=== PATIENT | male | born 1960 | race Caucasian/White ===

== ENCOUNTER 2016-09-14 06:53 | Day surgery (SDC) | payer OTHER ==
[~2016-09-14 06:53] MED LIST: DEXAMETHASONE INJECTION 10 MG in SODIUM CHLORIDE 50 ML IVPB ONE; FLUOROURACIL 4,100 MG in SODIUM CHLORIDE 10 ML CP ONE; PALONOSETRON HCL 0.25 MG in SODIUM CHLORIDE 50 ML IVPB ONE
[2016-09-14] MEDS ORDERED: DEXAMETHASONE INJECTION 10 MG in SODIUM CHLORIDE 50 ML IVPB ONE (08:00)
[2016-09-14] MEDS ORDERED: PALONOSETRON HCL 0.25 MG in SODIUM CHLORIDE 50 ML IVPB ONE (08:00)
[2016-09-14] MEDS ORDERED: DEXTROSE 5%-WATER - 250 ML IVPB ONE (08:00)
[2016-09-14] MEDS ORDERED: LEUCOVORIN INJECTION - 684 MG in DEXTROSE 5%-WATER - 250 ML IVPB ONE (08:30)
[2016-09-14] MEDS ORDERED: OXALIPLATIN 145 MG in DEXTROSE 5%-WATER - 500 ML IV ONE (08:30)
[2016-09-14 09:23] LABS: BASOPHIL 1.8 % (0-2.0); EOSINOPHIL 2.7 % (0-4.5); MCHC 34.9 g/dl (32.0-35.9); MEAN CELL VOLUME 94.7 fl (80-96); MEAN PLT VOLUME 6.9 fl (7.5-11.1); NEUTROPHILS 62.2 % (42.8-82.8); PLATELET COUNT 351 K/MM3 (134-434); RDW 20.3 % (11.9-15.9); WHITE BLOOD COUNT 7.3 K/mm3 (4.0-10.0)
[2016-09-14 09:40] LABS: ALBUMIN 3.4 g/dl (3.4-5.0); ANION GAP 9 (8-16); BILIRUBIN,TOTAL 0.5 mg/dL (0.2-1.0); CALCIUM 9.1 mg/dL (8.5-10.1); CO2 28 mmol/L (21-32); CREATININE 1.3 mg/dL (0.7-1.3); GLUCOSE,RANDOM 104 mg/dL (74-106); SGPT/ALT 20 U/L (12-78); TOT PROT 7.3 g/dl (6.4-8.2)
[2016-09-14 09:43] LABS: BILIRUBIN,DIRECT < 0.1 mg/dL (0.0-0.2); MAGNESIUM 1.8 mg/dL (1.8-2.4); SGOT/AST 24 U/L (15-37)
[2016-09-14 09:44] LABS: ALK PHOS 239 U/L (45-117)
[2016-09-14] MEDS ORDERED: FLUOROURACIL 4,100 MG in SODIUM CHLORIDE 10 ML CP ONE (10:30)
[2016-09-14] MEDS ORDERED: FLUOROURACIL 500 MG/10 ML VIAL IVPUSH ONE (10:30)
[2016-09-14 17:33] VITALS: BP 102/65; PULSE 80; TEMP 97.7; BMI 20.9
== END 2016-09-14 15:00 | disposition home or self-care (01) ==
LOC: JCHEMO 06:53 → JONCCHEMO 06:53 → J7W 06:54 → JCHEMO 15:00
PROVIDERS: ATTEND Internal Medicine Hematology & Oncology
DX: Z51.11 Encounter for antineoplastic chemotherapy (principal); C20 Malignant neoplasm of rectum; I10 Essential (primary) hypertension
CPT/HCPCS: 36415; 80053; 80076; 83735; 85025; 96361; 96366; 96368; 96411; 96413; 96415; 96417; G0498; J2469; J9190; J9263

== ENCOUNTER 2016-09-28 06:21 | Day surgery (SDC) | payer OTHER ==
[2016-09-28] MEDS ORDERED: DEXTROSE 5%-WATER - 250 ML IVPB ONE (08:00)
[2016-09-28] MEDS ORDERED: PALONOSETRON HCL 0.25 MG in SODIUM CHLORIDE 50 ML IVPB ONE (08:00)
[2016-09-28] MEDS ORDERED: DEXAMETHASONE INJECTION 10 MG in SODIUM CHLORIDE 50 ML IVPB ONE (08:00)
[2016-09-28] MEDS ORDERED: LEUCOVORIN INJECTION - 684 MG in DEXTROSE 5%-WATER - 250 ML IVPB ONE (08:30)
[2016-09-28] MEDS ORDERED: OXALIPLATIN 145 MG in DEXTROSE 5%-WATER - 500 ML IV ONE (08:30)
[2016-09-28 09:15] LABS: BASOPHIL 0.6 % (0-2.0); EOSINOPHIL 3.4 % (0-4.5); MCH 33.4 pg (25.7-33.7); MCHC 34.7 g/dl (32.0-35.9); MEAN PLT VOLUME 7.4 fl (7.5-11.1); NEUTROPHILS 59.7 % (42.8-82.8); PLATELET COUNT 302 K/MM3 (134-434); RDW 20.5 % (11.9-15.9); WHITE BLOOD COUNT 6.3 K/mm3 (4.0-10.0)
[2016-09-28 09:37] LABS: ALBUMIN 3.1 g/dl (3.4-5.0); ANION GAP 10 (8-16); BILIRUBIN,TOTAL 0.5 mg/dL (0.2-1.0); CALCIUM 8.8 mg/dL (8.5-10.1); CO2 24 mmol/L (21-32); CREATININE 1.2 mg/dL (0.7-1.3); GLUCOSE,RANDOM 112 mg/dL (74-106); SGOT/AST 29 U/L (15-37); SGPT/ALT 23 U/L (12-78)
[2016-09-28 09:40] LABS: ALK PHOS 217 U/L (45-117); TOT PROT 6.7 g/dl (6.4-8.2)
[2016-09-28] MEDS ORDERED: FLUOROURACIL 500 MG/10 ML VIAL IVPUSH ONE (10:30)
[2016-09-28] MEDS ORDERED: FLUOROURACIL 4,100 MG in SODIUM CHLORIDE 10 ML CP ONE (10:45)
[2016-09-28 16:20] VITALS: TEMP 98.1; BMI 21.7
[2016-09-28 16:39] VITALS: BP 134/81; PULSE 78
== END 2016-09-28 15:17 | disposition home or self-care (01) ==
LOC: JONCCHEMO 06:21 → J7W 09:47 → JONCCHEMO 15:17
PROVIDERS: ATTEND Internal Medicine Hematology & Oncology
DX: Z51.11 Encounter for antineoplastic chemotherapy (principal); C20 Malignant neoplasm of rectum
CPT/HCPCS: 36415; 80053; 85025; 96413; 96415; G0498; J2469; J9190; J9263

== ENCOUNTER 2017-03-02 08:00 | Day surgery (SDC) | payer OTHER ==
[2017-03-02 08:15] VITALS: BMI 23.4
[2017-03-02] MEDS ORDERED: PROPOFOL 20 ML ONE (08:36)
[2017-03-02] MEDS ORDERED: LIDOCAINE HCL/PF 2% SDV 5ML VIAL ONE (08:36)
[2017-03-02 09:27] VITALS: TEMP 97.7
[2017-03-02 11:19] VITALS: BP 132/88; PULSE 73
--- NOTE | 2017-03-03 16:26 | PATH ---
Surgical Pathology Report Patient Name: RAMONE MÉNDEZ [facility]. Rec. #: [id number] /Age/Gender: 1960 (Age: 56) / M Account: [id number] Location: U-ENDOSCOPY Taken: 03/02/2017 Received: 03/02/2017 Reported: 03/03/2017 Physicians: Justin Littlejohn M.D. Specimen(s) Received BX RECTUM STRICTURE Clinical History History of rectal adenocarcinoma Rectal stricture at carcinoma site, r/o radiation versus malignant stricture Final Diagnosis RECTAL STRICTURE, BIOPSY: ULCERATED RECTAL MUCOSA WITH ASSOCIATED MARKED ACTIVE AND CHRONIC INFLAMMATION, INFLAMED GRANULATION TISSUE, NECROINFLAMMATORY DEBRIS, MILD LAMINA PROPRIA FIBROSIS AND HYPERPLASTIC CHANGE (SEE COMMENT). NO DYSPLASIA OR CARCINOMA/MALIGNANCY IDENTIFIED. NO HISTOLOGIC EVIDENCE OF VIRAL CYTOPATHIC EFFECT. Comment: The findings, while not specific, may represent a radiation related injury. Electronically Signed Vincent Rodriguez M.D. Gross Description Received in formalin, labeled "biopsy rectal stricture" are 5 serna, irregular portions of soft tissue ranging from 0.2-0.4 cm in greatest dimension. The specimens are submitted in toto in one cassette. 03/02/201703/02/2017
== END 2017-03-02 10:22 | disposition home or self-care (01) ==
LOC: JASU-ENDO 08:00
PROVIDERS: ATTEND Internal Medicine Gastroenterology
PROC: 0DBP8ZX Excision of Rectum, Via Natural or Artificial Opening Endoscopic, Diagnostic (ICD-10-PCS; principal; 2017-03-02 09:00)
DX: Z12.11 Encounter for screening for malignant neoplasm of colon (principal); K62.4 Stenosis of anus and rectum; K64.8 Other hemorrhoids; Z85.048 Personal history of other malignant neoplasm of rectum, rectosigmoid junction, and anus
CPT/HCPCS: 88305-TC

== ENCOUNTER 2017-03-06 04:45 | Inpatient (IN) | payer OTHER ==
[2017-03-06] MEDS ORDERED: ONDANSETRON 4 MG/2 ML VIAL IVPB ONE (05:24)
[2017-03-06] MEDS ORDERED: ONDANSETRON 4 MG/2 ML VIAL ONE ×2 (05:24)
[2017-03-06 05:37] VITALS: BMI 24.3
[2017-03-06] MEDS ORDERED: SODIUM CHLORIDE 0.9% 1000 ML INFUS.BAG IV ONE (05:43)
[2017-03-06 06:00] LABS: BASOPHIL 0.1 % (0-2.0); MCH 30.9 pg (25.7-33.7); MCHC 33.5 g/dl (32.0-35.9); MEAN CELL VOLUME 92.2 fl (80-96); MEAN PLT VOLUME 8.5 fl (7.5-11.1); NEUTROPHILS 85.6 % (42.8-82.8); PLATELET COUNT 568 K/MM3 (134-434); RDW 14.2 % (11.9-15.9)
[2017-03-06 06:31] LABS: ALBUMIN 3.3 g/dl (3.4-5.0); ALK PHOS 161 U/L (45-117); ANION GAP 17 (8-16); CALCIUM 8.4 mg/dL (8.5-10.1); CO2 17 mmol/L (21-32); CREATININE 2.1 mg/dL (0.7-1.3); GLUCOSE,RANDOM 185 mg/dL (74-106); SGOT/AST 21 U/L (15-37); SGPT/ALT 23 U/L (12-78); TOT PROT 7.3 g/dl (6.4-8.2)
--- NOTE | 2017-03-06 06:37 | PDOC ---
History of Present Illness - General Chief Complaint: Pain, Acute Stated Complaint: ABD PAIN, VOMITING, FEVER Time Seen by Provider: 03/06/17 05:23 - History of Present Illness Initial Comments: 03/06/17 06:37 CHIEF COMPLAINT: vomiting HISTORY OF PRESENT ILLNESS: 56 yo M with hx HTN, kidney stones, of colon cancer (s/p radiation & chemotherapy, awaiting surgery) presents to ED with vomiting since 1 pm yesterday. Patient states that he recently went for endoscopy which was unsuccessful "because they couldn't pass it all the way through. He is waiting for surgery on Tuesday with Dr. Miller to remove the tumor." Patient states he "has a little" lower abdominal pain. Patient's last BM was yesterday afternoon around 1 pm. Patient's mother reports that he "was supposed to get ready for his colonoscopy on Tuesday, but he didn't read the instructions of the stuff he was supposed to drink and he ate prior to drinking it. He started vomiting at that time, but then he went for the colonoscopy on Tuesday and it stopped." PCP: Rod Oncology: Ines GI: Eron Urology: Kyra Surgeon: PAST MEDICAL HISTORY: as per HPI FAMILY HISTORY: Denies SOCIAL HISTORY: Denies tobacco, alcohol, illicit drug use. SURGICAL HISTORY: Denies ALLERGIES: No known drug allergies REVIEW OF SYSTEMS General/Constitutional: Denies fever or chills. Denies weakness, weight change. HEENT: Denies change in vision. Denies ear pain or discharge. Denies sore throat. Cardiovascular: Denies chest pain or shortness of breath. Respiratory: Denies cough, wheezing, or hemoptysis. Gastrointestinal: Vomiting since yesterday afternoon. Denies diarrhea or constipation. Denies rectal bleeding. Genitourinary: Denies dysuria, frequency, or change in urination. Musculoskeletal: Denies joint or muscle swelling or pain. Denies neck or back pain. Skin and breasts: Denies rash or easy bruising. Neurologic: Denies headache, vertigo, loss of consciousness, or loss of sensation. PHYSICAL EXAM General Appearance: Ill-appearing, vomiting. HEENT: EOMI, PERRLA, normal ENT inspection, normal voice, TMs normal, pharynx normal. No conjunctival pallor. No photophobia, scleral icterus. Respiratory/Chest: Lungs CTAB. Cardiovascular: RRR. S1, S2. No JVD, murmur, bradycardia, tachycardia. Vascular Pulses: Dorsalis-Pedis (R): 2+, Dorsalis-Pedis (L): 2+ Gastrointestinal/Abdominal: Distended, rigid abdomen. Actively vomiting dark brown emesis. No organomegaly, hernia, hepatomegaly, splenomegaly. Musculoskeletal/Extremities: Normal inspection. FROM of all extremities, normal capillary refill. Pelvis Stable. No CVA tenderness. No tenderness to extremities, pedal edema, swelling, erythema or deformity. Integumentary: Pale, diaphoretic. No cyanosis, erythema, or rash Neurologic: er manager II-XII intact. Fully oriented, alert. Appropriate mood/affect. Motor strength 5/5. No appreciable EOM palsy, facial droop or sensory deficit. Past History - Past Medical History Allergies/Adverse Reactions: Allergies Allergy/AdvReac Type Severity Reaction Status Date / Time No Known Allergies Allergy Verified 03/06/17 05:09 Home Medications: Ambulatory Orders Amlodipine Besylate/Benazepril [Lotrel 5-10 mg Capsule] 1 cap PO HS 03/06/17 Anemia: Yes Asthma: No Cancer: Yes (COLON CANCER 05/15-S/P RT AND CHEMO) Cardiac Disorders: No CVA: No COPD: No CHF: No Dementia: No Diabetes: No GI Disorders: No Disorders: No HTN: Yes Hypercholesterolemia: No Liver Disease: No Seizures: No Thyroid Disease: No - Surgical History Orthopedic Surgery: Yes (RIGHT KNEE SX MENISCUS) - Family Disease History Family Disease History: Heart Disease: Father - Psycho/Social/Smoking Cessation Hx Suicidal Ideation: No Smoking History: Never smoked Have you smoked in the past 12 months: No Information on smoking cessation initiated: No Hx Alcohol Use: No Drug/Substance Use Hx: No Substance Use Type: None *Physical Exam - Vital Signs Last Vital Signs Temp Pulse Resp BP Pulse Ox 99.1 F 99 H 22 113/80 99 03/06/17 05:09 03/06/17 05:09 03/06/17 05:09 03/06/17 05:09 03/06/17 05:09 ED Treatment Course - LABORATORY CBC & Chemistry Diagram: 03/12/17 06:00 03/13/17 06:30 - ADDITIONAL ORDERS Additional order review: Laboratory Results 03/06/17 05:30 WBC 12.0 H D RBC 4.93 D Hgb 15.2 D Hct 45.5 D MCV 92.2 MCH 30.9 MCHC 33.5 RDW 14.2 D Plt Count 568 H D MPV 8.5 D Neutrophils % 85.6 H D Lymphocytes % 4.7 L D Monocytes % 9.6 Eosinophils % 0.0 D Basophils % 0.1 03/06/17 05:30 RBC 4.93 D MCV 92.2 MCHC 33.5 RDW 14.2 D MPV 8.5 D Neutrophils % 85.6 H D Lymphocytes % 4.7 L D Monocytes % 9.6 Eosinophils % 0.0 D Basophils % 0.1 - RADIOLOGY Radiology Studies Ordered: Category Date Time Status ABDOMEN FLAT & UPRIGHT [RAD] Stat Radiology 03/06/17 06:29 Ordered - Medications Given in the ED: ED Medications Discontinued Medications Generic Name Dose Route Start Last Admin Trade Name Freq PRN Reason Stop Dose Admin Ondansetron HCl 8 mg 03/06/17 05:24 03/06/17 05:35 Zofran Injection IVPB 03/06/17 05:25 8 mg ONCE ONE Administration Sodium Chloride 1,000 ml 03/06/17 05:43 03/06/17 05:49 Normal Saline - IV 03/06/17 05:44 1,000 ml ONCE ONE Administration Medical Decision Making - Medical Decision Making 03/06/17 06:48 56 yo M with hx of colon cancer presents to ED with vomiting. -CBC, CMP, PT/INR, lactic acid, blood culture -UA, Ucx NGT placed, 600cc dark brown gastric content removed. Laboratory Tests 03/06/17 03/06/17 05:30 05:33 WBC 12.0 H D Plt Count 568 H D Neutrophils % 85.6 H D Sodium 133 L Carbon Dioxide 17 L D Anion Gap 17 H BUN 52 H D Creatinine 2.1 H D 03/06/17 06:42 Patient likely obstructed, abdominal x-ray ordered and Dr. Eron nava. Awaiting callback. Case discussed in detail with oncoming emergency provider including history, physical exam and ancillary studies. In brief, this patient is being seen in the ED for a chief complaint of: vomiting and abd pain in setting of colon cancer I have completed the initial assessment interview note and have ordered the following labs: CBC, CMP, PT/INR, lactic acid, blood culture Pending results: x-rays Please call the PCP: Rod Plan for disposition as follows: admit Oncoming NPA Anni has assumed care for the patient and will complete the evaluation and treatment. *DC/Admit/Observation/Transfer Diagnosis at time of Disposition: Small bowel obstruction, Lactic acid acidosis - Referrals
[2017-03-06 07:01] LABS: INR 1.43 (0.82-1.09); PROTHROMBIN TIME (PATIENT) 15.8 SEC (9.98-11.88)
[2017-03-06] MEDS ORDERED: PANTOPRAZOLE SODIUM 40 MG in SODIUM CHLORIDE 100 ML IVPB ONE (07:15)
--- NOTE | 2017-03-06 07:16 | PDOC ---
*Physical Exam - Vital Signs Last Vital Signs Temp Pulse Resp BP Pulse Ox 99.1 F 99 H 22 113/80 99 03/06/17 05:09 03/06/17 05:09 03/06/17 05:09 03/06/17 05:09 03/06/17 05:09 03/06/17 12:29 Heart Score/ECG Review - ECG Intrepretation Comment:: 03/06/17 10:25 NSR at 98bpm ED Treatment Course - LABORATORY CBC & Chemistry Diagram: 03/06/17 08:59 03/06/17 08:59 - ADDITIONAL ORDERS Additional order review: Laboratory Results 03/06/17 03/06/17 05:33 05:30 Sodium 133 L Potassium 4.1 Chloride 99 Carbon Dioxide 17 L D Anion Gap 17 H BUN 52 H D Creatinine 2.1 H D Creat Clearance w eGFR 32.83 Random Glucose 185 H D Calcium 8.4 L Total Bilirubin 1.0 D AST 21 D ALT 23 Alkaline Phosphatase 161 H D Total Protein 7.3 Albumin 3.3 L Lipase 74 03/06/17 05:30 RBC 4.93 D MCV 92.2 MCHC 33.5 RDW 14.2 D MPV 8.5 D Neutrophils % 85.6 H D Lymphocytes % 4.7 L D Monocytes % 9.6 Eosinophils % 0.0 D Basophils % 0.1 - Medications Given in the ED: ED Medications Discontinued Medications Generic Name Dose Route Start Last Admin Trade Name Freq PRN Reason Stop Dose Admin Ondansetron HCl 8 mg 03/06/17 05:24 03/06/17 05:35 Zofran Injection IVPB 03/06/17 05:25 8 mg ONCE ONE Administration Sodium Chloride 1,000 ml 03/06/17 05:43 03/06/17 05:49 Normal Saline - IV 03/06/17 05:44 1,000 ml ONCE ONE Administration Medical Decision Making - Medical Decision Making 03/06/17 07:16 Signout received from SHIRA Gudino. Briefly, this is a 56 year old male with a history of HTN, nephrolithiasis, and colon cancer (s/p RTX & chemotherapy, awaiting surgery, states he is stage IV but is unable to state where mets are) who presented to the ED with abdominal distention and coffee ground emesis since 1 pm yesterday. Workup so far is notable for: -H/H within normal limits at -BUN/Cr 52/2.1 suggestive of UGIB vs. vomiting/dehydration -HCO3- 17 with AG 17 -INR 4.3 -Ngt placed with 700 mL dark brown output GI has been paged and consultation is pending. Plan: -Protonix 40mg IVP now -Protonix gtt -AXR -CTAP (no IV contrast, renal insufficiency) to r/o obstruction; recent colonoscopy 03/02/17 revealed stricture in rectum; patient does report bowel movement yesterday -Repeat CBC 03/06/17 07:36 Lactic acid 6.2. 03/06/17 09:10 AXR consistent with SBO. Will follow up CTAP. 03/06/17 09:54 Repeat chemistry: HCO3- 13, AG 19. Will start D5W + sodium bicarb x 3 amps. Repeat H/H remains within normal limits at 14.4/42.[address] Velasco (primary), Dr. Cisneros (surgery), Dr. Avila (GI), and covering oncologist. Requested ICU admission and discussed case with covering lead nuclear medicine technologist; recommends floor admission at this time. 03/06/17 10:36 Repeat BP 83/40. Fluids infusing. ICU admission accepted. *DC/Admit/Observation/Transfer Diagnosis at time of Disposition: Small bowel obstruction, Lactic acid acidosis - Discharge Dispostion Admit: Yes - Referrals - Patient Instructions - Post Discharge Activity
[2017-03-06] MEDS ORDERED: PANTOPRAZOLE SODIUM 80 MG in SODIUM CHLORIDE 100 ML IVPB SCH (07:30)
[2017-03-06] MEDS ORDERED: SODIUM CHLORIDE 1,000 ML IV SCH (07:45)
[2017-03-06] MEDS ORDERED: PANTOPRAZOLE SODIUM 40 MG VIAL ONE (08:46)
[2017-03-06] MEDS ORDERED: PANTOPRAZOLE SODIUM 100 ML IVPB ONE (08:46)
[2017-03-06 09:18] LABS: BASOPHIL 0.1 % (0-2.0); MCH 31.5 pg (25.7-33.7); MCHC 33.9 g/dl (32.0-35.9); MEAN CELL VOLUME 92.9 fl (80-96); NEUTROPHILS 82.7 % (42.8-82.8); PLATELET COUNT 500 K/MM3 (134-434); RDW 13.8 % (11.9-15.9); WHITE BLOOD COUNT 12.7 K/mm3 (4.0-10.0)
[2017-03-06 09:20] LABS: URINE APPEARANCE SLCLOUDY; URINE BLOOD NEGATIVE (NEGATIVE); URINE COLOR AMBER; URINE GLUCOSE (UA) NEGATIVE (NEGATIVE); URINE KETONE NEGATIVE (NEGATIVE); URINE NITRITE NEGATIVE (NEGATIVE); URINE UROBILINOGEN 4.0 E.U/dl mg/dL (0.2-1.0)
[2017-03-06 09:22] LABS: URINE LEUK ESTERASE 1+ (NEGATIVE); URINE PROTEIN 1+ (NEGATIVE)
[2017-03-06 09:27] LABS: URINE HYALINE CAST 32 /lpf; URINE MUCUS RARE; URINE RBC 4 /hpf (0-3); URINE WBC 4 /hpf (3-5)
[2017-03-06 09:53] LABS: ANION GAP 19 (8-16); CALCIUM 7.7 mg/dL (8.5-10.1); CO2 13 mmol/L (21-32); GLUCOSE,RANDOM 150 mg/dL (74-106)
[2017-03-06] MEDS ORDERED: morphine CARPU-JECT 4 MG/1 ML DISP.SYRIN IVPUSH ONE (09:57)
[2017-03-06] MEDS ORDERED: DEXTROSE 5%-WATER - 1,000 ML with SODIUM BICARBONATE 8.4% - 150 MEQ IV SCH ×3 (10:00→22:00)
[2017-03-06] MEDS ORDERED: morphine CARPU-JECT 4 MG/1 ML DISP.SYRIN ONE (10:22)
[2017-03-06] MEDS ORDERED: LACTATED RINGERS SOLUTION 1,000 ML IV SCH (10:45)
[2017-03-06] MEDS ORDERED: SODIUM BICARBONATE 8.4% - 150 MEQ in DEXTROSE 5%-WATER - 1,000 ML IV SCH ×2 (11:23→22:00)
[2017-03-06] MEDS ORDERED: SODIUM BICARBONATE 8.4% - 150 MEQ in DEXTROSE 5%-WATER - 1,000 ML IV ONE (11:29)
--- NOTE | 2017-03-06 11:29 | CONSULT ---
Consult Consult Specialty:: General Surgery Referred by:: Fatimah Hutton Reason for Consultation:: bowel obstruction in context of rectal CA s/p neoadjuvant chemoRT - History of Present Illness Chief Complaint: abdominal distention, pain, vomiting History of Present Illness: 56yo M with HTN and locally advanced T3a/T3b (stage 4 per patient, but records are unclear if metastasis present) rectal CA, s/p neoadjuvant chemo and radiation therapy with good response, completed in October and possibly November, who was scheduled to see Dr. Angelo Tuesday to discuss resection, had colonoscopy 03/02 by GI showing rectal stricture which could not be passed at 6-7cm from anus, biopsies done, and then yesterday began having abdominal pain and distention associated with N/V multiple episodes. He had a temp of 100.2 at home yesterday, but no f/c since. Last BM (not diarrhea or hard/constipation) was yesterday ~1pm before the vomiting started. He denies history of constipation or diarrhea in recent weeks or months. Denies urinary complaints. Has left ureteral stent since July for staghorn calculus with hydro s/p ESWL. He had been eating normally until he started having abdominal discomfort. Per pt, he had a PET scan in October at outpatient radiology center, which lit up only in rectal area. 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 In the ER, wbc was 12, lactate was 6 now down to 5.3, BUN/Cr elevated with creatinine of 2 over baseline of 1. INR 1.4, hemoconcentrated with improvement on repeat. UA ok given stent. AXR shows large distended loop of bowel suggestive of obstruction, no free air. CT without contrast is pending. - History Source History Provided By: Patient, Medical Record Limitations to Obtaining History: No Limitations - Past Medical History Cardio/Vascular: Yes: HTN Gastrointestinal: Yes: Cancer (rectal s/p neoadjuvant chemoRT), GI Bleed (h/o last year when CA diagnosed) Renal/: Yes: Renal Calculi (s/p ESWL), Other (L ureteral stent 07/16 (in place )) Heme/Onc: Yes: Anemia, Cancer (desmoid tumor of abdominal wall) - Past Surgical History Past Surgical History: Yes: Colonoscopy, Upper Endoscopy Additional Surgical History: L ureteral stent 07/16 - Alcohol/Substance Use Hx Alcohol Use: No Number of Drinks Daily: 0 (quit drinking 04/16) History of Substance Use: reports: None - Smoking History Smoking history: Never smoked Have you smoked in the past 12 months: No - Social History Usual Living Arrangement: Alone ADL: Independent 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 denies: Chills Eyes: denies: Blurred Vision, Double Vision HENT: denies: Difficult Swallowing, Throat Pain Neck: denies: Swollen Glands, Tenderness Cardiovascular: denies: Chest Pain, Palpitations Respiratory: denies: Cough, SOB Gastrointestinal: reports: Abdominal Pain (with hpi), Bloating (with hpi), Nausea (with hpi), Vomiting (with hpi). denies: Constipation, Diarrhea, Rectal Bleeding Genitourinary: denies: Burning, Dysuria Musculoskeletal: denies: Back Pain, Joint Pain, Muscle Pain Integumentary: denies: Change in Color, Rash Neurological: denies: Dizziness, Headache Hematology/Lymphatic: denies: Excessive Bleeding, Swollen Glands Physical Exam Vital Signs: Vital Signs Temperature 97.8 F 03/06/17 08:34 Pulse Rate 98 H 03/06/17 08:34 Respiratory Rate 18 03/06/17 08:34 Blood Pressure 105/71 03/06/17 11:03 O2 Sat by Pulse Oximetry (%) 98 03/06/17 08:34 Constitutional: Yes: Well Nourished, Calm, Mild Distress (NGT/distention) Eyes: Yes: Conjunctiva Clear, EOM Intact. No: Sclera Icterus HENT: Yes: Atraumatic, Normocephalic Cardiovascular: Yes: Regular Rate and Rhythm. No: Murmur Respiratory: Yes: CTA Bilaterally, Tachypnea Gastrointestinal: Yes: Soft (at upper edges, firmer with distention but not rigid), Distention (with tympany), Hyperactive Bowel Sounds (with tinkling), Tenderness (mainly in lower aspects, no R/G) ...Rectal Exam: Yes: Deferred Renal/: No: CVA Tenderness - Left, CVA Tenderness - Right Musculoskeletal: No: Back Pain, Joint Swelling Extremities: No: Cool, Cyanosis Edema: No Peripheral Pulses WNL: Yes Integumentary: No: Jaundice, Rash Neurological: Yes: Alert, Oriented Labs: CBCD WBC 12.7 K/mm3 (4.0-10.0) H 03/06/17 08:59 RBC 4.59 M/mm3 (4.00-5.60) 03/06/17 08:59 Hgb 14.4 GM/dL (11.7-16.9) 03/06/17 08:59 Hct 42.6 % (35.4-49) 03/06/17 08:59 MCV 92.9 fl (80-96) 03/06/17 08:59 MCHC 33.9 g/dl (32.0-35.9) 03/06/17 08:59 RDW 13.8 % (11.9-15.9) 03/06/17 08:59 Plt Count 500 K/MM3 (134-434) H 03/06/17 08:59 MPV 8.0 fl (7.5-11.1) 03/06/17 08:59 CMP Sodium 135 mmol/L (136-145) L 03/06/17 08:59 Potassium 4.5 mmol/L (3.5-5.1) 03/06/17 08:59 Chloride 103 mmol/L (98-107) 03/06/17 08:59 Carbon Dioxide 13 mmol/L (21-32) L D 03/06/17 08:59 Anion Gap 19 (8-16) H 03/06/17 08:59 BUN 60 mg/dL (7-18) H 03/06/17 08:59 Creatinine 2.0 mg/dL (0.7-1.3) H 03/06/17 08:59 Creat Clearance w eGFR 32.83 (>60) 03/06/17 05:33 Calcium 7.7 mg/dL (8.5-10.1) L 03/06/17 08:59 Total Bilirubin 1.0 mg/dL (0.2-1.0) D 03/06/17 05:33 AST 21 U/L (15-37) D 03/06/17 05:33 ALT 23 U/L (12-78) 03/06/17 05:33 Alkaline Phosphatase 161 U/L (45-117) H D 03/06/17 05:33 Total Protein 7.3 g/dl (6.4-8.2) 03/06/17 05:33 Albumin 3.3 g/dl (3.4-5.0) L 03/06/17 05:33 Abnormal Lab Results 03/06/17 03/06/17 03/06/17 05:30 05:33 05:33 WBC 12.0 H D Plt Count 568 H D Neutrophils % 85.6 H D Lymphocytes % 4.7 L D Monocytes % INR Sodium 133 L Carbon Dioxide 17 L D Anion Gap 17 H BUN 52 H D Creatinine 2.1 H D Random Glucose 185 H D Lactic Acid Calcium 8.4 L Alkaline Phosphatase 161 H D Albumin 3.3 L Urine Protein 1+ H Ur Leukocyte Esterase 1+ H 03/06/17 03/06/17 03/06/17 06:30 06:30 08:59 WBC 12.7 H Plt Count 500 H Neutrophils % Lymphocytes % 4.5 L Monocytes % 12.7 H INR 1.43 H Sodium Carbon Dioxide Anion Gap BUN Creatinine Random Glucose Lactic Acid 6.2 H* Calcium Alkaline Phosphatase Albumin Urine Protein Ur Leukocyte Esterase 03/06/17 03/06/17 08:59 08:59 WBC Plt Count Neutrophils % Lymphocytes % Monocytes % INR Sodium 135 L Carbon Dioxide 13 L D Anion Gap 19 H BUN 60 H Creatinine 2.0 H Random Glucose 150 H Lactic Acid 5.3 H* Calcium 7.7 L Alkaline Phosphatase Albumin Urine Protein Ur Leukocyte Esterase Imaging - Results Chest X-ray: Report Reviewed X-ray: Report Reviewed (large distended loop of bowel suggestive of obstruction , no free air), Image Reviewed Cat Scan: Pending Problem List - Problems (1) Rectal malignant neoplasm Assessment/Plan: s/p neoadjuvant chemoRT, done in October or November Code(s): C20 - MALIGNANT NEOPLASM OF RECTUM (2) Bowel obstruction Assessment/Plan: admitted to medicine/ICU NPO/IVF/NGT to low continuous suction may be secondary to rectal stricture seen on scope Tuesday, s/p chemoRT for low rectal CA surgery was planned for rectal tumor after chemoRT; if obstruction not resolving , may require operative intervention with diversion sooner stage of cancer may affect surgical options - need to clarify with oncology agree with aggressive fluid resuscitation, NG suction, trend labs will follow up CT results when available serial AXR also discussed with Dr. Angelo, who is familiar with patient Code(s): K56.60 - UNSPECIFIED INTESTINAL OBSTRUCTION Qualifiers: Intestinal obstruction type: other intestinal obstruction Qualified Code(s): K56.69 - Other intestinal obstruction (3) Rectal stricture Assessment/Plan: present on scope 03/02, but GI could not pass through biopsy results show no malignancy s/p therapy Code(s): K62.4 - STENOSIS OF ANUS AND RECTUM (4) Dehydration Assessment/Plan: BUN/Cr elevated, acidosis present, hemoconcentrated IV fluid resuscitation Alvarez catheter replete lytes prn Code(s): E86.0 - DEHYDRATION (5) Lactic acid acidosis Assessment/Plan: see above Code(s): E87.2 - ACIDOSIS (6) Status post chemotherapy Assessment/Plan: for locally advanced rectal cancer Code(s): Z92.21 - PERSONAL HISTORY OF ANTINEOPLASTIC CHEMOTHERAPY (7) S/P radiation therapy > 12 wks ago Assessment/Plan: for locally advanced rectal cancer Code(s): Z92.3 - PERSONAL HISTORY OF IRRADIATION Assessment/Plan Thank you for the opportunity to participate in the care of this patient.
--- NOTE | 2017-03-06 11:58 | CONSULT ---
Consult Consult Specialty:: PULMONARY / CRITICAL CARE Referred by:: Dr Velasco Reason for Consultation:: bowel obstruction, hypotension - History of Present Illness Chief Complaint: abdominal pain, vomiting History of Present Illness: Briefly, 56 y/o M with HTN, kidney stones with obstructive uropathy s/p stent placement 07/2016, has colon cancer that, by his report, is stage 4 although there is no mention of this in onc, surgery or GI notes. He underwent chemo and XRT that was tolerated well, he last received therapy in October of this year. He states he had a PET scan as an outpatient in October that was negative for metastatic spread. He was in his USOH, underwent a bowel prep for colonoscopy earlier this week, he was having normal bowel movements. He underwent colonoscopy but the scope was unable to pass a stricture in the rectum and the procedure was aborted. Yesterday morning (03/05) around 5am he began having abdominal pain, then vomiting of feculent emesis that began yesterday afternoon. Of note, he did have a bowel movement yesterday and was having regular, daily bowel movements this entire week despite having a rectal stricture. He presented to the ED early this morning where he continued to vomit. A NGT was placed with 700mL of feculent emesis. A PPI drip was started prophylacticly. He had ADRIANA with a SCr of 2.1 (baseline is 1.0-1.2) and a lactate of 6. He was given 3L of fluid, Lactate and Cr are downtrending. Surgery evaluated and CT is pending. He is being admitted to the ICU. - History Source History Provided By: Patient, Medical Record Limitations to Obtaining History: No Limitations - Past Medical History Cardio/Vascular: Yes: HTN Gastrointestinal: Yes: Cancer (rectal s/p neoadjuvant chemoRT), GI Bleed (h/o last year when CA diagnosed) Renal/: Yes: Renal Calculi (s/p ESWL), Other (L ureteral stent 07/16 (in place )) - Past Surgical History Past Surgical History: Yes: Colonoscopy, Upper Endoscopy Additional Surgical History: L ureteral stent 07/16 - Alcohol/Substance Use Hx Alcohol Use: No Number of Drinks Daily: 0 (quit drinking 04/16) History of Substance Use: reports: None - Smoking History Smoking history: Never smoked Have you smoked in the past 12 months: No - Social History Usual Living Arrangement: Alone ADL: Independent 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 History of Recent Travel: No Home Medications - Allergies Allergies/Adverse Reactions: Allergies Allergy/AdvReac Type Severity Reaction Status Date / Time No Known Allergies Allergy Verified 03/06/17 05:09 - Home Medications Home Medications: Ambulatory Orders Amlodipine Besylate/Benazepril [Lotrel 5-10 mg Capsule] 1 cap PO HS 03/06/17 Family Disease History - Family Disease History Family Disease History: CA: Grandparent (maternal gf, colon), Other: Brother (2 brothers, healthy) Review of Systems - Review of Systems Constitutional: reports: No Symptoms Eyes: reports: No Symptoms Cardiovascular: reports: No Symptoms Respiratory: reports: No Symptoms Gastrointestinal: reports: Abdominal Pain, Bloating, Constipation, Vomiting Genitourinary: reports: No Symptoms Musculoskeletal: reports: No Symptoms Integumentary: reports: No Symptoms Neurological: reports: No Symptoms Endocrine: reports: No Symptoms Hematology/Lymphatic: reports: No Symptoms Physical Exam Vital Signs: Vital Signs Temperature 97.8 F 03/06/17 08:34 Pulse Rate 98 H 03/06/17 08:34 Respiratory Rate 18 03/06/17 08:34 Blood Pressure 105/71 03/06/17 11:03 O2 Sat by Pulse Oximetry (%) 98 03/06/17 08:34 Constitutional: Yes: No Distress, Calm Eyes: Yes: WNL HENT: Yes: WNL Neck: Yes: WNL Cardiovascular: Yes: Regular Rate and Rhythm, S1, S2. No: JVD Respiratory: Yes: CTA Bilaterally Gastrointestinal: Yes: Distention, Hypoactive Bowel Sounds, Tenderness Musculoskeletal: Yes: WNL Extremities: Yes: WNL Edema: No Peripheral Pulses WNL: Yes Integumentary: Yes: WNL Neurological: Yes: WNL ...Motor Strength: WNL Labs: CBC, BMP 03/06/17 08:59 03/06/17 08:59 Lactate 6.2 --> 5.3 Imaging - Results Chest X-ray: Report Reviewed, Image Reviewed X-ray: Report Reviewed, Image Reviewed Cat Scan: Pending Assessment/Plan Colon cancer s/p chemo and XRT, unclear staging Known rectal stricture Partial large bowel vs SBO ADRIANA Lactic acidosis HTN -Admit to ICU -Surgery following -NPO -NGT to LWS -PPI -Follow up CTAP -Fluid resuscitation - has gotten 3L of NS, would give 1L of D5W with 150mEq of NaHCO3 next then switch to LR -Place haley -Repeat Lacate -Hold anti-HTN medications -Follow up with Oncology -Follow up cultures - would hold off on empiric abx unless evidence of perforation Pt is critically ill - CCT 45min Thank you for this interesting consult [facility] Mon[facility] Pulm/Critical Care [employer]
--- NOTE | 2017-03-06 12:21 | CONSULT ---
Consult - text type - Consultation Consultation Note: Consult Specialty:: Oncology Referred by:: Fatimah Hutton Reason for Consultation:: rectal CA s/p neoadjuvant chemoRT and chemo RT - History of Present Illness Chief Complaint: abdominal distention, pain, vomiting History of Present Illness: This h/o is from previous notes as I am covering for who is the primary medical Oncologist. This is a 56 yr old male with locally advanced T3a/ T3b (stage 4 per patient, but records are unclear if metastasis present) rectal CA, s/p neoadjuvant chemo and radiation therapy with good response, completed in November, who was scheduled to see Dr. Angelo Tuesday to discuss resection. He had colonoscopy on 03/02 by GI showing rectal stricture which could not be passed at 6-7cm from anus and biopsies are pending. He started having abdominal pain yesterday along with nausea and vomitting with obstipation. - History Source History Provided By: Patient, Medical Record Limitations to Obtaining History: No Limitations - Past Medical History Cardio/Vascular: Yes: HTN Gastrointestinal: Yes: Cancer (rectal s/p neoadjuvant chemoRT), GI Bleed (h/o last year when CA diagnosed) Renal/: Yes: Renal Calculi (s/p ESWL), Other (L ureteral stent 07/16 (in place )) Heme/Onc: Yes: Anemia, Cancer (desmoid tumor of abdominal wall) - Past Surgical History Past Surgical History: Yes: Colonoscopy, Upper Endoscopy Additional Surgical History: L ureteral stent 07/16 - Alcohol/Substance Use Hx Alcohol Use: No Number of Drinks Daily: 0 (quit drinking 04/16) History of Substance Use: reports: None - Smoking History Smoking history: Never smoked Have you smoked in the past 12 months: No - Social History Usual Living Arrangement: Alone ADL: Independent 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 History of Recent Travel: No Home Medications - Allergies Allergies/Adverse Reactions: Allergies Allergy/AdvReac Type Severity Reaction Status Date / Time No Known Allergies Allergy Verified 03/06/17 05:09 - Home Medications Home Medications: Ambulatory Orders Amlodipine Besylate/Benazepril [Lotrel 5-10 mg Capsule] 1 cap PO HS 03/06/17 Family Disease History - Family Disease History Family Disease History: CA: Grandparent (maternal gf, colon), Other: Brother (2 brothers, healthy) Review of Systems - Review of Systems Constitutional: reports: Fever denies: Chills Eyes: denies: Blurred Vision, Double Vision HENT: denies: Difficult Swallowing, Throat Pain Neck: denies: Swollen Glands, Tenderness Cardiovascular: denies: Chest Pain, Palpitations Respiratory: denies: Cough, SOB Gastrointestinal: reports: Abdominal Pain and distension Genitourinary: denies: Burning, Dysuria Musculoskeletal: denies: Back Pain, Joint Pain, Muscle Pain Integumentary: denies: Change in Color, Rash Neurological: denies: Dizziness, Headache Hematology/Lymphatic: denies: Excessive Bleeding, Swollen Glands Physical Exam Vital Signs: Vital Signs Period Temp Pulse Resp BP Sys/Maldonado Pulse Ox Last 24 Hr 97.8 F-99.1 F 98-99 18-22 80-113/40-80 98-99 Constitutional: Yes: Well Nourished, Calm, has a NG tube in place Eyes: Yes: Conjunctiva Clear, EOM Intact. No: Sclera Icterus HENT: Yes: Atraumatic, Normocephalic Cardiovascular: Yes: Regular Rate and Rhythm. No: Murmur Respiratory: Yes: CTA Bilaterally, Tachypnea Gastrointestinal: Yes: Soft, distended, tympanitic BS, Renal/: No: CVA Tenderness - Left, CVA Tenderness - Right Musculoskeletal: No: Back Pain, Joint Swelling Extremities: No: Cool, Cyanosis Edema: No Peripheral Pulses WNL: Yes Integumentary: No: Jaundice, Rash Neurological: Yes: Alert, Oriented Labs: CBC, BMP 03/06/17 08:59 03/06/17 08:59 Imaging - Results Chest X-ray: Report Reviewed X-ray: Report Reviewed -consistent with SBO, Image Reviewed CT Pending Problem List - Problems (1) Rectal malignant neoplasm Assessment/Plan: s/p neoadjuvant chemoRT, finished in November Code(s): C20 - MALIGNANT NEOPLASM OF RECTUM (2) Bowel obstruction Assessment/Plan: likely due to rectal stricture- is it a post RT stricture vs residual malignancy [I dont have access to biopsy results but form a previous note it seems to be negative for malignancy] I am unsure whether this will change the type of surgery CT A/P can elucidate to a limited extent the presence of other metastasis even though this is unlikely as he has been well till 2 days ago Would continue with surgical management as per Dr. Miller we will review CT A/P when available Code(s): K56.60 - UNSPECIFIED INTESTINAL OBSTRUCTION Qualifiers: Intestinal obstruction type: other intestinal obstruction Qualified Code(s): K56.69 - Other intestinal obstruction (3) Rectal stricture Assessment/Plan: Code(s): K62.4 - STENOSIS OF ANUS AND RECTUM (4) Dehydration Assessment/Plan: Code(s): E86.0 - DEHYDRATION (5) Lactic acid acidosis Assessment/Plan: Code(s): E87.2 - ACIDOSIS (6) Status post chemotherapy Assessment/Plan: Code(s): Z92.21 - PERSONAL HISTORY OF ANTINEOPLASTIC CHEMOTHERAPY (7) S/P radiation therapy Assessment/Plan: Code(s): Z92.3 - PERSONAL HISTORY OF IRRADIATION
--- NOTE | 2017-03-06 12:40 | CON.GI ---
Consult Consult Specialty:: GI Referred by:: Dr. Velasco Reason for Consultation:: Vomiting - History of Present Illness Chief Complaint: I was vomiting History of Present Illness: 56M admitted through [facility] this morning for evaluation of persistent dark vomiting. Mr. Robles tells me that It began 1pm yesterday along with progressive abdominal distention and pain. In ER triage vitals revealed temp 99 and P: 99. NGT placed with 700cc dark drainage reported and 960cc of dark drainage noted in canister noted at my current exam. He was noted to have WBC 12 and AXR revealed suspected SBO. He has a history of rectal Ca for which he has been undergoing neoadjuvant chemo / radiation therapy and underwent colonoscopy last week 03/02/[address] Littlejohn. he was able to complete the 1st 1/2 of the bowel prep however vomited up the 2nd portion. It was incomplete as there was a significant rectal stricture encountered that could not be traveresed with the colonoscope. He does describe having a small BM yesterday. Mr. Robles was scheduled to see Dr. Mello Angelo this coming Tuesday to discuss surgery. - History Source History Provided By: Patient, Medical Record - Past Medical History Cardio/Vascular: Yes: HTN Gastrointestinal: Yes: Cancer (rectal s/p neoadjuvant chemoRT), GI Bleed (h/o last year when CA diagnosed) Renal/: Yes: Renal Calculi (s/p ESWL), Other (L ureteral stent 07/16 (in place )) - Past Surgical History Past Surgical History: Yes: Colonoscopy, Upper Endoscopy Additional Surgical History: L ureteral stent 07/16 - Alcohol/Substance Use Hx Alcohol Use: No Number of Drinks Daily: 0 (quit drinking 04/16) History of Substance Use: reports: None - Smoking History Smoking history: Never smoked Have you smoked in the past 12 months: No - Social History Usual Living Arrangement: Alone ADL: Independent 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 Place of : [facility] History of Recent Travel: No Home Medications - Allergies Allergies/Adverse Reactions: Allergies Allergy/AdvReac Type Severity Reaction Status Date / Time No Known Allergies Allergy Verified 03/06/17 05:09 - Home Medications Home Medications: Ambulatory Orders Amlodipine Besylate/Benazepril [Lotrel 5-10 mg Capsule] 1 cap PO HS 03/06/17 Family Disease History - Family Disease History Family Disease History: CA: Grandparent (maternal gf, colon), Other: Brother (2 brothers, healthy) Review of Systems - Review of Systems Constitutional: denies: Chills Respiratory: denies: SOB Gastrointestinal: reports: Abdominal Pain, Bloating. denies: Melena, Rectal Bleeding Physical Exam-GI Vital Signs: Vital Signs Temperature 97.8 F 03/06/17 08:34 Pulse Rate 108 H 03/06/17 12:00 Respiratory Rate 20 03/06/17 12:00 Blood Pressure 128/82 03/06/17 12:00 O2 Sat by Pulse Oximetry (%) 99 03/06/17 12:00 Constitutional: Yes: No Distress Eyes: No: Sclera Icterus Cardiovascular: Yes: Tachycardia Respiratory: Yes: CTA Bilaterally Gastrointestinal Inspection: Yes: Distention ...Auscultate: Yes: Hypoactive Bowel Sounds ...Palpate: Yes: Tenderness (Diffusely) Edema: No Neurological: Yes: Alert, Oriented Labs: INR, PTT INR 1.43 (0.82-1.09) H 03/06/17 06:30 Imaging - Results X-ray: Report Reviewed Cat Scan: Report Reviewed, Image Reviewed Problem List - Problems (1) Bowel obstruction Assessment/Plan: Suspect secondary to significant rectal stricture noted on recent colonoscopy. Colon appears distended with air fluid levels on CT scan. NG Tube in place and undergoing evaluation by surgery Continue IV Hydration, fluid resuscitation and NG tube decompression Stool for C. Diff Admitted to ICU Code(s): K56.60 - UNSPECIFIED INTESTINAL OBSTRUCTION Qualifiers: Intestinal obstruction type: other intestinal obstruction Qualified Code(s): K56.69 - Other intestinal obstruction
[2017-03-06] MEDS ORDERED: HYDROmorphone HCL CARPU-JECT 1 MG/1 ML DISP.SYRIN IVPUSH PRN (13:42)
[2017-03-06] MEDS: HYDROmorphone HCL CARPU-JECT 1 MG/1 ML DISP.SYRIN IVPUSH PRN ×3 (13:45→22:00)
[2017-03-06 21:09] LABS: ALLENS TEST POSITIVE; ART PUNCT SITE RIGHT BRACHIAL; ARTERIAL BLOOD GAS BASE EXCESS -13.6 meq/l (-2-2); ARTERIAL BLOOD GAS HCO3 9.3 meq/L (22-26); ARTERIAL BLOOD GAS PO2 95.1 mmHg (80-100); ARTERIAL BLOOD GAS pH 7.38 (7.35-7.45); LPM/O2% 21%; PT. ON O2? NO; TYPE OF O2 ROOM AIR
[2017-03-06] MEDS ORDERED: MEROPENEM 1,000 MG in DEXTROSE 5%-WATER - 100 ML IVPB ONE (21:47)
[2017-03-06] MEDS ORDERED: ROCURONIUM BROMIDE 50 MG/5 ML VIAL IVPUSH ONE (22:34)
[2017-03-06] MEDS ORDERED: MIDAZOLAM HCL 5 MG/1 ML Single Dose Vial IVPUSH ONE (22:35)
[2017-03-06] MEDS ORDERED: PROPOFOL 100 ML ONE (22:36)
[2017-03-06] MEDS ORDERED: MIDAZOLAM HCL 2 MG/2 ML SINGLE DOSE VIAL ONE (22:36)
[2017-03-06] MEDS ORDERED: SUCCINYLCHOLINE CHLORIDE 200 MG/10 ML VIAL ONE (22:46)
[2017-03-06] MEDS ORDERED: SUCCINYLCHOLINE CHLORIDE 200 MG/10 ML VIAL IVPUSH ONE (23:19)
[2017-03-06 23:21] LABS: ALLENS TEST POSITIVE; ART PUNCT SITE RIGHT BRACHIAL; ARTERIAL BLD GAS O2 SATURATION 98.3 % (90-98.9); ARTERIAL BLOOD GAS HCO3 14.9 meq/L (22-26); ARTERIAL BLOOD GAS pH 7.35 (7.35-7.45)
[2017-03-06 23:22] LABS: LPM/O2% 50%; MECH. VENT. Y; PT. ON O2? YES; TYPE OF O2 VENT; VENT RATE 26; VT/PRESS 500
--- NOTE | 2017-03-06 23:24 | PROC ---
Intubation - Intubation Reason for Intubation: Respiratory Failure, Airway Protection Time of Intubation: 23:15 Intubation Method: orotracheal Blade used: Mac Tube Size (cm): 8.0 Tube position @ lip (cm): 24 Tube position confirmed by: CO2 detector, Chest x-ray (ordered), Breath sounds Breath Sounds after Intubation: equal Post Intubation Xray: Yes (ordered)
[2017-03-06] MEDS: PROPOFOL 100 ML IVPB SCH (23:30)
[2017-03-06 23:31] LABS: MCH 31.2 pg (25.7-33.7); MCHC 33.8 g/dl (32.0-35.9); MEAN CELL VOLUME 92.3 fl (80-96); MEAN PLT VOLUME 8.5 fl (7.5-11.1); PLATELET COUNT 410 K/MM3 (134-434); RDW 14.4 % (11.9-15.9); WHITE BLOOD COUNT 7.1 K/mm3 (4.0-10.0)
--- NOTE | 2017-03-06 23:33 | PN ---
Progress Note (short form) - Note Progress Note: EVENT NOTE: pulm/ccm follow up. Pt with worsening mental status, increased abd pain, rising lactate, and increased work of breathing throughout evening. Lactate 11, Hco3 8, gasping respirations. Decision made to intubate. Sedated with Fent 100, Versed 4. Paralysis achieved with 100mg Succ. Grade I View Mac IV blade, atraumatic, secured 24cm at teeth. Vent set 26/450/50/8 repeat abg pending Surgery and primary team made aware of deteriorating status. IV fluids ---> D5 with 150meq of Hco3 running. Meropenem added for broad intra-abd coverage Upright and flat plate ordered port accessed for vasopressor support--> Levo on exam toxic appearing pt obtunded, non-focal, LEMUS PERRL at 3mm, NG to suction with feculent material scattered rhonchi, no wheezes distended, typanic, absent BS cool ext, weak peripheral pulse Current Medications Hydromorphone HCl (Dilaudid Injection -) 1 mg IVPUSH Q4H PRN PRN Reason: PAIN LEVEL 6-10 Last Admin: 03/06/17 22:00 Dose: 1 mg Hydromorphone HCl (Dilaudid Injection -) 0.5 mg IVPUSH Q4H PRN PRN Reason: PAIN LEVEL 1-5 Lactated Ringer's (Lactated Ringers Solution) 1,000 mls @ 1,000 mls/hr IV ASDIR DANIELA Last Admin: 03/06/17 11:00 Dose: 1,000 mls/hr Sodium Bicarbonate 150 meq/ (Dextrose) 1,150 mls @ 250 mls/hr IV ASDIR DANIELA Sodium Bicarbonate 150 meq/ (Dextrose) 1,150 mls @ 250 mls/hr IV ASDIR DANIELA Last Admin: 03/06/17 22:44 Dose: 250 mls/hr Rocuronium Crawford (Zemuron -) 50 mg IVPUSH ONCE ONE Stop: 03/06/17 22:35 CXR-pending ABD upright-pending A/ 56 Y/O man with large bowel obstruction, feculent emesis and copious loose watery stool now with severe acidosis from Hco3 loss, possible perforated bowel , or septic shock P/ -intubate for airway protection and work of breathing -added jorge a for broad coverage, low threshold for fungal -levo and volume resuscitation for worsening shock -surgery updated, will take to OR if free air -sedate for vent sychrony -ppi, SQH Family to be updated on condition. Abdias Rios 35min CCT not including procedures
[2017-03-06 23:43] LABS: INR 1.74 (0.82-1.09); PROTHROMBIN TIME (PATIENT) 19.4 SEC (9.98-11.88)
[2017-03-06] MEDS ORDERED: NOREPINEPHRINE BITARTRATE 4 MG/4 ML ML IV ONE (23:45)
[2017-03-06] MEDS ORDERED: NOREPINEPHRINE BITARTRATE 8,000 MCG in DEXTROSE 5%-WATER - 492 ML IV SCH (23:45)
[2017-03-06 23:46] LABS: ACTIVATED PTT 28.8 SECONDS (26.9-34.4)
[2017-03-06 23:54] LABS: ALBUMIN 1.8 g/dl (3.4-5.0); ALK PHOS 99 U/L (45-117); AMYLASE 20 U/L (25-115); ANION GAP 24 (8-16); BILIRUBIN,DIRECT 0.4 mg/dL (0.0-0.2); BILIRUBIN,TOTAL 0.7 mg/dL (0.2-1.0); CO2 16 mmol/L (21-32); CREATININE 2.1 mg/dL (0.7-1.3); GLUCOSE,RANDOM 286 mg/dL (74-106); MAGNESIUM 1.8 mg/dL (1.8-2.4); PHOSPHOROUS 6.1 mg/dL (2.5-4.9); SGOT/AST 49 U/L (15-37); SGPT/ALT 23 U/L (12-78); TOT PROT 4.1 g/dl (6.4-8.2)
[2017-03-06 23:56] LABS: CALCIUM 6.1 mg/dL (8.5-10.1)
[2017-03-06] MEDS ORDERED: CALCIUM GLUCONATE 10% - 1,000 MG/10 ML VIAL IVPB ONE (23:57)
[2017-03-07] MEDS ORDERED: INSULIN REGULAR 100 UNITS in SODIUM CHLORIDE 99 ML IVPB SCH ×2 (00:15→17:03)
[2017-03-07] MEDS ORDERED: INSULIN REGULAR HUMAN 100 UNITS/ML *VIAL ONE (01:12)
[2017-03-07] MEDS ORDERED: LACTATED RINGERS SOLUTION 1,000 ML IV ONE (02:00)
[2017-03-07] MEDS ORDERED: NOREPINEPHRINE BITARTRATE 4 MG/4 ML ML IV ONE (03:34)
[2017-03-07] MEDS ORDERED: BENZOIN/ALOE VERA/STORAX/TOLU 58 ML BOTTLE ONE (04:04)
[2017-03-07] MEDS ORDERED: SODIUM BICARBONATE 8.4% - 150 MEQ in DEXTROSE 5%-WATER - 1,000 ML IV SCH (06:10)
[2017-03-07] MEDS ORDERED: DEXTROSE 5%-WATER - 1,000 ML with SODIUM BICARBONATE 8.4% - 150 MEQ IV SCH ×3 (06:15→19:15)
[2017-03-07 06:42] LABS: MCH 31.5 pg (25.7-33.7); MCHC 34.8 g/dl (32.0-35.9); MEAN CELL VOLUME 90.3 fl (80-96); MEAN PLT VOLUME 8.6 fl (7.5-11.1); PLATELET COUNT 444 K/MM3 (134-434); RDW 14.5 % (11.9-15.9); WHITE BLOOD COUNT 10.2 K/mm3 (4.0-10.0)
[2017-03-07] MEDS ORDERED: VASOPRESSIN 20 UNITS/ML VIAL IV ONE ×2 (06:49→21:27)
[2017-03-07 06:51] LABS: ALLENS TEST POSITIVE; ART PUNCT SITE LEFT RADIAL; ARTERIAL BLD GAS O2 SATURATION 98.6 % (90-98.9); ARTERIAL BLOOD GAS BASE EXCESS 4.1 meq/l (-2-2); ARTERIAL BLOOD GAS HCO3 24.7 meq/L (22-26); ARTERIAL BLOOD GAS pH 7.59 (7.35-7.45); LPM/O2% 50%; MECH. VENT. Y; PT. ON O2? YES; TYPE OF O2 VENT; VT/PRESS 450
[2017-03-07 06:52] LABS: VENT RATE 26
[2017-03-07] MEDS: VASOPRESSIN 50 UNITS in SODIUM CHLORIDE 97.5 ML IVPB SCH ×2 (06:52→16:00)
[2017-03-07 06:58] LABS: ANION GAP 18 (8-16); CO2 25 mmol/L (21-32); CREATININE 1.9 mg/dL (0.7-1.3); GLUCOSE,RANDOM 94 mg/dL (74-106); PHOSPHOROUS 4.2 mg/dL (2.5-4.9)
[2017-03-07 07:16] LABS: MAGNESIUM 1.8 mg/dL (1.8-2.4)
[2017-03-07] MEDS: PROPOFOL 100 ML IVPB SCH ×4 (08:10→17:25)
[2017-03-07 08:43] LABS: CALCIUM 6.4 mg/dL (8.5-10.1)
--- NOTE | 2017-03-07 09:45 | PN ---
Progress Note, Physician Chief Complaint: intubated/sedated History of Present Illness: Pt with worsening clinical status last nite requiring intubation. He presented to hospital yesterday with emesis and some lower abd pain. Workup includes CT showing obstruction at "distal sigmoid." The CT report reads air in the stool vs possible pneumatosis with some stranding near R colon. There is also hydronephrosis of L kidney with stent. I had previously reviewed his colonoscopy (done last week) which was partially obstructing rectal stricture at 6cm from anal verge. He is known to me for having t3 rectal cancer and got neoadjuvant chemo/rt thus leaving him with his lesion in mid to low rectum. Patient has been having BM's during the course of his hospital stay. Currently he is on two pressors and still with persistent elevated lactate. His BUN/Cr is markedly elevated. - Current Medication List Current Medications: Active Medications Hydromorphone HCl (Dilaudid Injection -) 1 mg IVPUSH Q4H PRN PRN Reason: PAIN LEVEL 6-10 Last Admin: 03/06/17 22:00 Dose: 1 mg Hydromorphone HCl (Dilaudid Injection -) 0.5 mg IVPUSH Q4H PRN PRN Reason: PAIN LEVEL 1-5 Norepinephrine Bitartrate 8, (000 mcg/ Dextrose) 500 mls @ 18.75 mls/hr IV TITR DANIELA; 5 MCG/MIN PRN Reason: Protocol Last Titration: 03/07/17 09:07 Dose: 11 mcg/min Insulin Human Regular 100 (units/ Sodium Chloride) 100 mls @ 7.03 mls/hr IVPB TITR DANIELA; 0.1 UNITS/KG/HR PRN Reason: Protocol Last Titration: 03/07/17 07:04 Dose: 0.01 units/kg/hr Propofol (Diprivan -) 100 mls @ 2.109 mls/hr IVPB TITR DANIELA; 5 MCG/KG/MIN PRN Reason: Protocol Last Titration: 03/07/17 08:17 Dose: 50 mcg/kg/min Vasopressin 50 units/ Sodium (Chloride) 100 mls @ 24 mls/hr IVPB TITR DANIELA; 0.2 UNITS/MIN PRN Reason: Protocol Last Titration: 03/07/17 08:04 Dose: 0.1 units/min Sodium Bicarbonate 150 meq/ (Dextrose) 1,150 mls @ 100 mls/hr IV Q11H [facility] Last Admin: 03/07/17 08:11 Dose: Not Given - Objective Vital Signs: Vital Signs Temperature 98.2 F 03/07/17 03:21 Pulse Rate 97 H 03/07/17 09:07 Respiratory Rate 33 H 03/07/17 09:00 Blood Pressure 150/97 03/07/17 09:07 O2 Sat by Pulse Oximetry (%) 98 03/07/17 08:56 Constitutional: Yes: Severe Distress Eyes: Yes: Other (eyes closed) HENT: Yes: Atraumatic, Normocephalic Neck: Yes: Supple Cardiovascular: Yes: Regular Rate and Rhythm Respiratory: Yes: Mechanically Ventilated Gastrointestinal: Yes: Soft, Distention. No: Tenderness ...Rectal Exam: Yes: Deferred Genitourinary: No: CVA Tenderness - Left, CVA Tenderness - Right Breast(s): No: Nipple Inversion, Skin Changes Musculoskeletal: No: Joint Swelling Extremities: No: Calf Tenderness, Erythema Integumentary: No: Erythema, Rash Neurological: Yes: Other (intubated/sedated) Psychiatric: Yes: Other (intubated/sedated) Labs: CBC, BMP 03/07/17 05:15 03/07/17 05:15 INR, PTT INR 1.74 (0.82-1.09) H 03/06/17 23:00 Fibrinogen 676.0 mg/dL (238-498) H 03/06/17 23:00 Problem List - Problems (1) Bowel obstruction Code(s): K56.60 - UNSPECIFIED INTESTINAL OBSTRUCTION Qualifiers: Intestinal obstruction type: other intestinal obstruction Qualified Code(s): K56.69 - Other intestinal obstruction (2) Lactic acid acidosis Code(s): E87.2 - ACIDOSIS (3) Rectal stricture Code(s): K62.4 - STENOSIS OF ANUS AND RECTUM (4) Rectal malignant neoplasm Code(s): C20 - MALIGNANT NEOPLASM OF RECTUM (5) Sepsis Assessment/Plan: case d/w ICU and GI docs. will exlap and r/o necrotic R colon. no overt evidence of free perforation but possible necrosis given possible pneumatosis and acidosis. likely will require diverting ostomy explained to family will not be able to address mid to low rectal cancer at this time. they understand and wish to proceed. Code(s): A41.9 - SEPSIS, UNSPECIFIED ORGANISM
--- NOTE | 2017-03-07 09:58 | PN ---
GI Progress Note Subjective: Decompensated, Intubated overnight and placed on pressors Liquid bowel movements reported - Objective Vital Signs: Vital Signs Temperature 98.2 F 03/07/17 03:21 Pulse Rate 97 H 03/07/17 09:07 Respiratory Rate 33 H 03/07/17 09:00 Blood Pressure 150/97 03/07/17 09:07 O2 Sat by Pulse Oximetry (%) 98 03/07/17 08:56 Constitutional: Calm (Intubated on sedation) Eyes: No: Sclera Icterus Cardiovascular: Yes: Regular Rate and Rhythm Respiratory: Yes: Diminished (at bases b/l) Gastrointestinal Inspection: Yes: Distention ...Auscultate: Yes: No Bowel Sounds ...Palpate: Yes: Soft (No grimacing upon palpation) ...Percussion: Yes: Tympanitic (less from previous exam) Edema: No (No LE edema) Labs: CBC, BMP 03/07/17 05:15 03/07/17 05:15 INR, PTT INR 1.74 (0.82-1.09) H 03/06/17 23:00 Fibrinogen 676.0 mg/dL (238-498) H 03/06/17 23:00 Hepatic Panel Total Bilirubin 0.7 mg/dL (0.2-1.0) D 03/06/17 23:00 Direct Bilirubin 0.4 mg/dL (0.0-0.2) H D 03/06/17 23:00 AST 49 U/L (15-37) H D 03/06/17 23:00 ALT 23 U/L (12-78) 03/06/17 23:00 Alkaline Phosphatase 99 U/L (45-117) D 03/06/17 23:00 Albumin 1.8 g/dl (3.4-5.0) L D 03/06/17 23:00 Problem List - Problems (1) Bowel obstruction Assessment/Plan: Colonic obstruction Now decompensated overnight. Surgery evaluating this morning to determine if surgical intervention viable at some point IV abx ID consult Code(s): K56.60 - UNSPECIFIED INTESTINAL OBSTRUCTION Qualifiers: Qualified Code(s): K56.69 - Other intestinal obstruction
[2017-03-07] MEDS ORDERED: PIPERACILLIN/TAZOB 3.375 GM/50 ML PRE-DOCKED IVPB ONE (10:20)
--- NOTE | 2017-03-07 10:22 | CONSULT ---
Consult Consult Specialty:: infectious diseases Referred by:: Reason for Consultation:: septic shock - History of Present Illness History of Present Illness: patient is intubated sedated and on pressors history taken from the charts 56yo M with HTN and locally advanced T3a/T3b (stage 4 per patient, but records are unclear if metastasis present) rectal CA, s/p neoadjuvant chemo and radiation therapy with good response, completed in October and possibly November, who was scheduled to see Dr. Angelo Tuesday to discuss resection, had colonoscopy 03/02 by GI showing rectal stricture which could not be passed at 6-7cm from anus, biopsies done, and then yesterday began having abdominal pain and distention associated with N/V multiple episodes. He had a temp of 100.2 at home yesterday, but no f/c since. Last BM (not diarrhea or hard/constipation) was yesterday ~1pm before the vomiting started. He denies history of constipation or diarrhea in recent weeks or months. Denies urinary complaints. Has left ureteral stent since July for staghorn calculus with hydro s/p ESWL. He had been eating normally until he started having abdominal discomfort. Per pt, he had a PET scan in October at outpatient radiology center, which lit up only in rectal area. 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 according to the events,yesterday patient became septic and became hypotensive and patient ended up getting intubated and on pressors patients blood pressure is very labile has been evaluated by surgery - History Source History Provided By: Medical Record Limitations to Obtaining History: Other (intubated) - Past Medical History Cardio/Vascular: Yes: HTN Gastrointestinal: Yes: Cancer (rectal s/p neoadjuvant chemoRT), GI Bleed (h/o last year when CA diagnosed) Renal/: Yes: Renal Calculi (s/p ESWL), Other (L ureteral stent 07/16 (in place )) - Past Surgical History Past Surgical History: Yes: Colonoscopy, Upper Endoscopy Additional Surgical History: L ureteral stent 07/16 - Alcohol/Substance Use Hx Alcohol Use: No Number of Drinks Daily: 0 (quit drinking 04/16) History of Substance Use: reports: None - Smoking History Smoking history: Never smoked Have you smoked in the past 12 months: No - Social History Usual Living Arrangement: Alone ADL: Independent 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 History of Recent Travel: No Home Medications - Allergies Allergies/Adverse Reactions: Allergies Allergy/AdvReac Type Severity Reaction Status Date / Time No Known Allergies Allergy Verified 03/06/17 05:09 - Home Medications Home Medications: Ambulatory Orders Amlodipine Besylate/Benazepril [Lotrel 5-10 mg Capsule] 1 cap PO HS 03/06/17 Family Disease History - Family Disease History Family Disease History: CA: Grandparent (maternal gf, colon), Other: Brother (2 brothers, healthy) Review of Systems Unable to obtain ROS, reason: unable to obtain Physical Exam Vital Signs: Vital Signs Temperature 97.8 F 03/07/17 10:00 Pulse Rate 90 03/07/17 10:00 Respiratory Rate 30 H 03/07/17 10:00 Blood Pressure 134/106 03/07/17 10:00 O2 Sat by Pulse Oximetry (%) 98 03/07/17 08:56 Constitutional: Yes: Calm, Other Neck: Yes: Supple Respiratory: Yes: Intubated, Mechanically Ventilated Gastrointestinal: Yes: Normal Bowel Sounds, Soft Neurological: Yes: Other Psychiatric: Yes: Other Labs: CBC, BMP 03/07/17 05:15 03/07/17 05:15 Imaging - Results Chest X-ray: Report Reviewed, Image Reviewed Cat Scan: Report Reviewed, Image Reviewed Assessment/Plan Problem List - Problems (1) Rectal malignant neoplasm Code(s): C20 - MALIGNANT NEOPLASM OF RECTUM (2) Bowel obstruction Code(s): K56.60 - UNSPECIFIED INTESTINAL OBSTRUCTION Qualifiers: Intestinal obstruction type: other intestinal obstruction Qualified Code(s): K56.69 - Other intestinal obstruction (3) Rectal stricture Assessment/Plan: Code(s): K62.4 - STENOSIS OF ANUS AND RECTUM (4) Dehydration Assessment/Plan: Code(s): E86.0 - DEHYDRATION (5) Lactic acid acidosis Assessment/Plan: Code(s): E87.2 - ACIDOSIS (6) Status post chemotherapy Assessment/Plan: Code(s): Z92.21 - PERSONAL HISTORY OF ANTINEOPLASTIC CHEMOTHERAPY (7) S/P radiation therapy Assessment/Plan: Code(s): Z92.3 - PERSONAL HISTORY OF IRRADIATION plan will start patient on abx continue resp support patient for or rest ct as per icu mgmt cc time 45 min
[2017-03-07 10:28] LABS: ALBUMIN 1.8 g/dl (3.4-5.0)
--- NOTE | 2017-03-07 10:40 | HP ---
DATE OF ADMISSION: HISTORY: This is a 56-year-old male who came yesterday morning to the ER with complaints of vomiting coffee ground material. This started a few hours before he came to the emergency room. He was also known to have cancer of the rectum, growths to the anal area. Undergoing chemotherapy and radiation. Had a colonoscopy done by Dr. Littlejohn last week, which showed stricture at the distal colon. SOCIAL HISTORY: He lives with his mother. He is not . No family. Used to smoke cigarettes. PHYSICAL EXAMINATION: General: Today he is on a respirator, sedated. Vital Signs: BP 140/80, pulse 100, respirations 20, temperature 98. HEENT: Unremarkable. Has an NG tube. Neck: Supple. No JVD. Lungs: Clear. Heart: S1, S2 normal. No S3, S4. Abdomen: Distended. Extremities: Minimal edema present. Neurologic: Heavily sedated. LABORATORY DATA: WBC 10, hemoglobin 13.3, platelets 144. Chemistry: Sodium 135, potassium 3.3, creatinine 1.9. Blood sugar 94, lactic acid 5.5. LFTs, AST elevated borderline. IMPRESSION: 1. Gastrointestinal bleeding. 2. Respiratory failure. PLAN: Continue ICU care. We will discuss with the ICU attending. Wiley [id number]
[2017-03-07] MEDS ORDERED: FLUCONAZOLE 200 MG/NS 100 ML IVPB SCH (11:00)
[2017-03-07] MEDS ORDERED: SODIUM CHLORIDE 1,000 ML IV ONE (11:00)
[2017-03-07] MEDS ORDERED: MEROPENEM 1 GM in DEXTROSE 5%-WATER - 100 ML IVPB SCH (11:00)
[2017-03-07] MEDS ORDERED: ROCURONIUM BROMIDE 50 MG/5 ML VIAL ONE (11:43)
[2017-03-07] MEDS ORDERED: PROPOFOL 20 ML ONE (11:43)
[2017-03-07] MEDS ORDERED: SUCCINYLCHOLINE CHLORIDE 200 MG/10 ML VIAL ONE (11:43)
[2017-03-07] MEDS ORDERED: SODIUM CHLORIDE 1,000 ML IV STA ×3 (11:56→17:04)
[2017-03-07] MEDS ORDERED: CHLORHEXIDINE GLUCONATE 0.12% 15ML CUP MM SCH (12:00)
[2017-03-07] MEDS ORDERED: POTASSIUM CHLORIDE 20 MEQ PREMIX IVPB 100 ML IVPB ONE (12:00)
[2017-03-07] MEDS ORDERED: KCL 20 MEQ PREMIX BAG 100 ML IVPB ONE (12:15)
--- NOTE | 2017-03-07 13:39 | EKG ---
Test Reason : Blood Pressure : / mmHG Vent. Rate : 098 BPM Atrial Rate : 098 BPM P-R Int : 128 ms QRS Dur : 084 ms QT Int : 348 ms P-R-T Axes : 058 -16 067 degrees QTc Int : 444 ms NORMAL SINUS RHYTHM NORMAL ECG WHEN COMPARED WITH ECG OF 29-APR-2016 14:45, T WAVE VARIATION Confirmed by CLAUDINE LOPEZ MD ([id number]) on 03/07/2017 1:39:39 PM Referred By: Confirmed By:CLAUDINE LOPEZ MD
[2017-03-07] MEDS ORDERED: MIDAZOLAM HCL 2 MG/2 ML SINGLE DOSE VIAL ONE ×2 (15:04)
[2017-03-07] MEDS ORDERED: PROPOFOL 100 ML ONE (15:51)
--- NOTE | 2017-03-07 16:05 | OP ---
Operative Note - Note: Operative Date: 03/07/17 Pre-Operative Diagnosis: sepsis, large bowel obstruction, rectal cancer s/p chemoRT Operation: exploratory laparotomy, sigmoid colostomy Findings: yellow peritoneal fluid, colon distended but viable, no evidence of bowel ischemia or perforation, normal appendix, distended gallbladder Post-Operative Diagnosis: Same as Pre-op Surgeon: Mello Angelo Distillery Miller: Nathen Cisneros Anesthesiologist/CAMPAIGN ASSISTANT: Wil Holland Anesthesia: General (via existing ETT; returned intubated to ICU) Specimens Removed: none Estimated Blood Loss (mls): 50 Drains & Tubes with Location: NGT and Alvarez from preop left in place; sigmoid colostomy to bag Drains, Volume Out (mls): 200 (UOP) Fluid Volume Replaced (mls): 1,500 (crystalloid) Operative Report Dictated: Yes
--- NOTE | 2017-03-07 16:52 | PN ---
Progress Note, Physician History of Present Illness: patient seen and examined at bedside in the ICU post op sp ex-lap sigmoid colostomy for rectal stricture patient weaned off levophed in OR. continues to be on vasopressin. intubated and sedated blood loss was minimal received 1500ml of fluids intraoperatively - Current Medication List Current Medications: Active Medications Chlorhexidine Gluconate (Peridex -) 15 ml MM BID DANIELA Last Admin: 03/07/17 12:13 Dose: 15 ml Hydromorphone HCl (Dilaudid Injection -) 1 mg IVPUSH Q4H PRN PRN Reason: PAIN LEVEL 6-10 Last Admin: 03/06/17 22:00 Dose: 1 mg Hydromorphone HCl (Dilaudid Injection -) 0.5 mg IVPUSH Q4H PRN PRN Reason: PAIN LEVEL 1-5 Norepinephrine Bitartrate 8, (000 mcg/ Dextrose) 500 mls @ 18.75 mls/hr IV TITR DANIELA; 5 MCG/MIN PRN Reason: Protocol Last Titration: 03/07/17 11:32 Dose: 8 mcg/min Insulin Human Regular 100 (units/ Sodium Chloride) 100 mls @ 7.03 mls/hr IVPB TITR DANIELA; 0.1 UNITS/KG/HR PRN Reason: Protocol Last Titration: 03/07/17 07:04 Dose: 0.01 units/kg/hr Propofol (Diprivan -) 100 mls @ 2.109 mls/hr IVPB TITR DANIELA; 5 MCG/KG/MIN PRN Reason: Protocol Last Admin: 03/07/17 11:11 Dose: 21.092 mls/hr Vasopressin 50 units/ Sodium (Chloride) 100 mls @ 24 mls/hr IVPB TITR DANIELA; 0.2 UNITS/MIN PRN Reason: Protocol Last Titration: 03/07/17 08:04 Dose: 0.1 units/min Sodium Bicarbonate 150 meq/ (Dextrose) 1,150 mls @ 100 mls/hr IV Q11H DANIELA Last Admin: 03/07/17 08:11 Dose: Not Given Fluconazole (Diflucan 200 Mg/Ns Premixed Ivpb -) 100 mls @ 100 mls/hr IVPB DAILY DANIELA Last Admin: 03/07/17 11:12 Dose: 100 mls/hr Meropenem 1 gm/ Dextrose 100 mls @ 100 mls/hr IVPB BID DANIELA PRN Reason: Protocol Last Admin: 03/07/17 12:25 Dose: 100 mls/hr - Objective Vital Signs: Vital Signs Temperature 97.0 F L 03/07/17 15:52 Pulse Rate 89 03/07/17 16:15 Respiratory Rate 19 03/07/17 16:34 Blood Pressure 117/89 03/07/17 16:15 O2 Sat by Pulse Oximetry (%) 100 03/07/17 16:34 Constitutional: Yes: Well Nourished, No Distress, Other (intubated and saedated on propofol) HENT: Yes: Atraumatic, Normocephalic Neck: Yes: Supple, Trachea Midline Cardiovascular: Yes: Regular Rate and Rhythm, S1, S2. No: Murmur Respiratory: Yes: Intubated, Mechanically Ventilated (bronchial breath sounds heard. other widse clear) Gastrointestinal: Yes: Soft, Other (hypoactive bowel sounds. ostomy pink with minimal brown feculent drainage) Genitourinary: Yes: Haley Present, Scrotal Edema Edema: No Wound/Incision: Yes: Clean/Dry, Well Approximated, Dressing Dry and Intact Neurological: Yes: Other (intubated and sedated cranial nerve exam not performed ) Labs: CBC, BMP 03/07/17 05:15 03/07/17 05:15 INR, PTT INR 1.74 (0.82-1.09) H 03/06/17 23:00 Fibrinogen 676.0 mg/dL (238-498) H 03/06/17 23:00 - ....Imaging Chest X-ray: Image Reviewed Assessment/Plan 56M with history of HTN and rectal cancer presented to the ED with vomiting now POD #0 s/p ex-lap sigmoid colostomy for rectal stricture secondary to rectal cancer. Problem list: HTN Lactic acidosis rectal stricture rectal Cancer s/p chemo and radiation hyperglycemia elevated anion gap metabolic acidosis septic shock hypokalemia Plan: IC monitoring post op keep patient sedated for vent synchrony-currently on propofol start fentanyl drip for pain control on vasopressin will bolus with fluids and attempt to wean off vasopressin stop bicarb gtt as low bicarb resolved IVF NS with 20meq potassium @ 125ml/hr trend electrolytes replete electrolytes PRN trend cbc ID consult appreciated haley for urine output monitoring strict I/O's CXR in AM continue antibiotics per ID Source could be from stent patient has in left ureter urology consult pending DVT PPx SCDs and HSQ GI PPx with protonix STAT labs now-cbc cmp mag phos replete electrolytes stat CXR for ET tube placement after OR and transport trend lactic acid stop insulin gtt if anion gap closed-likely opened form lactic acidosis follow up cultures
--- NOTE | 2017-03-07 16:54 | PN ---
Progress Note (short form) - Note Progress Note: Oncology note full encounter not done today Pt in OR. Chart reviewed in detail.
[2017-03-07] MEDS ORDERED: SODIUM BICARBONATE 8.4% 50 MEQ/50 ML VIAL ONE (16:55)
[2017-03-07] MEDS ORDERED: HYDROmorphone HCL CARPU-JECT 1 MG/1 ML DISP.SYRIN IVPUSH PRN ×2 (17:03)
[2017-03-07] MEDS ORDERED: VASOPRESSIN 50 UNITS in SODIUM CHLORIDE 97.5 ML IVPB SCH ×2 (17:03→17:26)
[2017-03-07] MEDS: FENTANYL INJECTION 500 MCG in DEXTROSE 5%-WATER - 90 ML IJ SCH (17:13)
[2017-03-07] MEDS: NOREPINEPHRINE BITARTRATE 8,000 MCG in DEXTROSE 5%-WATER - 492 ML IV SCH (17:25)
--- NOTE | 2017-03-07 17:50 | PN ---
Teaching Attending Note Name of Resident: Devon Lawson ATTENDING PHYSICIAN STATEMENT I saw and evaluated the patient. I reviewed the resident's note and discussed the case with the resident. I agree with the resident's findings and plan as documented. SUBJECTIVE: Patient seen and examined in the ICU. Intubated and sedated. NE and Vasopressin for hemiodynamic support. Will be taken to the OR for exploration as the overall suspicion for his decompensation is related to his GI tract. Intake & Output 03/04/17 03/05/17 03/06/17 03/07/17 23:59 23:59 23:59 23:59 Intake Total 1931 9312 Output Total 1400 Balance 1931 7912 Weight 155 lb Last Vital Signs Temp Pulse Resp BP Pulse Ox 97.0 F L 91 H 26 H 128/88 100 03/07/17 17:18 03/07/17 17:40 03/07/17 17:40 03/07/17 17:40 03/07/17 16:42 Active Medications Chlorhexidine Gluconate (Peridex -) 15 ml MM BID DANIELA Heparin Sodium (Porcine) (Heparin -) 5,000 unit SQ TID DANIELA Fluconazole (Diflucan 200 Mg/Ns Premixed Ivpb -) 100 mls @ 100 mls/hr IVPB DAILY DANIELA Norepinephrine Bitartrate 8, (000 mcg/ Dextrose) 500 mls @ 18.75 mls/hr IV TITR DANIELA; 5 MCG/MIN PRN Reason: Protocol Last Admin: 03/07/17 17:25 Dose: Not Given Meropenem 1 gm/ Dextrose 100 mls @ 200 mls/hr IVPB BID DANIELA PRN Reason: Protocol Propofol (Diprivan -) 100 mls @ 2.109 mls/hr IVPB TITR DANIELA; 5 MCG/KG/MIN PRN Reason: Protocol Last Admin: 03/07/17 17:25 Dose: Not Given Potassium Chloride/Sodium Chloride (Ns+20 Meq Kcl -) 1,000 mls @ 125 mls/hr IV ASDIR DANIELA Sodium Chloride (Normal Saline -) 1,000 mls @ 1,000 mls/hr IV ASDIR STA Stop: 03/07/17 18:03 Fentanyl 500 mcg/ Dextrose 100 mls @ 20 mls/hr IJ TITR DANIELA PRN Reason: 100 MCG/HR Last Admin: 03/07/17 17:13 Dose: 20 mls/hr Pantoprazole Sodium (Protonix 40mg Ivpb (Pre-Docked)) 100 mls @ 200 mls/hr IVPB DAILY DANIELA Vasopressin 50 units/ Sodium (Chloride) 100 mls @ 12 mls/hr IVPB TITR DANIELA; 6 UNITS/HR PRN Reason: Protocol Last Admin: 03/07/17 16:00 Dose: 12 mls/hr Constitutional: Yes: Intubated and sedated HENT: Yes: Atraumatic, Normocephalic Neck: Yes: Supple, Trachea Midline Cardiovascular: Yes: Regular Rate and Rhythm, S1, S2. No: Murmur Respiratory: Yes: Intubated, Mechanically Ventilated, few scattered rhonchi Gastrointestinal: Yes: Softly distended, hypoactive bowel sounds Genitourinary: Yes: Alvarez Present, Scrotal Edema Edema: No Neurological: Yes: Intubated and sedated Labs: Laboratory Results - last 24 hr 03/06/17 03/06/17 03/06/17 21:00 21:07 23:00 WBC 7.1 D RBC 4.16 Hgb 13.0 Hct 38.4 MCV 92.3 MCH 31.2 MCHC 33.8 RDW 14.4 Plt Count 410 MPV 8.5 Neutrophils % Lymphocytes % Monocytes % Band Neutrophils INR PTT (Actin FS) Fibrinogen Puncture Site Right brachial ABG pH 7.38 ABG pCO2 at Pt Temp 16.0 L* ABG pO2 at Pt Temp 95.1 ABG HCO3 9.3 L* ABG O2 Sat (Measured) 94.0 ABG O2 Content 19.9 ABG Base Excess -13.6 L* Sven Test Positive O2 Delivery Device Room air Oxygen Flow Rate 21% Vent Mode Vent Rate Mechanical Rate PEEP Pressure Support Vent Sodium Potassium Chloride Carbon Dioxide Anion Gap BUN Creatinine Creat Clearance w eGFR POC Glucometer Random Glucose Lactic Acid 10.9 H* Calcium Phosphorus Magnesium Total Bilirubin Direct Bilirubin AST ALT Alkaline Phosphatase Total Protein Albumin Total Amylase Blood Type Antibody Screen Crossmatch IS Only 03/06/17 03/06/17 03/06/17 23:00 23:00 23:00 WBC RBC Hgb Hct MCV MCH MCHC RDW Plt Count MPV Neutrophils % Lymphocytes % Monocytes % Band Neutrophils INR 1.74 H PTT (Actin FS) 28.8 Fibrinogen 676.0 H Puncture Site ABG pH ABG pCO2 at Pt Temp ABG pO2 at Pt Temp ABG HCO3 ABG O2 Sat (Measured) ABG O2 Content ABG Base Excess Sven Test O2 Delivery Device Oxygen Flow Rate Vent Mode Vent Rate Mechanical Rate PEEP Pressure Support Vent Sodium 137 Potassium 4.0 Chloride 97 L Carbon Dioxide 16 L D Anion Gap 24 H BUN 73 H D Creatinine 2.1 H Creat Clearance w eGFR 32.83 POC Glucometer Random Glucose 286 H D Lactic Acid Calcium 6.1 L* D Phosphorus 6.1 H Magnesium 1.8 Total Bilirubin 0.7 D Direct Bilirubin 0.4 H D AST 49 H D ALT 23 Alkaline Phosphatase 99 D Total Protein 4.1 L D Albumin 1.8 L D Total Amylase 20 L Blood Type A POSITIVE Antibody Screen Negative Crossmatch IS Only 03/06/17 03/06/17 03/07/17 23:00 23:15 02:59 WBC RBC Hgb Hct MCV MCH MCHC RDW Plt Count MPV Neutrophils % Lymphocytes % Monocytes % Band Neutrophils INR PTT (Actin FS) Fibrinogen Puncture Site Right brachial ABG pH 7.35 ABG pCO2 at Pt Temp 27.6 L D ABG pO2 at Pt Temp 171.0 H* ABG HCO3 14.9 L* ABG O2 Sat (Measured) 98.3 ABG O2 Content 17.8 ABG Base Excess -9.0 L Sven Test Positive O2 Delivery Device Vent Oxygen Flow Rate 50% Vent Mode Ac Vent Rate 26 Mechanical Rate Y PEEP 8.0 Pressure Support Vent 500 Sodium Potassium Chloride Carbon Dioxide Anion Gap BUN Creatinine Creat Clearance w eGFR POC Glucometer 201.68620 Random Glucose Lactic Acid 9.4 H* Calcium Phosphorus Magnesium Total Bilirubin Direct Bilirubin AST ALT Alkaline Phosphatase Total Protein Albumin Total Amylase Blood Type Antibody Screen Crossmatch IS Only 03/07/17 03/07/17 03/07/17 04:16 05:15 05:15 WBC 10.2 H D RBC 4.22 Hgb 13.3 Hct 38.2 MCV 90.3 MCH 31.5 MCHC 34.8 RDW 14.5 Plt Count 444 H MPV 8.6 Neutrophils % 41.0 L D Lymphocytes % 23.0 D Monocytes % 17.0 H Band Neutrophils 19.0 H INR PTT (Actin FS) Fibrinogen Puncture Site ABG pH ABG pCO2 at Pt Temp ABG pO2 at Pt Temp ABG HCO3 ABG O2 Sat (Measured) ABG O2 Content ABG Base Excess Sven Test O2 Delivery Device Oxygen Flow Rate Vent Mode Vent Rate Mechanical Rate PEEP Pressure Support Vent Sodium 135 L Potassium 3.3 L Chloride 92 L Carbon Dioxide 25 D Anion Gap 18 H BUN 81 H Creatinine 1.9 H Creat Clearance w eGFR POC Glucometer 140.66681 Random Glucose 94 D Lactic Acid Calcium 6.4 L* Phosphorus 4.2 D Magnesium 1.8 Total Bilirubin Direct Bilirubin AST ALT Alkaline Phosphatase Total Protein Albumin 1.8 L Total Amylase Blood Type Antibody Screen Crossmatch IS Only 03/07/17 03/07/17 03/07/17 05:15 05:15 06:47 WBC RBC Hgb Hct MCV MCH MCHC RDW Plt Count MPV Neutrophils % Lymphocytes % Monocytes % Band Neutrophils INR PTT (Actin FS) Fibrinogen Puncture Site ABG pH ABG pCO2 at Pt Temp ABG pO2 at Pt Temp ABG HCO3 ABG O2 Sat (Measured) ABG O2 Content ABG Base Excess Sven Test O2 Delivery Device Oxygen Flow Rate Vent Mode Vent Rate Mechanical Rate PEEP Pressure Support Vent Sodium Potassium Chloride Carbon Dioxide Anion Gap BUN Creatinine Creat Clearance w eGFR POC Glucometer 122.58048 Random Glucose Lactic Acid 5.5 H* Calcium Phosphorus Magnesium Total Bilirubin Direct Bilirubin AST ALT Alkaline Phosphatase Total Protein Albumin Cancelled Total Amylase Blood Type Antibody Screen Crossmatch IS Only 03/07/17 03/07/17 03/07/17 06:50 09:00 09:18 WBC RBC Hgb Hct MCV MCH MCHC RDW Plt Count MPV Neutrophils % Lymphocytes % Monocytes % Band Neutrophils INR PTT (Actin FS) Fibrinogen Puncture Site Left radial ABG pH 7.59 H D ABG pCO2 at Pt Temp 25.4 L ABG pO2 at Pt Temp 151.0 H* ABG HCO3 24.7 ABG O2 Sat (Measured) 98.6 ABG O2 Content 17.9 ABG Base Excess 4.1 H Sven Test Positive O2 Delivery Device Vent Oxygen Flow Rate 50% Vent Mode Ac Vent Rate 26 Mechanical Rate Y PEEP 8.0 Pressure Support Vent 450 Sodium Potassium Chloride Carbon Dioxide Anion Gap BUN Creatinine Creat Clearance w eGFR POC Glucometer 172.46527 Random Glucose Lactic Acid 4.4 H* Calcium Phosphorus Magnesium Total Bilirubin Direct Bilirubin AST ALT Alkaline Phosphatase Total Protein Albumin Total Amylase Blood Type Antibody Screen Crossmatch IS Only 03/07/17 03/07/17 03/07/17 11:00 11:17 15:57 WBC RBC Hgb Hct MCV MCH MCHC RDW Plt Count MPV Neutrophils % Lymphocytes % Monocytes % Band Neutrophils INR PTT (Actin FS) Fibrinogen Puncture Site ABG pH ABG pCO2 at Pt Temp ABG pO2 at Pt Temp ABG HCO3 ABG O2 Sat (Measured) ABG O2 Content ABG Base Excess Sven Test O2 Delivery Device Oxygen Flow Rate Vent Mode Vent Rate Mechanical Rate PEEP Pressure Support Vent Sodium Potassium Chloride Carbon Dioxide Anion Gap BUN Creatinine Creat Clearance w eGFR POC Glucometer 161.77546 110.22828 Random Glucose Lactic Acid Calcium Phosphorus Magnesium Total Bilirubin Direct Bilirubin AST ALT Alkaline Phosphatase Total Protein Albumin Total Amylase Blood Type A POSITIVE Antibody Screen Negative Crossmatch IS Only See Detail Assessment/Plan Suspected Acute Abdomen HTN Lactic acidosis Rectal stricture Rectal Cancer s/p chemo and radiation Hyperglycemia Elevated anion gap / Metabolic acidosis Septic shock Plan: OR Aggressive IVF resuscitation Pressor support Sedate Fentanyl drip for pain control ABX per ID Strict I&O Will need to further input from Urology VTE prophylaxis PPI Glycemic control IV Insulin for now Dr Salamanca Critical Care Time/MDM Note Total Critical Care Time: 35 Critical Care Statement: The care of this patient involved high complexity decision making to prevent further life threatening deterioration of the patient 's condition and/or to evalute & treat vital organ system(s) failure or risk of failure.
[2017-03-07] MEDS ORDERED: PIPERACILLIN/TAZOB 3.375 GM/50 ML PRE-DOCKED IVPB SCH (18:00)
[2017-03-07] MEDS: SODIUM CHLORIDE 0.9%/KCL 1,000 ML IV SCH (18:19)
[2017-03-07] MEDS: INSULIN SLIDING SCALE (NOVOLOG) 1 VIAL SQ SCH ×2 (19:18→23:08)
[2017-03-07 20:42] LABS: MCHC 35.2 g/dl (32.0-35.9); MEAN PLT VOLUME 8.1 fl (7.5-11.1); PLATELET COUNT 215 K/MM3 (134-434); RDW 14.4 % (11.9-15.9); WHITE BLOOD COUNT 5.8 K/mm3 (4.0-10.0)
[2017-03-07 21:11] LABS: ALBUMIN 1.4 g/dl (3.4-5.0); ANION GAP 11 (8-16); BILIRUBIN,TOTAL 0.6 mg/dL (0.2-1.0); CO2 26 mmol/L (21-32); CREATININE 1.1 mg/dL (0.7-1.3); GLUCOSE,RANDOM 135 mg/dL (74-106); PHOSPHOROUS 3.7 mg/dL (2.5-4.9); SGPT/ALT 31 U/L (12-78); TOT PROT 3.7 g/dl (6.4-8.2)
[2017-03-07 21:12] LABS: ALK PHOS 99 U/L (45-117)
[2017-03-07 21:16] LABS: SGOT/AST 63 U/L (15-37)
[2017-03-07 21:18] LABS: CALCIUM 5.4 mg/dL (8.5-10.1)
[2017-03-07] MEDS ORDERED: MAGNESIUM SULF 50% (8.12 MEQ/2 ML-1 GM VIAL) IVPB ONE (21:20)
[2017-03-07] MEDS ORDERED: MAGNESIUM SULF 50% (8.12 MEQ/2 ML-1 GM VIAL) ONE (21:27)
[2017-03-07] MEDS: CHLORHEXIDINE GLUCONATE 0.12% 15ML CUP MM SCH (21:46)
[2017-03-07] MEDS: HEPARIN NA (PORCINE) 5,000 UNITS/ML 1ML VIAL SQ SCH (21:49)
[2017-03-07] MEDS: KCL 10 MEQ IVPB 100 ML IVPB SCH ×2 (21:52→23:08)
[2017-03-07] MEDS: CALCIUM GLUCONATE 10% - 1,000 MG/10 ML VIAL IVPB SCH ×2 (21:52→23:08)
[2017-03-07] MEDS: MEROPENEM 1 GM in DEXTROSE 5%-WATER - 100 ML IVPB SCH (22:02)
[2017-03-08] MEDS: KCL 10 MEQ IVPB 100 ML IVPB SCH (00:09)
[2017-03-08] MEDS: PROPOFOL 100 ML IVPB SCH ×4 (00:44→16:07)
[2017-03-08] MEDS: FENTANYL INJECTION 500 MCG in DEXTROSE 5%-WATER - 90 ML IJ SCH ×4 (03:22→16:23)
[2017-03-08] MEDS: INSULIN SLIDING SCALE (NOVOLOG) 1 VIAL SQ SCH ×5 (03:30→16:52)
[2017-03-08] MEDS: HEPARIN NA (PORCINE) 5,000 UNITS/ML 1ML VIAL SQ SCH ×3 (05:43→21:34)
[2017-03-08 06:36] LABS: MCH 33.4 pg (25.7-33.7); MCHC 36.2 g/dl (32.0-35.9); MEAN CELL VOLUME 92.2 fl (80-96); MEAN PLT VOLUME 8.8 fl (7.5-11.1); PLATELET COUNT 204 K/MM3 (134-434); RDW 14.5 % (11.9-15.9); WHITE BLOOD COUNT 7.3 K/mm3 (4.0-10.0)
[2017-03-08 06:47] LABS: INR 1.26 (0.82-1.09); PROTHROMBIN TIME (PATIENT) 13.9 SEC (9.98-11.88)
[2017-03-08 06:50] LABS: ACTIVATED PTT 33.5 SECONDS (26.9-34.4)
[2017-03-08 06:59] LABS: ALBUMIN 1.3 g/dl (3.4-5.0); ANION GAP 10 (8-16); CO2 26 mmol/L (21-32); CREATININE 0.9 mg/dL (0.7-1.3); PHOSPHOROUS 3.2 mg/dL (2.5-4.9)
[2017-03-08 07:01] LABS: ALK PHOS 103 U/L (45-117); BILIRUBIN,TOTAL 0.7 mg/dL (0.2-1.0); TOT PROT 3.8 g/dl (6.4-8.2)
[2017-03-08 07:06] LABS: GLUCOSE,RANDOM 138 mg/dL (74-106)
[2017-03-08 07:10] LABS: CALCIUM 5.8 mg/dL (8.5-10.1)
[2017-03-08 07:16] LABS: ARTERIAL BLD GAS O2 SATURATION 98.8 % (90-98.9); ARTERIAL BLOOD GAS BASE EXCESS 3.1 meq/l (-2-2); ARTERIAL BLOOD GAS HCO3 25.1 meq/L (22-26)
[2017-03-08 07:17] LABS: ALLENS TEST POSITIVE; ART PUNCT SITE RIGHT RADIAL; LPM/O2% 50; PT. ON O2? YES; TYPE OF O2 VENT
[2017-03-08 07:18] LABS: ARTERIAL BLOOD GAS pH 7.53 (7.35-7.45); MECH. VENT. YES; VENT RATE 16; VT/PRESS 450
[2017-03-08] MEDS ORDERED: PT OWN MED DRAWER 7, Y5N ONE (09:06)
[2017-03-08] MEDS: MEROPENEM 1 GM in DEXTROSE 5%-WATER - 100 ML IVPB SCH ×2 (09:12→21:34)
[2017-03-08] MEDS: FLUCONAZOLE 200 MG/NS 100 ML IVPB SCH (09:13)
[2017-03-08] MEDS: CHLORHEXIDINE GLUCONATE 0.12% 15ML CUP MM SCH ×2 (09:14→21:34)
[2017-03-08] MEDS: SODIUM CHLORIDE 0.9%/KCL 1,000 ML IV SCH ×2 (09:14→16:23)
--- NOTE | 2017-03-08 09:25 | OP ---
DATE OF OPERATION: 03/07/2017 SURGEON: Glenn Angelo MD POWDER WORKER TNT: Nathen Cisneros MD ANESTHESIA: General endotracheal anesthesia. ESTIMATED BLOOD LOSS: 50 mL. PREOPERATIVE DIAGNOSIS: POSTOPERATIVE DIAGNOSIS: Sepsis with large bowel obstruction. OPERATION PERFORMED: Sepsis with large bowel obstruction. PROCEDURE: Exploratory laparotomy with creation of end-colostomy. FINDINGS: Patient had what appeared to be a distended but viable right colon, cecum, transverse colon, as well as he had a loop of small bowel densely adhered to his pelvis. There was no evidence of succus. OPERATIVE NOTE IN DETAIL: Patient was on two pressors for hemodynamic instability as well as intubation with profound acidosis. Reviewing the CT scan, there was concern for possibly right colon ischemia from obstruction because of what was thought to be possible pneumatosis as well as some stranding found on CT. Therefore, because of the patients clinical deterioration, the decision was made to take the patient for a laparotomy to rule out any kind of transmural ischemia. Patient was brought to the operating room from the intensive care unit in critical condition, already intubated, placed in supine position, and SCDs for DVT prophylaxis. He received appropriate perioperative antibiotics. He was then prepped and draped in the usual sterile fashion. A time-out was then performed. A generous midline incision was made, and then, we bluntly dissected down to the fascia. We went through the fascia with electrocautery and then went through the peritoneum with our finger and then placed two fingers underneath the abdominal wall and completed the laparotomy. There was some ascites noted, and this was aspirated out. The omentum was then taken out of the abdomen, and then, we could see a distended transverse colon. Then, we examined the cecum, which was noted to be completely viable, and there was no evidence of patchy necrosis or compromise. At this point, we then examined the small bowel and the rest of the colon and did not find any evidence of a septic focus. Deep in the pelvis, we could feel induration which was consistent with rectal stricture and mass, and therefore, the decision was made to just perform a diverting colostomy. It was noted that he had somewhat foreshortened mesentery, and we also noted that there was some small bowel stuck in his pelvis anterior to the rectum likely from radiation. The decision was made not to try to dissect out this bowel as there was the concern that I would possibly create a hole in his rectum that would not heal because of the prior radiation or a hole in the small intestine that would increase the morbidity of this operation. There was no evidence of obstruction on CT or clinically at this time to warrant freeing up that small bowel out of the pelvis anyway. With this, we then medialized the sigmoid colon and the left colon off the retroperitoneum taking great care to not get into the retroperitoneum or injure the ureter or the iliac vessels. Once the colon was medialized, we discussed whether or not to do a loop ostomy. However, given his foreshortened mesentery and the fact that this would possibly be a permanent colostomy, the decision was made to just create an end-colostomy. This was done by dividing the sigmoid colon with a KADEN blue-load stapler and using LigaSure to take some of the mesentery to provide some length. The colon was noted to be viable, and we created an aperture in the left lower quadrant through the rectus muscle, and then, we brought out the colon. This aperture was actually made slightly bigger, and then, we were able to bring out a small antimesenteric corner of the distal staple line that in case of a rectal stump blow-out, it could blow out through the ostomy aperture. Once the proximal colon was brought through the aperture, we then draped the omentum over the incision, confirmed the nasogastric tube was in correct place, and then placed a piece of Interceed on top of the omentum underneath the incision. We then closed the fascia with No. 1 looped PDS from above and below and tied to itself in the middle. The skin was then reapproximated with skin aletha. We then cut off the staple line to the proximal colon and then matured the colostomy in a Ann fashion. It was noted to be somewhat michael. However, we then felt it was very swollen, and then we placed a pull sucker through it and then sucked out approximately 200 mL of liquid stool. The patient was still thought to be dry, and the patient was given additional fluid as a result. An ostomy appliance was then applied, and the patient will be going back to the intensive care unit still on vasopressin. GLENN ANGELO M.D. [id number]/[id number]
--- NOTE | 2017-03-08 09:30 | PN ---
GI Progress Note Subjective: POD 1 s/p sigmoid colostomy Off pressors Decreased NGT output - Objective Vital Signs: Vital Signs Temperature 98.5 F 03/08/17 06:00 Pulse Rate 88 03/08/17 08:00 Respiratory Rate 19 03/08/17 08:11 Blood Pressure 107/63 03/08/17 08:00 O2 Sat by Pulse Oximetry (%) 100 03/08/17 08:11 Constitutional: Calm Eyes: No: Sclera Icterus Cardiovascular: Yes: Regular Rate and Rhythm Respiratory: Yes: Diminished (at bases, poor inspiratory effort) Gastrointestinal Inspection: Yes: Distention (Protuberant, soft), Scars ( sirgical dressing mid abdomen) ...Auscultate: Yes: No Bowel Sounds Edema: No (No LE edema) Neurological: Yes: Other (Sedated on vent) Labs: CBC, BMP 03/08/17 05:15 03/08/17 05:15 INR, PTT INR 1.26 (0.82-1.09) H 03/08/17 05:15 Fibrinogen 676.0 mg/dL (238-498) H 03/06/17 23:00 C. Diff toxin / ag negative Problem List - Problems (1) Bowel obstruction Assessment/Plan: S/P Laparotomy with sigmoid colostomy Off pressors Post Op care per surgery Abx per ID Code(s): K56.60 - UNSPECIFIED INTESTINAL OBSTRUCTION Qualifiers: Intestinal obstruction type: other intestinal obstruction Qualified Code(s): K56.69 - Other intestinal obstruction
[2017-03-08] MEDS: PANTOPRAZOLE SODIUM 100 ML IVPB SCH (10:29)
--- NOTE | 2017-03-08 10:51 | PN ---
Progress Note, Physician Chief Complaint: abdominal distention and pain History of Present Illness: POD1 s/p laparotomy with sigmoid colostomy Patient is off pressors, intubated and sedated, has been hemodynamically stable and making urine. Alvarez output 1000ml last 12 hrs. NG output minimal. Stoma has produced 400ml brown liquid stool. Per nursing, he opened his eyes with suctioning. No major events overnight. - Current Medication List Current Medications: Active Medications Chlorhexidine Gluconate (Peridex -) 15 ml MM BID [facility] Last Admin: 03/08/17 09:14 Dose: 15 ml Heparin Sodium (Porcine) (Heparin -) 5,000 unit SQ TID [facility] Last Admin: 03/08/17 05:43 Dose: 5,000 unit Fluconazole (Diflucan 200 Mg/Ns Premixed Ivpb -) 100 mls @ 100 mls/hr IVPB DAILY [facility] Last Admin: 03/08/17 09:13 Dose: 100 mls/hr Norepinephrine Bitartrate 8, (000 mcg/ Dextrose) 500 mls @ 18.75 mls/hr IV TITR DANIELA; 5 MCG/MIN PRN Reason: Protocol Last Admin: 03/07/17 17:25 Dose: Not Given Meropenem 1 gm/ Dextrose 100 mls @ 200 mls/hr IVPB BID [facility] PRN Reason: Protocol Last Admin: 03/08/17 09:12 Dose: 200 mls/hr Propofol (Diprivan -) 100 mls @ 2.109 mls/hr IVPB TITR DANIELA; 5 MCG/KG/MIN PRN Reason: Protocol Last Admin: 03/08/17 07:30 Dose: 21.092 mls/hr Potassium Chloride/Sodium Chloride (Ns+20 Meq Kcl -) 1,000 mls @ 125 mls/hr IV ASDIR [facility] Last Admin: 03/08/17 09:14 Dose: 125 mls/hr Fentanyl 500 mcg/ Dextrose 100 mls @ 20 mls/hr IJ TITR DANIELA PRN Reason: 100 MCG/HR Last Admin: 03/08/17 09:13 Dose: 20 mls/hr Pantoprazole Sodium (Protonix 40mg Ivpb (Pre-Docked)) 100 mls @ 200 mls/hr IVPB DAILY [facility] Last Admin: 03/08/17 10:29 Dose: 200 mls/hr Vasopressin 50 units/ Sodium (Chloride) 100 mls @ 12 mls/hr IVPB TITR DANIELA; 6 UNITS/HR PRN Reason: Protocol Last Titration: 03/08/17 06:00 Dose: 0 units/hr Insulin Aspart (Novolog Vial Sliding Scale -) 1 vial SQ Q4H DANIELA PRN Reason: Protocol Last Admin: 03/08/17 06:44 Dose: Not Given - Objective Vital Signs: Vital Signs Temperature 98.5 F 03/08/17 06:00 Pulse Rate 88 03/08/17 08:00 Respiratory Rate 19 03/08/17 09:00 Blood Pressure 107/63 03/08/17 08:00 O2 Sat by Pulse Oximetry (%) 100 03/08/17 09:00 Vital Signs Period Temp Pulse Resp BP Sys/[place] Pulse Ox Last 24 Hr 97.0 F-98.9 F 79-91 14-36 99-141/63-99 98-100 Intake & Output 03/07/17 03/08/17 03/08/17 23:59 07:59 15:59 Intake Total 2137 3092 Output Total 800 1300 100 Balance 1337 1792 -100 Weight 179 lb 7 oz Intake: IV 2137 2292 Diprivan - 100 ml @ 5 MCG 67 480 /KG/MIN 2.109 mls/hr IVPB TITR DANIELA Rx#:[id number] Ns+20 Meq KCl - 1,000 ml 1500 @ 125 mls/hr IV ASDIR DANIELA Rx#:[id number] Normal Saline - 1,000 ml 1000 @ 1000 mls/hr IV ASDIR STA Rx#:[id number] Normal Saline - 1,000 ml 1000 @ 1000 mls/hr IV ASDIR STA Rx#:[id number] Pitressin - 50 Units In 31 72 VASOPRESSIN Normal Saline - 97.5 ml @ 6 UNITS/HR 12 mls/hr IVPB TITR DANIELA Rx#: [id number] fentanyl 39 240 IVPB 800 Output: Drainage 400 Left Lower Abdomen 400 Urine 800 900 100 Alvarez 800 900 100 Other: Voiding Method Indwelling Catheter Indwelling Catheter Bowel Movement Yes: 1 loose bm # Bowel Movements 1 Weight Measurement Method [facility] Constitutional: Yes: Well Nourished, No Distress Cardiovascular: Yes: Regular Rate and Rhythm. No: Murmur Respiratory: Yes: Regular, CTA Bilaterally, Intubated, Mechanically Ventilated Gastrointestinal: Yes: Soft, Distention, Other (colostomy with appliance). No: Tenderness (no reaction to palpation/exam) Genitourinary: Yes: Alvarez Present. No: Hematuria Extremities: No: Cool, Cyanosis Integumentary: Yes: Incision (midline - dressed). No: Rash Wound/Incision: Yes: Dressing Dry and Intact (midline), Other (LLQ colostomy - dusky pink, edematous, patent, productive of liquid brown stool in bag) Neurological: Yes: Unresponsive (to voice, does move a little to pain). No: Alert Labs: CBC, BMP 03/08/17 05:15 03/08/17 05:15 INR, PTT INR 1.26 (0.82-1.09) H 03/08/17 05:15 CBCD WBC 7.3 K/mm3 (4.0-10.0) 03/08/17 05:15 RBC 3.24 M/mm3 (4.00-5.60) L 03/08/17 05:15 Hgb 10.8 GM/dL (11.7-16.9) L 03/08/17 05:15 Hct 29.9 % (35.4-49) L 03/08/17 05:15 MCV 92.2 fl (80-96) 03/08/17 05:15 MCHC 36.2 g/dl (32.0-35.9) H 03/08/17 05:15 RDW 14.5 % (11.9-15.9) 03/08/17 05:15 Plt Count 204 K/MM3 (134-434) 03/08/17 05:15 MPV 8.8 fl (7.5-11.1) 03/08/17 05:15 CMP Sodium 136 mmol/L (136-145) 03/08/17 05:15 Potassium 3.8 mmol/L (3.5-5.1) 03/08/17 05:15 Chloride 100 mmol/L (98-107) 03/08/17 05:15 Carbon Dioxide 26 mmol/L (21-32) 03/08/17 05:15 Anion Gap 10 (8-16) 03/08/17 05:15 BUN 48 mg/dL (7-18) H 03/08/17 05:15 Creatinine 0.9 mg/dL (0.7-1.3) 03/08/17 05:15 Creat Clearance w eGFR > 60 (>60) 03/08/17 05:15 Calcium 5.8 mg/dL (8.5-10.1) L* 03/08/17 05:15 Total Bilirubin 0.7 mg/dL (0.2-1.0) 03/08/17 05:15 AST U/L (15-37) 03/08/17 05:15 ALT U/L (12-78) 03/08/17 05:15 Alkaline Phosphatase 103 U/L (45-117) 03/08/17 05:15 Total Protein 3.8 g/dl (6.4-8.2) L 03/08/17 05:15 Albumin 1.3 g/dl (3.4-5.0) L 03/08/17 05:15 - ....Imaging Chest X-ray: Report Reviewed, Image Reviewed Problem List - Problems (1) Rectal malignant neoplasm Assessment/Plan: s/p neoadjuvant chemoRT, done in October or November definitive operation deferred Code(s): C20 - MALIGNANT NEOPLASM OF RECTUM (2) Bowel obstruction Assessment/Plan: LBO with sepsis POD1 s/p ex lap with sigmoid colostomy no bowel compromise, no septic focus identified at surgery has done well postop so far - off pressors, labs improved, making urine remains intubated and sedated ostomy with a little liquid output, stoma edematous continue care per primary/ICU team will follow Code(s): K56.60 - UNSPECIFIED INTESTINAL OBSTRUCTION Qualifiers: Intestinal obstruction type: other intestinal obstruction Qualified Code(s): K56.69 - Other intestinal obstruction (3) Rectal stricture Assessment/Plan: present on scope 03/02, but GI could not pass through biopsy results show no malignancy s/p therapy Code(s): K62.4 - STENOSIS OF ANUS AND RECTUM (4) Dehydration Assessment/Plan: resolving Code(s): E86.0 - DEHYDRATION (5) Lactic acid acidosis Assessment/Plan: resolved Code(s): E87.2 - ACIDOSIS (6) Status post chemotherapy Assessment/Plan: for locally advanced rectal cancer Code(s): Z92.21 - PERSONAL HISTORY OF ANTINEOPLASTIC CHEMOTHERAPY (7) S/P radiation therapy > 12 wks ago Assessment/Plan: for locally advanced rectal cancer Code(s): Z92.3 - PERSONAL HISTORY OF IRRADIATION
--- NOTE | 2017-03-08 12:20 | PN ---
Progress Note, Physician Chief Complaint: Itubated on Vent Hemodybnamically stable History of Present Illness: 56 yrs old man H/O HTN, CA Colon s/p RT and Apolinar admitted with nausea vomiting due to colonic obstruction associated with sepsis and Metabolic acidosis underwent Exploratory Laprotomy and colostomy - Current Medication List Current Medications: Active Medications Chlorhexidine Gluconate (Peridex -) 15 ml MM BID [facility] Last Admin: 03/08/17 09:14 Dose: 15 ml Heparin Sodium (Porcine) (Heparin -) 5,000 unit SQ TID [facility] Last Admin: 03/08/17 05:43 Dose: 5,000 unit Fluconazole (Diflucan 200 Mg/Ns Premixed Ivpb -) 100 mls @ 100 mls/hr IVPB DAILY [facility] Last Admin: 03/08/17 09:13 Dose: 100 mls/hr Norepinephrine Bitartrate 8, (000 mcg/ Dextrose) 500 mls @ 18.75 mls/hr IV TITR DANIELA; 5 MCG/MIN PRN Reason: Protocol Last Admin: 03/07/17 17:25 Dose: Not Given Meropenem 1 gm/ Dextrose 100 mls @ 200 mls/hr IVPB BID [facility] PRN Reason: Protocol Last Admin: 03/08/17 09:12 Dose: 200 mls/hr Propofol (Diprivan -) 100 mls @ 2.109 mls/hr IVPB TITR DANIELA; 5 MCG/KG/MIN PRN Reason: Protocol Last Admin: 03/08/17 07:30 Dose: 21.092 mls/hr Potassium Chloride/Sodium Chloride (Ns+20 Meq Kcl -) 1,000 mls @ 125 mls/hr IV ASDIR [facility] Last Admin: 03/08/17 09:14 Dose: 125 mls/hr Fentanyl 500 mcg/ Dextrose 100 mls @ 20 mls/hr IJ TITR DANIELA PRN Reason: 100 MCG/HR Last Admin: 03/08/17 09:13 Dose: 20 mls/hr Pantoprazole Sodium (Protonix 40mg Ivpb (Pre-Docked)) 100 mls @ 200 mls/hr IVPB DAILY [facility] Last Admin: 03/08/17 10:29 Dose: 200 mls/hr Vasopressin 50 units/ Sodium (Chloride) 100 mls @ 12 mls/hr IVPB TITR DANIELA; 6 UNITS/HR PRN Reason: Protocol Last Titration: 03/08/17 06:00 Dose: 0 units/hr Insulin Aspart (Novolog Vial Sliding Scale -) 1 vial SQ Q4H [facility] PRN Reason: Protocol Last Admin: 03/08/17 11:36 Dose: Not Given - Objective Vital Signs: Vital Signs Temperature 98.9 F 03/08/17 10:00 Pulse Rate 86 03/08/17 12:00 Respiratory Rate 18 03/08/17 12:12 Blood Pressure 110/70 03/08/17 12:00 O2 Sat by Pulse Oximetry (%) 100 03/08/17 12:12 Middle aged man sedated intubated off pressers HEENT: Et kathe+be at place , Mm dry anemia NECK: Rt IJ no JVD CHEST: B/L equal AE CVS: S1S2 R no m/g/r ABD: S/p Exploratory Laprotomy and Colostomy 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 EXT: trace edema , Pulses + Labs: CBC, BMP CBC,CMP WBC 7.3 K/mm3 (4.0-10.0) 03/08/17 05:15 RBC 3.24 M/mm3 (4.00-5.60) L 03/08/17 05:15 Hgb 10.8 GM/dL (11.7-16.9) L 03/08/17 05:15 Hct 29.9 % (35.4-49) L 03/08/17 05:15 MCV 92.2 fl (80-96) 03/08/17 05:15 MCH 33.4 pg (25.7-33.7) 03/08/17 05:15 MCHC 36.2 g/dl (32.0-35.9) H 03/08/17 05:15 RDW 14.5 % (11.9-15.9) 03/08/17 05:15 Plt Count 204 K/MM3 (134-434) 03/08/17 05:15 MPV 8.8 fl (7.5-11.1) 03/08/17 05:15 Neutrophils % 41.0 % (42.8-82.8) L D 03/07/17 05:15 Lymphocytes % 23.0 % (8-40) D 03/07/17 05:15 Monocytes % 17.0 % (3.8-10.2) H 03/07/17 05:15 Eosinophils % 0.0 % (0-4.5) 03/06/17 08:59 Basophils % 0.1 % (0-2.0) 03/06/17 08:59 Band Neutrophils 19.0 % (0-10) H 03/07/17 05:15 Sodium 136 mmol/L (136-145) 03/08/17 05:15 Potassium 3.8 mmol/L (3.5-5.1) 03/08/17 05:15 Chloride 100 mmol/L (98-107) 03/08/17 05:15 Carbon Dioxide 26 mmol/L (21-32) 03/08/17 05:15 Anion Gap 10 (8-16) 03/08/17 05:15 BUN 48 mg/dL (7-18) H 03/08/17 05:15 Creatinine 0.9 mg/dL (0.7-1.3) 03/08/17 05:15 Creat Clearance w eGFR > 60 (>60) 03/08/17 05:15 POC Glucometer 147.71193 UNITS (()) 03/08/17 05:47 Random Glucose 138 mg/dL (74-106) H 03/08/17 05:15 Hemoglobin A1c % 5.4 % (4.8-6.0) 03/08/17 05:15 Lactic Acid 2.2 mmol/L (0.4-2.0) H* 03/07/17 20:30 Calcium 5.8 mg/dL (8.5-10.1) L* 03/08/17 05:15 Phosphorus 3.2 mg/dL (2.5-4.9) 03/08/17 05:15 Magnesium 1.7 mg/dL (1.8-2.4) L 03/07/17 20:30 Total Bilirubin 0.7 mg/dL (0.2-1.0) 03/08/17 05:15 Direct Bilirubin 0.4 mg/dL (0.0-0.2) H D 03/06/17 23:00 AST U/L (15-37) 03/08/17 05:15 ALT U/L (12-78) 03/08/17 05:15 Alkaline Phosphatase 103 U/L (45-117) 03/08/17 05:15 Total Protein 3.8 g/dl (6.4-8.2) L 03/08/17 05:15 Albumin 1.3 g/dl (3.4-5.0) L 03/08/17 05:15 Total Amylase 20 U/L (25-115) L 03/06/17 23:00 Lipase 74 U/L (73-393) 03/06/17 05:30 Problem List - Problems (1) Small bowel obstruction Assessment/Plan: Due to malignant strictures s/p Explarotary laprotomy and colostomy management as per surgical team. Code(s): K56.69 - OTHER INTESTINAL OBSTRUCTION (2) Sepsis Assessment/Plan: Due to perfortaed intestine now off pressors still intubated Cont current abx. F /U cultures. Code(s): A41.9 - SEPSIS, UNSPECIFIED ORGANISM (3) Lactic acid acidosis Assessment/Plan: Due to sepsis resolved cont IV Hydration. and BMP Code(s): E87.2 - ACIDOSIS (4) Rectal malignant neoplasm Assessment/Plan: S/P RT and Chemo F/O Oncology and Surgery recommendations. Code(s): C20 - MALIGNANT NEOPLASM OF RECTUM (5) Anemia Assessment/Plan: Chronic H/h stable. Code(s): D64.9 - ANEMIA, UNSPECIFIED Qualifiers: Anemia type: unspecified type Qualified Code(s): D64.9 - Anemia, unspecified
--- NOTE | 2017-03-08 12:56 | PN ---
Progress Note (short form) - Note Progress Note: Patient seen and examined in the ICU. Intubated and sedated. Currently off pressors. AC mode of vent. Intake & Output 03/05/17 03/06/17 03/07/17 03/08/17 23:59 23:59 23:59 23:59 Intake Total 1 07600 3092 Output Total 2200 1400 Balance 1 8249 1692 Weight 155 lb 179 lb 7 oz Last Vital Signs Temp Pulse Resp BP Pulse Ox 98.9 F 86 14 110/70 100 03/08/17 10:00 03/08/17 12:00 03/08/17 12:12 03/08/17 12:00 03/08/17 12:12 Active Medications Chlorhexidine Gluconate (Peridex -) 15 ml MM BID [facility] Last Admin: 03/08/17 09:14 Dose: 15 ml Heparin Sodium (Porcine) (Heparin -) 5,000 unit SQ TID [facility] Last Admin: 03/08/17 05:43 Dose: 5,000 unit Fluconazole (Diflucan 200 Mg/Ns Premixed Ivpb -) 100 mls @ 100 mls/hr IVPB DAILY [facility] Last Admin: 03/08/17 09:13 Dose: 100 mls/hr Norepinephrine Bitartrate 8, (000 mcg/ Dextrose) 500 mls @ 18.75 mls/hr IV TITR DANIELA; 5 MCG/MIN PRN Reason: Protocol Last Admin: 03/07/17 17:25 Dose: Not Given Meropenem 1 gm/ Dextrose 100 mls @ 200 mls/hr IVPB BID DANIELA PRN Reason: Protocol Last Admin: 03/08/17 09:12 Dose: 200 mls/hr Propofol (Diprivan -) 100 mls @ 2.109 mls/hr IVPB TITR DANIELA; 5 MCG/KG/MIN PRN Reason: Protocol Last Admin: 03/08/17 12:42 Dose: 21.092 mls/hr Potassium Chloride/Sodium Chloride (Ns+20 Meq Kcl -) 1,000 mls @ 125 mls/hr IV ASDIR [facility] Last Admin: 03/08/17 09:14 Dose: 125 mls/hr Fentanyl 500 mcg/ Dextrose 100 mls @ 20 mls/hr IJ TITR DANIELA PRN Reason: 100 MCG/HR Last Admin: 03/08/17 09:13 Dose: 20 mls/hr Pantoprazole Sodium (Protonix 40mg Ivpb (Pre-Docked)) 100 mls @ 200 mls/hr IVPB DAILY DANIELA Last Admin: 03/08/17 10:29 Dose: 200 mls/hr Vasopressin 50 units/ Sodium (Chloride) 100 mls @ 12 mls/hr IVPB TITR DANIELA; 6 UNITS/HR PRN Reason: Protocol Last Titration: 03/08/17 06:00 Dose: 0 units/hr Insulin Aspart (Novolog Vial Sliding Scale -) 1 vial SQ Q4H DANIELA PRN Reason: Protocol Last Admin: 03/08/17 11:36 Dose: Not Given Constitutional: Yes: Intubated and sedated HENT: Yes: Atraumatic, Normocephalic Neck: Yes: Supple, Trachea Midline Cardiovascular: Yes: Regular Rate and Rhythm, S1, S2. No: Murmur Respiratory: Yes: Intubated, Mechanically Ventilated, few scattered rhonchi Gastrointestinal: Yes: Softly distended, hypoactive bowel sounds Genitourinary: Yes: Alvarez Present, less scrotal Edema Edema: No Neurological: Yes: Intubated and sedated Labs: Laboratory Results - last 24 hr 03/07/17 03/07/17 03/07/17 11:00 15:57 18:04 WBC RBC Hgb Hct MCV MCH MCHC RDW Plt Count MPV INR PTT (Actin FS) Puncture Site ABG pH ABG pCO2 at Pt Temp ABG pO2 at Pt Temp ABG HCO3 ABG O2 Sat (Measured) ABG O2 Content ABG Base Excess Sven Test O2 Delivery Device Oxygen Flow Rate Vent Mode Vent Rate Mechanical Rate PEEP Pressure Support Vent Sodium Potassium Chloride Carbon Dioxide Anion Gap BUN Creatinine Creat Clearance w eGFR POC Glucometer 110.20708 163.49101 Random Glucose Hemoglobin A1c % Lactic Acid Calcium Phosphorus Magnesium Total Bilirubin AST ALT Alkaline Phosphatase Total Protein Albumin Blood Type A POSITIVE Antibody Screen Negative Crossmatch IS Only See Detail 03/07/17 03/07/17 03/07/17 20:30 20:30 20:30 WBC 5.8 D RBC 3.56 L Hgb 11.4 L D Hct 32.4 L D MCV 91.0 MCH 32.0 MCHC 35.2 RDW 14.4 Plt Count 215 D MPV 8.1 INR PTT (Actin FS) Puncture Site ABG pH ABG pCO2 at Pt Temp ABG pO2 at Pt Temp ABG HCO3 ABG O2 Sat (Measured) ABG O2 Content ABG Base Excess Sven Test O2 Delivery Device Oxygen Flow Rate Vent Mode Vent Rate Mechanical Rate PEEP Pressure Support Vent Sodium 137 Potassium 3.5 Chloride 100 Carbon Dioxide 26 Anion Gap 11 BUN 57 H D Creatinine 1.1 D Creat Clearance w eGFR > 60 POC Glucometer Random Glucose 135 H D Hemoglobin A1c % Lactic Acid Calcium 5.4 L* Phosphorus 3.7 Magnesium 1.7 L Total Bilirubin 0.6 AST 63 H D ALT 31 D Alkaline Phosphatase 99 Total Protein 3.7 L Albumin 1.4 L D Blood Type Antibody Screen Crossmatch IS Only 03/07/17 03/08/17 03/08/17 20:30 05:15 05:15 WBC 7.3 RBC 3.24 L Hgb 10.8 L Hct 29.9 L MCV 92.2 MCH 33.4 MCHC 36.2 H RDW 14.5 Plt Count 204 MPV 8.8 INR PTT (Actin FS) Puncture Site ABG pH ABG pCO2 at Pt Temp ABG pO2 at Pt Temp ABG HCO3 ABG O2 Sat (Measured) ABG O2 Content ABG Base Excess Sven Test O2 Delivery Device Oxygen Flow Rate Vent Mode Vent Rate Mechanical Rate PEEP Pressure Support Vent Sodium 136 Potassium 3.8 Chloride 100 Carbon Dioxide 26 Anion Gap 10 BUN 48 H Creatinine 0.9 Creat Clearance w eGFR > 60 POC Glucometer Random Glucose 138 H Hemoglobin A1c % Lactic Acid 2.2 H* Calcium 5.8 L* Phosphorus 3.2 Magnesium Total Bilirubin 0.7 AST ALT Alkaline Phosphatase 103 Total Protein 3.8 L Albumin 1.3 L Blood Type Antibody Screen Crossmatch IS Only 03/08/17 03/08/17 03/08/17 05:15 05:15 05:47 WBC RBC Hgb Hct MCV MCH MCHC RDW Plt Count MPV INR 1.26 H PTT (Actin FS) 33.5 Puncture Site ABG pH ABG pCO2 at Pt Temp ABG pO2 at Pt Temp ABG HCO3 ABG O2 Sat (Measured) ABG O2 Content ABG Base Excess Sven Test O2 Delivery Device Oxygen Flow Rate Vent Mode Vent Rate Mechanical Rate PEEP Pressure Support Vent Sodium Potassium Chloride Carbon Dioxide Anion Gap BUN Creatinine Creat Clearance w eGFR POC Glucometer 147.92402 Random Glucose Hemoglobin A1c % 5.4 Lactic Acid Calcium Phosphorus Magnesium Total Bilirubin AST ALT Alkaline Phosphatase Total Protein Albumin Blood Type Antibody Screen Crossmatch IS Only 03/08/17 07:10 WBC RBC Hgb Hct MCV MCH MCHC RDW Plt Count MPV INR PTT (Actin FS) Puncture Site Right radial ABG pH 7.53 H ABG pCO2 at Pt Temp 30.2 L ABG pO2 at Pt Temp 158.0 H* ABG HCO3 25.1 ABG O2 Sat (Measured) 98.8 ABG O2 Content 14.1 L ABG Base Excess 3.1 H Sven Test Positive O2 Delivery Device Vent Oxygen Flow Rate 50 Vent Mode A/c Vent Rate 16 Mechanical Rate Yes PEEP 8.0 Pressure Support Vent 450 Sodium Potassium Chloride Carbon Dioxide Anion Gap BUN Creatinine Creat Clearance w eGFR POC Glucometer Random Glucose Hemoglobin A1c % Lactic Acid Calcium Phosphorus Magnesium Total Bilirubin AST ALT Alkaline Phosphatase Total Protein Albumin Blood Type Antibody Screen Crossmatch IS Only Assessment/Plan S/P Ex-Lap HTN Lactic acidosis Rectal stricture Rectal Cancer s/p chemo and radiation Hyperglycemia Elevated anion gap / Metabolic acidosis Septic shock Plan: IVF resuscitation Wean sedation Fentanyl drip for pain control ABX per ID Strict I&O Will need to further input from Urology (called) VTE prophylaxis PPI Glycemic control Dr Salamanca Critical Care Time Total Critical Care Time: 35 Critical Care Statement: The care of this patient involved high complexity decision making to prevent further life threatening deterioration of the patient 's condition and/or to evalute & treat vital organ system(s) failure or risk of failure.
[2017-03-08] MEDS ORDERED: CALCIUM CHLORIDE 10% 1 GM/10 ML *VIAL IVPB ONE (13:08)
[2017-03-08] MEDS ORDERED: CALCIUM CHLORIDE 1 GM/10 ML *DISP.SYRIN ONE ×2 (13:53→16:02)
--- NOTE | 2017-03-08 15:24 | PN ---
Progress Note (short form) - Note Progress Note: Patient seen and examined. Events noted Remains intubated, off pressors , on sedatives. O/E Intubated sedated Colostomy + Abnormal Lab Results 03/07/17 03/07/17 03/07/17 20:30 20:30 20:30 RBC 3.56 L Hgb 11.4 L D Hct 32.4 L D MCHC INR ABG pH ABG pCO2 at Pt Temp ABG pO2 at Pt Temp ABG O2 Content ABG Base Excess BUN 57 H D Random Glucose 135 H D Lactic Acid Calcium 5.4 L* Magnesium 1.7 L AST 63 H D Total Protein 3.7 L Albumin 1.4 L D 03/07/17 03/08/17 03/08/17 20:30 05:15 05:15 RBC 3.24 L Hgb 10.8 L Hct 29.9 L MCHC 36.2 H INR ABG pH ABG pCO2 at Pt Temp ABG pO2 at Pt Temp ABG O2 Content ABG Base Excess BUN 48 H Random Glucose 138 H Lactic Acid 2.2 H* Calcium 5.8 L* Magnesium AST Total Protein 3.8 L Albumin 1.3 L 03/08/17 03/08/17 05:15 07:10 RBC Hgb Hct MCHC INR 1.26 H ABG pH 7.53 H ABG pCO2 at Pt Temp 30.2 L ABG pO2 at Pt Temp 158.0 H* ABG O2 Content 14.1 L ABG Base Excess 3.1 H BUN Random Glucose Lactic Acid Calcium Magnesium AST Total Protein Albumin Last Vital Signs Temp Pulse Resp BP Pulse Ox 98.9 F 87 13 109/67 100 03/08/17 13:32 03/08/17 13:32 03/08/17 15:02 03/08/17 13:32 03/08/17 12:12 Current Medications Generic Name Dose Route Start Last Admin Trade Name Freq PRN Reason Stop Dose Admin Chlorhexidine Gluconate 15 ml 03/07/17 22:00 03/08/17 09:14 Peridex - MM 15 ml BID DANIELA Administration Heparin Sodium (Porcine) 5,000 unit 03/07/17 22:00 03/08/17 13:02 Heparin - SQ 5,000 unit TID DANIELA Administration Fluconazole 100 mls @ 100 mls/hr 03/08/17 10:00 03/08/17 09:13 Diflucan 200 Mg/Ns Premixed Ivpb - IVPB 100 mls/hr DAILY DANIELA Administration Norepinephrine Bitartrate 8, 500 mls @ 18.75 mls/hr 03/07/17 17:03 03/07/17 17: 25 000 mcg/ Dextrose IV Not Given TITR DANIELA Protocol 5 MCG/MIN Meropenem 1 gm/ Dextrose 100 mls @ 200 mls/hr 03/07/17 22:00 03/08/17 09:12 IVPB 200 mls/hr BID DANIELA Administration Protocol Propofol 100 mls @ 2.109 mls/hr 03/07/17 17:03 03/08/17 12:42 Diprivan - IVPB 21.092 mls/hr TITR DANIELA Administration Protocol 5 MCG/KG/MIN Potassium Chloride/Sodium Chloride 1,000 mls @ 125 mls/hr 03/07/17 17:15 09:14 Ns+20 Meq Kcl - IV 125 mls/hr ASDIR DANIELA Administration Fentanyl 500 mcg/ Dextrose 100 mls @ 20 mls/hr 03/07/17 17:15 03/08/17 14:11 IJ 15 mls/hr TITR DANIELA Administration 100 MCG/HR Pantoprazole Sodium 100 mls @ 200 mls/hr 03/08/17 10:00 03/08/17 10:29 Protonix 40mg Ivpb (Pre-Docked) IVPB 200 mls/hr DAILY DANILEA Administration Vasopressin 50 units/ Sodium 100 mls @ 12 mls/hr 03/07/17 17:26 03/08/17 06:00 Chloride IVPB 0 units/hr TITR DANIELA Titration Protocol 6 UNITS/HR Insulin Aspart 1 vial 03/07/17 19:15 03/08/17 11:36 Novolog Vial Sliding Scale - SQ Not Given Q4H DANIELA Protocol CBC, BMP 03/08/17 05:15 03/08/17 05:15 INR, PTT INR 1.26 (0.82-1.09) H 03/08/17 05:15 Fibrinogen 676.0 mg/dL (238-498) H 03/06/17 23:00 Assessment/Plan: Rectal adenoca , stage WILMA . s/p chemo , chemo+RT , most recently with colonoscopy +for rectal stricture and was negative for malignancy. SBO s/p Ex-lap, Colostomy this admission Intubated/sedated-septic shock -appreciate ICU/Surgical team care -on abx -will follow.
[2017-03-08] MEDS ORDERED: CALCIUM GLUCONATE 10% - 1,000 MG/10 ML VIAL IVPUSH ONE (15:59)
[2017-03-08] MEDS: NOREPINEPHRINE BITARTRATE 8,000 MCG in DEXTROSE 5%-WATER - 492 ML IV SCH (16:08)
[2017-03-08] MEDS ORDERED: INSULIN SLIDING SCALE (NOVOLOG) 1 VIAL SQ SCH (16:30)
--- NOTE | 2017-03-08 16:53 | PN ---
Progress Note, Physician History of Present Illness: patient continues to be sedated and intubated pod 1 with colostomy stable wbc has trended normal - Current Medication List Current Medications: Active Medications Chlorhexidine Gluconate (Peridex -) 15 ml MM BID [facility] Last Admin: 03/08/17 09:14 Dose: 15 ml Heparin Sodium (Porcine) (Heparin -) 5,000 unit SQ TID [facility] Last Admin: 03/08/17 13:02 Dose: 5,000 unit Fluconazole (Diflucan 200 Mg/Ns Premixed Ivpb -) 100 mls @ 100 mls/hr IVPB DAILY [facility] Last Admin: 03/08/17 09:13 Dose: 100 mls/hr Meropenem 1 gm/ Dextrose 100 mls @ 200 mls/hr IVPB BID DANIELA PRN Reason: Protocol Last Admin: 03/08/17 09:12 Dose: 200 mls/hr Propofol (Diprivan -) 100 mls @ 2.109 mls/hr IVPB TITR DANIELA; 5 MCG/KG/MIN PRN Reason: Protocol Last Admin: 03/08/17 16:07 Dose: 21.092 mls/hr Potassium Chloride/Sodium Chloride (Ns+20 Meq Kcl -) 1,000 mls @ 125 mls/hr IV ASDIR [facility] Last Admin: 03/08/17 16:23 Dose: Not Given Fentanyl 500 mcg/ Dextrose 100 mls @ 20 mls/hr IJ TITR [facility] PRN Reason: 100 MCG/HR Last Admin: 03/08/17 16:23 Dose: Not Given Pantoprazole Sodium (Protonix 40mg Ivpb (Pre-Docked)) 100 mls @ 200 mls/hr IVPB DAILY [facility] Last Admin: 03/08/17 10:29 Dose: 200 mls/hr Insulin Aspart (Novolog Vial Sliding Scale -) 1 vial SQ BIDAC DANIELA PRN Reason: Protocol - Objective Vital Signs: Vital Signs Temperature 98.9 F 03/08/17 13:32 Pulse Rate 86 03/08/17 16:00 Respiratory Rate 16 03/08/17 16:00 Blood Pressure 108/68 03/08/17 16:00 O2 Sat by Pulse Oximetry (%) 100 03/08/17 16:00 Constitutional: Yes: No Distress, Calm Cardiovascular: Yes: Regular Rate and Rhythm Respiratory: Yes: Intubated, Mechanically Ventilated Gastrointestinal: Yes: Soft, Other (absent bowel sounds) Musculoskeletal: Yes: WNL Extremities: Yes: WNL Neurological: Yes: Other Psychiatric: Yes: Other Labs: CBC, BMP 03/08/17 05:15 03/08/17 05:15 INR, PTT INR 1.26 (0.82-1.09) H 03/08/17 05:15 Fibrinogen 676.0 mg/dL (238-498) H 03/06/17 23:00 Assessment/Plan Problem List - Problems (1) Rectal malignant neoplasm Code(s): C20 - MALIGNANT NEOPLASM OF RECTUM (2) Bowel obstruction Code(s): K56.60 - UNSPECIFIED INTESTINAL OBSTRUCTION Qualifiers: Intestinal obstruction type: other intestinal obstruction Qualified Code(s): K56.69 - Other intestinal obstruction (3) Rectal stricture Assessment/Plan: Code(s): K62.4 - STENOSIS OF ANUS AND RECTUM (4) Dehydration Assessment/Plan: Code(s): E86.0 - DEHYDRATION (5) Lactic acid acidosis Assessment/Plan: Code(s): E87.2 - ACIDOSIS (6) Status post chemotherapy Assessment/Plan: Code(s): Z92.21 - PERSONAL HISTORY OF ANTINEOPLASTIC CHEMOTHERAPY (7) S/P radiation therapy Assessment/Plan: Code(s): Z92.3 - PERSONAL HISTORY OF IRRADIATION Lactic acidosis Rectal Cancer s/p chemo and radiation Hyperglycemia / Metabolic acidosis Septic shock plan continue abx continue resp support close monitoring wbc normal rest as per icu cc 40 min
[2017-03-08] MEDS ORDERED: BENZOIN/ALOE VERA/STORAX/TOLU 58 ML BOTTLE ONE (17:19)
[2017-03-09] MEDS: HEPARIN NA (PORCINE) 5,000 UNITS/ML 1ML VIAL SQ SCH ×3 (06:22→22:09)
[2017-03-09] MEDS: INSULIN SLIDING SCALE (NOVOLOG) 1 VIAL SQ SCH (06:30)
[2017-03-09 06:56] LABS: MCH 31.9 pg (25.7-33.7); MCHC 34.6 g/dl (32.0-35.9); MEAN CELL VOLUME 92.3 fl (80-96); PLATELET COUNT 168 K/MM3 (134-434); RDW 14.5 % (11.9-15.9)
[2017-03-09 07:20] LABS: ALLENS TEST POSITIVE; ART PUNCT SITE RIGHT RADIAL; ARTERIAL BLD GAS O2 SATURATION 97.5 % (90-98.9); ARTERIAL BLOOD GAS BASE EXCESS 1.3 meq/l (-2-2); ARTERIAL BLOOD GAS HCO3 24.7 meq/L (22-26); ARTERIAL BLOOD GAS pH 7.45 (7.35-7.45); LPM/O2% 35%; MECH. VENT. YES; PT. ON O2? YES; TYPE OF O2 VENT; VENT RATE 12; VT/PRESS 450
[2017-03-09 07:24] LABS: ALBUMIN 1.3 g/dl (3.4-5.0); ALK PHOS 108 U/L (45-117); ANION GAP 7 (8-16); BILIRUBIN,TOTAL 0.6 mg/dL (0.2-1.0); CO2 26 mmol/L (21-32); CREATININE 0.6 mg/dL (0.7-1.3); GLUCOSE,RANDOM 111 mg/dL (74-106); PHOSPHOROUS 1.6 mg/dL (2.5-4.9)
[2017-03-09 07:37] LABS: MAGNESIUM 2.1 mg/dL (1.8-2.4); SGOT/AST 51 U/L (15-37)
[2017-03-09 07:38] LABS: SGPT/ALT 27 U/L (12-78)
[2017-03-09 07:39] LABS: CALCIUM 6.7 mg/dL (8.5-10.1)
[2017-03-09] MEDS: PROPOFOL 100 ML IVPB SCH (08:22)
--- NOTE | 2017-03-09 08:52 | PN ---
Progress Note, Physician Chief Complaint: On respirator History of Present Illness: Sedated on respirator - Current Medication List Current Medications: Active Medications Chlorhexidine Gluconate (Peridex -) 15 ml MM BID [facility] Last Admin: 03/08/17 21:34 Dose: 15 ml Heparin Sodium (Porcine) (Heparin -) 5,000 unit SQ TID [facility] Last Admin: 03/09/17 06:22 Dose: 5,000 unit Fluconazole (Diflucan 200 Mg/Ns Premixed Ivpb -) 100 mls @ 100 mls/hr IVPB DAILY [facility] Last Admin: 03/08/17 09:13 Dose: 100 mls/hr Meropenem 1 gm/ Dextrose 100 mls @ 200 mls/hr IVPB BID DANIELA PRN Reason: Protocol Last Admin: 03/08/17 21:34 Dose: 200 mls/hr Propofol (Diprivan -) 100 mls @ 2.109 mls/hr IVPB TITR DANIELA; 5 MCG/KG/MIN PRN Reason: Protocol Last Admin: 03/09/17 08:22 Dose: 25.311 mls/hr Potassium Chloride/Sodium Chloride (Ns+20 Meq Kcl -) 1,000 mls @ 125 mls/hr IV ASDIR [facility] Last Admin: 03/08/17 16:23 Dose: Not Given Fentanyl 500 mcg/ Dextrose 100 mls @ 20 mls/hr IJ TITR DANIELA PRN Reason: 100 MCG/HR Last Titration: 03/09/17 08:23 Dose: 100 mcg/hr Pantoprazole Sodium (Protonix 40mg Ivpb (Pre-Docked)) 100 mls @ 200 mls/hr IVPB DAILY [facility] Last Admin: 03/08/17 10:29 Dose: 200 mls/hr - Objective Vital Signs: Vital Signs Temperature 99.5 F 03/09/17 06:00 Pulse Rate 83 03/09/17 06:00 Respiratory Rate 12 03/09/17 07:28 Blood Pressure 153/85 03/09/17 06:00 O2 Sat by Pulse Oximetry (%) 99 03/08/17 19:24 Constitutional: Yes: Severe Distress Eyes: Yes: WNL HENT: Yes: WNL Neck: Yes: Supple Cardiovascular: Yes: Regular Rate and Rhythm Respiratory: Yes: Mechanically Ventilated Gastrointestinal: Yes: Soft ...Rectal Exam: Yes: Deferred Genitourinary: Yes: Alvarez Present Musculoskeletal: Yes: WNL Edema: No Neurological: Yes: Lethargy Labs: CBC, BMP 03/09/17 05:20 03/09/17 05:20 INR, PTT INR 1.26 (0.82-1.09) H 03/08/17 05:15 Fibrinogen 676.0 mg/dL (238-498) H 03/06/17 23:00 Assessment/Plan Case discussed with resident ,advised to wean from respirator
--- NOTE | 2017-03-09 10:10 | PN ---
Progress Note, Physician Chief Complaint: abdominal distention and pain History of Present Illness: POD2 s/p laparotomy with sigmoid colostomy Patient remains off pressors, intubated and sedated but awake, on Fentanyl drip. Alvarez output 2000ml yesterday, 800ml last shift. NG with 450ml in canister now. Stoma produced 500ml brown liquid stool yesterday, 200ml last shift. No major events overnight. Pt's eyes are open, he responds to some questions with nodding/shaking. At first nods to pain, then shakes head to question of pain without or with palpation of abdomen. - Current Medication List Current Medications: Active Medications Chlorhexidine Gluconate (Peridex -) 15 ml MM BID [facility] Last Admin: 03/08/17 21:34 Dose: 15 ml Heparin Sodium (Porcine) (Heparin -) 5,000 unit SQ TID [facility] Last Admin: 03/09/17 06:22 Dose: 5,000 unit Fluconazole (Diflucan 200 Mg/Ns Premixed Ivpb -) 100 mls @ 100 mls/hr IVPB DAILY [facility] Last Admin: 03/08/17 09:13 Dose: 100 mls/hr Meropenem 1 gm/ Dextrose 100 mls @ 200 mls/hr IVPB BID DANIELA PRN Reason: Protocol Last Admin: 03/08/17 21:34 Dose: 200 mls/hr Propofol (Diprivan -) 100 mls @ 2.109 mls/hr IVPB TITR DANIELA; 5 MCG/KG/MIN PRN Reason: Protocol Last Titration: 03/09/17 09:06 Dose: 50 mcg/kg/min Potassium Chloride/Sodium Chloride (Ns+20 Meq Kcl -) 1,000 mls @ 125 mls/hr IV ASDIR [facility] Last Admin: 03/08/17 16:23 Dose: Not Given Fentanyl 500 mcg/ Dextrose 100 mls @ 20 mls/hr IJ TITR DANIELA PRN Reason: 100 MCG/HR Last Titration: 03/09/17 08:23 Dose: 100 mcg/hr Pantoprazole Sodium (Protonix 40mg Ivpb (Pre-Docked)) 100 mls @ 200 mls/hr IVPB DAILY [facility] Last Admin: 03/08/17 10:29 Dose: 200 mls/hr - Objective Vital Signs: Vital Signs Temperature 99.5 F 03/09/17 06:00 Pulse Rate 83 03/09/17 06:00 Respiratory Rate 12 03/09/17 07:28 Blood Pressure 153/85 03/09/17 06:00 O2 Sat by Pulse Oximetry (%) 99 03/08/17 19:24 Vital Signs Period Temp Pulse Resp BP Sys/[place] Pulse Ox Last 24 Hr 98.9 F-99.5 F 79-98 12-19 99-153/63-99 98-100 last few BPs 160s/100s Intake & Output 03/08/17 03/09/17 03/09/17 23:59 07:59 15:59 Intake Total 1958 1979 Output Total 700 1000 Balance 1259 980 Weight 179 lb 4.8 oz Intake: IV 1570 1680 Diprivan - 100 ml @ 5 MCG 261 /KG/MIN 2.109 mls/hr IVPB TITR DANIELA Rx#:[id number] Ns+20 Meq KCl - 1,000 ml 1100 1500 @ 125 mls/hr IV ASDIR DANIELA Rx#:[id number] fentanyl 209 180 IVPB 389 300 Output: Gastric Drainage 0 Drainage 100 200 Left Lower Abdomen 100 200 Urine 600 800 Alvarez 600 800 Other: Voiding Method Indwelling Catheter Weight Measurement Method Built in [facility] Constitutional: Yes: Well Nourished, Calm Eyes: Yes: Conjunctiva Clear, EOM Intact HENT: Yes: Atraumatic, Other (NGT to suction with yellow-brown output) Cardiovascular: Yes: Tachycardia. No: Pulse Irregular Respiratory: Yes: Regular, CTA Bilaterally, Intubated, Mechanically Ventilated, Wheezes (?faint end-expiratory on right) Gastrointestinal: Yes: Soft, Distention, Hypoactive Bowel Sounds, Other (LLQ colostomy deep/dark pink, edematous, patent, productive of some liquid dark brown output). No: Tenderness (does not seem to be tender except possibly some incisional tend at midline) Genitourinary: Yes: Alvarez Present. No: Hematuria Extremities: No: Cool, Cyanosis Integumentary: Yes: Incision. No: Jaundice Wound/Incision: Yes: Well Approximated, Luis Intact (midline - clean and dry) , Dressing Dry and Intact, Dressing Removed (midline - left open to air), Other (LLQ colostomy - see above) Neurological: Yes: Alert (somewhat), Other (responds to some questions with nodding, but does not answer all) Labs: CBC, BMP 03/09/17 05:20 03/09/17 05:20 CMP Sodium 142 mmol/L (136-145) 03/09/17 05:20 Potassium 3.6 mmol/L (3.5-5.1) 03/09/17 05:20 Chloride 109 mmol/L (98-107) H 03/09/17 05:20 Carbon Dioxide 26 mmol/L (21-32) 03/09/17 05:20 Anion Gap 7 (8-16) L 03/09/17 05:20 BUN 25 mg/dL (7-18) H D 03/09/17 05:20 Creatinine 0.6 mg/dL (0.7-1.3) L D 03/09/17 05:20 Creat Clearance w eGFR > 60 (>60) 03/09/17 05:20 POC Glucometer 117.65132 UNITS (()) 03/09/17 06:29 Random Glucose 111 mg/dL (74-106) H 03/09/17 05:20 Hemoglobin A1c % 5.4 % (4.8-6.0) 03/08/17 05:15 Calcium 6.7 mg/dL (8.5-10.1) L* 03/09/17 05:20 Phosphorus 1.6 mg/dL (2.5-4.9) L D 03/09/17 05:20 Magnesium 2.1 mg/dL (1.8-2.4) 03/09/17 05:20 Total Bilirubin 0.6 mg/dL (0.2-1.0) 03/09/17 05:20 AST 51 U/L (15-37) H 03/09/17 05:20 ALT 27 U/L (12-78) 03/09/17 05:20 Alkaline Phosphatase 108 U/L (45-117) 03/09/17 05:20 Total Protein 4.0 g/dl (6.4-8.2) L 03/09/17 05:20 Albumin 1.3 g/dl (3.4-5.0) L 03/09/17 05:20 renal function improved Phos low sugars good - ....Imaging Chest X-ray: Report Reviewed Problem List - Problems (1) Rectal malignant neoplasm Assessment/Plan: s/p neoadjuvant chemoRT, done in October or November definitive operation deferred Code(s): C20 - MALIGNANT NEOPLASM OF RECTUM (2) Bowel obstruction Assessment/Plan: POD2 s/p ex lap with sigmoid colostomy no bowel compromise, no septic focus identified at surgery no resection done - definitive cancer operation deferred this admission doing well postop renal function improved on Meropenem, Diflucan urology consulted re: L stent remains intubated with some sedation and fentanyl drip anticipate vent weaning as able midline wound clean, ok to leave open ostomy with some liquid output, no stool yet, stoma edematous continue care per primary/ICU team will follow Code(s): K56.60 - UNSPECIFIED INTESTINAL OBSTRUCTION Qualifiers: Intestinal obstruction type: other intestinal obstruction Qualified Code(s): K56.69 - Other intestinal obstruction (3) Rectal stricture Assessment/Plan: present on scope 8/2, but GI could not pass through biopsy results show no malignancy s/p therapy Code(s): K62.4 - STENOSIS OF ANUS AND RECTUM (4) Dehydration Assessment/Plan: resolved Code(s): E86.0 - DEHYDRATION (5) Status post chemotherapy Assessment/Plan: for locally advanced rectal cancer Code(s): Z92.21 - PERSONAL HISTORY OF ANTINEOPLASTIC CHEMOTHERAPY (6) S/P radiation therapy > 12 wks ago Assessment/Plan: for locally advanced rectal cancer Code(s): Z92.3 - PERSONAL HISTORY OF IRRADIATION
--- NOTE | 2017-03-09 10:33 | PN ---
Progress Note (short form) - Note Progress Note: chart reviwed events noted pt with stent lost to f/u will need cysto removal of stent when med stable
--- NOTE | 2017-03-09 10:59 | PN ---
Progress Note, Physician Chief Complaint: intubated and partially sedated History of Present Illness: off pressors. BUN/Cr normal now. ostomy with some function. - Current Medication List Current Medications: Active Medications Chlorhexidine Gluconate (Peridex -) 15 ml MM BID [facility] Last Admin: 03/08/17 21:34 Dose: 15 ml Heparin Sodium (Porcine) (Heparin -) 5,000 unit SQ TID [facility] Last Admin: 03/09/17 06:22 Dose: 5,000 unit Fluconazole (Diflucan 200 Mg/Ns Premixed Ivpb -) 100 mls @ 100 mls/hr IVPB DAILY [facility] Last Admin: 03/08/17 09:13 Dose: 100 mls/hr Meropenem 1 gm/ Dextrose 100 mls @ 200 mls/hr IVPB BID [facility] PRN Reason: Protocol Last Admin: 03/08/17 21:34 Dose: 200 mls/hr Propofol (Diprivan -) 100 mls @ 2.109 mls/hr IVPB TITR DANIELA; 5 MCG/KG/MIN PRN Reason: Protocol Last Titration: 03/09/17 09:06 Dose: 50 mcg/kg/min Potassium Chloride/Sodium Chloride (Ns+20 Meq Kcl -) 1,000 mls @ 125 mls/hr IV ASDIR DANIEL[facility] Last Admin: 03/08/17 16:23 Dose: Not Given Fentanyl 500 mcg/ Dextrose 100 mls @ 20 mls/hr IJ TITR DANIELA PRN Reason: 100 MCG/HR Last Titration: 03/09/17 08:23 Dose: 100 mcg/hr Pantoprazole Sodium (Protonix 40mg Ivpb (Pre-Docked)) 100 mls @ 200 mls/hr IVPB DAILY [facility] Last Admin: 03/08/17 10:29 Dose: 200 mls/hr - Objective Vital Signs: Vital Signs Temperature 98.5 F 03/09/17 10:00 Pulse Rate 99 H 03/09/17 10:00 Respiratory Rate 11 L 03/09/17 10:00 Blood Pressure 177/99 03/09/17 10:00 O2 Sat by Pulse Oximetry (%) 99 03/08/17 19:24 Respiratory: Yes: Mechanically Ventilated Gastrointestinal: Yes: Soft, Distention, Other (incision c/d/i. ostomy dusky, unchanged.). No: Tenderness Labs: CBC, BMP 03/09/17 05:20 03/09/17 05:20 INR, PTT INR 1.26 (0.82-1.09) H 03/08/17 05:15 Fibrinogen 676.0 mg/dL (238-498) H 03/06/17 23:00 Problem List - Problems (1) Bowel obstruction Assessment/Plan: s/p colostomy creation for obstructing rectal stricture from radiation/rectal cancer recovering from shock extubation as per ICU can have clears to regular diet once extubated stent as per Code(s): K56.60 - UNSPECIFIED INTESTINAL OBSTRUCTION Qualifiers: Intestinal obstruction type: other intestinal obstruction Qualified Code(s): K56.69 - Other intestinal obstruction (2) Lactic acid acidosis Code(s): E87.2 - ACIDOSIS (3) Rectal stricture Code(s): K62.4 - STENOSIS OF ANUS AND RECTUM (4) Rectal malignant neoplasm Code(s): C20 - MALIGNANT NEOPLASM OF RECTUM (5) Sepsis Code(s): A41.9 - SEPSIS, UNSPECIFIED ORGANISM
[2017-03-09] MEDS ORDERED: PT OWN MED DRAWER 7, Y5N ONE ×2 (11:16→22:09)
[2017-03-09] MEDS: MEROPENEM 1 GM in DEXTROSE 5%-WATER - 100 ML IVPB SCH ×2 (11:21→22:10)
[2017-03-09] MEDS: CHLORHEXIDINE GLUCONATE 0.12% 15ML CUP MM SCH ×2 (11:23→22:08)
[2017-03-09] MEDS: FLUCONAZOLE 200 MG/NS 100 ML IVPB SCH (12:04)
--- NOTE | 2017-03-09 12:43 | PN ---
Teaching Attending Note Name of Resident: July Sigala ATTENDING PHYSICIAN STATEMENT I saw and evaluated the patient. I reviewed the resident's note and discussed the case with the resident. I agree with the resident's findings and plan as documented. SUBJECTIVE: Patient seen and examined in the ICU. Intubated and lightly sedated. AC Mode of vent. He is able to follow commands. Remains off pressors. Intake & Output 03/06/17 03/07/17 03/08/17 03/09/17 23:59 23:59 23:59 23:59 Intake Total 1931 79640 5051 1980 Output Total 2210 2500 1000 Balance 1931 8239 2551 980 Weight 155 lb 179 lb 7 oz 179 lb 4.8 oz Last Vital Signs Temp Pulse Resp BP Pulse Ox 98.5 F 98 H 24 152/99 98 03/09/17 10:00 03/09/17 12:00 03/09/17 12:00 03/09/17 12:00 03/09/17 10:25 Active Medications Chlorhexidine Gluconate (Peridex -) 15 ml MM BID [facility] Last Admin: 03/09/17 11:23 Dose: 15 ml Heparin Sodium (Porcine) (Heparin -) 5,000 unit SQ TID [facility] Last Admin: 03/09/17 06:22 Dose: 5,000 unit Fluconazole (Diflucan 200 Mg/Ns Premixed Ivpb -) 100 mls @ 100 mls/hr IVPB DAILY [facility] Last Admin: 03/09/17 12:04 Dose: 100 mls/hr Meropenem 1 gm/ Dextrose 100 mls @ 200 mls/hr IVPB BID [facility] PRN Reason: Protocol Last Admin: 03/09/17 11:21 Dose: 200 mls/hr Propofol (Diprivan -) 100 mls @ 2.109 mls/hr IVPB TITR DANIELA; 5 MCG/KG/MIN PRN Reason: Protocol Last Titration: 03/09/17 10:55 Dose: 0 mcg/kg/min Potassium Chloride/Sodium Chloride (Ns+20 Meq Kcl -) 1,000 mls @ 125 mls/hr IV ASDIR [facility] Last Admin: 03/08/17 16:23 Dose: Not Given Fentanyl 500 mcg/ Dextrose 100 mls @ 20 mls/hr IJ TITR DANIELA PRN Reason: 100 MCG/HR Last Titration: 03/09/17 10:55 Dose: 0 mcg/hr Pantoprazole Sodium (Protonix 40mg Ivpb (Pre-Docked)) 100 mls @ 200 mls/hr IVPB DAILY [facility] Last Admin: 03/08/17 10:29 Dose: 200 mls/hr Constitutional: Yes: Intubated and lightly sedated HENT: Yes: Atraumatic, Normocephalic Neck: Yes: Supple, Trachea Midline Cardiovascular: Yes: Regular Rate and Rhythm, S1, S2. No: Murmur Respiratory: Yes: Intubated, Mechanically Ventilated, few scattered rhonchi Gastrointestinal: Yes: Softly distended, hypoactive bowel sounds Genitourinary: Yes: Alvarez Present, less scrotal Edema Edema: No Neurological: Yes: Intubated and lightly sedated Labs: Laboratory Results - last 24 hr 03/08/17 03/08/17 03/08/17 11:34 15:34 18:27 WBC RBC Hgb Hct MCV MCH MCHC RDW Plt Count MPV Puncture Site ABG pH ABG pCO2 at Pt Temp ABG pO2 at Pt Temp ABG HCO3 ABG O2 Sat (Measured) ABG O2 Content ABG Base Excess Sven Test O2 Delivery Device Oxygen Flow Rate Vent Mode Vent Rate Mechanical Rate PEEP Pressure Support Vent Sodium Potassium Chloride Carbon Dioxide Anion Gap BUN Creatinine Creat Clearance w eGFR POC Glucometer 150.29091 127.39552 Random Glucose Calcium Phosphorus Magnesium 2.4 D Total Bilirubin AST ALT Alkaline Phosphatase Total Protein Albumin 03/09/17 03/09/17 03/09/17 05:20 05:20 06:29 WBC 9.0 RBC 3.11 L Hgb 9.9 L Hct 28.7 L MCV 92.3 MCH 31.9 MCHC 34.6 RDW 14.5 Plt Count 168 MPV 8.0 Puncture Site ABG pH ABG pCO2 at Pt Temp ABG pO2 at Pt Temp ABG HCO3 ABG O2 Sat (Measured) ABG O2 Content ABG Base Excess Sven Test O2 Delivery Device Oxygen Flow Rate Vent Mode Vent Rate Mechanical Rate PEEP Pressure Support Vent Sodium 142 Potassium 3.6 Chloride 109 H Carbon Dioxide 26 Anion Gap 7 L BUN 25 H D Creatinine 0.6 L D Creat Clearance w eGFR > 60 POC Glucometer 117.59960 Random Glucose 111 H Calcium 6.7 L* Phosphorus 1.6 L D Magnesium 2.1 Total Bilirubin 0.6 AST 51 H ALT 27 Alkaline Phosphatase 108 Total Protein 4.0 L Albumin 1.3 L 03/09/17 07:15 WBC RBC Hgb Hct MCV MCH MCHC RDW Plt Count MPV Puncture Site Right radial ABG pH 7.45 ABG pCO2 at Pt Temp 36.0 ABG pO2 at Pt Temp 109.0 H D ABG HCO3 24.7 ABG O2 Sat (Measured) 97.5 ABG O2 Content 13.0 L ABG Base Excess 1.3 Sven Test Positive O2 Delivery Device Vent Oxygen Flow Rate 35% Vent Mode A/c Vent Rate 12 Mechanical Rate Yes PEEP 8.0 Pressure Support Vent 450 Sodium Potassium Chloride Carbon Dioxide Anion Gap BUN Creatinine Creat Clearance w eGFR POC Glucometer Random Glucose Calcium Phosphorus Magnesium Total Bilirubin AST ALT Alkaline Phosphatase Total Protein Albumin Assessment/Plan S/P Ex-Lap HTN Lactic acidosis Rectal stricture Rectal Cancer s/p chemo and radiation Hyperglycemia Elevated anion gap / Metabolic acidosis Septic shock PLAN: IVF Wean trials Pain control ABX per ID Strict I&O Urology follow up noted VTE prophylaxis PPI Glycemic control Dr Salamanca Critical Care Time Total Critical Care Time: 35 Critical Care Statement: The care of this patient involved high complexity decision making to prevent further life threatening deterioration of the patient 's condition and/or to evalute & treat vital organ system(s) failure or risk of failure.
[2017-03-09] MEDS ORDERED: BENZOIN/ALOE VERA/STORAX/TOLU 58 ML BOTTLE ONE (12:51)
[2017-03-09] MEDS: SODIUM CHLORIDE 0.9%/KCL 1,000 ML IV SCH ×2 (13:28→19:31)
[2017-03-09] MEDS: PANTOPRAZOLE SODIUM 100 ML IVPB SCH (13:41)
--- NOTE | 2017-03-09 16:19 | PN ---
Physical Exam: SUBJECTIVE: Patient seen and examined at bed side this morning. Intubated and sedated. Weaned and extubated now, doing well. OBJECTIVE: Vital Signs Period Temp Pulse Resp BP Sys/[place] Pulse Ox Last 24 Hr 98.5 F-99.5 F 79-103 11- 99-177/63-99 95-100 GENERAL: The patient is awake, alert, in no acute distress, venti mask. HEAD: Normal with no signs of trauma. EYES: EOM Intact, mild pallor no icterus. ENT: Ears normal, moist mucous membranes. NECK: Supple. LUNGS: B/L Breath sounds decreased, clear to auscultation bilaterally, no wheezes, no crackles, no accessory muscle use. HEART: Regular rate and rhythm, S1, S2 without murmur, rub or gallop. ABDOMEN: Surgical scar siegel-dry, aletha in place, Soft, mildly tender, non distended, decreased bowel sounds, hepatosplenomegaly or masses couldn't be appreciated. EXTREMITIES: 2+ pulses, warm, well-perfused, no edema. NEUROLOGICAL: No facial droop, EOM intact, gait not observed, reflexes intact, rest of the neuro difficult to assess. PSYCH: Normal mood, normal affect. SKIN: Warm, dry, normal turgor, no rashes or lesions noted Laboratory Results - last 24 hr 03/08/17 03/09/17 03/09/17 18:27 05:20 05:20 WBC 9.0 RBC 3.11 L Hgb 9.9 L Hct 28.7 L MCV 92.3 MCH 31.9 MCHC 34.6 RDW 14.5 Plt Count 168 MPV 8.0 Puncture Site ABG pH ABG pCO2 at Pt Temp ABG pO2 at Pt Temp ABG HCO3 ABG O2 Sat (Measured) ABG O2 Content ABG Base Excess Sven Test O2 Delivery Device Oxygen Flow Rate Vent Mode Vent Rate Mechanical Rate PEEP Pressure Support Vent Sodium 142 Potassium 3.6 Chloride 109 H Carbon Dioxide 26 Anion Gap 7 L BUN 25 H D Creatinine 0.6 L D Creat Clearance w eGFR > 60 POC Glucometer Random Glucose 111 H Calcium 6.7 L* Phosphorus 1.6 L D Magnesium 2.4 D 2.1 Total Bilirubin 0.6 AST 51 H ALT 27 Alkaline Phosphatase 108 Total Protein 4.0 L Albumin 1.3 L 03/09/17 03/09/17 06:29 07:15 WBC RBC Hgb Hct MCV MCH MCHC RDW Plt Count MPV Puncture Site Right radial ABG pH 7.45 ABG pCO2 at Pt Temp 36.0 ABG pO2 at Pt Temp 109.0 H D ABG HCO3 24.7 ABG O2 Sat (Measured) 97.5 ABG O2 Content 13.0 L ABG Base Excess 1.3 Sven Test Positive O2 Delivery Device Vent Oxygen Flow Rate 35% Vent Mode A/c Vent Rate 12 Mechanical Rate Yes PEEP 8.0 Pressure Support Vent 450 Sodium Potassium Chloride Carbon Dioxide Anion Gap BUN Creatinine Creat Clearance w eGFR POC Glucometer 117.01355 Random Glucose Calcium Phosphorus Magnesium Total Bilirubin AST ALT Alkaline Phosphatase Total Protein Albumin Active Medications Generic Name Dose Route Start Last Admin Trade Name Freq PRN Reason Stop Dose Admin Chlorhexidine Gluconate 15 ml 03/07/17 22:00 03/09/17 11:23 Peridex - MM 15 ml BID DANIELA Administration Heparin Sodium (Porcine) 5,000 unit 03/07/17 22:00 03/09/17 13:58 Heparin - SQ 5,000 unit TID DANIELA Administration Fluconazole 100 mls @ 100 mls/hr 03/08/17 10:00 03/09/17 12:04 Diflucan 200 Mg/Ns Premixed Ivpb - IVPB 100 mls/hr DAILY [facility] Administration Meropenem 1 gm/ Dextrose 100 mls @ 200 mls/hr 03/07/17 22:00 03/09/17 11:21 IVPB 200 mls/hr BID DANIELA Administration Protocol Propofol 100 mls @ 2.109 mls/hr 03/07/17 17:03 03/09/17 10:55 Diprivan - IVPB 0 mcg/kg/min TITR DANIELA Titration Protocol 5 MCG/KG/MIN Potassium Chloride/Sodium Chloride 1,000 mls @ 125 mls/hr 03/07/17 17:15 13:28 Ns+20 Meq Kcl - IV 125 mls/hr ASDIR DANIELA Administration Fentanyl 500 mcg/ Dextrose 100 mls @ 20 mls/hr 03/07/17 17:15 03/09/17 10:55 IJ 0 mcg/hr TITR DANIELA Titration 100 MCG/HR Pantoprazole Sodium 100 mls @ 200 mls/hr 03/08/17 10:00 03/09/17 13:41 Protonix 40mg Ivpb (Pre-Docked) IVPB 200 mls/hr DAILY [facility] Administration ASSESSMENT/PLAN: Patient is a 56 year old Male with HTN, kidney stones with obstructive uropathy s/p stent placement 07/2016, has colon cancer that, by his report, is stage 4 admitted for evaluation of Severe sepsis. Septic shock-resolving Off pressors, extubated today, doing well Afebrile, no leukocytosis, urine and blood cultures are negative so far IV Fluconazole Day 2 and IV Meropenam Day 3 Large bowel obstruction-s/p Exploratory lapratomy with creation of end- colostomy POD 3 Surgical site looks clean, aletha intact Continue IV hydration and Abx as mentioned above NG tube in place and in wall suction Rectal adenocarcinoma-Stage IV A, s/p chemo+RT Last week, colonoscopy was done but was incomplete as there was + for rectal stricture Hemonc consult appreciated Electrolyte imbalance Hypocalcemia: received several amps of calcium this admission. Today corrected calcium is 9.4 Will monitor electrolytes FEN IV NS @ 125mls/hr Electrolytes to be repeated in am NPO Prophylaxis For DVT: ON Heparin Sq For GI: Pantoprazole IV Code Status: Full Code Dispo: Admitted in ICU and continue ICU care Illness, Investigation and Plan of care explained to the patient after extubation and family member. They verbalized understanding. Case seen and discussed with Dr. Salamanca. Visit type - Emergency Visit Emergency Visit: Yes ED Registration Date: 03/06/17 Care time: The patient presented to the Emergency Department on the above date and was hospitalized for further evaluation of their emergent condition. - New Patient This patient is new to me today: No - Critical Care Critical Care patient: Yes Total Critical Care Time (in minutes): 35 Critical Care Statement: The care of this patient involved high complexity decision making to prevent further life threatening deterioration of the patient 's condition and/or to evalute & treat vital organ system(s) failure or risk of failure.
--- NOTE | 2017-03-09 16:28 | PN ---
Progress Note (short form) - Note Progress Note: Patient seen and examined. Events noted off pressors, sedation off and was extubated this am, O/E alert and awake , on 40% venti mask hoarse voice Colostomy + Last Vital Signs Temp Pulse Resp BP Pulse Ox 98.6 F 94 H 18 155/99 96 03/09/17 14:00 03/09/17 14:00 03/09/17 14:00 03/09/17 14:00 03/09/17 13:51 CBC, BMP 03/09/17 05:20 03/09/17 05:20 Current Medications Generic Name Dose Route Start Last Admin Trade Name Freq PRN Reason Stop Dose Admin Chlorhexidine Gluconate 15 ml 03/07/17 22:00 03/09/17 11:23 Peridex - MM 15 ml BID D[facility]ELA Administration Heparin Sodium (Porcine) 5,000 unit 03/07/17 22:00 03/09/17 13:58 Heparin - SQ 5,000 unit TID DANIELA Administration Fluconazole 100 mls @ 100 mls/hr 03/08/17 10:00 03/09/17 12:04 Diflucan 200 Mg/Ns Premixed Ivpb - IVPB 100 mls/hr DAILY [facility] Administration Meropenem 1 gm/ Dextrose 100 mls @ 200 mls/hr 03/07/17 22:00 03/09/17 11:21 IVPB 200 mls/hr BID DANIELA Administration Protocol Propofol 100 mls @ 2.109 mls/hr 03/07/17 17:03 03/09/17 10:55 Diprivan - IVPB 0 mcg/kg/min TITR DANIELA Titration Protocol 5 MCG/KG/MIN Potassium Chloride/Sodium Chloride 1,000 mls @ 125 mls/hr 03/07/17 17:15 13:28 Ns+20 Meq Kcl - IV 125 mls/hr ASDIR DANIELA Administration Fentanyl 500 mcg/ Dextrose 100 mls @ 20 mls/hr 03/07/17 17:15 03/09/17 10:55 IJ 0 mcg/hr TITR DANIELA Titration 100 MCG/HR Pantoprazole Sodium 100 mls @ 200 mls/hr 03/08/17 10:00 03/09/17 13:41 Protonix 40mg Ivpb (Pre-Docked) IVPB 200 mls/hr DAILY [facility] Administration Assessment/Plan: Rectal adenoca , stage WILMA . s/p chemo , chemo+RT , most recently with colonoscopy +for rectal stricture and was negative for malignancy. SBO s/p Ex-lap, Colostomy this admission extubated -appreciate ICU/Surgical team care -on abx/antifungals -to start clears -will follow.
--- NOTE | 2017-03-09 17:31 | PN ---
Progress Note, Physician History of Present Illness: patient extubated stable abd distension present colostomy good color - Current Medication List Current Medications: Active Medications Chlorhexidine Gluconate (Peridex -) 15 ml MM BID [facility] Last Admin: 03/09/17 11:23 Dose: 15 ml Heparin Sodium (Porcine) (Heparin -) 5,000 unit SQ TID [facility] Last Admin: 03/09/17 13:58 Dose: 5,000 unit Fluconazole (Diflucan 200 Mg/Ns Premixed Ivpb -) 100 mls @ 100 mls/hr IVPB DAILY [facility] Last Admin: 03/09/17 12:04 Dose: 100 mls/hr Meropenem 1 gm/ Dextrose 100 mls @ 200 mls/hr IVPB BID [facility] PRN Reason: Protocol Last Admin: 03/09/17 11:21 Dose: 200 mls/hr Propofol (Diprivan -) 100 mls @ 2.109 mls/hr IVPB TITR DANIELA; 5 MCG/KG/MIN PRN Reason: Protocol Last Titration: 03/09/17 10:55 Dose: 0 mcg/kg/min Potassium Chloride/Sodium Chloride (Ns+20 Meq Kcl -) 1,000 mls @ 125 mls/hr IV ASDIR [facility] Last Admin: 03/09/17 13:28 Dose: 125 mls/hr Fentanyl 500 mcg/ Dextrose 100 mls @ 20 mls/hr IJ TITR [facility] PRN Reason: 100 MCG/HR Last Titration: 03/09/17 10:55 Dose: 0 mcg/hr Pantoprazole Sodium (Protonix 40mg Ivpb (Pre-Docked)) 100 mls @ 200 mls/hr IVPB DAILY [facility] Last Admin: 03/09/17 13:41 Dose: 200 mls/hr - Objective Vital Signs: Vital Signs Temperature 98.6 F 03/09/17 14:00 Pulse Rate 94 H 03/09/17 14:00 Respiratory Rate 18 03/09/17 14:00 Blood Pressure 155/99 03/09/17 14:00 O2 Sat by Pulse Oximetry (%) 96 03/09/17 13:51 Constitutional: Yes: Calm, Mild Distress Cardiovascular: Yes: Regular Rate and Rhythm Respiratory: Yes: On Nasal O2, Poor Air Entry, Rhonchi Gastrointestinal: Yes: Distention, Other (absent bowel sounds ng tube in place draianing stomy loks good) Genitourinary: Yes: Alvarez Present Musculoskeletal: Yes: WNL Extremities: Yes: WNL Integumentary: Yes: WNL Wound/Incision: Yes: Clean/Dry Neurological: Yes: Alert, Oriented Psychiatric: Yes: Alert Labs: CBC, BMP 03/09/17 05:20 03/09/17 05:20 INR, PTT INR 1.26 (0.82-1.09) H 03/08/17 05:15 Fibrinogen 676.0 mg/dL (238-498) H 03/06/17 23:00 Assessment/Plan Problem List - Problems (1) Rectal malignant neoplasm Code(s): C20 - MALIGNANT NEOPLASM OF RECTUM (2) Bowel obstruction Code(s): K56.60 - UNSPECIFIED INTESTINAL OBSTRUCTION Qualifiers: Intestinal obstruction type: other intestinal obstruction Qualified Code(s): K56.69 - Other intestinal obstruction (3) Rectal stricture Assessment/Plan: Code(s): K62.4 - STENOSIS OF ANUS AND RECTUM (4) Dehydration Assessment/Plan: Code(s): E86.0 - DEHYDRATION (5) Lactic acid acidosis Assessment/Plan: Code(s): E87.2 - ACIDOSIS (6) Status post chemotherapy Assessment/Plan: Code(s): Z92.21 - PERSONAL HISTORY OF ANTINEOPLASTIC CHEMOTHERAPY (7) S/P radiation therapy Assessment/Plan: Code(s): Z92.3 - PERSONAL HISTORY OF IRRADIATION Lactic acidosis Rectal Cancer s/p chemo and radiation Hyperglycemia / Metabolic acidosis Septic shock plan continue abx continue resp support close monitoring wbc normal rest as per icu monitor output for ostomy tube monitor distension cc 40 min
--- NOTE | 2017-03-09 17:39 | CONS ---
DATE OF CONSULTATION: 03/06/2017 Patient was examined in the p.m. He is a 56-year-old male well known to us with history of nephrolithiasis and prior prostatism. He was admitted with acute onset of abdominal pain, fever, and vomiting. He does have history of high blood pressure, kidney stones. He has been recently diagnosed with colon cancer. He is undergoing radiation and chemotherapy in preparation for a hemicolectomy. He states that he recently underwent an attempted colonoscopy which was unsuccessful because the scope was unable to pass the tumor. Patient does have history of kidney stones. He did undergo a lithotripsy in July with placement of a left Double J stent. He denies any allergies, tobacco, or drug use. Presently his abdomen is tender. There is some distention. He has been vomiting a dark brown fluid. There is no specific CVA tenderness. Extremities reveal full range of motion. There was no pedal edema. In the emergency room, he was found to have a temperature of 99.1, blood pressure 113/80, respirations 22, pulse oximetry 99. His white count is 12,000. Hemoglobin and hematocrit were 15.2 over 45.5. His platelets were 568. Electrolytes revealed a BUN and creatinine of 57/1.1 with a random glucose of 135. The patient underwent placement of an NG tube in the emergency room approximately 600 mL of brownish fluid was suctioned out. A CAT scan of his abdomen revealed a left hydronephrosis with multiple stones in the left kidney and Double J stent, it is proximal under the renal pelvis at its distal end in the bladder. There was some thickening of the proximal left ureter with stranding of the surrounding fat. There was no evidence of bowel obstruction. The colon was dilated. IMPRESSION: At present, the patient presents with complications of radiation and chemotherapy for his colon cancer. He does have a Double J stent which was placed in July of 2016. Patient was lost to followup. When he is stable, he will need a diuretic nuclear renal scan to rule out any significant obstruction of the left kidney, when he is medically stable will recommend a cystourethroscopy, removal of stent, left retrograde pyelogram, and left laser lithotripsy. Will follow with you. Wiley [id number]
[2017-03-10] MEDS: HEPARIN NA (PORCINE) 5,000 UNITS/ML 1ML VIAL SQ SCH ×3 (06:17→22:27)
[2017-03-10 06:29] LABS: MCH 31.6 pg (25.7-33.7); MCHC 33.9 g/dl (32.0-35.9); MEAN CELL VOLUME 93.2 fl (80-96); MEAN PLT VOLUME 8.2 fl (7.5-11.1); PLATELET COUNT 191 K/MM3 (134-434); RDW 14.6 % (11.9-15.9); WHITE BLOOD COUNT 9.3 K/mm3 (4.0-10.0)
[2017-03-10 06:56] LABS: ALBUMIN 1.4 g/dl (3.4-5.0); ANION GAP 13 (8-16); CALCIUM 7.1 mg/dL (8.5-10.1); CO2 21 mmol/L (21-32); CREATININE 0.5 mg/dL (0.7-1.3); GLUCOSE,RANDOM 85 mg/dL (74-106); MAGNESIUM 1.8 mg/dL (1.8-2.4); PHOSPHOROUS 2.3 mg/dL (2.5-4.9); SGOT/AST 41 U/L (15-37); SGPT/ALT 20 U/L (12-78)
[2017-03-10 06:58] LABS: ALK PHOS 102 U/L (45-117); BILIRUBIN,TOTAL 0.6 mg/dL (0.2-1.0); TOT PROT 4.1 g/dl (6.4-8.2)
--- NOTE | 2017-03-10 09:03 | PN ---
Progress Note, Physician Chief Complaint: Extubated History of Present Illness: Agitated - Current Medication List Current Medications: Active Medications Chlorhexidine Gluconate (Peridex -) 15 ml MM BID [facility] Last Admin: 03/09/17 22:08 Dose: Not Given Heparin Sodium (Porcine) (Heparin -) 5,000 unit SQ TID [facility] Last Admin: 03/10/17 06:17 Dose: 5,000 unit Fluconazole (Diflucan 200 Mg/Ns Premixed Ivpb -) 100 mls @ 100 mls/hr IVPB DAILY [facility] Last Admin: 03/09/17 12:04 Dose: 100 mls/hr Meropenem 1 gm/ Dextrose 100 mls @ 200 mls/hr IVPB BID [facility] PRN Reason: Protocol Last Admin: 03/09/17 22:10 Dose: 200 mls/hr Potassium Chloride/Sodium Chloride (Ns+20 Meq Kcl -) 1,000 mls @ 125 mls/hr IV ASDIR [facility] Last Admin: 03/09/17 19:31 Dose: Not Given Pantoprazole Sodium (Protonix 40mg Ivpb (Pre-Docked)) 100 mls @ 200 mls/hr IVPB DAILY [facility] Last Admin: 03/09/17 13:41 Dose: 200 mls/hr Potassium Phosphate 15 mm/ (Sodium Chloride) 255 mls @ 63.75 mls/hr IVPB ONCE ONE PRN Reason: 15 MM/4 HR Stop: 03/10/17 13:29 - Objective Vital Signs: Vital Signs Temperature 98.3 F 03/10/17 06:00 Pulse Rate 91 H 03/10/17 06:00 Respiratory Rate 18 03/10/17 06:00 Blood Pressure 130/90 03/10/17 06:00 O2 Sat by Pulse Oximetry (%) 96 03/09/17 20:31 Constitutional: Yes: Moderate Distress Eyes: Yes: WNL HENT: Yes: WNL Neck: Yes: WNL Cardiovascular: Yes: Regular Rate and Rhythm Respiratory: Yes: Regular, On Nasal O2 Gastrointestinal: Yes: Hypoactive Bowel Sounds ...Rectal Exam: Yes: Deferred Genitourinary: Yes: Alvarez Present Neurological: Yes: Alert Labs: CBC, BMP 03/10/17 05:15 03/10/17 05:15 INR, PTT INR 1.26 (0.82-1.09) H 03/08/17 05:15 Fibrinogen 676.0 mg/dL (238-498) H 03/06/17 23:00 Assessment/Plan Case discussed with Dr Torres
[2017-03-10] MEDS ORDERED: POTASSIUM PHOSPHATE 15 MM in SODIUM CHLORIDE 250 ML IVPB ONE (09:30)
--- NOTE | 2017-03-10 09:30 | PN ---
Progress Note, Physician Chief Complaint: abdominal distention and pain History of Present Illness: POD3 s/p laparotomy with sigmoid colostomy Patient extubated yesterday, now on NC O2. Alvarez output 3700ml yesterday, 800ml last shift. NG was dislodged and replaced yesterday with just over 2L output, 600ml more as of this am. Stoma produced 200ml brown liquid stool yesterday, 200ml emptied just now. No major events overnight. Pt states he feels ok, no complaints of abdominal pain. Explained events surrounding OR to him, and he expresses understanding. - Current Medication List Current Medications: Active Medications Chlorhexidine Gluconate (Peridex -) 15 ml MM BID [facility] Last Admin: 03/09/17 22:08 Dose: Not Given Heparin Sodium (Porcine) (Heparin -) 5,000 unit SQ TID [facility] Last Admin: 03/10/17 06:17 Dose: 5,000 unit Fluconazole (Diflucan 200 Mg/Ns Premixed Ivpb -) 100 mls @ 100 mls/hr IVPB DAILY [facility] Last Admin: 03/09/17 12:04 Dose: 100 mls/hr Meropenem 1 gm/ Dextrose 100 mls @ 200 mls/hr IVPB BID [facility] PRN Reason: Protocol Last Admin: 03/09/17 22:10 Dose: 200 mls/hr Potassium Chloride/Sodium Chloride (Ns+20 Meq Kcl -) 1,000 mls @ 125 mls/hr IV ASDIR [facility] Last Admin: 03/09/17 19:31 Dose: Not Given Pantoprazole Sodium (Protonix 40mg Ivpb (Pre-Docked)) 100 mls @ 200 mls/hr IVPB DAILY [facility] Last Admin: 03/09/17 13:41 Dose: 200 mls/hr Potassium Phosphate 15 mm/ (Sodium Chloride) 255 mls @ 63.75 mls/hr IVPB ONCE ONE PRN Reason: 15 MM/4 HR Stop: 03/10/17 13:29 - Objective Vital Signs: Vital Signs Temperature 98.3 F 03/10/17 06:00 Pulse Rate 91 H 03/10/17 06:00 Respiratory Rate 18 03/10/17 06:00 Blood Pressure 130/90 03/10/17 06:00 O2 Sat by Pulse Oximetry (%) 96 03/09/17 20:31 Vital Signs Period Temp Pulse Resp BP Sys/Maldonado Pulse Ox Last 24 Hr 98.3 F-98.9 F 86-103 11-28 127-177/68-99 95-98 Intake & Output 03/09/17 03/10/17 03/10/17 23:59 07:59 15:59 Intake Total 1550 1600 Output Total 2450 1400 Balance -900 200 Weight 171 lb 1.259 oz Intake: IV 1250 1500 Ns+20 Meq KCl - 1,000 ml 1250 1500 @ 125 mls/hr IV ASDIR DANIELA Rx#:[id number] IVPB 300 100 Output: Gastric Drainage 1150 600 Urine 1300 800 Alvarez 1300 800 Other: Voiding Method Incontinent Weight Measurement Method Built in [facility] Constitutional: Yes: Well Nourished, No Distress, Calm Eyes: Yes: Conjunctiva Clear, EOM Intact Cardiovascular: Yes: Regular Rate and Rhythm, Tachycardia (mild) Respiratory: Yes: Regular, CTA Bilaterally, On Nasal O2 Gastrointestinal: Yes: Soft, Distention (with tympany in upper abdomen), Hypoactive Bowel Sounds, Tenderness (mild midline incisional only), Other (LLQ colostomy - mucosa sloughing, centrally dark pink, patent, productive of liquid brown stool) Genitourinary: Yes: Alvarez Present. No: Hematuria Edema: No Wound/Incision: Yes: Clean/Dry, Well Approximated, Luis Intact, Open to air. No: Reddened Neurological: Yes: Alert, Oriented Labs: CBC, BMP 03/10/17 05:15 03/10/17 05:15 CMP Sodium 143 mmol/L (136-145) 03/10/17 05:15 Potassium 3.5 mmol/L (3.5-5.1) 03/10/17 05:15 Chloride 109 mmol/L (98-107) H 03/10/17 05:15 Carbon Dioxide 21 mmol/L (21-32) 03/10/17 05:15 Anion Gap 13 (8-16) 03/10/17 05:15 BUN 13 mg/dL (7-18) D 03/10/17 05:15 Creatinine 0.5 mg/dL (0.7-1.3) L 03/10/17 05:15 Creat Clearance w eGFR > 60 (>60) 03/10/17 05:15 POC Glucometer 98.31130 UNITS (()) 03/09/17 17:20 Random Glucose 85 mg/dL (74-106) D 03/10/17 05:15 Hemoglobin A1c % 5.4 % (4.8-6.0) 03/08/17 05:15 Lactic Acid 2.2 mmol/L (0.4-2.0) H* 03/07/17 20:30 Calcium 7.1 mg/dL (8.5-10.1) L 03/10/17 05:15 Phosphorus 2.3 mg/dL (2.5-4.9) L D 03/10/17 05:15 Magnesium 1.8 mg/dL (1.8-2.4) 03/10/17 05:15 Total Bilirubin 0.6 mg/dL (0.2-1.0) 03/10/17 05:15 Direct Bilirubin 0.4 mg/dL (0.0-0.2) H D 03/06/17 23:00 AST 41 U/L (15-37) H 03/10/17 05:15 ALT 20 U/L (12-78) D 03/10/17 05:15 Alkaline Phosphatase 102 U/L (45-117) 03/10/17 05:15 Total Protein 4.1 g/dl (6.4-8.2) L 03/10/17 05:15 Albumin 1.4 g/dl (3.4-5.0) L 03/10/17 05:15 Problem List - Problems (1) Rectal malignant neoplasm Assessment/Plan: s/p neoadjuvant chemoRT, done in October or November definitive operation deferred Code(s): C20 - MALIGNANT NEOPLASM OF RECTUM (2) Bowel obstruction Assessment/Plan: POD3 s/p ex lap with sigmoid colostomy doing well postop renal function normalized on Meropenem, Diflucan urology notes appreciated extubated yesterday, O2 prn midline wound clean, ok to leave open ostomy with liquid output, no stool yet, stoma edematous, abdomen distended NG output high - will reassess later for d/c tube and when to start clears replete K Phos OOB to chair as able continue care per primary/ICU team will follow Code(s): K56.60 - UNSPECIFIED INTESTINAL OBSTRUCTION Qualifiers: Intestinal obstruction type: other intestinal obstruction Qualified Code(s): K56.69 - Other intestinal obstruction (3) Rectal stricture Assessment/Plan: present on scope 03/02, but GI could not pass through biopsy results show no malignancy s/p therapy Code(s): K62.4 - STENOSIS OF ANUS AND RECTUM (4) Status post chemotherapy Assessment/Plan: for locally advanced rectal cancer Code(s): Z92.21 - PERSONAL HISTORY OF ANTINEOPLASTIC CHEMOTHERAPY (5) S/P radiation therapy > 12 wks ago Assessment/Plan: for locally advanced rectal cancer Code(s): Z92.3 - PERSONAL HISTORY OF IRRADIATION Assessment/Plan Critical care time 35 minutes.
[2017-03-10] MEDS ORDERED: PT OWN MED DRAWER 7, Y5N ONE ×3 (09:45→22:11)
[2017-03-10] MEDS: PANTOPRAZOLE SODIUM 100 ML IVPB SCH (10:16)
[2017-03-10] MEDS: FLUCONAZOLE 200 MG/NS 100 ML IVPB SCH (10:41)
[2017-03-10] MEDS: MEROPENEM 1 GM in DEXTROSE 5%-WATER - 100 ML IVPB SCH ×2 (10:41→22:27)
--- NOTE | 2017-03-10 14:51 | PN ---
Teaching Attending Note Name of Resident: July Sigala ATTENDING PHYSICIAN STATEMENT I saw and evaluated the patient. I reviewed the resident's note and discussed the case with the resident. I agree with the resident's findings and plan as documented. SUBJECTIVE: Patient seen and examined in the ICU. Remains extubated. Pulled NGT. Remains off pressors. Intake & Output 03/07/17 03/08/17 03/09/17 03/10/17 23:59 23:59 23:59 23:59 Intake Total 88538 5051 3530 1600 Output Total 2210 2500 5950 1400 Balance 8239 2551 -2420 200 Weight 179 lb 7 oz 179 lb 4.8 oz 171 lb 1.259 oz Last Vital Signs Temp Pulse Resp BP Pulse Ox 98.2 F 92 H 13 138/94 100 03/10/17 08:00 03/10/17 12:00 03/10/17 12:00 03/10/17 12:00 03/10/17 09:00 Active Medications Chlorhexidine Gluconate (Peridex -) 15 ml MM BID [facility] Last Admin: 03/09/17 22:08 Dose: Not Given Heparin Sodium (Porcine) (Heparin -) 5,000 unit SQ TID [facility] Last Admin: 03/10/17 06:17 Dose: 5,000 unit Fluconazole (Diflucan 200 Mg/Ns Premixed Ivpb -) 100 mls @ 100 mls/hr IVPB DAILY [facility] Last Admin: 03/10/17 10:41 Dose: 100 mls/hr Meropenem 1 gm/ Dextrose 100 mls @ 200 mls/hr IVPB BID [facility] PRN Reason: Protocol Last Admin: 03/10/17 10:41 Dose: 200 mls/hr Potassium Chloride/Sodium Chloride (Ns+20 Meq Kcl -) 1,000 mls @ 125 mls/hr IV ASDIR [facility] Last Admin: 03/09/17 19:31 Dose: Not Given Pantoprazole Sodium (Protonix 40mg Ivpb (Pre-Docked)) 100 mls @ 200 mls/hr IVPB DAILY [facility] Last Admin: 03/10/17 10:16 Dose: 200 mls/hr Constitutional: Yes: Extubated, awake and alert, mildly agitated HENT: Yes: Atraumatic, Normocephalic Neck: Yes: Supple, Trachea Midline Cardiovascular: Yes: Regular Rate and Rhythm, S1, S2. No: Murmur Respiratory: Yes: Scattered rhonchi Gastrointestinal: Yes: Softly distended, hypoactive bowel sounds Genitourinary: Yes: Alvarez Present, less scrotal Edema Edema: No Neurological: Yes: Nonfocal Labs: Laboratory Results - last 24 hr 03/09/17 03/10/17 03/10/17 17:20 05:15 05:15 WBC 9.3 RBC 3.13 L Hgb 9.9 L Hct 29.2 L MCV 93.2 MCH 31.6 MCHC 33.9 RDW 14.6 Plt Count 191 MPV 8.2 Sodium 143 Potassium 3.5 Chloride 109 H Carbon Dioxide 21 Anion Gap 13 BUN 13 D Creatinine 0.5 L Creat Clearance w eGFR > 60 POC Glucometer 98.13907 Random Glucose 85 D Calcium 7.1 L Phosphorus 2.3 L D Magnesium 1.8 Total Bilirubin 0.6 AST 41 H ALT 20 D Alkaline Phosphatase 102 Total Protein 4.1 L Albumin 1.4 L Assessment/Plan S/P Ex-Lap HTN Lactic acidosis Rectal stricture Rectal Cancer s/p chemo and radiation Hyperglycemia Elevated anion gap / Metabolic acidosis Septic shock PLAN: IVF Pain control ABX per ID Strict I&O Urology follow up noted VTE prophylaxis PPI Glycemic control Incentive Spirometry PO when OK with surgery Dr Salamanca Critical Care Time Total Critical Care Time: 35 Critical Care Statement: The care of this patient involved high complexity decision making to prevent further life threatening deterioration of the patient 's condition and/or to evalute & treat vital organ system(s) failure or risk of failure.
--- NOTE | 2017-03-10 15:04 | PN ---
Progress Note, Physician History of Present Illness: patient extubated stable abd distension present colostomy good color patient without any new issue - Current Medication List Current Medications: Active Medications Chlorhexidine Gluconate (Peridex -) 15 ml MM BID [facility] Last Admin: 03/09/17 22:08 Dose: Not Given Heparin Sodium (Porcine) (Heparin -) 5,000 unit SQ TID [facility] Last Admin: 03/10/17 06:17 Dose: 5,000 unit Fluconazole (Diflucan 200 Mg/Ns Premixed Ivpb -) 100 mls @ 100 mls/hr IVPB DAILY [facility] Last Admin: 03/10/17 10:41 Dose: 100 mls/hr Meropenem 1 gm/ Dextrose 100 mls @ 200 mls/hr IVPB BID [facility] PRN Reason: Protocol Last Admin: 03/10/17 10:41 Dose: 200 mls/hr Potassium Chloride/Sodium Chloride (Ns+20 Meq Kcl -) 1,000 mls @ 125 mls/hr IV ASDIR [facility] Last Admin: 03/09/17 19:31 Dose: Not Given Pantoprazole Sodium (Protonix 40mg Ivpb (Pre-Docked)) 100 mls @ 200 mls/hr IVPB DAILY [facility] Last Admin: 03/10/17 10:16 Dose: 200 mls/hr - Objective Vital Signs: Vital Signs Temperature 98.2 F 03/10/17 08:00 Pulse Rate 92 H 03/10/17 12:00 Respiratory Rate 13 03/10/17 12:00 Blood Pressure 138/94 03/10/17 12:00 O2 Sat by Pulse Oximetry (%) 100 03/10/17 09:00 Constitutional: Yes: Calm, Mild Distress Cardiovascular: Yes: Regular Rate and Rhythm Respiratory: Yes: Regular, CTA Bilaterally Gastrointestinal: Yes: Soft, Other (colostomy starting to function) Musculoskeletal: Yes: WNL Extremities: Yes: WNL Wound/Incision: Yes: Dressing Dry and Intact Neurological: Yes: Alert, Oriented Psychiatric: Yes: Alert, Oriented Labs: CBC, BMP 03/10/17 05:15 03/10/17 05:15 INR, PTT INR 1.26 (0.82-1.09) H 03/08/17 05:15 Fibrinogen 676.0 mg/dL (238-498) H 03/06/17 23:00 Assessment/Plan Problem List - Problems (1) Rectal malignant neoplasm Code(s): C20 - MALIGNANT NEOPLASM OF RECTUM (2) Bowel obstruction Code(s): K56.60 - UNSPECIFIED INTESTINAL OBSTRUCTION Qualifiers: Intestinal obstruction type: other intestinal obstruction Qualified Code(s): K56.69 - Other intestinal obstruction (3) Rectal stricture Assessment/Plan: Code(s): K62.4 - STENOSIS OF ANUS AND RECTUM (4) Dehydration Assessment/Plan: Code(s): E86.0 - DEHYDRATION (5) Lactic acid acidosis Assessment/Plan: Code(s): E87.2 - ACIDOSIS (6) Status post chemotherapy Assessment/Plan: Code(s): Z92.21 - PERSONAL HISTORY OF ANTINEOPLASTIC CHEMOTHERAPY (7) S/P radiation therapy Assessment/Plan: Code(s): Z92.3 - PERSONAL HISTORY OF IRRADIATION Lactic acidosis Rectal Cancer s/p chemo and radiation Hyperglycemia / Metabolic acidosis Septic shock plan continue abx continue resp support close monitoring wbc normal rest as per icu monitor output for ostomy tube monitor distension once patient starts tolerating diet will deescalate abx cc 40 min
--- NOTE | 2017-03-10 15:05 | PN ---
Progress Note (short form) - Note Progress Note: Patient seen and examined Denies any complaints Last Vital Signs Temp Pulse Resp BP Pulse Ox 98.2 F 92 H 13 138/94 100 03/10/17 08:00 03/10/17 12:00 03/10/17 12:00 03/10/17 12:00 03/10/17 09:00 Cor: RSR, No murmurs, No gallops Lungs: Clear to P&A Abd: Soft, Normal bowel sounds, No organomegaly Ext:No significant edema Skin: No rashes, Integument intact Abnormal Lab Results 03/10/17 03/10/17 05:15 05:15 RBC 3.13 L Hgb 9.9 L Hct 29.2 L Chloride 109 H Creatinine 0.5 L Calcium 7.1 L Phosphorus 2.3 L D AST 41 H Total Protein 4.1 L Albumin 1.4 L Microbiology 03/08/17 09:00 Urine - Urine Alvarez Urine Culture - Final NO GROWTH OBTAINED 03/06/17 06:30 Blood - Peripheral Venous Blood Culture - Preliminary NO GROWTH OBTAINED AFTER 96 HOURS, INCUBATION TO CONTINUE FOR 1 DAYS. 03/06/17 06:30 Blood - Peripheral Venous Blood Culture - Preliminary NO GROWTH OBTAINED AFTER 96 HOURS, INCUBATION TO CONTINUE FOR 1 DAYS. A/P 56 y/o patient with rectal cancer, s/p chemotherapy/RT comes in with septic shock. Noted to have rectal stricture/bowel obstruction s/p diverting colostomy On meropenem extubated discussed with icu team will discuss with surgical team
--- NOTE | 2017-03-10 15:48 | PN ---
Physical Exam: SUBJECTIVE: Patient seen and examined at bed side this morning. Extubated and doing well. OBJECTIVE: Vital Signs Period Temp Pulse Resp BP Sys/Maldonado Pulse Ox Last 24 Hr 98.2 F-98.9 F 86-102 13-22 127-162/68-94 96-100 GENERAL: The patient is awake, alert, in no acute distress, NG tube in place. HEAD: Normal with no signs of trauma. EYES: EOM Intact, mild pallor no icterus. ENT: Ears normal, moist mucous membranes. NECK: Supple. LUNGS: B/L Breath sounds decreased, clear to auscultation bilaterally, no wheezes, no crackles, no accessory muscle use. HEART: Regular rate and rhythm, S1, S2 without murmur, rub or gallop. ABDOMEN: Surgical scar siegel-dry, aletha in place, Soft, mildly tender, non distended, decreased bowel sounds, hepatosplenomegaly or masses couldn't be appreciated. EXTREMITIES: 2+ pulses, warm, well-perfused, no edema. NEUROLOGICAL: No facial droop, EOM intact, gait not observed, reflexes intact, rest of the neuro difficult to assess. PSYCH: Normal mood, normal affect. SKIN: Warm, dry, normal turgor, no rashes or lesions noted Laboratory Results - last 24 hr 03/09/17 03/10/17 03/10/17 17:20 05:15 05:15 WBC 9.3 RBC 3.13 L Hgb 9.9 L Hct 29.2 L MCV 93.2 MCH 31.6 MCHC 33.9 RDW 14.6 Plt Count 191 MPV 8.2 Sodium 143 Potassium 3.5 Chloride 109 H Carbon Dioxide 21 Anion Gap 13 BUN 13 D Creatinine 0.5 L Creat Clearance w eGFR > 60 POC Glucometer 98.01779 Random Glucose 85 D Calcium 7.1 L Phosphorus 2.3 L D Magnesium 1.8 Total Bilirubin 0.6 AST 41 H ALT 20 D Alkaline Phosphatase 102 Total Protein 4.1 L Albumin 1.4 L Active Medications Generic Name Dose Route Start Last Admin Trade Name Freq PRN Reason Stop Dose Admin Heparin Sodium (Porcine) 5,000 unit 03/07/17 22:00 03/10/17 14:55 Heparin - SQ 5,000 unit TID DANIELA Administration Fluconazole 100 mls @ 100 mls/hr 03/08/17 10:00 03/10/17 10:41 Diflucan 200 Mg/Ns Premixed Ivpb - IVPB 100 mls/hr DAILY DANIELA Administration Meropenem 1 gm/ Dextrose 100 mls @ 200 mls/hr 03/07/17 22:00 03/10/17 10:41 IVPB 200 mls/hr BID DANIELA Administration Protocol Potassium Chloride/Sodium Chloride 1,000 mls @ 125 mls/hr 03/07/17 17:15 19:31 Ns+20 Meq Kcl - IV Not Given ASDIR DANIELA Pantoprazole Sodium 100 mls @ 200 mls/hr 03/08/17 10:00 03/10/17 10:16 Protonix 40mg Ivpb (Pre-Docked) IVPB 200 mls/hr DAILY DANIELA Administration ASSESSMENT/PLAN: Patient is a 56 year old Male with HTN, kidney stones with obstructive uropathy s/p stent placement 07/2016, has colon cancer that, by his report, is stage 4 admitted for evaluation of Severe sepsis. Septic shock-resolving Off pressors, extubated yesterday, doing well Afebrile, no leukocytosis, urine and blood cultures are negative so far IV Fluconazole Day 2 and IV Meropenam Day 4 Large bowel obstruction-s/p Exploratory lapratomy with creation of end- colostomy POD 3 Surgical site looks clean, aletha intact Continue IV hydration and Abx as mentioned above NG tube in place and in wall suction Rectal adenocarcinoma-Stage IV A, s/p chemo+RT Last week, colonoscopy was done but was incomplete as there was + for rectal stricture Hemonc consult appreciated Electrolyte imbalance Hypocalcemia: received several amps of calcium this admission. Will monitor electrolytes FEN IV NS @ 125mls/hr Electrolytes to be repeated in am NPO Prophylaxis For DVT: ON Heparin Sq For GI: Pantoprazole IV Code Status: Full Code Dispo: Admitted in ICU and continue ICU care Illness, Investigation and Plan of care explained to the patient after extubation and family member. They verbalized understanding. Case seen and discussed with Dr. Salamanca. Visit type - Emergency Visit Emergency Visit: Yes ED Registration Date: 03/06/17 Care time: The patient presented to the Emergency Department on the above date and was hospitalized for further evaluation of their emergent condition. - New Patient This patient is new to me today: No - Critical Care Critical Care patient: Yes Total Critical Care Time (in minutes): 35 Critical Care Statement: The care of this patient involved high complexity decision making to prevent further life threatening deterioration of the patient 's condition and/or to evalute & treat vital organ system(s) failure or risk of failure.
[2017-03-10] MEDS: SODIUM CHLORIDE 0.9%/KCL 1,000 ML IV SCH (17:58)
[2017-03-10] MEDS ORDERED: amLODIPine BESYLATE 2.5 MG TABLET (FP) PO ONE (18:12)
[2017-03-10] MEDS ORDERED: LISINOPRIL 10 MG TABLET (FP) PO ONE (18:16)
[2017-03-11] MEDS ORDERED: PT OWN MED DRAWER 7, Y5N ONE ×2 (00:56→09:40)
[2017-03-11] MEDS: HEPARIN NA (PORCINE) 5,000 UNITS/ML 1ML VIAL SQ SCH ×3 (06:18→21:51)
[2017-03-11 08:34] LABS: MCH 30.1 pg (25.7-33.7); MCHC 32.4 g/dl (32.0-35.9); MEAN PLT VOLUME 7.9 fl (7.5-11.1); PLATELET COUNT 225 K/MM3 (134-434); WHITE BLOOD COUNT 12.9 K/mm3 (4.0-10.0)
[2017-03-11] MEDS ORDERED: MAGNESIUM SULF 50% (8.12 MEQ/2 ML-1 GM VIAL) IVPB ONE (09:34)
[2017-03-11 09:39] LABS: ANION GAP 14 (8-16); CALCIUM 7.7 mg/dL (8.5-10.1); CO2 19 mmol/L (21-32); CREATININE 0.5 mg/dL (0.7-1.3); GLUCOSE,RANDOM 109 mg/dL (74-106); MAGNESIUM 1.9 mg/dL (1.8-2.4); PHOSPHOROUS 2.7 mg/dL (2.5-4.9)
--- NOTE | 2017-03-11 09:39 | PN ---
Progress Note (short form) - Note Progress Note: Patient seen and examined Denies any complaints Last Vital Signs Temp Pulse Resp BP Pulse Ox 100.4 F H 109 H 27 H 171/101 100 03/11/17 06:00 03/11/17 06:00 03/11/17 06:00 03/11/17 06:00 03/10/17 20:33 Cor: RSR, No murmurs, No gallops Lungs: decreased breath sounds rt. base Abd: Soft, distended, mid line incision, sluggish bowel sounds Ext:No significant edema Abnormal Lab Results 03/07/17 11:00 Crossmatch IS Only See Detail Home Medication List Medication Instructions Recorded Confirmed Type Amlodipine Besylate/Benazepril 1 cap PO HS 03/06/17 03/06/17 History [Lotrel 5-10 mg Capsule] Active Medications Generic Name Dose Route Start Last Admin Trade Name Freq PRN Reason Stop Dose Admin Amlodipine Besylate 5 mg 03/11/17 10:00 Norvasc - PO DAILY DANIELA Heparin Sodium (Porcine) 5,000 unit 03/07/17 22:00 03/11/17 06:18 Heparin - SQ 5,000 unit TID DANIELA Administration Fluconazole 100 mls @ 100 mls/hr 03/08/17 10:00 03/10/17 10:41 Diflucan 200 Mg/Ns Premixed Ivpb - IVPB 100 mls/hr DAILY DANIELA Administration Meropenem 1 gm/ Dextrose 100 mls @ 200 mls/hr 03/07/17 22:00 03/10/17 22:27 IVPB 200 mls/hr BID DANIELA Administration Protocol Potassium Chloride/Sodium Chloride 1,000 mls @ 125 mls/hr 03/07/17 17:15 17:58 Ns+20 Meq Kcl - IV 125 mls/hr ASDIR DANIELA Administration Pantoprazole Sodium 100 mls @ 200 mls/hr 03/08/17 10:00 03/10/17 10:16 Protonix 40mg Ivpb (Pre-Docked) IVPB 200 mls/hr DAILY DANIELA Administration Lisinopril 10 mg 03/11/17 10:00 Prinivil PO DAILY DANIELA Magnesium Sulfate 1 gm 03/11/17 09:34 Magnesium Sulfate IVPB 03/11/17 09:35 ONCE ONE A/P 56 y/o patient with rectal cancer, s/p chemotherapy/RT comes in with septic shock. rectal stricture/bowel obstruction s/p diverting colostomy On meropenem extubated Low grade fever --check CXR discussed with surgical team --- NG tube was discontinued. Alvarez d/cd starting clears
--- NOTE | 2017-03-11 09:40 | PN ---
Physical Exam: SUBJECTIVE: Patient seen and examined this AM. Pt sitting comfortably in a chair. Pt denies any acute discomfort including abdominal pain or distention. Pt denies overnight events including fever, chills, nausea, or vomiting. Pt expresses desire to be discharged. Pt has no other acute issues at this time. OBJECTIVE: Vital Signs Period Temp Pulse Resp BP Sys/Maldonado Pulse Ox Last 24 Hr 97.5 F-100.4 F 92-109 12-28 132-172/91-109 100 GENERAL: The patient is awake, alert, and fully oriented, in no acute distress. HEAD: Normal with no signs of trauma. EYES: sclera anicteric, conjunctiva clear. No ptosis. ENT: NG tube in place NECK: Trachea midline LUNGS: Breath sounds equal, clear to auscultation bilaterally, no wheezes, no crackles, no accessory muscle use. HEART: Regular rate and rhythm, S1, S2 without murmur, rub or gallop. ABDOMEN: Soft, nontender, slightly distended, hypoactive bowel sounds, no guarding, no rebound, no masses; colostomy in place in RLQ draining brown liquid, no surrounding erythema or drainage EXTREMITIES: 2+ radial pulses b/l, warm, well-perfused, no edema, SCDs in place NEUROLOGICAL: Cranial nerves II through XII grossly intact. Normal speech, gait not observed. PSYCH: Normal mood, normal affect. SKIN: Warm, dry, normal turgor, no rashes or lesions noted Laboratory Results - last 24 hr 03/07/17 11:00 Blood Type A POSITIVE Antibody Screen Negative Crossmatch IS Only See Detail Active Medications Generic Name Dose Route Start Last Admin Trade Name Bryant PRN Reason Stop Dose Admin Amlodipine Besylate 5 mg 03/11/17 10:00 Norvasc - PO DAILY DANIELA Heparin Sodium (Porcine) 5,000 unit 03/07/17 22:00 03/11/17 06:18 Heparin - SQ 5,000 unit TID DANIELA Administration Fluconazole 100 mls @ 100 mls/hr 03/08/17 10:00 03/10/17 10:41 Diflucan 200 Mg/Ns Premixed Ivpb - IVPB 100 mls/hr DAILY DANIELA Administration Meropenem 1 gm/ Dextrose 100 mls @ 200 mls/hr 03/07/17 22:00 03/10/17 22:27 IVPB 200 mls/hr BID DANIELA Administration Protocol Potassium Chloride/Sodium Chloride 1,000 mls @ 125 mls/hr 03/07/17 17:15 17:58 Ns+20 Meq Kcl - IV 125 mls/hr ASDIR DANIELA Administration Pantoprazole Sodium 100 mls @ 200 mls/hr 03/08/17 10:00 03/10/17 10:16 Protonix 40mg Ivpb (Pre-Docked) IVPB 200 mls/hr DAILY DANIELA Administration Lisinopril 10 mg 03/11/17 10:00 Prinivil PO DAILY DANIELA Magnesium Sulfate 1 gm 03/11/17 09:34 Magnesium Sulfate IVPB 03/11/17 09:35 ONCE ONE ASSESSMENT/PLAN: 56 y/o pmhx HTN, nephrolithiasis s/p L ureteral stent in Jul 2016, rectal CA with rectal stricture s/p chemo and radiation admitted for bowel obstruction and septic shock. POD #4 s/p laparotomy and sigmoid colostomy. GI: Hx rectal CA admitted for nausea and vomiting 2/2 bowel obstruction -POD #4 s/p laparotomy and sigmoid colostomy -NG tube drained 200ml overnight; removed today by surgery team -Will start clear liquid diet -Pt denies abdominal complaints ID: Blood cxs reveal no growth to date; urine culture negative. C. diff negative. -Septic shock resolved; off pressors -WBC previously stable at 9.4; increased to 12.9 today -Slightly elevated temp this morning at 110.4 axillary -Continue Fluconazole (day 4) and Meropenem (day 5) -Continue to monitor for increased temps -Trend WBC Cardiovascular: Hx HTN; previously holding home meds 2/2 sepsis and hypotension -Elevated BP with max 172/108 overnight -Given Norvasc 5mg and Lisinopril 10mg today in AM -Consider restarting home meds -Pt denies ROMEO, pain or discomfort Resp: Stable s/p extubation -Denies respiratory complaints -On 2L NC -Continue to monitor O2 sat - F/U BP closely Renal: Hx nephrolithiasis s/p L ureteral stent in Jul 2016 -Appreciate urology recs -Plan for stent removal/replacement when pt is stable -Pt denies urinary complaints; urine culture neg Neuro: -Pt alert, not altered; expresses desire to be discharged FEN: -NS @ 60 mls/hr -Monitor electrolytes -Clear liquid diet Prophylaxis: -Heparin 5000 SQ TID -SCDs -Protonix Dispo: Stable for transfer to [facility] pending tolerance of liquid diet
--- NOTE | 2017-03-11 09:42 | PN ---
Progress Note, Physician Chief Complaint: Feels better History of Present Illness: Ca rectum with partial intestinal obstruction - Current Medication List Current Medications: Active Medications Amlodipine Besylate (Norvasc -) 5 mg PO DAILY [facility] Heparin Sodium (Porcine) (Heparin -) 5,000 unit SQ TID [facility] Last Admin: 03/11/17 06:18 Dose: 5,000 unit Fluconazole (Diflucan 200 Mg/Ns Premixed Ivpb -) 100 mls @ 100 mls/hr IVPB DAILY [facility] Last Admin: 03/10/17 10:41 Dose: 100 mls/hr Meropenem 1 gm/ Dextrose 100 mls @ 200 mls/hr IVPB BID [facility] PRN Reason: Protocol Last Admin: 03/10/17 22:27 Dose: 200 mls/hr Potassium Chloride/Sodium Chloride (Ns+20 Meq Kcl -) 1,000 mls @ 125 mls/hr IV ASDIR [facility] Last Admin: 03/10/17 17:58 Dose: 125 mls/hr Pantoprazole Sodium (Protonix 40mg Ivpb (Pre-Docked)) 100 mls @ 200 mls/hr IVPB DAILY [facility] Last Admin: 03/10/17 10:16 Dose: 200 mls/hr Lisinopril (Prinivil) 10 mg PO DAILY [facility] Magnesium Sulfate (Magnesium Sulfate) 1 gm IVPB ONCE ONE Stop: 03/11/17 09:35 - Objective Vital Signs: Vital Signs Temperature 100.4 F H 03/11/17 06:00 Pulse Rate 109 H 03/11/17 06:00 Respiratory Rate 27 H 03/11/17 06:00 Blood Pressure 171/101 03/11/17 06:00 O2 Sat by Pulse Oximetry (%) 100 03/10/17 20:33 Constitutional: Yes: Mild Distress Eyes: No: WNL, Conjunctiva Clear, EOM Intact, Cataracts, Diplopia, Occular Prosthesis, PERRL, Ptosis, Sclera Icterus, Tearing, Other Neck: Yes: WNL Gastrointestinal: Yes: Hypoactive Bowel Sounds ...Rectal Exam: Yes: Deferred Genitourinary: Yes: WNL Breast(s): Yes: WNL Extremities: Yes: WNL Edema: No Integumentary: Yes: WNL Neurological: Yes: Alert Labs: INR, PTT INR 1.26 (0.82-1.09) H 03/08/17 05:15 Fibrinogen 676.0 mg/dL (238-498) H 03/06/17 23:00 Assessment/Plan Start clear liquids
[2017-03-11] MEDS: PANTOPRAZOLE SODIUM 100 ML IVPB SCH (09:52)
[2017-03-11] MEDS: MEROPENEM 1 GM in DEXTROSE 5%-WATER - 100 ML IVPB SCH ×2 (09:52→21:50)
[2017-03-11] MEDS: FLUCONAZOLE 200 MG/NS 100 ML IVPB SCH (09:52)
--- NOTE | 2017-03-11 09:56 | PN ---
Progress Note, Physician Chief Complaint: abdominal distention and pain History of Present Illness: POD4 s/p laparotomy with sigmoid colostomy Patient awake, states feeling good. Alvarez removed yesterday, voiding well. NG with 200ml out last shift, greenish. Stoma produced 500ml brown liquid stool yesterday, 150ml this am. No major events overnight. No nausea. NG removed at bedside. Pt had low-grade temp this am. Has not yet been OOB, not yet using IS. - Current Medication List Current Medications: Active Medications Amlodipine Besylate (Norvasc -) 5 mg PO DAILY [facility] Heparin Sodium (Porcine) (Heparin -) 5,000 unit SQ TID [facility] Last Admin: 03/11/17 06:18 Dose: 5,000 unit Fluconazole (Diflucan 200 Mg/Ns Premixed Ivpb -) 100 mls @ 100 mls/hr IVPB DAILY [facility] Last Admin: 03/10/17 10:41 Dose: 100 mls/hr Meropenem 1 gm/ Dextrose 100 mls @ 200 mls/hr IVPB BID [facility] PRN Reason: Protocol Last Admin: 03/10/17 22:27 Dose: 200 mls/hr Potassium Chloride/Sodium Chloride (Ns+20 Meq Kcl -) 1,000 mls @ 125 mls/hr IV ASDIR [facility] Last Admin: 03/10/17 17:58 Dose: 125 mls/hr Pantoprazole Sodium (Protonix 40mg Ivpb (Pre-Docked)) 100 mls @ 200 mls/hr IVPB DAILY [facility] Last Admin: 03/10/17 10:16 Dose: 200 mls/hr Lisinopril (Prinivil) 10 mg PO DAILY [facility] Magnesium Sulfate (Magnesium Sulfate) 1 gm IVPB ONCE ONE Stop: 03/11/17 09:35 - Objective Vital Signs: Vital Signs Temperature 100.4 F H 03/11/17 06:00 Pulse Rate 109 H 03/11/17 06:00 Respiratory Rate 27 H 03/11/17 06:00 Blood Pressure 171/101 03/11/17 06:00 O2 Sat by Pulse Oximetry (%) 100 03/10/17 20:33 Vital Signs Period Temp Pulse Resp BP Sys/Maldonado Pulse Ox Last 24 Hr 97.5 F-100.4 F 92-109 12-28 132-172/91-109 100 Intake & Output 03/10/17 03/11/17 03/11/17 23:59 07:59 15:59 Intake Total 1800 1550 Output Total 1300 1200 Balance 500 350 Weight 165 lb 9.074 oz Intake: IV 1250 1500 Ns+20 Meq KCl - 1,000 ml 1250 1500 @ 125 mls/hr IV ASDIR DANIELA Rx#:[id number] IVPB 550 50 Output: Drainage 500 200 Left Lower Abdomen 500 200 Urine 800 1000 Alvarez 250 Void 550 1000 Other: Voiding Method Incontinent # Unmeasured Voids Void 3 Bowel Movement Yes: 500 150 Weight Measurement Method [facility] Constitutional: Yes: Well Nourished, No Distress, Calm HENT: Yes: Other (NGT with green output, minimal) Cardiovascular: Yes: Regular Rate and Rhythm. No: Murmur Respiratory: Yes: Regular, CTA Bilaterally, Diminished (at right base) Gastrointestinal: Yes: Soft, Distention, Hypoactive Bowel Sounds, Other (LLQ colostomy - some mucosal slough peeled off, pink underneath, patent, productive of little liquid brown output). No: Tenderness Genitourinary: No: Alvarez Present, Scrotal Edema Extremities: No: Cool, Cyanosis Integumentary: Yes: Incision. No: Rash Wound/Incision: Yes: Clean/Dry, Well Approximated, [place] Intact, Open to air, Other (colostomy - see above) Neurological: Yes: Alert, Oriented Labs: INR, PTT INR 1.26 (0.82-1.09) H 03/08/17 05:15 Fibrinogen 676.0 mg/dL (238-498) H 03/06/17 23:00 CMP Sodium 145 mmol/L (136-145) 03/11/17 08:15 Potassium 4.1 mmol/L (3.5-5.1) 03/11/17 08:15 Chloride 112 mmol/L (98-107) H 03/11/17 08:15 Carbon Dioxide 19 mmol/L (21-32) L 03/11/17 08:15 Anion Gap 14 (8-16) 03/11/17 08:15 BUN 14 mg/dL (7-18) 03/11/17 08:15 Creatinine 0.5 mg/dL (0.7-1.3) L 03/11/17 08:15 Creat Clearance w eGFR > 60 (>60) 03/10/17 05:15 POC Glucometer 98.14909 UNITS (()) 03/09/17 17:20 Random Glucose 109 mg/dL (74-106) H D 03/11/17 08:15 Hemoglobin A1c % 5.4 % (4.8-6.0) 03/08/17 05:15 Lactic Acid 2.2 mmol/L (0.4-2.0) H* 03/07/17 20:30 Calcium 7.7 mg/dL (8.5-10.1) L 03/11/17 08:15 Phosphorus 2.7 mg/dL (2.5-4.9) 03/11/17 08:15 Magnesium 1.9 mg/dL (1.8-2.4) 03/11/17 08:15 Total Bilirubin 0.6 mg/dL (0.2-1.0) 03/10/17 05:15 Direct Bilirubin 0.4 mg/dL (0.0-0.2) H D 03/06/17 23:00 AST 41 U/L (15-37) H 03/10/17 05:15 ALT 20 U/L (12-78) D 03/10/17 05:15 Alkaline Phosphatase 102 U/L (45-117) 03/10/17 05:15 Total Protein 4.1 g/dl (6.4-8.2) L 03/10/17 05:15 Albumin 1.4 g/dl (3.4-5.0) L 03/10/17 05:15 Total Amylase 20 U/L (25-115) L 03/06/17 23:00 Lipase 74 U/L (73-393) 03/06/17 05:30 Problem List - Problems (1) Rectal malignant neoplasm Assessment/Plan: s/p neoadjuvant chemoRT, done in October or November definitive operation deferred Code(s): C20 - MALIGNANT NEOPLASM OF RECTUM (2) Bowel obstruction Assessment/Plan: POD4 s/p ex lap with sigmoid colostomy stage 4a rectal CA s/p chemoRT with excellent response doing well postop on Meropenem, Diflucan urology notes appreciated Alvarez out - voiding NC O2 prn midline wound clean, ok to leave open ostomy with liquid output, no stool yet, stoma edematous, mucosal slough removed with pink underneath NG with little output, removed will start clears for lunch and dinner, possibly advance in am OOB to chair and ambulate as able IS and pulmonary toilet, wean O2 as able continue care per primary/ICU team - ok for transfer to floor will follow Code(s): K56.60 - UNSPECIFIED INTESTINAL OBSTRUCTION Qualifiers: Intestinal obstruction type: other intestinal obstruction Qualified Code(s): K56.69 - Other intestinal obstruction (3) Rectal stricture Assessment/Plan: present on scope 03/02, but GI could not pass through biopsy results show no malignancy s/p therapy Code(s): K62.4 - STENOSIS OF ANUS AND RECTUM (4) Status post chemotherapy Assessment/Plan: for locally advanced rectal cancer with distant felicity mets on PET per oncology Code(s): Z92.21 - PERSONAL HISTORY OF ANTINEOPLASTIC CHEMOTHERAPY (5) S/P radiation therapy > 12 wks ago Assessment/Plan: for locally advanced rectal cancer with distant felicity mets on PET per oncology Code(s): Z92.3 - PERSONAL HISTORY OF IRRADIATION Assessment/Plan Critical care time 35 minutes.
[2017-03-11] MEDS ORDERED: LISINOPRIL 10 MG TABLET (FP) PO SCH (10:00)
[2017-03-11] MEDS ORDERED: amLODIPine BESYLATE 5 MG TABLET (FP) PO SCH (10:00)
[2017-03-11] MEDS ORDERED: SODIUM CHLORIDE 1,000 ML IV SCH ×2 (12:00→17:37)
--- NOTE | 2017-03-11 12:27 | PN ---
Teaching Attending Note Name of Resident: Ramiro Soto ATTENDING PHYSICIAN STATEMENT I saw and evaluated the patient. I reviewed the resident's note and discussed the case with the resident. I agree with the resident's findings and plan as documented. SUBJECTIVE: Patient seen and examined in the ICU. Remains extubated. More awake and alert. Mildly tachypneic at rest. Denies CP or SOB. Some mild abdominal discomfort. Intake & Output 03/08/17 03/09/17 03/10/17 03/11/17 23:59 23:59 23:59 23:59 Intake Total 5051 3530 3400 1550 Output Total 2500 5950 3700 1200 Balance 2551 -2420 -300 350 Weight 179 lb 7 oz 179 lb 4.8 oz 171 lb 1.259 oz 165 lb 9.074 oz Last Vital Signs Temp Pulse Resp BP Pulse Ox 100.4 F H 109 H 27 H 171/101 100 03/11/17 06:00 03/11/17 06:00 03/11/17 09:00 03/11/17 06:00 03/10/17 20:33 Active Medications Amlodipine Besylate (Norvasc -) 5 mg PO DAILY [facility] Last Admin: 03/11/17 09:52 Dose: 5 mg Heparin Sodium (Porcine) (Heparin -) 5,000 unit SQ TID [facility] Last Admin: 03/11/17 06:18 Dose: 5,000 unit Fluconazole (Diflucan 200 Mg/Ns Premixed Ivpb -) 100 mls @ 100 mls/hr IVPB DAILY [facility] Last Admin: 03/11/17 09:52 Dose: 100 mls/hr Meropenem 1 gm/ Dextrose 100 mls @ 200 mls/hr IVPB BID [facility] PRN Reason: Protocol Last Admin: 03/11/17 09:52 Dose: 200 mls/hr Pantoprazole Sodium (Protonix 40mg Ivpb (Pre-Docked)) 100 mls @ 200 mls/hr IVPB DAILY [facility] Last Admin: 03/11/17 09:52 Dose: 200 mls/hr Sodium Chloride (Normal Saline -) 1,000 mls @ 60 mls/hr IV ASDIR [facility] Stop: 03/12/17 11:59 Lisinopril (Prinivil) 10 mg PO DAILY [facility] Last Admin: 03/11/17 09:52 Dose: 10 mg Constitutional: Yes: Extubated, awake and alert, mildly tacyhpneic at rest HENT: Yes: Atraumatic, Normocephalic Neck: Yes: Supple, Trachea Midline Cardiovascular: Yes: Regular Rate and Rhythm, S1, S2. No: Murmur Respiratory: Yes: Scattered rhonchi Gastrointestinal: Yes: Softly distended, hypoactive bowel sounds, (+) Mild tenderness Genitourinary: Yes: Alvarez Present, less scrotal Edema Edema: No Neurological: Yes: Nonfocal Labs: Laboratory Results - last 24 hr 03/07/17 03/11/17 03/11/17 11:00 08:15 08:15 WBC 12.9 H D RBC 3.97 L D Hgb 11.9 D Hct 36.9 D MCV 93.0 MCH 30.1 MCHC 32.4 RDW 15.0 Plt Count 225 MPV 7.9 Sodium 145 Potassium 4.1 Chloride 112 H Carbon Dioxide 19 L Anion Gap 14 BUN 14 Creatinine 0.5 L Random Glucose 109 H D Calcium 7.7 L Phosphorus 2.7 Magnesium 1.9 Blood Type A POSITIVE Antibody Screen Negative Crossmatch IS Only See Detail Assessment/Plan S/P Ex-Lap HTN Lactic acidosis Rectal stricture Rectal Cancer s/p chemo and radiation Hyperglycemia Elevated anion gap / Metabolic acidosis Septic shock PLAN: PO per surgery IVF Pain control ABX per ID Strict I&O Urology follow up noted VTE prophylaxis PPI Glycemic control Incentive Spirometry Dr Salamanca Critical Care Time Total Critical Care Time: 35 Critical Care Statement: The care of this patient involved high complexity decision making to prevent further life threatening deterioration of the patient 's condition and/or to evalute & treat vital organ system(s) failure or risk of failure.
--- NOTE | 2017-03-11 17:07 | PN ---
Progress Note, Physician History of Present Illness: doing much better abd soft patient feels very good - Current Medication List Current Medications: Active Medications Amlodipine Besylate (Norvasc -) 5 mg PO DAILY [facility] Last Admin: 03/11/17 09:52 Dose: 5 mg Heparin Sodium (Porcine) (Heparin -) 5,000 unit SQ TID [facility] Last Admin: 03/11/17 13:22 Dose: 5,000 unit Fluconazole (Diflucan 200 Mg/Ns Premixed Ivpb -) 100 mls @ 100 mls/hr IVPB DAILY [facility] Last Admin: 03/11/17 09:52 Dose: 100 mls/hr Meropenem 1 gm/ Dextrose 100 mls @ 200 mls/hr IVPB BID [facility] PRN Reason: Protocol Last Admin: 03/11/17 09:52 Dose: 200 mls/hr Pantoprazole Sodium (Protonix 40mg Ivpb (Pre-Docked)) 100 mls @ 200 mls/hr IVPB DAILY [facility] Last Admin: 03/11/17 09:52 Dose: 200 mls/hr Sodium Chloride (Normal Saline -) 1,000 mls @ 60 mls/hr IV ASDIR [facility] Stop: 03/12/17 11:59 Last Admin: 03/11/17 12:00 Dose: 60 mls/hr Lisinopril (Prinivil) 10 mg PO DAILY [facility] Last Admin: 03/11/17 09:52 Dose: 10 mg - Objective Vital Signs: Vital Signs Temperature 98.2 F 03/11/17 16:00 Pulse Rate 89 03/11/17 16:00 Respiratory Rate 18 03/11/17 16:00 Blood Pressure 120/89 03/11/17 16:00 O2 Sat by Pulse Oximetry (%) 100 03/10/17 20:33 Constitutional: Yes: No Distress, Calm Cardiovascular: Yes: Regular Rate and Rhythm Respiratory: Yes: Regular, CTA Bilaterally Gastrointestinal: Yes: Normal Bowel Sounds, Soft, Other (fning colostomy) Musculoskeletal: Yes: WNL Extremities: Yes: WNL Wound/Incision: Yes: Clean/Dry Neurological: Yes: Alert, Oriented Psychiatric: Yes: Alert, Oriented Labs: CBC, BMP 03/11/17 08:15 03/11/17 08:15 INR, PTT INR 1.26 (0.82-1.09) H 08/08/17 05:15 Fibrinogen 676.0 mg/dL (238-498) H 03/06/17 23:00 Assessment/Plan Problem List - Problems (1) Rectal malignant neoplasm Code(s): C20 - MALIGNANT NEOPLASM OF RECTUM (2) Bowel obstruction Code(s): K56.60 - UNSPECIFIED INTESTINAL OBSTRUCTION Qualifiers: Intestinal obstruction type: other intestinal obstruction Qualified Code(s): K56.69 - Other intestinal obstruction (3) Rectal stricture Assessment/Plan: Code(s): K62.4 - STENOSIS OF ANUS AND RECTUM (4) Dehydration Assessment/Plan: Code(s): E86.0 - DEHYDRATION (5) Lactic acid acidosis Assessment/Plan: Code(s): E87.2 - ACIDOSIS (6) Status post chemotherapy Assessment/Plan: Code(s): Z92.21 - PERSONAL HISTORY OF ANTINEOPLASTIC CHEMOTHERAPY (7) S/P radiation therapy Assessment/Plan: Code(s): Z92.3 - PERSONAL HISTORY OF IRRADIATION Lactic acidosis Rectal Cancer s/p chemo and radiation Hyperglycemia / Metabolic acidosis Septic shock plan continue abx continue resp support close monitoring continue as per icu if patient doing well will deescalate abx tomorrow cc 40 min
[2017-03-11] MEDS: CHLORHEXIDINE GLUCONATE 0.12% 15ML CUP MM SCH (17:39)
[2017-03-11] MEDS: PROPOFOL 100 ML IVPB SCH (17:39)
[2017-03-11] MEDS: FENTANYL INJECTION 500 MCG in DEXTROSE 5%-WATER - 90 ML IJ SCH (17:39)
[2017-03-12] MEDS: HEPARIN NA (PORCINE) 5,000 UNITS/ML 1ML VIAL SQ SCH ×3 (05:33→22:32)
[2017-03-12 08:03] LABS: ALBUMIN 1.5 g/dl (3.4-5.0); ANION GAP 11 (8-16); CALCIUM 7.3 mg/dL (8.5-10.1); CO2 25 mmol/L (21-32); CREATININE 0.6 mg/dL (0.7-1.3); GLUCOSE,RANDOM 113 mg/dL (74-106); MAGNESIUM 1.9 mg/dL (1.8-2.4); PHOSPHOROUS 1.6 mg/dL (2.5-4.9); SGOT/AST 38 U/L (15-37); SGPT/ALT 22 U/L (12-78); TOT PROT 4.5 g/dl (6.4-8.2)
[2017-03-12 08:04] LABS: ALK PHOS 114 U/L (45-117)
[2017-03-12 08:10] LABS: MCH 29.9 pg (25.7-33.7); MCHC 32.5 g/dl (32.0-35.9); MEAN PLT VOLUME 8.5 fl (7.5-11.1); PLATELET COUNT 231 K/MM3 (134-434); RDW 14.7 % (11.9-15.9); WHITE BLOOD COUNT 11.4 K/mm3 (4.0-10.0)
[2017-03-12] MEDS ORDERED: PT OWN MED DRAWER 7, Y5N ONE (09:02)
[2017-03-12] MEDS ORDERED: PANTOPRAZOLE SODIUM 40 MG VIAL ONE (09:02)
[2017-03-12] MEDS ORDERED: SODIUM CHLORIDE 100 ML IVPB ONE (09:03)
[2017-03-12] MEDS: amLODIPine BESYLATE 5 MG TABLET (FP) PO SCH (09:07)
[2017-03-12] MEDS: LISINOPRIL 10 MG TABLET (FP) PO SCH (09:07)
[2017-03-12] MEDS: PANTOPRAZOLE SODIUM 40 MG in SODIUM CHLORIDE 100 ML IVPB SCH (09:07)
[2017-03-12] MEDS: FLUCONAZOLE 200 MG/NS 100 ML IVPB SCH (10:17)
--- NOTE | 2017-03-12 11:25 | PN ---
Progress Note (short form) - Note Progress Note: Resting in NAD. Some leakage around ostomy. No CP or SOB. Intake & Output 03/09/17 03/10/17 03/11/17 03/12/17 23:59 23:59 23:59 23:59 Intake Total 3530 3400 3700 Output Total 5950 3700 2400 200 Balance -2420 -300 1300 -200 Weight 179 lb 4.8 oz 171 lb 1.259 oz 165 lb 9.074 oz Last Vital Signs Temp Pulse Resp BP Pulse Ox 100.1 F H 104 H 18 142/93 100 03/12/17 08:50 03/12/17 08:50 03/12/17 08:50 03/12/17 08:50 03/10/17 20:33 Active Medications Amlodipine Besylate (Norvasc -) 5 mg PO DAILY [facility] Last Admin: 03/12/17 09:07 Dose: 5 mg Heparin Sodium (Porcine) (Heparin -) 5,000 unit SQ TID [facility] Last Admin: 03/12/17 05:33 Dose: 5,000 unit Fluconazole (Diflucan 200 Mg/Ns Premixed Ivpb -) 100 mls @ 100 mls/hr IVPB DAILY [facility] Last Admin: 03/12/17 10:17 Dose: 100 mls/hr Meropenem 1 gm/ Dextrose 100 mls @ 200 mls/hr IVPB BID [facility] PRN Reason: Protocol Last Admin: 03/11/17 21:50 Dose: 200 mls/hr Pantoprazole Sodium 40 mg/ (Sodium Chloride) 100 mls @ 200 mls/hr IVPB DAILY [facility] Last Admin: 03/12/17 09:07 Dose: 200 mls/hr Sodium Chloride (Normal Saline -) 1,000 mls @ 60 mls/hr IV ASDIR [facility] Stop: 03/12/17 11:59 Last Admin: 03/11/17 18:41 Dose: Not Given Lisinopril (Prinivil) 10 mg PO DAILY [facility] Last Admin: 03/12/17 09:07 Dose: 10 mg Constitutional: Yes: awake and alert, NAD HENT: Yes: Atraumatic, Normocephalic Neck: Yes: Supple, Trachea Midline Cardiovascular: Yes: Regular Rate and Rhythm, S1, S2. No: Murmur Respiratory: Yes: Scattered rhonchi Gastrointestinal: Yes: Softly distended, hypoactive bowel sounds, (+) Mild tenderness Genitourinary: Yes: less scrotal Edema Edema: No Neurological: Yes: Nonfocal Labs: Laboratory Results - last 24 hr 03/11/17 03/12/17 03/12/17 17:51 05:31 06:00 WBC 11.4 H RBC 3.90 L Hgb 11.7 Hct 35.9 MCV 92.0 MCH 29.9 MCHC 32.5 RDW 14.7 Plt Count 231 MPV 8.5 Sodium Potassium Chloride Carbon Dioxide Anion Gap BUN Creatinine Creat Clearance w eGFR POC Glucometer 133 109 Random Glucose Calcium Phosphorus Magnesium Total Bilirubin AST ALT Alkaline Phosphatase Total Protein Albumin 03/12/17 06:00 WBC RBC Hgb Hct MCV MCH MCHC RDW Plt Count MPV Sodium 139 Potassium 3.2 L D Chloride 103 Carbon Dioxide 25 D Anion Gap 11 BUN 16 Creatinine 0.6 L Creat Clearance w eGFR > 60 POC Glucometer Random Glucose 113 H Calcium 7.3 L Phosphorus 1.6 L D Magnesium 1.9 Total Bilirubin 1.0 D AST 38 H ALT 22 Alkaline Phosphatase 114 Total Protein 4.5 L Albumin 1.5 L Assessment/Plan S/P Ex-Lap HTN Lactic acidosis Rectal stricture Rectal Cancer s/p chemo and radiation Hyperglycemia Elevated anion gap / Metabolic acidosis Septic shock PLAN: Replete lytes PO as tolerated Local wound care Pain control ABX per ID Strict I&O VTE prophylaxis PPI Glycemic control Incentive Spirometry Dr Salamanca
[2017-03-12] MEDS ORDERED: MAGNESIUM SULF 50% (8.12 MEQ/2 ML-1 GM VIAL) IVPB ONE (11:45)
--- NOTE | 2017-03-12 11:59 | PN ---
Progress Note, Physician Chief Complaint: abdominal distention and pain History of Present Illness: POD5 s/p laparotomy with sigmoid colostomy Patient awake, no specific complaints except ostomy bag has small medial leak and waiting for appliance change. Transferred to floor yesterday. Voiding in urinal. Stoma produced 650ml liquid stool yesterday, 1000ml until this am. No nausea. Using IS. Tolerating clears, not very hungry. - Current Medication List Current Medications: Active Medications Amlodipine Besylate (Norvasc -) 5 mg PO DAILY [facility] Last Admin: 03/12/17 09:07 Dose: 5 mg Heparin Sodium (Porcine) (Heparin -) 5,000 unit SQ TID [facility] Last Admin: 03/12/17 05:33 Dose: 5,000 unit Fluconazole (Diflucan 200 Mg/Ns Premixed Ivpb -) 100 mls @ 100 mls/hr IVPB DAILY [facility] Last Admin: 03/12/17 10:17 Dose: 100 mls/hr Meropenem 1 gm/ Dextrose 100 mls @ 200 mls/hr IVPB BID [facility] PRN Reason: Protocol Last Admin: 03/11/17 21:50 Dose: 200 mls/hr Pantoprazole Sodium 40 mg/ (Sodium Chloride) 100 mls @ 200 mls/hr IVPB DAILY [facility] Last Admin: 03/12/17 09:07 Dose: 200 mls/hr Sodium Chloride (Normal Saline -) 1,000 mls @ 60 mls/hr IV ASDIR [facility] Stop: 03/12/17 11:59 Last Admin: 03/11/17 18:41 Dose: Not Given Potassium Phosphate 30 mm/ (Sodium Chloride) 510 mls @ 63.75 mls/hr IVPB ONCE ONE Stop: 03/12/17 19:59 Lisinopril (Prinivil) 10 mg PO DAILY [facility] Last Admin: 03/12/17 09:07 Dose: 10 mg - Objective Vital Signs: Vital Signs Temperature 100.1 F H 03/12/17 08:50 Pulse Rate 104 H 03/12/17 08:50 Respiratory Rate 18 03/12/17 08:50 Blood Pressure 142/93 03/12/17 08:50 O2 Sat by Pulse Oximetry (%) 100 03/10/17 20:33 Vital Signs Period Temp Pulse Resp BP Sys/Maldonado Pulse Ox Last 24 Hr 98.2 F-100.1 F 89-112 14-20 119-156/80-109 Intake & Output 03/11/17 03/12/17 03/12/17 23:59 07:59 15:59 Intake Total 700 Output Total 600 200 200 Balance 100 -200 -200 Intake: IV 600 Normal Saline - 1,000 ml 600 @ 60 mls/hr IV ASDIR DANIELA Rx#:[id number] IVPB 100 Output: Urine 600 200 200 Void 600 200 200 Other: Voiding Method Urinal Urinal Bowel Movement Yes: liquids dark green. Yes: 300 Yes: colostomy # Bowel Movements 700 Constitutional: Yes: Well Nourished, No Distress, Calm Cardiovascular: Yes: Tachycardia (mild). No: Pulse Irregular Respiratory: Yes: Regular, CTA Bilaterally Gastrointestinal: Yes: Soft, Distention (some), Hypoactive Bowel Sounds, Other ( LLQ colostomy - appliance changed - mucosa with some slough but deep pink underneath, patent through fascia to digital exam, productive of liquid stool). No: Tenderness Extremities: No: Cool, Cyanosis Edema: No Integumentary: Yes: Incision, Other (small spot of superficially denuded skin at medial aspect under stoma appliance) Wound/Incision: Yes: Well Approximated, Aletha Intact, Open to air, Draining ( some serosang, oily fluid from between two aletha near inferior end of midline incision - one staple removed with expression of similar fluid, corner of 2x2 gauze tucked into space and covered with gauze and tape), Other (LLQ colostomy - see above) Neurological: Yes: Alert, Oriented Labs: CBC, BMP 03/12/17 06:00 03/12/17 06:00 CMP Sodium 139 mmol/L (136-145) 03/12/17 06:00 Potassium 3.2 mmol/L (3.5-5.1) L D 03/12/17 06:00 Chloride 103 mmol/L (98-107) 03/12/17 06:00 Carbon Dioxide 25 mmol/L (21-32) D 03/12/17 06:00 Anion Gap 11 (8-16) 03/12/17 06:00 BUN 16 mg/dL (7-18) 03/12/17 06:00 Creatinine 0.6 mg/dL (0.7-1.3) L 03/12/17 06:00 Creat Clearance w eGFR > 60 (>60) 03/12/17 06:00 POC Glucometer 109 UNITS (()) 03/12/17 05:31 Random Glucose 113 mg/dL (74-106) H 03/12/17 06:00 Hemoglobin A1c % 5.4 % (4.8-6.0) 03/08/17 05:15 Lactic Acid 2.2 mmol/L (0.4-2.0) H* 03/07/17 20:30 Calcium 7.3 mg/dL (8.5-10.1) L 03/12/17 06:00 Phosphorus 1.6 mg/dL (2.5-4.9) L D 03/12/17 06:00 Magnesium 1.9 mg/dL (1.8-2.4) 03/12/17 06:00 Total Bilirubin 1.0 mg/dL (0.2-1.0) D 03/12/17 06:00 Direct Bilirubin 0.4 mg/dL (0.0-0.2) H D 03/06/17 23:00 AST 38 U/L (15-37) H 03/12/17 06:00 ALT 22 U/L (12-78) 03/12/17 06:00 Alkaline Phosphatase 114 U/L (45-117) 03/12/17 06:00 Total Protein 4.5 g/dl (6.4-8.2) L 03/12/17 06:00 Albumin 1.5 g/dl (3.4-5.0) L 03/12/17 06:00 Problem List - Problems (1) Rectal malignant neoplasm Assessment/Plan: stage 4a prior to neoadjuvant chemoRT, which was done in October or November with good response definitive operation deferred Code(s): C20 - MALIGNANT NEOPLASM OF RECTUM (2) Bowel obstruction Assessment/Plan: POD5 s/p ex lap with sigmoid colostomy doing well postop on Meropenem, Diflucan urology notes appreciated midline wound with likely some seroma drainage from inferior aspect - 1 staple out, will keep covered and monitor today ostomy with liquid output, no stool yet, stoma edematous, mucosal slough with pink underneath will advance to full liquids today OOB to chair and ambulate as able IS and pulmonary toilet encouraged continue care per primary team will follow Code(s): K56.60 - UNSPECIFIED INTESTINAL OBSTRUCTION Qualifiers: Intestinal obstruction type: other intestinal obstruction Qualified Code(s): K56.69 - Other intestinal obstruction (3) Rectal stricture Assessment/Plan: present on scope 03/02, but GI could not pass through biopsy results show no malignancy s/p therapy Code(s): K62.4 - STENOSIS OF ANUS AND RECTUM (4) Status post chemotherapy Assessment/Plan: for locally advanced rectal cancer with distant felicity mets on PET per oncology Code(s): Z92.21 - PERSONAL HISTORY OF ANTINEOPLASTIC CHEMOTHERAPY (5) S/P radiation therapy > 12 wks ago Assessment/Plan: for locally advanced rectal cancer with distant felicity mets on PET per oncology Code(s): Z92.3 - PERSONAL HISTORY OF IRRADIATION
[2017-03-12] MEDS ORDERED: POTASSIUM PHOSPHATE 30 MM in SODIUM CHLORIDE 500 ML IVPB ONE (12:00)
--- NOTE | 2017-03-12 12:12 | PN ---
Progress Note, Physician History of Present Illness: stable wound evaluated by surgery some drainage noted no other issues - Current Medication List Current Medications: Active Medications Amlodipine Besylate (Norvasc -) 5 mg PO DAILY [facility] Last Admin: 03/12/17 09:07 Dose: 5 mg Heparin Sodium (Porcine) (Heparin -) 5,000 unit SQ TID [facility] Last Admin: 03/12/17 05:33 Dose: 5,000 unit Fluconazole (Diflucan 200 Mg/Ns Premixed Ivpb -) 100 mls @ 100 mls/hr IVPB DAILY [facility] Last Admin: 03/12/17 10:17 Dose: 100 mls/hr Meropenem 1 gm/ Dextrose 100 mls @ 200 mls/hr IVPB BID [facility] PRN Reason: Protocol Last Admin: 03/11/17 21:50 Dose: 200 mls/hr Pantoprazole Sodium 40 mg/ (Sodium Chloride) 100 mls @ 200 mls/hr IVPB DAILY [facility] Last Admin: 03/12/17 09:07 Dose: 200 mls/hr Potassium Phosphate 30 mm/ (Sodium Chloride) 510 mls @ 63.75 mls/hr IVPB ONCE ONE Stop: 03/12/17 19:59 Lisinopril (Prinivil) 10 mg PO DAILY [facility] Last Admin: 03/12/17 09:07 Dose: 10 mg - Objective Vital Signs: Vital Signs Temperature 100.1 F H 03/12/17 08:50 Pulse Rate 104 H 03/12/17 08:50 Respiratory Rate 18 03/12/17 08:50 Blood Pressure 142/93 03/12/17 08:50 O2 Sat by Pulse Oximetry (%) 100 03/10/17 20:33 Constitutional: Yes: No Distress, Calm Cardiovascular: Yes: Regular Rate and Rhythm Respiratory: Yes: Regular, CTA Bilaterally Gastrointestinal: Yes: Normal Bowel Sounds, Soft, Other (stoma looks good) Musculoskeletal: Yes: WNL Extremities: Yes: WNL Wound/Incision: Yes: Clean/Dry, Dressing Dry and Intact Neurological: Yes: Alert, Oriented Psychiatric: Yes: Alert, Oriented Labs: CBC, BMP 03/12/17 06:00 03/12/17 06:00 INR, PTT INR 1.26 (0.82-1.09) H 03/08/17 05:15 Fibrinogen 676.0 mg/dL (238-498) H 03/06/17 23:00 Assessment/Plan Problem List - Problems (1) Rectal malignant neoplasm Code(s): C20 - MALIGNANT NEOPLASM OF RECTUM (2) Bowel obstruction Code(s): K56.60 - UNSPECIFIED INTESTINAL OBSTRUCTION Qualifiers: Intestinal obstruction type: other intestinal obstruction Qualified Code(s): K56.69 - Other intestinal obstruction (3) Rectal stricture Assessment/Plan: Code(s): K62.4 - STENOSIS OF ANUS AND RECTUM (4) Dehydration Assessment/Plan: Code(s): E86.0 - DEHYDRATION (5) Lactic acid acidosis Assessment/Plan: Code(s): E87.2 - ACIDOSIS (6) Status post chemotherapy Assessment/Plan: Code(s): Z92.21 - PERSONAL HISTORY OF ANTINEOPLASTIC CHEMOTHERAPY (7) S/P radiation therapy Assessment/Plan: Code(s): Z92.3 - PERSONAL HISTORY OF IRRADIATION Lactic acidosis Rectal Cancer s/p chemo and radiation Hyperglycemia / Metabolic acidosis Septic shock plan in view of drainage will continue abx for the time being surgery watching the site coninue to monitor rest as per primary team
--- NOTE | 2017-03-12 12:15 | PN ---
Progress Note, Physician Chief Complaint: Feels better History of Present Illness: Colostomy working Clear liquids well tolerated - Current Medication List Current Medications: Active Medications Amlodipine Besylate (Norvasc -) 5 mg PO DAILY [facility] Last Admin: 03/12/17 09:07 Dose: 5 mg Heparin Sodium (Porcine) (Heparin -) 5,000 unit SQ TID [facility] Last Admin: 03/12/17 05:33 Dose: 5,000 unit Fluconazole (Diflucan 200 Mg/Ns Premixed Ivpb -) 100 mls @ 100 mls/hr IVPB DAILY [facility] Last Admin: 03/12/17 10:17 Dose: 100 mls/hr Meropenem 1 gm/ Dextrose 100 mls @ 200 mls/hr IVPB BID [facility] PRN Reason: Protocol Last Admin: 03/11/17 21:50 Dose: 200 mls/hr Pantoprazole Sodium 40 mg/ (Sodium Chloride) 100 mls @ 200 mls/hr IVPB DAILY [facility] Last Admin: 03/12/17 09:07 Dose: 200 mls/hr Potassium Phosphate 30 mm/ (Sodium Chloride) 510 mls @ 63.75 mls/hr IVPB ONCE ONE Stop: 03/12/17 19:59 Lisinopril (Prinivil) 10 mg PO DAILY [facility] Last Admin: 03/12/17 09:07 Dose: 10 mg - Objective Vital Signs: Vital Signs Temperature 100.1 F H 03/12/17 08:50 Pulse Rate 104 H 03/12/17 08:50 Respiratory Rate 18 03/12/17 08:50 Blood Pressure 142/93 03/12/17 08:50 O2 Sat by Pulse Oximetry (%) 100 03/10/17 20:33 Constitutional: Yes: No Distress Eyes: Yes: WNL HENT: Yes: WNL Neck: Yes: WNL Cardiovascular: Yes: Regular Rate and Rhythm Respiratory: Yes: WNL Gastrointestinal: Yes: Normal Bowel Sounds, Other (colostomy working Wound has some erethema) ...Rectal Exam: Yes: Deferred Neurological: Yes: Alert Labs: CBC, BMP 03/12/17 06:00 03/12/17 06:00 INR, PTT INR 1.26 (0.82-1.09) H 03/08/17 05:15 Fibrinogen 676.0 mg/dL (238-498) H 03/06/17 23:00 Assessment/Plan Kcl supplements ordered
[2017-03-12] MEDS: MEROPENEM 1 GM in DEXTROSE 5%-WATER - 100 ML IVPB SCH ×2 (12:18→22:32)
[2017-03-12] MEDS: POTASSIUM CHLORIDE TABS 20 MEQ TABLET.ER (FP) PO SCH ×2 (13:27→22:33)
--- NOTE | 2017-03-12 15:04 | PN ---
Progress Note (short form) - Note Progress Note: Patient seen and examined Denies any complaints Last Vital Signs Temp Pulse Resp BP Pulse Ox 100.1 F H 104 H 18 142/93 93 L 03/12/17 11:00 03/12/17 11:00 03/12/17 11:00 03/12/17 11:00 03/12/17 09:00 Cor: RSR, No murmurs, No gallops Lungs: decreased breath sounds rt. base Abd: Soft, distended, mid line incision, colostomy Loose stool Ext:No significant edema Current Medications Generic Name Dose Route Start Last Admin Trade Name Freq PRN Reason Stop Dose Admin Amlodipine Besylate 5 mg 03/12/17 10:00 03/12/17 09:07 Norvasc - PO 5 mg DAILY DANIELA Administration Heparin Sodium (Porcine) 5,000 unit 03/11/17 22:00 03/12/17 13:27 Heparin - SQ 5,000 unit TID DANIELA Administration Fluconazole 100 mls @ 100 mls/hr 03/12/17 10:00 03/12/17 10:17 Diflucan 200 Mg/Ns Premixed Ivpb - IVPB 100 mls/hr DAILY DANIELA Administration Meropenem 1 gm/ Dextrose 100 mls @ 200 mls/hr 03/11/17 22:00 03/12/17 12:18 IVPB 200 mls/hr BID DANIELA Administration Protocol Pantoprazole Sodium 40 mg/ 100 mls @ 200 mls/hr 03/12/17 10:00 03/12/17 09:07 Sodium Chloride IVPB 200 mls/hr DAILY DANIELA Administration Potassium Phosphate 30 mm/ 510 mls @ 63.75 mls/hr 03/12/17 12:00 03/12/17 14:53 Sodium Chloride IVPB 03/12/17 19:59 63.75 mls/hr ONCE ONE Administration Lisinopril 10 mg 03/12/17 10:00 03/12/17 09:07 Prinivil PO 10 mg DAILY DANIELA Administration Potassium Chloride 20 meq 03/12/17 13:00 03/12/17 13:27 K-Dur - PO 20 meq BID DANIELA Administration CBC, BMP 03/12/17 06:00 03/12/17 06:00 A/P 56 y/o patient with rectal cancer, s/p chemotherapy/RT comes in with septic shock. rectal stricture/bowel obstruction. s/p diverting colostomy On meropenem/fluc, with low grade fevers, ID following Tolerating clears. will follow
[2017-03-13] MEDS: HEPARIN NA (PORCINE) 5,000 UNITS/ML 1ML VIAL SQ SCH ×3 (06:04→21:06)
[2017-03-13 08:32] LABS: ALBUMIN 1.4 g/dl (3.4-5.0); ANION GAP 10 (8-16); CO2 25 mmol/L (21-32); GLUCOSE,RANDOM 110 mg/dL (74-106); MAGNESIUM 1.8 mg/dL (1.8-2.4)
[2017-03-13 08:36] LABS: ALK PHOS 121 U/L (45-117); BILIRUBIN,TOTAL 0.8 mg/dL (0.2-1.0); CREATININE 0.5 mg/dL (0.7-1.3); PHOSPHOROUS 2.3 mg/dL (2.5-4.9); SGOT/AST 95 U/L (15-37); SGPT/ALT 57 U/L (12-78); TOT PROT 4.2 g/dl (6.4-8.2)
[2017-03-13 08:48] LABS: CALCIUM 6.8 mg/dL (8.5-10.1)
[2017-03-13] MEDS ORDERED: PT OWN MED DRAWER 7, Y5N ONE ×2 (09:34→19:53)
[2017-03-13] MEDS ORDERED: SODIUM CHLORIDE 100 ML IVPB ONE (09:35)
[2017-03-13] MEDS ORDERED: PANTOPRAZOLE SODIUM 40 MG VIAL ONE (09:35)
[2017-03-13] MEDS: MEROPENEM 1 GM in DEXTROSE 5%-WATER - 100 ML IVPB SCH (09:37)
[2017-03-13] MEDS: FLUCONAZOLE 200 MG/NS 100 ML IVPB SCH (09:38)
[2017-03-13] MEDS: PANTOPRAZOLE SODIUM 40 MG in SODIUM CHLORIDE 100 ML IVPB SCH (09:38)
[2017-03-13] MEDS: POTASSIUM CHLORIDE TABS 20 MEQ TABLET.ER (FP) PO SCH ×2 (09:39→21:06)
[2017-03-13] MEDS: LISINOPRIL 10 MG TABLET (FP) PO SCH (09:39)
[2017-03-13] MEDS: amLODIPine BESYLATE 5 MG TABLET (FP) PO SCH (09:40)
--- NOTE | 2017-03-13 11:04 | PN ---
Progress Note, Physician Chief Complaint: abdominal distention and pain History of Present Illness: POD6 s/p laparotomy with sigmoid colostomy Patient awake, no specific complaints. Seen sitting up in chair, examined in bed for wound. Voiding in urinal. Stoma produced 2500ml liquid stool yesterday with occasional small loose pieces, 1200ml since yesterday so far. No nausea. Using IS. Tolerating full liquids. - Current Medication List Current Medications: Active Medications Amlodipine Besylate (Norvasc -) 5 mg PO DAILY [facility] Last Admin: 03/13/17 09:40 Dose: 5 mg Heparin Sodium (Porcine) (Heparin -) 5,000 unit SQ TID [facility] Last Admin: 03/13/17 06:04 Dose: 5,000 unit Fluconazole (Diflucan 200 Mg/Ns Premixed Ivpb -) 100 mls @ 100 mls/hr IVPB DAILY [facility] Last Admin: 03/13/17 09:38 Dose: 100 mls/hr Meropenem 1 gm/ Dextrose 100 mls @ 200 mls/hr IVPB BID [facility] PRN Reason: Protocol Last Admin: 03/13/17 09:37 Dose: 200 mls/hr Pantoprazole Sodium 40 mg/ (Sodium Chloride) 100 mls @ 200 mls/hr IVPB DAILY [facility] Last Admin: 03/13/17 09:38 Dose: 200 mls/hr Lisinopril (Prinivil) 10 mg PO DAILY [facility] Last Admin: 03/13/17 09:39 Dose: 10 mg Potassium Chloride (K-Dur -) 20 meq PO BID [facility] Last Admin: 03/13/17 09:39 Dose: 20 meq - Objective Vital Signs: Vital Signs Temperature 98.1 F 03/13/17 06:36 Pulse Rate 80 03/13/17 06:36 Respiratory Rate 20 03/13/17 06:36 Blood Pressure 140/80 03/13/17 06:36 O2 Sat by Pulse Oximetry (%) 93 L 03/12/17 21:00 Vital Signs Period Temp Pulse Resp BP Sys/[place] Pulse Ox Last 24 Hr -99.1 F-99.1 F 80-96 18-20 118-145/71-85 93 Intake & Output 03/12/17 03/13/17 03/13/17 23:59 07:59 15:59 Intake Total 1360 Output Total 600 800 150 Balance 760 -800 -150 Intake: IV 600 Normal Saline - 1,000 ml 600 @ 60 mls/hr IV ASDIR DANIELA Rx#:[id number] IVPB 100 Oral 660 Output: Urine 600 800 150 Void 600 800 150 Other: Voiding Method Urinal Urinal Bowel Movement Yes: 900 dark green Yes: 800cc dark brown liquid Yes: clostomy # Bowel Movements 100 300 Constitutional: Yes: Well Nourished, No Distress, Calm Cardiovascular: Yes: Regular Rate and Rhythm. No: Murmur Respiratory: Yes: Regular, CTA Bilaterally, On Nasal O2 (with good sats - will try with off) Gastrointestinal: Yes: Normal Bowel Sounds, Soft, Distention (with some tympany) , Other (LLQ colostomy, pink with some mucosal slough, patent and productive of liquid dark brown stool). No: Tenderness Edema: No Integumentary: Yes: Incision. No: Rash Wound/Incision: Yes: Clean/Dry, Well Approximated, Pooler Intact, Open to air, Dressing Removed (over lower aspect of incision), Aletha Removed (one more inferiorly), Draining (small amount of serosang/oily seroma fluid), Other ( wound clean inside, packed gently with 1/4" plain ribbon gauze, covered with gauze and tape) Neurological: Yes: Alert, Oriented Labs: CMP Sodium 136 mmol/L (136-145) 03/13/17 06:30 Potassium 3.1 mmol/L (3.5-5.1) L 03/13/17 06:30 Chloride 101 mmol/L (98-107) 03/13/17 06:30 Carbon Dioxide 25 mmol/L (21-32) 03/13/17 06:30 Anion Gap 10 (8-16) 03/13/17 06:30 BUN 12 mg/dL (7-18) D 03/13/17 06:30 Creatinine 0.5 mg/dL (0.7-1.3) L 03/13/17 06:30 Creat Clearance w eGFR > 60 (>60) 03/13/17 06:30 Calcium 6.8 mg/dL (8.5-10.1) L* 03/13/17 06:30 Total Bilirubin 0.8 mg/dL (0.2-1.0) 03/13/17 06:30 AST 95 U/L (15-37) H D 03/13/17 06:30 ALT 57 U/L (12-78) D 03/13/17 06:30 Alkaline Phosphatase 121 U/L (45-117) H 03/13/17 06:30 Total Protein 4.2 g/dl (6.4-8.2) L 03/13/17 06:30 Albumin 1.4 g/dl (3.4-5.0) L 03/13/17 06:30 Mg 1.8 Phos 2.3 (L) Alb 1.4 Ca 6.8 Problem List - Problems (1) Rectal malignant neoplasm Assessment/Plan: stage 4a prior to neoadjuvant chemoRT, which was done in October or November with good response definitive operation deferred Code(s): C20 - MALIGNANT NEOPLASM OF RECTUM (2) Bowel obstruction Assessment/Plan: POD6 s/p ex lap with sigmoid colostomy doing well postop on Meropenem, Diflucan urology notes appreciated midline wound with seroma drainage from inferior aspect - 2 aletha out, wound care with 1/4" plain packing daily, change outer dressing prn ostomy with liquid output, starting to have some pieces, stoma edematous, mucosal slough with pink underneath will advance to regular diet replete K, Phos prn OOB to chair and ambulate as able IS and pulmonary toilet encouraged - wean O2 to off continue care per primary team will follow Code(s): K56.60 - UNSPECIFIED INTESTINAL OBSTRUCTION Qualifiers: Intestinal obstruction type: other intestinal obstruction Qualified Code(s): K56.69 - Other intestinal obstruction (3) Rectal stricture Assessment/Plan: present on scope 03/02, but GI could not pass through biopsy results show no malignancy s/p therapy Code(s): K62.4 - STENOSIS OF ANUS AND RECTUM (4) Status post chemotherapy Assessment/Plan: for locally advanced rectal cancer with distant felicity mets on PET per oncology Code(s): Z92.21 - PERSONAL HISTORY OF ANTINEOPLASTIC CHEMOTHERAPY (5) S/P radiation therapy > 12 wks ago Assessment/Plan: for locally advanced rectal cancer with distant felicity mets on PET per oncology Code(s): Z92.3 - PERSONAL HISTORY OF IRRADIATION
--- NOTE | 2017-03-13 11:43 | PN ---
Progress Note, Physician History of Present Illness: says he is feeling much better no issues colostomy draining well - Current Medication List Current Medications: Active Medications Amlodipine Besylate (Norvasc -) 5 mg PO DAILY [facility] Last Admin: 03/13/17 09:40 Dose: 5 mg Heparin Sodium (Porcine) (Heparin -) 5,000 unit SQ TID [facility] Last Admin: 03/13/17 06:04 Dose: 5,000 unit Fluconazole (Diflucan 200 Mg/Ns Premixed Ivpb -) 100 mls @ 100 mls/hr IVPB DAILY [facility] Last Admin: 03/13/17 09:38 Dose: 100 mls/hr Meropenem 1 gm/ Dextrose 100 mls @ 200 mls/hr IVPB BID [facility] PRN Reason: Protocol Last Admin: 03/13/17 09:37 Dose: 200 mls/hr Pantoprazole Sodium 40 mg/ (Sodium Chloride) 100 mls @ 200 mls/hr IVPB DAILY [facility] Last Admin: 03/13/17 09:38 Dose: 200 mls/hr Lisinopril (Prinivil) 10 mg PO DAILY [facility] Last Admin: 03/13/17 09:39 Dose: 10 mg Potassium Chloride (K-Dur -) 20 meq PO BID [facility] Last Admin: 03/13/17 09:39 Dose: 20 meq - Objective Vital Signs: Vital Signs Temperature 98.1 F 03/13/17 06:36 Pulse Rate 80 03/13/17 06:36 Respiratory Rate 20 03/13/17 06:36 Blood Pressure 140/80 03/13/17 06:36 O2 Sat by Pulse Oximetry (%) 93 L 03/12/17 21:00 Constitutional: Yes: No Distress, Calm Cardiovascular: Yes: Regular Rate and Rhythm Respiratory: Yes: Regular, CTA Bilaterally Gastrointestinal: Yes: Normal Bowel Sounds, Soft, Other (colostomy in place) Musculoskeletal: Yes: WNL Extremities: Yes: WNL Neurological: Yes: Alert, Oriented Psychiatric: Yes: Alert, Oriented Labs: CBC, BMP 03/12/17 06:00 03/13/17 06:30 INR, PTT INR 1.26 (0.82-1.09) H 03/08/17 05:15 Fibrinogen 676.0 mg/dL (238-498) H 03/06/17 23:00 Assessment/Plan Problem List - Problems (1) Rectal malignant neoplasm Code(s): C20 - MALIGNANT NEOPLASM OF RECTUM (2) Bowel obstruction Code(s): K56.60 - UNSPECIFIED INTESTINAL OBSTRUCTION Qualifiers: Intestinal obstruction type: other intestinal obstruction Qualified Code(s): K56.69 - Other intestinal obstruction (3) Rectal stricture Assessment/Plan: Code(s): K62.4 - STENOSIS OF ANUS AND RECTUM (4) Dehydration Assessment/Plan: Code(s): E86.0 - DEHYDRATION (5) Lactic acid acidosis Assessment/Plan: Code(s): E87.2 - ACIDOSIS (6) Status post chemotherapy Assessment/Plan: Code(s): Z92.21 - PERSONAL HISTORY OF ANTINEOPLASTIC CHEMOTHERAPY (7) S/P radiation therapy Assessment/Plan: Code(s): Z92.3 - PERSONAL HISTORY OF IRRADIATION Lactic acidosis Rectal Cancer s/p chemo and radiation Hyperglycemia / Metabolic acidosis Septic shock plan conitnue abx for now will d/w surgery rest as per primary team
--- NOTE | 2017-03-13 11:55 | PN ---
Progress Note (short form) - Note Progress Note: Resting in NAD. Tolerating PO intake. No CP or SOB. Intake & Output 03/10/17 03/11/17 03/12/17 03/13/17 23:59 23:59 23:59 23:59 Intake Total 3400 3700 1360 Output Total 3700 2400 1200 950 Balance -300 1300 160 -950 Weight 171 lb 1.259 oz 165 lb 9.074 oz Last Vital Signs Temp Pulse Resp BP Pulse Ox 98.1 F 80 20 140/80 93 L 03/13/17 06:36 03/13/17 06:36 03/13/17 06:36 03/13/17 06:36 03/12/17 21:00 Active Medications Amlodipine Besylate (Norvasc -) 5 mg PO DAILY [facility] Last Admin: 03/13/17 09:40 Dose: 5 mg Heparin Sodium (Porcine) (Heparin -) 5,000 unit SQ TID [facility] Last Admin: 03/13/17 06:04 Dose: 5,000 unit Fluconazole (Diflucan 200 Mg/Ns Premixed Ivpb -) 100 mls @ 100 mls/hr IVPB DAILY [facility] Last Admin: 03/13/17 09:38 Dose: 100 mls/hr Meropenem 1 gm/ Dextrose 100 mls @ 200 mls/hr IVPB BID [facility] PRN Reason: Protocol Last Admin: 03/13/17 09:37 Dose: 200 mls/hr Pantoprazole Sodium 40 mg/ (Sodium Chloride) 100 mls @ 200 mls/hr IVPB DAILY [facility] Last Admin: 03/13/17 09:38 Dose: 200 mls/hr Lisinopril (Prinivil) 10 mg PO DAILY [facility] Last Admin: 03/13/17 09:39 Dose: 10 mg Potassium Chloride (K-Dur -) 20 meq PO BID [facility] Last Admin: 03/13/17 09:39 Dose: 20 meq Constitutional: Yes: awake and alert, NAD HENT: Yes: Atraumatic, Normocephalic Neck: Yes: Supple, Trachea Midline Cardiovascular: Yes: Regular Rate and Rhythm, S1, S2. No: Murmur Respiratory: Yes: Scattered rhonchi Gastrointestinal: Yes: Softly distended, hypoactive bowel sounds, (+) Minimal tenderness Genitourinary: Yes: less scrotal Edema Edema: No Neurological: Yes: Nonfocal Labs: Laboratory Results - last 24 hr 03/13/17 06:30 Sodium 136 Potassium 3.1 L Chloride 101 Carbon Dioxide 25 Anion Gap 10 BUN 12 D Creatinine 0.5 L Creat Clearance w eGFR > 60 Random Glucose 110 H Calcium 6.8 L* Phosphorus 2.3 L D Magnesium 1.8 Total Bilirubin 0.8 AST 95 H D ALT 57 D Alkaline Phosphatase 121 H Total Protein 4.2 L Albumin 1.4 L Assessment/Plan S/P Ex-Lap HTN Lactic acidosis Rectal stricture Rectal Cancer s/p chemo and radiation Hyperglycemia Elevated anion gap / Metabolic acidosis Septic shock PLAN: Replete lytes PO as tolerated Local wound care Pain control ABX per ID VTE prophylaxis PPI Glycemic control Incentive Spirometry Dr Salamanca
[2017-03-13] MEDS ORDERED: MAGNESIUM SULF 50% (8.12 MEQ/2 ML-1 GM VIAL) IVPB ONE ×2 (12:30→13:49)
[2017-03-13] MEDS ORDERED: POTASSIUM PHOSPHATE 30 MM in SODIUM CHLORIDE 500 ML IVPB ONE (12:35)
--- NOTE | 2017-03-13 13:43 | PN ---
Progress Note (short form) - Note Progress Note: Patient seen and examined Denies any complaints. Sitting comfortably in the chair. Last Vital Signs Temp Pulse Resp BP Pulse Ox 98.1 F 80 20 140/80 93 L 03/13/17 06:36 03/13/17 06:36 03/13/17 06:36 03/13/17 06:36 03/12/17 21:00 Cor: RSR, No murmurs, No gallops Lungs: decreased breath sounds rt. base Abd: Soft, distended, mid line incision, colostomy Loose stool Ext:No significant edema Current Medications Generic Name Dose Route Start Last Admin Trade Name Freq PRN Reason Stop Dose Admin Amlodipine Besylate 5 mg 03/12/17 10:00 03/13/17 09:40 Norvasc - PO 5 mg DAILY DANIELA Administration Heparin Sodium (Porcine) 5,000 unit 03/11/17 22:00 03/13/17 06:04 Heparin - SQ 5,000 unit TID DANIELA Administration Fluconazole 100 mls @ 100 mls/hr 03/12/17 10:00 03/13/17 09:38 Diflucan 200 Mg/Ns Premixed Ivpb - IVPB 100 mls/hr DAILY DANIELA Administration Meropenem 1 gm/ Dextrose 100 mls @ 200 mls/hr 03/11/17 22:00 03/13/17 09:37 IVPB 200 mls/hr BID DANIELA Administration Protocol Pantoprazole Sodium 40 mg/ 100 mls @ 200 mls/hr 03/12/17 10:00 03/13/17 09:38 Sodium Chloride IVPB 200 mls/hr DAILY DANIELA Administration Potassium Phosphate 30 mm/ 510 mls @ 63.75 mls/hr 03/13/17 12:35 03/13/17 13:03 Sodium Chloride IVPB 03/13/17 20:34 63.75 mls/hr ONCE ONE Administration Lisinopril 10 mg 03/12/17 10:00 03/13/17 09:39 Prinivil PO 10 mg DAILY DANIELA Administration Potassium Chloride 20 meq 03/12/17 13:00 03/13/17 09:39 K-Dur - PO 20 meq BID DANIELA Administration CBC, BMP 03/12/17 06:00 03/13/17 06:30 A/P 56 y/o patient with rectal cancer, s/p chemotherapy/RT comes in with septic shock. rectal stricture/bowel obstruction. s/p diverting colostomy On meropenem/fluc, ID following Tolerating diet well, small formed stool replete Lytes will follow
--- NOTE | 2017-03-13 15:06 | PN ---
Progress Note, Physician Chief Complaint: S/P colostomy for colonic obstruction - Current Medication List Current Medications: Active Medications Amlodipine Besylate (Norvasc -) 5 mg PO DAILY [facility] Last Admin: 03/13/17 09:40 Dose: 5 mg Heparin Sodium (Porcine) (Heparin -) 5,000 unit SQ TID [facility] Last Admin: 03/13/17 06:04 Dose: 5,000 unit Fluconazole (Diflucan 200 Mg/Ns Premixed Ivpb -) 100 mls @ 100 mls/hr IVPB DAILY [facility] Last Admin: 03/13/17 09:38 Dose: 100 mls/hr Meropenem 1 gm/ Dextrose 100 mls @ 200 mls/hr IVPB BID [facility] PRN Reason: Protocol Last Admin: 03/13/17 09:37 Dose: 200 mls/hr Pantoprazole Sodium 40 mg/ (Sodium Chloride) 100 mls @ 200 mls/hr IVPB DAILY [facility] Last Admin: 03/13/17 09:38 Dose: 200 mls/hr Potassium Phosphate 30 mm/ (Sodium Chloride) 510 mls @ 63.75 mls/hr IVPB ONCE ONE Stop: 03/13/17 20:34 Last Admin: 03/13/17 13:03 Dose: 63.75 mls/hr Lisinopril (Prinivil) 10 mg PO DAILY [facility] Last Admin: 03/13/17 09:39 Dose: 10 mg Potassium Chloride (K-Dur -) 20 meq PO BID [facility] Last Admin: 03/13/17 09:39 Dose: 20 meq - Objective Vital Signs: Vital Signs Temperature 98.9 F 03/13/17 13:48 Pulse Rate 106 H 03/13/17 13:48 Respiratory Rate 20 03/13/17 13:48 Blood Pressure 120/88 03/13/17 13:48 O2 Sat by Pulse Oximetry (%) 93 L 03/12/17 21:00 Labs: CBC, BMP 03/12/17 06:00 03/13/17 06:30 INR, PTT INR 1.26 (0.82-1.09) H 03/08/17 05:15 Fibrinogen 676.0 mg/dL (238-498) H 03/06/17 23:00
--- NOTE | 2017-03-13 15:09 | PN ---
Progress Note, Physician - Current Medication List Current Medications: Active Medications Amlodipine Besylate (Norvasc -) 5 mg PO DAILY [facility] Last Admin: 03/13/17 09:40 Dose: 5 mg Heparin Sodium (Porcine) (Heparin -) 5,000 unit SQ TID [facility] Last Admin: 03/13/17 06:04 Dose: 5,000 unit Fluconazole (Diflucan 200 Mg/Ns Premixed Ivpb -) 100 mls @ 100 mls/hr IVPB DAILY [facility] Last Admin: 03/13/17 09:38 Dose: 100 mls/hr Meropenem 1 gm/ Dextrose 100 mls @ 200 mls/hr IVPB BID [facility] PRN Reason: Protocol Last Admin: 03/13/17 09:37 Dose: 200 mls/hr Pantoprazole Sodium 40 mg/ (Sodium Chloride) 100 mls @ 200 mls/hr IVPB DAILY [facility] Last Admin: 03/13/17 09:38 Dose: 200 mls/hr Potassium Phosphate 30 mm/ (Sodium Chloride) 510 mls @ 63.75 mls/hr IVPB ONCE ONE Stop: 03/13/17 20:34 Last Admin: 03/13/17 13:03 Dose: 63.75 mls/hr Lisinopril (Prinivil) 10 mg PO DAILY [facility] Last Admin: 03/13/17 09:39 Dose: 10 mg Potassium Chloride (K-Dur -) 20 meq PO BID [facility] Last Admin: 03/13/17 09:39 Dose: 20 meq - Objective Vital Signs: Vital Signs Temperature 98.9 F 03/13/17 13:48 Pulse Rate 106 H 03/13/17 13:48 Respiratory Rate 20 03/13/17 13:48 Blood Pressure 120/88 03/13/17 13:48 O2 Sat by Pulse Oximetry (%) 93 L 03/12/17 21:00 Constitutional: Yes: Mild Distress Eyes: Yes: WNL HENT: Yes: WNL Neck: Yes: WNL Cardiovascular: Yes: Regular Rate and Rhythm Respiratory: Yes: WNL Gastrointestinal: Yes: Hypoactive Bowel Sounds, Other (Distented) Genitourinary: Yes: WNL Labs: CBC, BMP 03/12/17 06:00 03/13/17 06:30 INR, PTT INR 1.26 (0.82-1.09) H 03/08/17 05:15 Fibrinogen 676.0 mg/dL (238-498) H 03/06/17 23:00
[2017-03-13] MEDS ORDERED: POTASSIUM CHLORIDE TABS 20 MEQ TABLET.ER (FP) PO SCH (15:30)
[2017-03-13] MEDS ORDERED: MAGNESIUM SULF 50% (8.12 MEQ/2 ML-1 GM VIAL) ONE (16:22)
--- NOTE | 2017-03-13 20:25 | PN ---
Progress Note (short form) - Note Progress Note: Urology: 56 y/o M w/ complicated G.I hx including rectal ca and stricture and felicity mets as per PET. S/p diverting colostomy for relief of obstruction. Pt has hx of b/l nephrolithiasis. Pt s/p lt laser lithotripsy w/ lt jj stent in Aug of this year. Lost to f/u, stent never removed. Presently w/ mild lt hydronephrosis and lt jj stent. Will tx g.u condition as outpatient following discharge. No acute g.u intervention necessary at present time.
[2017-03-14] MEDS: MEROPENEM 1 GM in DEXTROSE 5%-WATER - 100 ML IVPB SCH ×2 (02:52→11:42)
[2017-03-14] MEDS: HEPARIN NA (PORCINE) 5,000 UNITS/ML 1ML VIAL SQ SCH ×3 (06:00→22:04)
[2017-03-14 08:03] LABS: MCH 30.3 pg (25.7-33.7); MCHC 33.4 g/dl (32.0-35.9); MEAN CELL VOLUME 90.8 fl (80-96); MEAN PLT VOLUME 8.4 fl (7.5-11.1); PLATELET COUNT 223 K/MM3 (134-434); RDW 14.5 % (11.9-15.9); WHITE BLOOD COUNT 8.6 K/mm3 (4.0-10.0)
[2017-03-14 08:13] LABS: ALBUMIN 1.3 g/dl (3.4-5.0); ANION GAP 9 (8-16); CO2 25 mmol/L (21-32); GLUCOSE,RANDOM 121 mg/dL (74-106)
[2017-03-14 08:17] LABS: ALK PHOS 126 U/L (45-117); BILIRUBIN,TOTAL 0.4 mg/dL (0.2-1.0); CREATININE 0.5 mg/dL (0.7-1.3); MAGNESIUM 2.1 mg/dL (1.8-2.4); PHOSPHOROUS 2.3 mg/dL (2.5-4.9); SGOT/AST 218 U/L (15-37); SGPT/ALT 165 U/L (12-78); TOT PROT 4.2 g/dl (6.4-8.2)
[2017-03-14 08:34] LABS: CALCIUM 6.9 mg/dL (8.5-10.1)
--- NOTE | 2017-03-14 08:38 | PN ---
Progress Note, Physician Chief Complaint: Feels better History of Present Illness: S/P colostomy for colonic obstruction - Current Medication List Current Medications: Active Medications Amlodipine Besylate (Norvasc -) 5 mg PO DAILY [facility] Last Admin: 03/13/17 09:40 Dose: 5 mg Heparin Sodium (Porcine) (Heparin -) 5,000 unit SQ TID [facility] Last Admin: 03/14/17 06:00 Dose: 5,000 unit Fluconazole (Diflucan 200 Mg/Ns Premixed Ivpb -) 100 mls @ 100 mls/hr IVPB DAILY [facility] Last Admin: 03/13/17 09:38 Dose: 100 mls/hr Meropenem 1 gm/ Dextrose 100 mls @ 200 mls/hr IVPB BID [facility] PRN Reason: Protocol Last Admin: 03/14/17 02:52 Dose: 200 mls/hr Pantoprazole Sodium 40 mg/ (Sodium Chloride) 100 mls @ 200 mls/hr IVPB DAILY [facility] Last Admin: 03/13/17 09:38 Dose: 200 mls/hr Lisinopril (Prinivil) 10 mg PO DAILY [facility] Last Admin: 03/13/17 09:39 Dose: 10 mg Potassium Chloride (K-Dur -) 20 meq PO BID [facility] Last Admin: 03/13/17 21:06 Dose: 20 meq Potassium Chloride (K-Dur -) 40 meq PO DAILY [facility] Last Admin: 03/13/17 15:39 Dose: 40 meq - Objective Vital Signs: Vital Signs Temperature 98.1 F 03/14/17 05:00 Pulse Rate 78 03/14/17 05:00 Respiratory Rate 20 03/14/17 05:00 Blood Pressure 141/74 03/14/17 05:00 O2 Sat by Pulse Oximetry (%) 93 L 03/13/17 21:00 Constitutional: Yes: No Distress Eyes: Yes: WNL HENT: Yes: WNL Neck: Yes: WNL Respiratory: Yes: WNL Gastrointestinal: Yes: Normal Bowel Sounds ...Rectal Exam: Yes: WNL, Deferred Genitourinary: Yes: WNL Breast(s): Yes: WNL Musculoskeletal: Yes: WNL Neurological: Yes: WNL Labs: CBC, BMP 03/14/17 06:30 INR, PTT INR 1.26 (0.82-1.09) H 03/08/17 05:15 Fibrinogen 676.0 mg/dL (238-498) H 03/06/17 23:00 Assessment/Plan OOB walking
[2017-03-14] MEDS ORDERED: PT OWN MED DRAWER 7, Y5N ONE (10:14)
[2017-03-14] MEDS ORDERED: PANTOPRAZOLE SODIUM 40 MG VIAL ONE (10:14)
[2017-03-14] MEDS ORDERED: SODIUM CHLORIDE 100 ML IVPB ONE (10:15)
[2017-03-14] MEDS: LISINOPRIL 10 MG TABLET (FP) PO SCH (10:31)
[2017-03-14] MEDS: POTASSIUM CHLORIDE TABS 20 MEQ TABLET.ER (FP) PO SCH ×2 (10:31→22:04)
--- NOTE | 2017-03-14 10:31 | PN ---
Progress Note, Physician Chief Complaint: abdominal distention and pain History of Present Illness: POD7 s/p laparotomy with sigmoid colostomy small seroma drained from inferior aspect of wound, packed with 1/4" plain ribbon Patient awake, no specific complaints. Seen ambulating in hallway, examined in bed for wound. Voiding in urinal. Stoma produced 2200ml yesterday, 500ml since yesterday so far, with loose stool. No nausea. Using IS. Tolerating regular diet. Lower abdominal midline incision wound dressing has been changed since yesterday. - Current Medication List Current Medications: Active Medications Amlodipine Besylate (Norvasc -) 5 mg PO DAILY [facility] Last Admin: 03/13/17 09:40 Dose: 5 mg Heparin Sodium (Porcine) (Heparin -) 5,000 unit SQ TID [facility] Last Admin: 03/14/17 06:00 Dose: 5,000 unit Fluconazole (Diflucan 200 Mg/Ns Premixed Ivpb -) 100 mls @ 100 mls/hr IVPB DAILY [facility] Last Admin: 03/13/17 09:38 Dose: 100 mls/hr Meropenem 1 gm/ Dextrose 100 mls @ 200 mls/hr IVPB BID [facility] PRN Reason: Protocol Last Admin: 03/14/17 02:52 Dose: 200 mls/hr Pantoprazole Sodium 40 mg/ (Sodium Chloride) 100 mls @ 200 mls/hr IVPB DAILY [facility] Last Admin: 03/13/17 09:38 Dose: 200 mls/hr Lisinopril (Prinivil) 10 mg PO DAILY [facility] Last Admin: 03/13/17 09:39 Dose: 10 mg Potassium Chloride (K-Dur -) 20 meq PO BID [facility] Last Admin: 03/13/17 21:06 Dose: 20 meq - Objective Vital Signs: Vital Signs Temperature 98.1 F 03/14/17 05:00 Pulse Rate 78 03/14/17 05:00 Respiratory Rate 20 03/14/17 05:00 Blood Pressure 141/74 03/14/17 05:00 O2 Sat by Pulse Oximetry (%) 93 L 03/13/17 21:00 Constitutional: Yes: Well Nourished, No Distress, Calm Gastrointestinal: Yes: Normal Bowel Sounds, Soft, Distention (minimal). No: Tenderness Integumentary: Yes: Incision. No: Erythema Wound/Incision: Yes: Well Approximated, [place] Intact, Open to air, Dressing Removed (inferior end of incision - packing removed, wound clean, no surrounding erythema or induration; repacked with 1/4" plain packing, covered with gauze and tape), Draining (small amount of yellowish/serosang on dressing) , Other (LLQ colostomy pink with small area of residual mucosal slough yet to fall off, patent, productive of loose brown stool and liquid and gas; appliance changed with nursing, who is doing patient teaching) Neurological: Yes: Alert, Oriented Labs: CBC, BMP 03/14/17 06:30 03/14/17 06:30 CMP Sodium 135 mmol/L (136-145) L 03/14/17 06:30 Potassium 3.6 mmol/L (3.5-5.1) 03/14/17 06:30 Chloride 101 mmol/L (98-107) 03/14/17 06:30 Carbon Dioxide 25 mmol/L (21-32) 03/14/17 06:30 Anion Gap 9 (8-16) 03/14/17 06:30 BUN 12 mg/dL (7-18) 03/14/17 06:30 Creatinine 0.5 mg/dL (0.7-1.3) L 03/14/17 06:30 Creat Clearance w eGFR > 60 (>60) 03/14/17 06:30 POC Glucometer 109 UNITS (()) 03/12/17 05:31 Random Glucose 121 mg/dL (74-106) H 03/14/17 06:30 Hemoglobin A1c % 5.4 % (4.8-6.0) 03/08/17 05:15 Lactic Acid 2.2 mmol/L (0.4-2.0) H* 03/07/17 20:30 Calcium 6.9 mg/dL (8.5-10.1) L* 03/14/17 06:30 Phosphorus 2.3 mg/dL (2.5-4.9) L 03/14/17 06:30 Magnesium 2.1 mg/dL (1.8-2.4) 03/14/17 06:30 Total Bilirubin 0.4 mg/dL (0.2-1.0) D 03/14/17 06:30 Direct Bilirubin 0.4 mg/dL (0.0-0.2) H D 03/06/17 23:00 AST 218 U/L (15-37) H D 03/14/17 06:30 ALT 165 U/L (12-78) H D 03/14/17 06:30 Alkaline Phosphatase 126 U/L (45-117) H 03/14/17 06:30 Total Protein 4.2 g/dl (6.4-8.2) L 03/14/17 06:30 Albumin 1.3 g/dl (3.4-5.0) L 03/14/17 06:30 Total Amylase 20 U/L (25-115) L 03/06/17 23:00 Lipase 74 U/L (73-393) 03/06/17 05:30 Problem List - Problems (1) Rectal malignant neoplasm Assessment/Plan: stage 4a prior to neoadjuvant chemoRT, which was done in October or November with good response definitive operation deferred Code(s): C20 - MALIGNANT NEOPLASM OF RECTUM (2) Bowel obstruction Assessment/Plan: POD7 s/p ex lap with sigmoid colostomy doing well postop on Meropenem, Diflucan urology notes appreciated midline wound with seroma drainage from inferior aspect - 2 aletha out, wound care with 1/4" plain packing daily, covered with small gauze and silk tape to hold (could do twice daily if patient has family to help) change outer dressing prn to keep dry - will need visiting nurse for wound care (daily and teaching) will be able to shower with packing out when dressing changes are established for afterward ostomy output turning particulate, stoma less edematous, small patch of mucosal slough with pink stoma otherwise tolerating regular diet OOB to chair and ambulate as able IS and pulmonary toilet encouraged ID to clarify duration of antibiotics +/- po for home ok for d/c home from surgical standpoint with ostomy teaching, VNS for new stoma care and daily wound care as noted above Pt to follow up with Dr. Mello Angelo next Tuesday - to call office for appointment at [phone]. He is aware. Code(s): K56.60 - UNSPECIFIED INTESTINAL OBSTRUCTION Qualifiers: Intestinal obstruction type: other intestinal obstruction Qualified Code(s): K56.69 - Other intestinal obstruction (3) Postprocedural seroma of skin and subcutaneous tissue following other procedure Assessment/Plan: Two aletha were removed after spontaneous drainage of fluid from inferior end of incision Wound care daily (or twice daily) with 1/4" plain packing, covered with gauze and tape at inferior aspect of midline incision Pt will need VNS to assist with care and teaching To f/u as noted above Code(s): L76.34 - POSTPROC SEROMA OF SKIN, SUBCU FOLLOWING OTHER PROCEDURE (4) Rectal stricture Assessment/Plan: present on scope 03/02, but GI could not pass through biopsy results show no malignancy s/p therapy Code(s): K62.4 - STENOSIS OF ANUS AND RECTUM (5) Status post chemotherapy Assessment/Plan: for locally advanced rectal cancer with distant felicity mets on PET per oncology Code(s): Z92.21 - PERSONAL HISTORY OF ANTINEOPLASTIC CHEMOTHERAPY (6) S/P radiation therapy > 12 wks ago Assessment/Plan: for locally advanced rectal cancer with distant felicity mets on PET per oncology Code(s): Z92.3 - PERSONAL HISTORY OF IRRADIATION
[2017-03-14] MEDS: amLODIPine BESYLATE 5 MG TABLET (FP) PO SCH (10:32)
[2017-03-14] MEDS: PANTOPRAZOLE SODIUM 40 MG in SODIUM CHLORIDE 100 ML IVPB SCH (10:32)
[2017-03-14] MEDS: FLUCONAZOLE 200 MG/NS 100 ML IVPB SCH (12:58)
--- NOTE | 2017-03-14 14:14 | PN ---
Progress Note, Physician History of Present Illness: patient stable doing well - Current Medication List Current Medications: Active Medications Amlodipine Besylate (Norvasc -) 5 mg PO DAILY [facility] Last Admin: 03/14/17 10:32 Dose: 5 mg Heparin Sodium (Porcine) (Heparin -) 5,000 unit SQ TID [facility] Last Admin: 03/14/17 06:00 Dose: 5,000 unit Pantoprazole Sodium 40 mg/ (Sodium Chloride) 100 mls @ 200 mls/hr IVPB DAILY [facility] Last Admin: 03/14/17 10:32 Dose: 200 mls/hr Lisinopril (Prinivil) 10 mg PO DAILY [facility] Last Admin: 03/14/17 10:31 Dose: 10 mg Potassium Chloride (K-Dur -) 20 meq PO BID [facility] Last Admin: 03/14/17 10:31 Dose: 20 meq - Objective Vital Signs: Vital Signs Temperature 98.1 F 03/14/17 05:00 Pulse Rate 78 03/14/17 05:00 Respiratory Rate 20 03/14/17 05:00 Blood Pressure 141/74 03/14/17 05:00 O2 Sat by Pulse Oximetry (%) 93 L 03/13/17 21:00 Constitutional: Yes: No Distress, Calm HENT: Yes: Atraumatic Cardiovascular: Yes: Regular Rate and Rhythm Respiratory: Yes: Regular, CTA Bilaterally Gastrointestinal: Yes: Normal Bowel Sounds, Soft, Other (ostomy working well) Musculoskeletal: Yes: WNL Extremities: Yes: WNL Wound/Incision: Yes: Other (note noted from surgery minimal draiange) Neurological: Yes: Alert, Oriented Psychiatric: Yes: Alert, Oriented Labs: CBC, BMP 03/14/17 06:30 03/14/17 06:30 INR, PTT INR 1.26 (0.82-1.09) H 03/08/17 05:15 Fibrinogen 676.0 mg/dL (238-498) H 03/06/17 23:00 Assessment/Plan Problem List - Problems (1) Rectal malignant neoplasm Code(s): C20 - MALIGNANT NEOPLASM OF RECTUM (2) Bowel obstruction Code(s): K56.60 - UNSPECIFIED INTESTINAL OBSTRUCTION Qualifiers: Intestinal obstruction type: other intestinal obstruction Qualified Code(s): K56.69 - Other intestinal obstruction (3) Rectal stricture Assessment/Plan: Code(s): K62.4 - STENOSIS OF ANUS AND RECTUM (4) Dehydration Assessment/Plan: Code(s): E86.0 - DEHYDRATION (5) Lactic acid acidosis Assessment/Plan: Code(s): E87.2 - ACIDOSIS (6) Status post chemotherapy Assessment/Plan: Code(s): Z92.21 - PERSONAL HISTORY OF ANTINEOPLASTIC CHEMOTHERAPY (7) S/P radiation therapy Assessment/Plan: Code(s): Z92.3 - PERSONAL HISTORY OF IRRADIATION Lactic acidosis Rectal Cancer s/p chemo and radiation Hyperglycemia / Metabolic acidosis Septic shock plan switched to oral abx continue current mgmt rest as per surgery ostomy working well
[2017-03-14] MEDS: AMOX TR/POT CLAV 500MG/125MG TABLETS (FP) PO SCH (18:08)
--- NOTE | 2017-03-14 22:16 | PN ---
Progress Note (short form) - Note Progress Note: Patient seen and examined Denies any complaints Last Vital Signs Temp Pulse Resp BP Pulse Ox 98 F 89 18 129/77 96 03/14/17 16:20 03/14/17 16:20 03/14/17 21:00 03/14/17 16:20 03/14/17 21:00 Cor: RSR, No murmurs, No gallops Lungs: decreased breath sounds rt. base Abd: Soft,mildly distended, mid line incision, sluggish bowel sounds Ext:No significant edema Abnormal Lab Results 03/14/17 03/14/17 06:30 06:30 RBC 3.16 L Hgb 9.6 L D Hct 28.7 L D Sodium 135 L Creatinine 0.5 L Random Glucose 121 H Calcium 6.9 L* Phosphorus 2.3 L AST 218 H D ALT 165 H D Alkaline Phosphatase 126 H Total Protein 4.2 L Albumin 1.3 L Home Medication List Medication Instructions Recorded Confirmed Type Amlodipine Besylate/Benazepril 1 cap PO HS 03/06/17 03/06/17 History [Lotrel 5-10 mg Capsule] Active Medications Generic Name Dose Route Start Last Admin Trade Name Freq PRN Reason Stop Dose Admin Amlodipine Besylate 5 mg 03/12/17 10:00 03/14/17 10:32 Norvasc - PO 5 mg DAILY DANIELA Administration Amoxicillin/Clavulanate Potassium 1 tab 03/14/17 17:30 03/14/17 18:08 Augmentin - 500mg Tablet PO 1 tab BID@0800,1730 DANIELA Administration Heparin Sodium (Porcine) 5,000 unit 03/11/17 22:00 03/14/17 22:04 Heparin - SQ 5,000 unit TID DANIELA Administration Pantoprazole Sodium 40 mg/ 100 mls @ 200 mls/hr 03/12/17 10:00 03/14/17 10:32 Sodium Chloride IVPB 200 mls/hr DAILY DANIELA Administration Lisinopril 10 mg 03/12/17 10:00 03/14/17 10:31 Prinivil PO 10 mg DAILY DANIELA Administration Potassium Chloride 20 meq 03/12/17 13:00 03/14/17 22:04 K-Dur - PO 20 meq BID DANIELA Administration A/P 56 y/o patient with rectal cancer, s/p chemotherapy/RT comes in with septic shock. rectal stricture/bowel obstruction s/p diverting colostomy tolerating diet switched to augmentin d/c planning ongoing
[2017-03-15] MEDS: HEPARIN NA (PORCINE) 5,000 UNITS/ML 1ML VIAL SQ SCH (06:20)
[2017-03-15 07:56] LABS: MCH 30.5 pg (25.7-33.7); MCHC 33.5 g/dl (32.0-35.9); MEAN PLT VOLUME 8.7 fl (7.5-11.1); PLATELET COUNT 271 K/MM3 (134-434); RDW 14.2 % (11.9-15.9); WHITE BLOOD COUNT 8.5 K/mm3 (4.0-10.0)
[2017-03-15 08:01] LABS: ALBUMIN 1.4 g/dl (3.4-5.0); ANION GAP 7 (8-16); CO2 26 mmol/L (21-32); CREATININE 0.6 mg/dL (0.7-1.3); GLUCOSE,RANDOM 107 mg/dL (74-106); SGOT/AST 116 U/L (15-37); SGPT/ALT 138 U/L (12-78)
[2017-03-15 08:03] LABS: ALK PHOS 133 U/L (45-117); BILIRUBIN,TOTAL 0.4 mg/dL (0.2-1.0); TOT PROT 4.6 g/dl (6.4-8.2)
--- NOTE | 2017-03-15 08:26 | DS ---
Physical Examination Vital Signs: Vital Signs Temperature 98.5 F 03/15/17 06:27 Pulse Rate 80 03/15/17 06:27 Respiratory Rate 20 03/15/17 06:27 Blood Pressure 124/86 03/15/17 06:27 O2 Sat by Pulse Oximetry (%) 96 03/14/17 21:00 Findings/Remarks: Admitted with intestinal obstruction due to Ca Colon S/P colostomy doing well Constitutional: Yes: No Distress Eyes: Yes: WNL HENT: Yes: WNL Neck: Yes: WNL Cardiovascular: Yes: WNL Respiratory: Yes: WNL Gastrointestinal: Yes: Normal Bowel Sounds, Other (colostomy working) Renal/: Yes: WNL Breast(s): Yes: WNL Musculoskeletal: Yes: WNL Edema: No Integumentary: Yes: WNL Wound/Incision: Yes: Clean/Dry Neurological: Yes: WNL ...Motor Strength: WNL Labs: CBC, BMP 03/15/17 06:30 Discharge Summary Reason For Visit: SMALL BOWEL OBSTRUCTION; LACTIC ACIDOSIS Current Active Problems Bowel obstruction (Acute) Dehydration (Acute) Lactic acid acidosis (Acute) Postprocedural seroma of skin and subcutaneous tissue following other procedure (Acute) Rectal stricture (Acute) S/P radiation therapy > 12 wks ago (Acute) Sepsis (Acute) Small bowel obstruction (Acute) Status post chemotherapy (Acute) - Instructions Diet, Activity, Other Instructions: Please call Dr. Mello Angelo's office at [phone] to make an appointment for followup in 1 week. Clinic is in the [facility] on the first floor of the hospital on Wednesdays. Your visiting nurse should help do and teach your wound care - your wound should be gently packed with 1/4" plain packing gauze daily to twice daily and covered with gauze and tape. Once there is someone at home who can replace the packing, you may shower daily with the dressing out - discuss timing with the nurse regarding redoing the dressing. The nurse will also help make sure you can take care of your colostomy and change the appliance as needed. Be sure to empty your bag regularly and as needed. Referrals: Marva Velasco MD [Primary Care Provider] - Mello Angelo MD [Staff Physician] - 1 Week Justin Littlejohn MD [Staff Physician] - 2 Weeks - Home Medications Comprehensive Discharge Medication List: Ambulatory Orders Amlodipine Besylate/Benazepril [Lotrel 5-10 mg Capsule] 1 cap PO HS 03/06/17
[2017-03-15 08:52] LABS: CALCIUM 6.9 mg/dL (8.5-10.1)
[2017-03-15] MEDS: LISINOPRIL 10 MG TABLET (FP) PO SCH (09:35)
[2017-03-15] MEDS: amLODIPine BESYLATE 5 MG TABLET (FP) PO SCH (09:35)
[2017-03-15] MEDS: AMOX TR/POT CLAV 500MG/125MG TABLETS (FP) PO SCH (09:35)
[2017-03-15] MEDS: POTASSIUM CHLORIDE TABS 20 MEQ TABLET.ER (FP) PO SCH (09:35)
[2017-03-15 09:55] LABS: METAMYELOCYTE 2 % (0-2); MYELOCYTE 1 % (0-2)
[2017-03-15] MEDS ORDERED: PANTOPRAZOLE 40 MG TABLET (FP) PO SCH (10:00)
[2017-03-15 10:04] VITALS: BP 143/93; PULSE 98; TEMP 97.8
== END 2017-03-15 11:37 | disposition home or self-care (01) | DRG 710 ==
LOC: JER 04:45 → JERBED 09:13 → JICU 12:40 → J8W 03-11 17:29
PROVIDERS: ADMIT Internal Medicine; ATTEND Internal Medicine
PROC: 0BH17EZ Insertion of Endotracheal Airway into Trachea, Via Natural or Artificial Opening (ICD-10-PCS; 2017-03-06)
PROC: 5A1955Z Respiratory Ventilation, Greater than 96 Consecutive Hours (ICD-10-PCS; 2017-03-06)
PROC: 0WJP0ZZ Inspection of Gastrointestinal Tract, Open Approach (ICD-10-PCS; 2017-03-07)
PROC: 0D1N0Z4 Bypass Sigmoid Colon to Cutaneous, Open Approach (ICD-10-PCS; principal; 2017-03-07 12:00)
PROC: 0J983ZZ Drainage of Abdomen Subcutaneous Tissue and Fascia, Percutaneous Approach (ICD-10-PCS; 2017-03-14)
DX: A41.9 Sepsis, unspecified organism (principal); K62.4 Stenosis of anus and rectum; J96.90 Respiratory failure, unspecified, unspecified whether with hypoxia or hypercapnia; R65.21 Severe sepsis with septic shock; C20 Malignant neoplasm of rectum; E87.2 Acidosis; N17.9 Acute kidney failure, unspecified; E83.51 Hypocalcemia; K94.09 Other complications of colostomy; L76.34 Postprocedural seroma of skin and subcutaneous tissue following other procedure; Y83.3 Surgical operation with formation of external stoma as the cause of abnormal reaction of the patient, or of later complication, without mention of misadventure at the time of the procedure; I10 Essential (primary) hypertension; E86.0 Dehydration; Z92.21 Personal history of antineoplastic chemotherapy; Z92.3 Personal history of irradiation; Z80.0 Family history of malignant neoplasm of digestive organs; R73.9 Hyperglycemia, unspecified; E87.6 Hypokalemia; D64.9 Anemia, unspecified; Y92.230 Patient room in hospital as the place of occurrence of the external cause
CPT/HCPCS: 31500; 36415; 36600; 71010-TC; 74020-TC; 74176-TC; 80048; 80053; 80076; 81003; 81015; 82040; 82150; 82803; 83036; 83605; 83690; 83735; 84100; 85025; 85027; 85384; 85610; 85730; 86682; 86850; 86900; 86901; 86922; 87040; 87086; 87324; 87449; 93005; 93010; 94002; 97116-GP; 97161-GP; 99283-25; J1644

== ENCOUNTER 2017-04-20 10:36 | Day surgery (SDC) | payer OTHER ==
[2017-04-18 14:43] VITALS: BMI 22.8
--- NOTE | 2017-04-20 12:14 | PN ---
Progress Note (short form) - Note Progress Note: 56 YO M H/O REZA STONE W STENT C/O OF COLIC AND FEVER AND HEMATURIA FOR THEO W JJ STENT X CHANGE H/O COLON CA WITH COLOSTOMY LLQ S/P CHEMO AND RT PT WILL BE D/C ON PERCOCET 5/325 PO Q 4H PRN KEFLEX 500 QID STRAIN URINE OOB TO CHAIR VITALS Q 4 [facility] SPIROMETRY F/U IN OFFICE TUESDAY AM 10 AM
--- NOTE | 2017-04-20 12:17 | OP ---
Operative Note - Note: Operative Date: 04/20/17 Pre-Operative Diagnosis: L KID STONE Operation: LULL W JJ AND STENT X CHANGE Post-Operative Diagnosis: Same as Pre-op Surgeon: Marilou Miller Anesthesia: General Drains & Tubes with Location: JJ STENT 18FR L KIDNEY Operative Report Dictated: Yes
[2017-04-20] MEDS ORDERED: oxyCODONE HCL 5 MG TABLET PO PRN ×2 (12:23→13:41)
[2017-04-20] MEDS ORDERED: ACETAMINOPHEN 325 MG TABLET (FP) PO PRN (12:23)
[2017-04-20] MEDS ORDERED: DESFLURANE GAS 240 ML BOTTLE IH ONE (12:25)
[2017-04-20] MEDS ORDERED: LIDOCAINE HCL/PF 2% SDV 5ML VIAL ONE (12:30)
[2017-04-20] MEDS ORDERED: PROPOFOL 20 ML ONE ×2 (12:31)
[2017-04-20] MEDS ORDERED: ceFAZolin SODIUM 1 GM VIAL IVPB ONE (12:34)
[2017-04-20] MEDS ORDERED: MIDAZOLAM HCL 2 MG/2 ML SINGLE DOSE VIAL ONE (12:56)
[2017-04-20] MEDS ORDERED: IOHEXOL 300 MG/ML INFUS..BTL IJ ONE (13:15)
[2017-04-20] MEDS ORDERED: PROMETHAZINE HCL 25 MG/1 ML VIAL IVPUSH PRN (13:41)
[2017-04-20] MEDS ORDERED: ONDANSETRON 4 MG/2 ML VIAL IVPUSH PRN (13:41)
[2017-04-20 14:37] VITALS: TEMP 98.2
[2017-04-20 16:05] VITALS: BP 152/98; PULSE 90
[2017-04-20] MEDS ORDERED: CEPHALEXIN MONOHYDRATE 500 MG CAPSULE (UD) PO SCH (18:00)
--- NOTE | 2017-04-21 11:13 | OP ---
DATE OF OPERATION: 04/20/2017 PREOPERATIVE DIAGNOSIS: Left hydronephrosis. Left ureteral stone. Lockage of left JJ stents status post diverting colostomy. POSTOPERATIVE DIAGNOSIS: Left hydronephrosis. Left ureteral stone. Lockage of left JJ stents status post diverting colostomy. OPERATIVE PROCEDURE: Cystourethroscopy, removal of left JJ stents, left retrograde pyelogram, left ureteroscopy with ureteral dilation, and left stone basketing including pyeloscopy and replacement of a new left JJ stent, 24 cm long, 6 Canadian diameter. ANESTHESIA: General. DESCRIPTION OF PROCEDURE: Under above stated anesthesia, patient is prepped and draped in the usual sterile manner. He is placed in the dorsal lithotomy position. Cystoscopy revealed trilobar hypertrophy of the prostate with a high median lobe. With difficulty the bladder was entered. Approximately 150 mL of urine was drained. This was sent for cytology as well as PECAN PICKER. Inspection of the bladder revealed a grade 3 trabeculation throughout the bladder. The bladder also appeared to be pale and has some radiation effects from the previous pelvic radiation. Ureteral orifices were within normal limits. There was efflux of clear urine from the right. A left JJ stent was seen. It appeared calcified and blocked. Using a biopsy forceps, the stent was removed atraumatically. A FlexTip catheter was then placed in the left ureteral orifice and 10 mL of contrast was injected. There was a ureteral stricture in the mid portion of the lower third of the left ureter. There was proximal hydroureteral nephrosis. The renal pelvis also revealed multiple large stones 2-3 in number measuring between 1-2 cm each. Again, the revealed the contrast to stop at the mid portion of the lower third ureter. Therefore a glidewire was passed up the left renal unit. The cystoscope was withdrawn and a semirigid ureteroscope was inserted. Ureteroscopy was performed to the level of the lower mid third of the ureter. At that point the strictured ureter was encountered, and the scope was unable to bypass. Therefore ureteral balloons were introduced over the glidewire and the ureter was dilated from 8 Canadian to 12 Canadian sequentially without difficulty or bleeding. The ureteroscope was then introduced and a full ureteroscopy was performed. There were multiple stones in the upper third ureter. They were retrieved with a stone basket. Introduction into the pelvis revealed multiple renal stones in the upper and middle systems. The infundibulum appeared to be narrow, therefore attempts at lithotripsy would not be advisable. The ureteroscope was removed. A JJ stent was placed and probably placed in the left renal pelvis, and in the bladder. X-rays confirmed good position of the stent. The bladder was emptied. The scope was removed. The patient will be scheduled for elective extracorporeal shock wave lithotripsy as outpatient procedure. Will follow with you. Wiley [id number]
--- NOTE | 2017-04-21 14:12 | PATH ---
Cytology Non-Gynecological Report Patient Name: RAMONE MÉNDEZ [facility]. Rec. #: [id number] /Age/Gender: 1960 (Age: 56) / M Account: [id number] Location: [facility] SUR[facility]ICAL Taken: 04/20/2017 Received: 04/20/2017 Reported: 04/21/2017 Physicians: Marilou Miller M.D. Specimen(s) Received URINE Clinical History Left renal stone Final Diagnosis URINE FOR CYTOLOGY: SATISFACTORY FOR EVALUATION. BENIGN (NO MALIGNANT CELLS IDENTIFIED). REACTIVE AND DEGENERATING UROTHELIAL CELLS, DEBRIS, RED BLOOD CELLS, AND WHITE BLOOD CELLS PRESENT. Comment: Also see [id number]. Electronically Signed Ranulfo Barnard M.D. Gross Description Approximately 50 cc of yellow fluid received fresh. Two cytofunnels prepared.
--- NOTE | 2017-04-21 14:15 | PATH ---
Surgical Pathology Report Patient Name: RAMONE MÉNDEZ [facility]. Rec. #: [id number] /Age/Gender: 1960 (Age: 56) / M Account: [id number] Location: [facility] SURGICAL Taken: 04/20/2017 Received: 04/21/2017 Reported: 04/21/2017 Physicians: Marilou Miller M.D. Specimen(s) Received A: OLD URETERAL STENT LEFT B: LEFT RENAL STONES Clinical History Left renal stone Final Diagnosis A. 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 B. CALCULI, LEFT KIDNEY, EXTRACTION: CALCULI SUBMITTED FOR CHEMICAL ANALYSIS (gross only). Electronically Signed Ranulfo Barnard M.D. Gross Description A. Received fresh labeled "old ureteral stent left," is a 34 cm in length blue, coiled portion of tubing, consistent with a ureteral stent. No soft tissue is present. No sections are submitted, gross only. B. Received fresh labeled "left renal stones," is a 1.5 x 0.5 x 0.2 cm aggregate of serna, fragmented calculi admixed with blood. The specimen is sent for chemical analysis. /04/21/2017 saudi04/21/2017
== END 2017-04-20 15:50 | disposition home or self-care (01) ==
LOC: JASU-SURG 10:36
PROVIDERS: ATTEND Urology
PROC: 0TC78ZZ Extirpation of Matter from Left Ureter, Via Natural or Artificial Opening Endoscopic (ICD-10-PCS; principal; 2017-04-20 12:00)
PROC: 0T788DZ Dilation of Bilateral Ureters with Intraluminal Device, Via Natural or Artificial Opening Endoscopic (ICD-10-PCS; 2017-04-20 12:00)
DX: N13.2 Hydronephrosis with renal and ureteral calculous obstruction (principal)
CPT/HCPCS: 36415; 76000-TC; 82360; 87086; 88108; 88300-TC; 94010; 94760

== ENCOUNTER 2017-08-08 03:23 | Emergency (ER) | payer OTHER ==
[2017-08-08 03:56] VITALS: BMI 25.7
[2017-08-08] MEDS ORDERED: ONDANSETRON 4 MG/2 ML VIAL IVPB ONE (04:06)
[2017-08-08] MEDS ORDERED: SODIUM CHLORIDE 0.9% 1000 ML INFUS.BAG IV ONE (04:06)
[2017-08-08] MEDS ORDERED: SODIUM CHLORIDE 1,000 ML IV SCH (04:15)
[2017-08-08 04:45] LABS: BASO % 0.5 % (0-2.0); EOS % 1.2 % (0-4.5); HEMATOCRIT 44.4 % (35.4-49); HEMOGLOBIN 14.9 GM/dL (11.7-16.9); LYMPH % 1.8 % (8-40); MCH 30.4 pg (25.7-33.7); MCHC 33.6 g/dl (32.0-35.9); MEAN CELL VOLUME 90.4 fl (80-96); NEUT % 94.5 % (42.8-82.8); PLATELET COUNT 390 K/MM3 (134-434); RBC 4.91 M/mm3 (4.00-5.60); RDW 14.9 % (11.9-15.9); WHITE BLOOD COUNT 13.1 K/mm3 (4.0-10.0)
[2017-08-08 05:22] LABS: ALK PHOS 153 U/L (45-117); ANION GAP 12 (8-16); BILIRUBIN,TOTAL 0.6 mg/dL (0.2-1.0); BLOOD UREA NITROGEN 23 mg/dL (7-18); CALCIUM 9.2 mg/dL (8.5-10.1); CHLORIDE 104 mmol/L (98-107); CO2 24 mmol/L (21-32); CREATININE 1.7 mg/dL (0.7-1.3); GLUCOSE,RANDOM 142 mg/dL (74-106); LIPASE 91 U/L (73-393); SGPT/ALT 31 U/L (12-78); SODIUM 140 mmol/L (136-145); TOT PROT 8.4 g/dl (6.4-8.2)
[2017-08-08 05:23] LABS: POTASSIUM 4.2 mmol/L (3.5-5.1); SGOT/AST 20 U/L (15-37)
--- NOTE | 2017-08-08 05:29 | PDOC ---
History of Present Illness - General History Source: Patient Exam Limitations: No Limitations - History of Present Illness Initial Comments: 08/08/17 05:19 Patient is a 57-year-old male with history of HTN, colon cancer resected with colostomy, SBO, complaining of nausea, vomiting and diarrhea. States the diarrhea started since last night and vomiting started 2-3 hours ago 4 episodes. Still currently complaining of nausea. Patient states he ate chicken McNuggets. From [employer] with barbecue sauce last night then developed symptoms. States that his abdomen is hard and there is a pink liquid in his colostomy bag. He denies any fever, chills, abdominal pain. PMD: Dr. Velasco GI: Dr. Ramachandran ONCO: Dr. Villasenor PMHX: as above PSCOHX: lives with mother, former smoker ALL: NKDA GENERAL/CONSTITUTIONAL: [No fever or chills. No weakness. No weight change.] HEAD, EYES, EARS, NOSE AND THROAT: [No change in vision. No ear pain or discharge. No sore throat.] CARDIOVASCULAR: [No chest pain or shortness of breath.] RESPIRATORY: [No cough, wheezing, or hemoptysis.] GASTROINTESTINAL: (+) nausea, vomiting, diarrhea (-) constipation. No rectal bleeding.] GENITOURINARY: [No dysuria, frequency, or change in urination.] MUSCULOSKELETAL: [No joint or muscle swelling or pain. No neck or back pain.] SKIN AND BREASTS: [No rash or easy bruising.] NEUROLOGIC: [No headache, vertigo, loss of consciousness, or loss of sensation.] PSYCHIATRIC: [No depression or anxiety.] ENDOCRINE: [No increased thirst. No abnormal weight change.] HEMATOLOGIC/LYMPHATIC: [No anemia, easy bleeding, or history of blood clots.] ALLERGIC/IMMUNOLOGIC: [No hives or skin allergy. No latex allergy.] GENERAL: [The patient is awake, alert, and fully oriented, in mild GI distress.] HEAD: [Normal with no signs of trauma.] EYES: [Pupils equal, round and reactive to light, extraocular movements intact, sclera anicteric, conjunctiva clear.] ENT: [Ears normal, nares patent, oropharynx clear without exudates. Moist mucous membranes.] NECK: [Normal range of motion, supple without lymphadenopathy, JVD, or masses.] LUNGS: [Breath sounds equal, clear to auscultation bilaterally. No wheezes, and no crackles.] HEART: [Regular rate and rhythm, normal S1 and S2 without murmur, rub.] ABDOMEN: [Soft, nontender, normoactive bowel sounds. No guarding, no rebound. No masses, Colostomy left lower abd with undigested food and pink liquid.] EXTREMITIES: [Normal range of motion, no edema. No clubbing or cyanosis. No cords, erythema, or tenderness.] NEUROLOGICAL: [Cranial nerves II through XII grossly intact. Normal speech, normal gait.] PSYCH: [Normal mood, normal affect.] SKIN: [Warm, Dry, normal turgor, no rashes or lesions noted.] <Cathy Lockett - Last Filed: 08/08/17 08:17> <Torri Hamilton - Last Filed: 08/08/17 08:39> - General Chief Complaint: Vomiting/Diarrhea Stated Complaint: VOMITING,DIAHREA Time Seen by Provider: 08/08/17 04:01 Past History - Past Medical History Anemia: Yes Asthma: No Cancer: Yes (Stage IV COLON CA 05/16-S/P RT AND CHEMO) Cardiac Disorders: No CVA: No COPD: No CHF: No Dementia: No Diabetes: No GI Disorders: No Disorders: No HTN: Yes Hypercholesterolemia: No Liver Disease: No Seizures: No Thyroid Disease: No - Surgical History Abdominal Surgery: Yes (colectomy/colostomy 03/07/17) Orthopedic Surgery: Yes (RIGHT KNEE SX MENISCUS) - Family Disease History Family Disease History: Heart Disease: Father - Suicide/Smoking/Psychosocial Hx Smoking History: Unknown if ever smoked Have you smoked in the past 12 months: No Information on smoking cessation initiated: No Hx Alcohol Use: No Drug/Substance Use Hx: No Substance Use Type: None Hx Substance Use Treatment: No <Cathy Lockett - Last Filed: 08/08/17 08:17> <Torri Hamilton - Last Filed: 08/08/17 08:39> - Past Medical History Allergies/Adverse Reactions: Allergies Allergy/AdvReac Type Severity Reaction Status Date / Time No Known Allergies Allergy Verified 08/08/17 03:55 Home Medications: Ambulatory Orders Amlodipine Besylate/Benazepril [Lotrel 5-10 mg Capsule] 1 cap PO HS 03/06/17 *Physical Exam - Vital Signs Last Vital Signs Temp Pulse Resp BP Pulse Ox 98.9 F 103 H 20 156/110 100 08/08/17 03:55 08/08/17 03:55 08/08/17 03:55 08/08/17 03:55 08/08/17 03:55 <Cathy Lockett - Last Filed: 08/08/17 08:17> - Vital Signs Last Vital Signs Temp Pulse Resp BP Pulse Ox 98.5 F 90 18 147/89 99 08/08/17 08:27 08/08/17 08:27 08/08/17 08:27 08/08/17 08:27 08/08/17 08:27 <Torri Hamilton - Last Filed: 08/08/17 08:39> ED Treatment Course - LABORATORY CBC & Chemistry Diagram: 08/08/17 04:31 08/08/17 04:31 - ADDITIONAL ORDERS Additional order review: 08/08/17 04:31 RBC 4.91 D MCV 90.4 MCHC 33.6 RDW 14.9 MPV 8.0 Neutrophils % 94.5 H D Lymphocytes % 1.8 L D Monocytes % 2.0 L D Eosinophils % 1.2 D Basophils % 0.5 D - RADIOLOGY Radiology Studies Ordered: Category Date Time Status ABDOMEN FLAT & UPRIGHT [RAD] Stat Radiology 08/08/17 04:06 Ordered CHEST - PA [RAD] Stat Radiology 08/08/17 04:06 Ordered - Medications Given in the ED: ED Medications Discontinued Medications Generic Name Dose Route Start Last Admin Trade Name Freq PRN Reason Stop Dose Admin Ondansetron HCl 4 mg 08/08/17 04:06 08/08/17 04:37 Zofran Injection IVPB 08/08/17 04:07 4 mg ONCE ONE Administration Sodium Chloride 1,000 ml 08/08/17 04:06 08/08/17 04:36 Normal Saline - IV 08/08/17 04:07 1,000 ml ONCE ONE Administration <Cathy Lockett - Last Filed: 08/08/17 08:17> - LABORATORY CBC & Chemistry Diagram: 08/08/17 04:31 08/08/17 04:31 - ADDITIONAL ORDERS Additional order review: Laboratory Results 08/08/17 04:31 Sodium 140 Potassium 4.2 Chloride 104 Carbon Dioxide 24 Anion Gap 12 BUN 23 H D Creatinine 1.7 H D Creat Clearance w eGFR 41.75 Random Glucose 142 H D Calcium 9.2 D Total Bilirubin 0.6 D AST 20 D ALT 31 D Alkaline Phosphatase 153 H Total Protein 8.4 H D Albumin 4.0 D Lipase 91 08/08/17 04:31 RBC 4.91 D MCV 90.4 MCHC 33.6 RDW 14.9 MPV 8.0 Neutrophils % 94.5 H D Lymphocytes % 1.8 L D Monocytes % 2.0 L D Eosinophils % 1.2 D Basophils % 0.5 D - Medications Given in the ED: ED Medications Discontinued Medications Generic Name Dose Route Start Last Admin Trade Name Freq PRN Reason Stop Dose Admin Ondansetron HCl 4 mg 08/08/17 04:06 08/08/17 04:37 Zofran Injection IVPB 08/08/17 04:07 4 mg ONCE ONE Administration Sodium Chloride 1,000 ml 08/08/17 04:06 08/08/17 04:36 Normal Saline - IV 08/08/17 04:07 1,000 ml ONCE ONE Administration <Torri Hamilton - Last Filed: 08/08/17 08:39> Medical Decision Making - Medical Decision Making 08/08/17 05:29 Patient is a 57-year-old male with history of HTN, colon cancer resected with colostomy, SBO, complaining of nausea, vomiting and diarrhea. States the diarrhea started since last night and vomiting started 2-3 hours ago 4 episodes consistent with gastroenteritis. Labs, IV fluids, obstructive series, and Zofran, reassess Patient has not vomited since medication await the obstructive series to po challenge xray reviewed no signs of obstruction, no free air under the diaphragm will po challenge. 08/08/17 08:15 endorsed to AM SPA MANAGER pending po challenge <Cathy Lockett - Last Filed: 08/08/17 08:17> - Medical Decision Making 08/08/17 08:38 pt states he feels better has had no vomiting since ER visit vitals are stable will dc home strict follow up inst have been given to the patient and he agrees with the plan of care. <Torri Hamilton - Last Filed: 08/08/17 08:39> *DC/Admit/Observation/Transfer <Cathy Lockett - Last Filed: 08/08/17 08:17> <Torri Hamilton - Last Filed: 08/08/17 08:39> Diagnosis at time of Disposition: Nausea vomiting and diarrhea - Discharge Dispostion Condition at time of disposition: Stable - Patient Instructions Printed Discharge Instructions: DI for Viral Gastroenteritis -- Adult Additional Instructions: clear liquids as tolerated the next 24 hrs then slowly advance to dry cereal dry toast dry crackers, plain white rice follow with your doctor today or tomorrow for follow up make sure you are drinking pleanty of clear fluids to stay well hydrated Return to ER for any worsening symptoms
[2017-08-08 08:28] VITALS: TEMP 98.5
[2017-08-08 09:01] VITALS: BP 144/80; PULSE 86
== END 2017-08-08 09:01 | disposition home or self-care (01) ==
LOC: JER 03:23
PROC: 3E0337Z Introduction of Electrolytic and Water Balance Substance into Peripheral Vein, Percutaneous Approach (ICD-10-PCS; principal; 2017-08-08)
PROC: 3E033GC Introduction of Other Therapeutic Substance into Peripheral Vein, Percutaneous Approach (ICD-10-PCS; 2017-08-08)
DX: A08.4 Viral intestinal infection, unspecified (principal); B97.89 Other viral agents as the cause of diseases classified elsewhere; I10 Essential (primary) hypertension; Z85.038 Personal history of other malignant neoplasm of large intestine; Z93.3 Colostomy status
CPT/HCPCS: 36415; 71045-TC; 74019-TC; 80053; 83690; 85025; 96361; 96374; 99283-25

== ENCOUNTER 2017-08-29 08:03 | Day surgery (SDC) | payer OTHER ==
[2017-08-26 14:50] VITALS: BMI 26.7
[2017-08-29 10:03] VITALS: TEMP 97.8
[2017-08-29 11:07] VITALS: BP 121/71; PULSE 68
--- NOTE | 2017-08-30 11:38 | PATH ---
Surgical Pathology Report Patient Name: RAMONE MÉNDEZ [place]. Rec. #: [id number] /Age/Gender: 1960 (Age: 57) / M Account: [id number] Location: [facility]SU-ENDOSCOPY Taken: 08/29/2017 Received: 08/29/2017 Reported: 08/30/2017 Physicians: Justin Littlejohn M.D. Specimen(s) Received A: SIGMOID POLYP B: DESCENDING COLON POLYP C: POLYP TRANSVERSE COLON D: RECTAL POLYP Clinical History Preoperative diagnosis: Colon cancer screening (completion) Postoperative diagnosis: Colon polyps, rectal stricture Final Diagnosis A. SIGMOID COLON, POLYP, POLYPECTOMY: TUBULAR ADENOMA(S). B. DESCENDING COLON, POLYP, POLYPECTOMY TUBULAR ADENOMA. C. TRANSVERSE COLON, POLYP, POLYPECTOMY TUBULOVILLOUS ADENOMA D. RECTAL STRICTURE, BIOPSY: HYPERPLASTIC POLYP. Electronically Signed Anyi Masterson M.D. Gross Description A. Received in formalin labeled "sigmoid polyps," are 2 serna, polypoid portions of soft tissue measuring 0.8 x 0.4 x 0.2 cm and 1.2 x 0.9 x 0.7 cm. The larger polyp is bisected and the specimen is entirely submitted in 2 cassettes as follows: 1-smaller polyp; 2-larger, bisected polyp. B. Received in formalin, labeled "descending colon polyp" is a serna, irregular portion of soft tissue measuring 0.3 cm. in greatest dimension. The specimen is submitted in toto in one cassette. C. Received in formalin labeled "polyp transverse colon," is a 1.7 x 0.9 x 0.9 cm serna, polypoid portion of soft tissue. The specimen is trisected and entirely submitted in one cassette. D. Received in formalin, labeled "biopsy rectal stricture" are 2 serna, irregular portions of soft tissue measuring 0.3 and 0.4 cm. in greatest dimension. The specimens are submitted in toto in one cassette. 08/29/201708/29/2017
== END 2017-08-29 11:07 | disposition home or self-care (01) ==
LOC: JASU-ENDO 08:03
PROVIDERS: ATTEND Internal Medicine Gastroenterology
PROC: 0DBL8ZX Excision of Transverse Colon, Via Natural or Artificial Opening Endoscopic, Diagnostic (ICD-10-PCS; 2017-08-29)
PROC: 0DBN8ZX Excision of Sigmoid Colon, Via Natural or Artificial Opening Endoscopic, Diagnostic (ICD-10-PCS; 2017-08-29)
PROC: 0DBP8ZX Excision of Rectum, Via Natural or Artificial Opening Endoscopic, Diagnostic (ICD-10-PCS; 2017-08-29)
PROC: 3E0H8GC Introduction of Other Therapeutic Substance into Lower GI, Via Natural or Artificial Opening Endoscopic (ICD-10-PCS; 2017-08-29)
PROC: 0DBM8ZX Excision of Descending Colon, Via Natural or Artificial Opening Endoscopic, Diagnostic (ICD-10-PCS; principal; 2017-08-29 08:45)
DX: Z12.11 Encounter for screening for malignant neoplasm of colon (principal); Z85.038 Personal history of other malignant neoplasm of large intestine; D12.4 Benign neoplasm of descending colon; D12.5 Benign neoplasm of sigmoid colon; D12.3 Benign neoplasm of transverse colon

== ENCOUNTER 2017-11-03 02:25 | Inpatient (IN) | payer OTHER ==
--- NOTE | 2017-11-03 02:48 | PDOC ---
History of Present Illness - General Chief Complaint: Pain, Acute Stated Complaint: SIDE PAIN Time Seen by Provider: 11/03/17 02:39 - History of Present Illness Initial Comments: 11/03/17 05:33 57 year old male with past medical history of HTN, colon cancer resected with colostomy, SBO c/o right sided abdominal pain. + output in colostomy. reports nausea no vomiting. + bowel sounds. denies urinary symptoms, chest pain, cough, fever/chills. Past History - Past Medical History Allergies/Adverse Reactions: Allergies Allergy/AdvReac Type Severity Reaction Status Date / Time No Known Allergies Allergy Verified 11/03/17 02:34 Anemia: Yes Asthma: No Cancer: Yes (Stage IV COLON CA 05/16-S/P RT AND CHEMO) Cardiac Disorders: No CVA: No COPD: No CHF: No Dementia: No Diabetes: No GI Disorders: No Disorders: No HTN: Yes Hypercholesterolemia: No Liver Disease: No Seizures: No Thyroid Disease: No - Surgical History Abdominal Surgery: Yes (colectomy/colostomy 03/07/17, revision 09/18) Orthopedic Surgery: Yes (RIGHT KNEE SX MENISCUS) - Family Disease History Family Disease History: Heart Disease: Father - Suicide/Smoking/Psychosocial Hx Smoking History: Never smoked Have you smoked in the past 12 months: No Hx Alcohol Use: No Drug/Substance Use Hx: No Substance Use Type: None Hx Substance Use Treatment: No Review of Systems - Review of Systems Able to Perform ROS?: Yes Is the patient limited Danish proficient: No Constitutional: No: Symptoms Reported, See HPI, Chills, Diaphoresis, Fever, Loss of Appetite, Malaise, Night Sweats, Weakness, Weight Stable, Unintentional Wgt. Loss, Unexplained wgt Loss, Other Respiratory: No: Symptoms reported, See HPI, Cough, Orthopnea, Shortness of Breath, SOB with Exertion, SOB at Rest, Stridor, Wheezing, Productive cough, Hemoptysis, Other ABD/GI: Yes: Nausea, Abdominal cramping : No: Symptoms Reported, See HPI, Burning, Dysuria, Discharge, Frequency, Flank Pain, Hematuria, Incontinence, Pain, Urgency, Testicular Mass, Testicular Swelling, Lesions, Testicular Pain, Other Musculoskeletal: No: Symptoms Reported, See HPI, Back Pain, Gout, Joint Pain, Joint Swelling, Muscle Pain, Muscle Weakness, Neck Pain, Joint Stiffness, Other *Physical Exam - Vital Signs Last Vital Signs Temp Pulse Resp BP Pulse Ox 98.2 F 87 22 161/113 100 11/03/17 02:34 11/03/17 02:34 11/03/17 02:34 11/03/17 02:34 11/03/17 02:34 - Physical Exam General Appearance: Yes: Appropriately Dressed Respiratory/Chest: positive: Lungs Clear, Normal Breath Sounds Gastrointestinal/Abdominal: positive: Normal Bowel Sounds, Tender (right lower quadrant ), Soft Musculoskeletal: negative: CVA Tenderness Extremity: positive: Normal Capillary Refill, Normal Inspection, Normal Range of Motion Heart Score/ECG Review - ECG Intrepretation Rhythm: Regular Rhythm Comment:: 11/03/17 05:45 NSR: 71 bpm ED Treatment Course - LABORATORY CBC & Chemistry Diagram: 11/03/17 03:24 11/03/17 03:24 - RADIOLOGY Radiograph Interpretation: 11/03/17 05:53 CTAP: "2.2 cm indeterminate hypodensity inferior portion of right lobe of liver , consider followup liver protocol MRI. Borderline hepatomegaly. 6.4 x 3.2 x 4.8 cm hazy focus of fat in left upper quadrant near diaphragm, question omental fat infarction versus lipomatous mass. Consider MRI correlation. 3 mm stone at right UVJ causing moderate hydronephrosis. 6 x 4 x 2 mm stone in mid left ureter. Moderate to marked left hydronephrosis. Left ureteral stent in satisfactory position. Bilateral nephrolithiasis. Subcentimeter cystic focus lower pole right kidney. Bladder wall thickening due to underdistention versus cystitis.Unremarkable pancreas and gallbladder. Right lower quadrant ileostomy. Surgical changes rectum. No bowel obstruction, colitis, free fluid or free air. 8 mm diameter appendix without periappendiceal inflammation. Incidental duodenal diverticulum. Nonspecific presacral edema. Small hiatal hernia." Medical Decision Making - Medical Decision Making 11/03/17 05:40 A: Abdominal pain P: cbc cmp UA CTAP *DC/Admit/Observation/Transfer Diagnosis at time of Disposition: Kidney stone on right side Abdominal pain Qualifiers: Abdominal location: right lower quadrant Qualified Code(s): R10.31 - Right lower quadrant pain Hydronephrosis Qualifiers: Hydronephrosis type: with ureteropelvic junction obstruction Qualified Code(s) : Q62.11 - Congenital occlusion of ureteropelvic junction - Discharge Dispostion Admit: Yes - Referrals Referrals: Marva Velasco MD [Primary Care Provider] - - Patient Instructions - Post Discharge Activity
--- NOTE | 2017-11-03 02:54 | PDOC ---
*Physical Exam - Vital Signs Last Vital Signs Temp Pulse Resp BP Pulse Ox 98.2 F 87 22 161/113 100 11/03/17 02:34 11/03/17 02:34 11/03/17 02:34 11/03/17 02:34 11/03/17 02:34 ED Treatment Course - LABORATORY CBC & Chemistry Diagram: 11/03/17 03:24 11/03/17 03:24 Medical Decision Making - Medical Decision Making 11/03/17 02:54 agree with care from SHIRA Brown *DC/Admit/Observation/Transfer Diagnosis at time of Disposition: Abdominal pain, Kidney stone on right side, Hydronephrosis - Referrals - Patient Instructions - Post Discharge Activity
[2017-11-03 03:42] LABS: BASO % 0.4 % (0-2.0); EOS % 0.3 % (0-4.5); HEMATOCRIT 33.3 % (35.4-49); HEMOGLOBIN 11.5 GM/dL (11.7-16.9); LYMPH % 5.1 % (8-40); MCH 32.4 pg (25.7-33.7); MCHC 34.4 g/dl (32.0-35.9); MEAN CELL VOLUME 94.2 fl (80-96); MEAN PLT VOLUME 7.8 fl (7.5-11.1); MONO % 2.8 % (3.8-10.2); NEUT % 91.4 % (42.8-82.8); PLATELET COUNT 347 K/MM3 (134-434); RBC 3.53 M/mm3 (4.00-5.60); RDW 17.5 % (11.9-15.9)
[2017-11-03 04:22] LABS: ALBUMIN 3.8 g/dl (3.4-5.0); ALK PHOS 193 U/L (45-117); ANION GAP 15 (8-16); BILIRUBIN,TOTAL 0.3 mg/dL (0.2-1.0); BLOOD UREA NITROGEN 25 mg/dL (7-18); CALCIUM 9.3 mg/dL (8.5-10.1); CHLORIDE 106 mmol/L (98-107); CO2 19 mmol/L (21-32); GLUCOSE,RANDOM 135 mg/dL (74-106); LIPASE 163 U/L (73-393); POTASSIUM 4.4 mmol/L (3.5-5.1); SGOT/AST 58 U/L (15-37); SGPT/ALT 110 U/L (12-78); SODIUM 140 mmol/L (136-145); TOT PROT 7.7 g/dl (6.4-8.2)
[2017-11-03] MEDS ORDERED: TAMSULOSIN HCL 0.4 MG CAP.ER.24H (FP) PO ONE (05:54)
[2017-11-03] MEDS ORDERED: SODIUM CHLORIDE 1,000 ML IV STA (05:55)
[2017-11-03] MEDS ORDERED: TAMSULOSIN HCL 0.4 MG CAP.ER.24H (FP) ONE (05:57)
[2017-11-03] MEDS ORDERED: morphine CARPU-JECT 4 MG/1 ML DISP.SYRIN IVPUSH ONE (06:14)
[2017-11-03] MEDS ORDERED: CEFTRIAXONE 1,000 MG in DEXTROSE 5%-WATER - 50 ML IVPB ONE (06:22)
[2017-11-03] MEDS ORDERED: morphine SULFATE 4 MG/ML VIAL ONE (06:24)
[2017-11-03] MEDS ORDERED: CEFTRIAXONE 1 GM/50 ML BAG ONE (06:26)
[2017-11-03 08:37] LABS: URINE APPEARANCE CLOUDY; URINE BILIRUBIN NEGATIVE (<2.0 mg/dL); URINE BLOOD 3+ (NEGATIVE); URINE COLOR YELLOW; URINE GLUCOSE (UA) 1+ (NEGATIVE); URINE KETONE NEGATIVE (NEGATIVE); URINE NITRITE NEGATIVE (NEGATIVE); URINE UROBILINOGEN NEGATIVE mg/dL (0.2-1.0)
[2017-11-03 08:38] LABS: URINE LEUK ESTERASE 1+ (NEGATIVE); URINE PROTEIN 2+ (NEGATIVE)
[2017-11-03 08:48] LABS: URINE MUCUS RARE
--- NOTE | 2017-11-03 09:44 | HP ---
DATE OF ADMISSION: DATE OF DICTATION: 11/03/2017 This is a 57-year-old male known to have hypertension, CA of the rectum, status post left colectomy with colostomy, also known to have kidney stones, being followed by Dr. Miller, came to the ER with right flank pain. A CAT scan done in the ER showed a stone in the ureter, possibly blocking the flow, so got admitted. This morning he is feeling better. PHYSICAL EXAMINATION: Vital Signs: Blood pressure is 196/83, pulse 86, regular, respirations 20, temperature 98. HEENT: Unremarkable. Neck: Supple. No JVD. Lungs: Clear. Heart: S1, S2 normal. No S3, S4. Abdomen: Colostomy working which is in the right lower quadrant. Extremities: Legs no edema. Neurologic: Grossly normal. LABORATORIES: WBC 11, hemoglobin 11, hematocrit 33, platelet 346. Chemistry: Sodium 140, potassium 4.4, CO2 19, BUN 25, creatinine 0.2. AST, ALT mildly elevated, alkaline phosphatase 193. Troponin is negative. Urinalysis: Urine blood 3+, WBC 23, RBC 422 and positive for leukocyte esterase. IMPRESSION: 1. Urinary tract infection. 2. Kidney stones. 3. Carcinoma of the colon. 4. Dehydration. PLAN: Consult Dr. Marilou Miller for his kidney stone evaluation. Follow up with for oncology evaluation. Continue IV antibiotics. Will follow. Wiley [id number]
[2017-11-03] MEDS ORDERED: ACETAMINOPHEN 325 MG TABLET (FP) PO ONE (09:45)
[2017-11-03] MEDS ORDERED: oxyCODONE HCL 5 MG TABLET PO ONE (09:45)
[2017-11-03] MEDS: amLODIPine BESYLATE 5 MG TABLET (FP) PO SCH (10:12)
[2017-11-03 10:23] VITALS: BMI 24.3
--- NOTE | 2017-11-03 11:04 | EKG ---
Test Reason : Blood Pressure : / mmHG Vent. Rate : 071 BPM Atrial Rate : 071 BPM P-R Int : 148 ms QRS Dur : 080 ms QT Int : 404 ms P-R-T Axes : 074 -33 083 degrees QTc Int : 439 ms NORMAL SINUS RHYTHM LEFT AXIS DEVIATION ABNORMAL ECG WHEN COMPARED WITH ECG OF 06-MAR-2017 08:46, T WAVE AMPLITUDE HAS INCREASED IN INFERIOR LEADS Confirmed by ALPESH MOLINA, DIONI ([id number]) on 11/03/2017 11:04:05 AM Referred By: Confirmed By:DIONI BETTS MD
--- NOTE | 2017-11-03 12:00 | CON.GU ---
Consult Consult Specialty:: Urology Referred by:: Dr. Velasco Reason for Consultation:: Right Renal Colic - History of Present Illness Chief Complaint: Pain right Flank of one day duration - History Source History Provided By: Patient Limitations to Obtaining History: No Limitations - Past Medical History Cardio/Vascular: Yes: HTN Gastrointestinal: Yes: Cancer (rectal s/p neoadjuvant chemoRT), GI Bleed (h/o last year when CA diagnosed) Renal/: Yes: Renal Calculi (s/p ESWL), Other (L ureteral stent 07/16 (in place )) - Past Surgical History Past Surgical History: Yes: Colonoscopy, Upper Endoscopy - Alcohol/Substance Use Hx Alcohol Use: No Number of Drinks Daily: 0 (quit drinking 04/16) History of Substance Use: reports: None - Smoking History Smoking history: Never smoked Have you smoked in the past 12 months: No - Social History Usual Living Arrangement: Alone ADL: Independent 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 History of Recent Travel: No Home Medications - Allergies Allergies/Adverse Reactions: Allergies Allergy/AdvReac Type Severity Reaction Status Date / Time No Known Allergies Allergy Verified 11/03/17 02:34 - Home Medications Home Medications: Ambulatory Orders Unobtainable [Unobtainable] 11/03/17 Family Disease History - Family Disease History Family Disease History: CA: Grandparent (maternal gf, colon), Other: Brother (2 brothers, healthy) Physical Exam- Vital Signs: Vital Signs Temperature 98 F 11/03/17 10:18 Pulse Rate 80 11/03/17 10:18 Respiratory Rate 20 11/03/17 10:27 Blood Pressure 200/124 11/03/17 10:18 O2 Sat by Pulse Oximetry (%) 99 11/03/17 10:27 Labs: CBC, BMP 11/03/17 03:24 11/03/17 03:24 Assessment/Plan 57 year old male well known to me with nephrolithiasis, bilateral. Pt had multiple procedures, including uerteroscopy and eswl. Since his admission, he had a ct scan which showed a 3mm calc in the rt. UPJ with hydro. Today pt. is completely asymptomatic and did not require any pain medication. Urilogically pt. can be discharged and he will be followed in the office. In case of another colicky attack, will stenting the right side. He already has a stent on the left side. Will follow with you as neessary. Thank you
[2017-11-03] MEDS: SODIUM CHLORIDE 1,000 ML IV SCH (14:07)
[2017-11-03] MEDS: HEPARIN NA (PORCINE) 5,000 UNITS/ML 1ML VIAL SQ SCH ×2 (14:22→21:31)
[2017-11-03 16:37] LABS: URINE APPEARANCE CLEAR; URINE BILIRUBIN NEGATIVE (<2.0 mg/dL); URINE BLOOD 3+ (NEGATIVE); URINE COLOR STRAW; URINE GLUCOSE (UA) NEGATIVE (NEGATIVE); URINE KETONE NEGATIVE (NEGATIVE); URINE LEUK ESTERASE TRACE (NEGATIVE); URINE NITRITE NEGATIVE (NEGATIVE); URINE UROBILINOGEN NEGATIVE mg/dL (0.2-1.0)
[2017-11-03 16:39] LABS: URINE PROTEIN 1+ (NEGATIVE)
[2017-11-03 16:47] LABS: URINE BACTERIA RARE /hpf (NONE SEEN); URINE MUCUS RARE
--- NOTE | 2017-11-03 22:29 | CONSULT ---
Consult - text type - Consultation Consultation Note: 57 year old male with past medical history of HTN, stage IV rectal cancer, s/p cemotherapy with FOLFOX --went into complete remission, s/p Xeloda/RT and more recently resection with colostomy, c/o right sidedflankpain. No fever/chills/ cough/shortness of breath/abdominal pain. Feels much improved today - Past Medical History Allergies/Adverse Reactions: Allergies Allergy/AdvReac Type Severity Reaction Status Date / Time No Known Allergies Allergy Verified 11/03/17 02:34 PMH Anemia: Yes Asthma: No Cancer: Yes (Stage IV rectal CA 05/16-S/P RT AND CHEMO) - Surgical History Abdominal Surgery: Yes (colectomy/colostomy 03/07/17, revision 09/18) Orthopedic Surgery: Yes (RIGHT KNEE SX MENISCUS) - Family Disease History Family Disease History: Heart Disease: Father - Suicide/Smoking/Psychosocial Hx Smoking History: Never smoked - Vital Signs AFVSS Cor: RSR, No murmurs, No gallops Lungs: Clear to P&A Abd: Soft, Normal bowel sounds, No organomegaly Ext:No significant edema Labs/Meds reviewed CTAP: "2.2 cm indeterminate hypodensity inferior portion of right lobe of liver , consider followup liver protocol MRI. Borderline hepatomegaly. 6.4 x 3.2 x 4.8 cm hazy focus of fat in left upper quadrant near diaphragm, question omental fat infarction versus lipomatous mass. Consider MRI correlation.3 mm stone at right UVJ causing moderate hydronephrosis. 6 x 4 x 2 mm stone in mid left ureter. Moderate to marked left hydronephrosis. Left ureteral stent in satisfactory position. Bilateral nephrolithiasis. Subcentimeter cystic focus lower pole right kidney. Bladder wall thickening due to underdistention versus cystitis.Unremarkable pancreas and gallbladder. Right lower quadrant ileostomy. Surgical changes rectum. No bowel obstruction, colitis, free fluid or free air. 8 mm diameter appendix without periappendiceal inflammation. Incidental duodenal diverticulum. Nonspecific presacral edema. Small hiatal hernia." A/P 57 y/o patient with h/o rectal cancer,stage IV A at diagnosis,s/p FOLFOX for 9 cysles , went into complete remission,received xeloda/RT and then more recently had resection with ileostomy in 09/18. Pathology showed pT2, N0 disease HE presents now with right renal colic and noted to have right UVJ stone with mod. hydroureteronephosis. Also with mod.to sever left hydronephrosis. Evaluated by urology. To consider ESWL as out patent and possible left ureteral stent change. will consult nephrology aswell check urine culture elevated - LFTs--monitor HTN--started norvasc will follow discussed with Dr. Velasco
[2017-11-04] MEDS: SODIUM CHLORIDE 1,000 ML IV SCH (02:58)
[2017-11-04] MEDS: HEPARIN NA (PORCINE) 5,000 UNITS/ML 1ML VIAL SQ SCH ×3 (06:00→21:10)
[2017-11-04 08:37] LABS: BASO % 0.7 % (0-2.0); HEMOGLOBIN 9.9 GM/dL (11.7-16.9); LYMPH % 15.9 % (8-40); MCH 32.3 pg (25.7-33.7); MEAN PLT VOLUME 7.6 fl (7.5-11.1); MONO % 6.3 % (3.8-10.2); NEUT % 74.1 % (42.8-82.8); PLATELET COUNT 296 K/MM3 (134-434); RBC 3.06 M/mm3 (4.00-5.60); RDW 18.1 % (11.9-15.9); WHITE BLOOD COUNT 5.7 K/mm3 (4.0-10.0)
[2017-11-04] MEDS: TAMSULOSIN HCL 0.4 MG CAP.ER.24H (FP) PO SCH (08:43)
--- NOTE | 2017-11-04 08:45 | PN ---
Progress Note, Physician Chief Complaint: No pain History of Present Illness: Admitted with Rt renal colic. Known to have Kidney stones fabrice Peraza renal consult and fabrice Hudson oncology consult appreciated - Current Medication List Current Medications: Active Medications Amlodipine Besylate (Norvasc -) 5 mg PO DAILY [facility] Last Admin: 11/03/17 10:12 Dose: 5 mg Heparin Sodium (Porcine) (Heparin -) 5,000 unit SQ TID [facility] Last Admin: 11/04/17 06:00 Dose: 5,000 unit Sodium Chloride (Normal Saline -) 1,000 mls @ 75 mls/hr IV ASDIR [facility] Last Admin: 11/04/17 02:58 Dose: 75 mls/hr Tamsulosin HCl (Flomax -) 0.8 mg PO DAILY@0830 [facility] - Objective Vital Signs: Vital Signs Temperature 97.4 F L 11/04/17 06:30 Pulse Rate 76 11/04/17 06:30 Respiratory Rate 18 11/04/17 06:30 Blood Pressure 150/86 11/04/17 06:30 O2 Sat by Pulse Oximetry (%) 98 11/03/17 21:00 Constitutional: Yes: No Distress Eyes: Yes: WNL HENT: Yes: WNL Neck: Yes: WNL Cardiovascular: Yes: WNL Respiratory: Yes: WNL
[2017-11-04 08:54] LABS: CHLORIDE 110 mmol/L (98-107); POTASSIUM 4.7 mmol/L (3.5-5.1); SODIUM 139 mmol/L (136-145)
[2017-11-04 09:02] LABS: ALK PHOS 151 U/L (45-117); ANION GAP 9 (8-16); BILIRUBIN,TOTAL 0.2 mg/dL (0.2-1.0); BLOOD UREA NITROGEN 32 mg/dL (7-18); CALCIUM 8.3 mg/dL (8.5-10.1); CO2 20 mmol/L (21-32); CREATININE 1.9 mg/dL (0.7-1.3); GLUCOSE,RANDOM 93 mg/dL (74-106); SGOT/AST 21 U/L (15-37); SGPT/ALT 64 U/L (12-78); TOT PROT 6.2 g/dl (6.4-8.2)
[2017-11-04] MEDS: amLODIPine BESYLATE 5 MG TABLET (FP) PO SCH (09:29)
--- NOTE | 2017-11-04 12:34 | CONSULT ---
Consult - text type - Consultation Consultation Note: Renal Consult for ADRIANA This is a 57 year old gentleman with PMhx of Colon Ca s/p chemo and resection with colostomy, Hx of nephrolithiasis s/p left sided stent who presented with acute onset right sided flank and abd pain and found to have right hydroneprhosis and ADRIANA. Pt reports that now his pain is gone. Making urine normally. No hematuria, dysuria, fever, chills. No N/V/D. No sob, chest pain. On IVF. PMhx: as above Allergies: NKDA Family hx: NC Social Hx: no T/A/D ROS: As per HPI, all other pertinent ros negative Home Medications Medication Instructions Recorded Unobtainable [Unobtainable] 11/03/17 Vital Signs Temperature 97.8 F 11/04/17 10:00 Pulse Rate 74 11/04/17 10:00 Respiratory Rate 18 11/04/17 10:00 Blood Pressure 160/74 11/04/17 10:00 O2 Sat by Pulse Oximetry (%) 98 11/04/17 09:00 Intake & Output 11/01/17 11/02/17 11/03/17 11/04/17 23:59 23:59 23:59 23:59 Intake Total 400 1250 Output Total 600 Balance -200 1250 Weight 72.575 kg NAD awake and alert RRR CTA soft NT./ND no cva tenderness right LLQ colostomy No Le edema, clubbing or cyanosis no focal neurologic defects CBC, BMP 11/04/17 07:00 11/04/17 07:00 Current Medications Amlodipine Besylate (Norvasc -) 5 mg PO DAILY [facility] Last Admin: 11/04/17 09:29 Dose: 5 mg Heparin Sodium (Porcine) (Heparin -) 5,000 unit SQ TID [facility] Last Admin: 11/04/17 06:00 Dose: 5,000 unit Sodium Chloride (Normal Saline -) 1,000 mls @ 75 mls/hr IV ASDIR [facility] Last Admin: 11/04/17 02:58 Dose: 75 mls/hr Tamsulosin HCl (Flomax -) 0.8 mg PO DAILY@0830 [facility] Last Admin: 11/04/17 08:43 Dose: 0.8 mg 57 year old gentleman with PMhx of Colon Ca s/p chemo and resection with colostomy, Hx of nephrolithiasis s/p left sided stent who presented with acute onset right sided flank and abd pain and found to have right hydroneprhosis and ADRIANA. #ADRIANA likely due to obstruction #Nephrolithiasis #Anemia #Metabolic acidosis #Colon Ca #Hypertension Pain is now resolved, likely indicating passing of the stone Renal function without overt improvement as of this mornings labs check US of the kidney and bladder to access for right hydronephrosis continue IVF for now Urine cultures collected, no reported growth to date continue flomax urology eval noted, will need outpatient follow up as well if renal function improved or US shows resolution of right hydronephrosis can plan for discharge No acute indication for transfusion continue amlodpine Thank you Will follow Leo Lew DO
--- NOTE | 2017-11-04 16:58 | PN ---
Progress Note (short form) - Note Progress Note: Patient seen and examined No pain Passing clear urine Last Vital Signs Temp Pulse Resp BP Pulse Ox 98.6 F 79 18 130/76 98 11/04/17 15:24 11/04/17 15:24 11/04/17 15:24 11/04/17 15:24 11/04/17 09:00 HEENT: ALEXANDER, EOM Intact Oropharynx: No thrush, No mucositis Cor: RSR, No murmurs, No gallops Lungs: Clear to P&A Abd: Soft, functioning colostomy Ext:No significant edema Skin: No rashes, Integument intact CBC, BMP 11/04/17 07:00 11/04/17 07:00 Current Medications Generic Name Dose Route Start Last Admin Trade Name Yeisonq PRN Reason Stop Dose Admin Amlodipine Besylate 5 mg 11/03/17 10:00 11/04/17 09:29 Norvasc - PO 5 mg DAILY DANIELA Administration Heparin Sodium (Porcine) 5,000 unit 11/03/17 14:00 11/04/17 14:56 Heparin - SQ 5,000 unit TID DANIELA Administration Sodium Chloride 1,000 mls @ 75 mls/hr 11/03/17 13:30 11/04/17 02:58 Normal Saline - IV 75 mls/hr ASDIR DANIELA Administration Tamsulosin HCl 0.8 mg 11/04/17 08:30 11/04/17 08:43 Flomax - PO 0.8 mg DAILY@0830 DANIELA Administration Impression: Stage IV colon ca - s/p chemotherapy Nephrolithiasis ADRIANA Continue hydration and renal management.
[2017-11-04 18:23] LABS: ANION GAP 13 (8-16); BLOOD UREA NITROGEN 32 mg/dL (7-18); CALCIUM 8.3 mg/dL (8.5-10.1); CHLORIDE 105 mmol/L (98-107); CO2 20 mmol/L (21-32); CREATININE 1.5 mg/dL (0.7-1.3); GLUCOSE,RANDOM 86 mg/dL (74-106); POTASSIUM 4.2 mmol/L (3.5-5.1); SODIUM 138 mmol/L (136-145)
[2017-11-05] MEDS: HEPARIN NA (PORCINE) 5,000 UNITS/ML 1ML VIAL SQ SCH (06:05)
[2017-11-05] MEDS: SODIUM CHLORIDE 1,000 ML IV SCH (06:23)
[2017-11-05] MEDS: amLODIPine BESYLATE 5 MG TABLET (FP) PO SCH (09:02)
[2017-11-05] MEDS: TAMSULOSIN HCL 0.4 MG CAP.ER.24H (FP) PO SCH (09:03)
[2017-11-05 09:05] LABS: CHLORIDE 110 mmol/L (98-107); POTASSIUM 4.2 mmol/L (3.5-5.1); SODIUM 138 mmol/L (136-145)
[2017-11-05 09:11] LABS: ANION GAP 9 (8-16); BLOOD UREA NITROGEN 26 mg/dL (7-18); CALCIUM 8.1 mg/dL (8.5-10.1); CO2 19 mmol/L (21-32); CREATININE 1.3 mg/dL (0.7-1.3); GLUCOSE,RANDOM 92 mg/dL (74-106)
--- NOTE | 2017-11-05 12:54 | DS ---
Physical Examination Vital Signs: Vital Signs Temperature 98 F 11/05/17 09:12 Pulse Rate 76 11/05/17 09:12 Respiratory Rate 18 11/05/17 09:12 Blood Pressure 137/79 11/05/17 09:12 O2 Sat by Pulse Oximetry (%) 98 11/04/17 21:00 Constitutional: Yes: No Distress Eyes: Yes: WNL HENT: Yes: WNL Neck: Yes: WNL Cardiovascular: Yes: WNL Respiratory: Yes: WNL Gastrointestinal: Yes: Other (Colostomy working well) Musculoskeletal: Yes: WNL Edema: No Neurological: Yes: Alert ...Motor Strength: WNL Psychiatric: Yes: Alert Labs: CBC, BMP 11/04/17 07:00 11/05/17 06:30 Discharge Summary Reason For Visit: ABDOMINAL PAIN HYDRONEPHROSIS Current Active Problems Abdominal pain (Acute) Hydronephrosis (Acute) Kidney stone on right side (Acute) - Instructions Referrals: Marva Velasco MD [Primary Care Provider] - - Home Medications Comprehensive Discharge Medication List: Ambulatory Orders Unobtainable [Unobtainable] 11/03/17
--- NOTE | 2017-11-05 13:16 | PN ---
Progress Note (short form) - Note Progress Note: Renal follow up for ADRIANA Pt seen and examined at the bedside no acute complaints no abd pain, sob, chest pain making urine Vital Signs Temperature 98 F 11/05/17 09:12 Pulse Rate 76 11/05/17 09:12 Respiratory Rate 18 11/05/17 09:12 Blood Pressure 137/79 11/05/17 09:12 O2 Sat by Pulse Oximetry (%) 98 11/04/17 21:00 Intake & Output 11/02/17 11/03/17 11/04/17 11/05/17 23:59 23:59 23:59 23:59 Intake Total 400 3140 1400 Output Total 600 700 600 Balance -200 2440 800 Weight 72.575 kg NAD No LE edema no abd tenderness CBC, BMP 11/04/17 07:00 11/05/17 06:30 Current Medications Amlodipine Besylate (Norvasc -) 5 mg PO DAILY [facility] Last Admin: 11/05/17 09:02 Dose: 5 mg Heparin Sodium (Porcine) (Heparin -) 5,000 unit SQ TID [facility] Last Admin: 11/05/17 06:05 Dose: 5,000 unit Sodium Chloride (Normal Saline -) 1,000 mls @ 75 mls/hr IV ASDIR [facility] Last Admin: 11/05/17 06:23 Dose: 75 mls/hr Tamsulosin HCl (Flomax -) 0.8 mg PO DAILY@0830 [facility] Last Admin: 11/05/17 09:03 Dose: 0.8 mg 57 year old gentleman with PMhx of Colon Ca s/p chemo and resection with colostomy, Hx of nephrolithiasis s/p left sided stent who presented with acute onset right sided flank and abd pain and found to have right hydroneprhosis and ADRIANA. #ADRIANA likely due to obstruction #Nephrolithiasis #Anemia #Metabolic acidosis #Colon Ca #Hypertension Renal function improved and US shows improving R kidney hydronephrosis stable for discharge with urology follow up advised to maintain good oral hydration and to avoid nsaids for the time being Thank you Will follow Leo Lew DO
[2017-11-05 13:22] VITALS: BP 135/76; PULSE 72; TEMP 98.2
== END 2017-11-05 13:27 | disposition home or self-care (01) | DRG 460 ==
LOC: JER 02:25 → JERBED 06:09 → UNDOADMIN 06:21 → JERBED 06:21 → J8W 08:33
PROVIDERS: ADMIT Internal Medicine; ATTEND Internal Medicine
DX: N17.9 Acute kidney failure, unspecified (principal); E86.0 Dehydration; Z85.038 Personal history of other malignant neoplasm of large intestine; N13.2 Hydronephrosis with renal and ureteral calculous obstruction; D64.9 Anemia, unspecified; E87.2 Acidosis; I10 Essential (primary) hypertension; Z93.3 Colostomy status; Z92.21 Personal history of antineoplastic chemotherapy
CPT/HCPCS: 36415; 74176-TC; 76775-TC; 76856-TC; 80048; 80053; 81003; 81015; 82550; 83690; 84484; 85025; 87086; 93005; 93010; 99285-25; J1644; J7030

== ENCOUNTER 2017-11-30 07:41 | Day surgery (SDC) | payer OTHER ==
[2017-11-29 14:15] VITALS: BMI 23.7
[2017-11-30] MEDS ORDERED: MIDAZOLAM HCL 2 MG/2 ML SINGLE DOSE VIAL ONE ×2 (09:39→09:49)
[2017-11-30] MEDS ORDERED: PROPOFOL 20 ML ONE ×4 (09:39→10:55)
[2017-11-30] MEDS ORDERED: ceFAZolin SODIUM 1 GM VIAL ONE (09:52)
[2017-11-30] MEDS ORDERED: ceFAZolin SODIUM 1 GM VIAL IVPB ONE (09:55)
--- NOTE | 2017-11-30 11:15 | OP ---
Operative Note - Note: Operative Date: 11/30/17 Pre-Operative Diagnosis: Left ureteral stent, indwelling Operation: Cysto Stent removal and bladder stone removal Findings: Large bladder calculus enccasing the left ureteral stent Post-Operative Diagnosis: Same as Pre-op Surgeon: Eduard Rae Specimens Removed: Stent with stone Drains & Tubes with Location: haley catheter Operative Report Dictated: Yes
[2017-11-30] MEDS ORDERED: ONDANSETRON 4 MG/2 ML VIAL IVPUSH PRN (11:46)
[2017-11-30] MEDS ORDERED: oxyCODONE HCL 5 MG TABLET PO PRN ×2 (11:46)
[2017-11-30] MEDS ORDERED: LACTATED RINGERS SOLUTION 1,000 ML IV SCH (12:00)
--- NOTE | 2017-11-30 12:15 | OP ---
DATE OF OPERATION: 11/30/2017 SURGEON: Eduard Rae MD ANESTHESIA: General. PREOPERATIVE DIAGNOSIS: Indwelling left ureteral stent. POSTOPERATIVE DIAGNOSIS: Indwelling left ureteral stent, plus bladder calculi. PROCEDURE: Cystoscopy, removal of the stent, removal of the bladder calculi, and Alvarez catheter placement. FINDINGS: Left ureteral stent was shown to be totally encased with large calcaneus material. The bladder was filled with multiple large calculi. DESCRIPTION OF PROCEDURE: Patient in lithotomy position under anesthesia was prepped and draped in the usual manner. Using 22 scope, cystoscopy performed, and with considerable difficulty, the stent was removed. Along with the stent came a large bladder calculus which was stuck in the bladder neck area. Again, slowly maneuvering the stent, it was removed en nii. Then, an attempt was made to put the Alvarez catheter, which was not successful. Then, the bladder was irrigated, and the bladder neck calculus was pushed back into the bladder, and guidewire was placed into the bladder followed with Alvarez catheter. Patient tolerated the procedure well and left the operating room in satisfactory condition. Wiley [id number]
[2017-11-30 13:38] VITALS: BP 147/79; PULSE 73; TEMP 97.5
--- NOTE | 2017-12-01 08:58 | PATH ---
Surgical Pathology Report Patient Name: RAMONE MÉNDEZ [facility]. Rec. #: [id number] /Age/Gender: 1960 (Age: 57) / M Account: [id number] Location: [facility] SURGICAL Taken: 11/30/2017 Received: 11/30/2017 Reported: 12/01/2017 Physicians: Marilou Miller M.D. Specimen(s) Received REMOVED LEFT STENT WITH STONE Clinical History Hydronephrosis Final Diagnosis URETERAL STENT, LEFT, REMOVAL: URETERAL STENT AND SLUDGE/CALCULI, MACROSCOPIC DIAGNOSIS. Electronically Signed Anyi Masterson M.D. Gross Description Received fresh labeled "removed left stent," is a 37.5 cm in length blue-green, coiled portion of tubing, consistent with a ureteral stent. The specimen displays focal attached serna calcified material. No soft tissue is present. No sections are submitted, gross only. /11/30/2017 saudi/11/30/2017
== END 2017-11-30 13:40 | disposition home or self-care (01) ==
LOC: JASU-SURG 07:41
PROVIDERS: ATTEND Urology
PROC: 0TPB8DZ Removal of Intraluminal Device from Bladder, Via Natural or Artificial Opening Endoscopic (ICD-10-PCS; principal; 2017-11-30 09:00)
PROC: 0T9B70Z Drainage of Bladder with Drainage Device, Via Natural or Artificial Opening (ICD-10-PCS; 2017-11-30 09:00)
DX: Z96.0 Presence of urogenital implants (principal); K80.50 Calculus of bile duct without cholangitis or cholecystitis without obstruction
CPT/HCPCS: 76000-TC-FY; 88300-TC; 94760

== ENCOUNTER 2017-12-04 14:55 | Emergency (ER) | payer OTHER ==
[2017-12-04 15:05] VITALS: BP 192/113; PULSE 99; TEMP 98.1; BMI 29.2
[2017-12-04] MEDS ORDERED: SODIUM CHLORIDE 1,000 ML IV STA (15:17)
--- NOTE | 2017-12-04 16:57 | PDOC ---
History of Present Illness - General Chief Complaint: Urinary Problem Stated Complaint: URINARY RETENTION Time Seen by Provider: 12/04/17 15:09 History Source: Patient Exam Limitations: No Limitations - History of Present Illness Travel History: No Initial Comments: 12/04/17 16:22 57-year-old male with history of colon cancer with a colostomy presents to the ED with complaints no urine in his leg bag since 1 PM and is concerned that he is retaining urine. Patient denies back pain, hematuria, fever or chills. Patient does state mild mid suprapubic pressure. Patient states has history of kidney stones and had his stent removed on Tuesday when the Alvarez catheter was placed. Patient states has a follow-up appointment with his urologist this week but since he had made no urine he became concerned and came to the emergency room. Timing/Duration: reports: constant Quality: reports: mild, fullness Abdominal Pain Onset Location: reports: suprapubic Pain Radiation: reports: no radiation Aggravating Factors: improves with: None Alleviating Factors: improves with: None Past History - Past Medical History Allergies/Adverse Reactions: Allergies Allergy/AdvReac Type Severity Reaction Status Date / Time No Known Allergies Allergy Verified 11/03/17 02:34 Home Medications: Ambulatory Orders Amlodipine Besylate [Norvasc -] 5 mg PO DAILY tablet 11/05/17 Sulfamethoxazole/Trimethoprim [Bactrim Ds Tablet] 1 each PO BID #20 tablet 11/30 Anemia: Yes Asthma: No Cancer: Yes (Stage IV COLON CA 05/16-S/P RT AND CHEMO) Cardiac Disorders: No CVA: No COPD: No CHF: No Dementia: No Diabetes: No GI Disorders: No Disorders: No HTN: Yes Hypercholesterolemia: No Liver Disease: No Seizures: No Thyroid Disease: No - Surgical History Abdominal Surgery: Yes (colectomy/colostomy 03/07/17, revision 09/18) Orthopedic Surgery: Yes (RIGHT KNEE SX MENISCUS) - Family Disease History Family Disease History: Heart Disease: Father - Suicide/Smoking/Psychosocial Hx Smoking History: Never smoked Have you smoked in the past 12 months: No Information on smoking cessation initiated: No Hx Alcohol Use: No Drug/Substance Use Hx: Yes (cocaine) Substance Use Type: None Hx Substance Use Treatment: No Patient Lives Alone: No Lives with/in: spouse/SO Review of Systems - Review of Systems Able to Perform ROS?: No Constitutional: No: Symptoms Reported HEENTM: No: Symptoms Reported Respiratory: No: Symptoms reported Cardiac (ROS): No: Symptoms Reported ABD/GI: Yes: Abdominal cramping : Yes: See HPI Musculoskeletal: No: Symptoms Reported Integumentary: No: Symptoms Reported Neurological: No: Symptoms reported *Physical Exam - Vital Signs Last Vital Signs Temp Pulse Resp BP Pulse Ox 98.1 F 99 H 20 192/113 100 12/04/17 15:00 12/04/17 15:00 12/04/17 15:00 12/04/17 15:00 12/04/17 15:00 - Physical Exam General Appearance: Yes: Nourished, Appropriately Dressed. No: Apparent Distress HEENT: negative: Pale Conjunctivae Respiratory/Chest: positive: Lungs Clear, Normal Breath Sounds. negative: Respiratory Distress, Accessory Muscle Use Cardiovascular: positive: Regular Rhythm, Regular Rate. negative: Murmur Gastrointestinal/Abdominal: positive: Soft, Tenderness (mild mid suprapubic. Colostomy to right lower quadrant intact) Male Genitalia: positive: normal genitalia Extremity: positive: Normal Capillary Refill. negative: Pedal Edema Integumentary: positive: Normal Color, Warm, Moist Neurologic: positive: Motor Strength 5/5 (ambulatory). negative: Normal Mood/ Affect (anxious) ED Treatment Course - LABORATORY CBC & Chemistry Diagram: 12/04/17 16:53 12/04/17 16:53 Medical Decision Making - Medical Decision Making 12/04/17 16:25 Patient here for evaluation of mild mid suprapubic pressure and no urine output since 1 PM in his Alvarez catheter leg bag. Patient on exam did have mid suprapubic tenderness and mild distention. Patient requesting a Alvarez catheter to be removed versus change. I explained to patient that we will collect labs, removed Alvarez catheter and request that he urinate dependently once Alvarez catheters removed and which I will send a urinalysis urine culture from. Urine retention was likely due to passage of kidney stone versus defected catheter. 12/04/17 17:27 Laboratory Tests 12/04/17 12/04/17 15:32 16:53 WBC 11.5 H D Hgb 10.5 L Hct 29.6 L RDW 16.0 H D Lymphocytes % 7.7 L D Eosinophils % 5.7 H D Urine Protein 2+ H Urine Blood 3+ H Urine Nitrite Negative Ur Leukocyte Esterase 1+ H Urine WBC (Auto) 145 Urine RBC (Auto) 193 Urine culture was sent. Awaiting chemistry 12/04/17 17:28 12/04/17 17:38 Laboratory Tests 12/04/17 16:53 Sodium 133 L Chloride 99 Carbon Dioxide 20 L Anion Gap 14 BUN 32 H D Creatinine 1.8 H D Creat Clearance w eGFR 39.09 Random Glucose 101 Calcium 8.9 Total Bilirubin 0.4 D AST 21 ALT 35 D Alkaline Phosphatase 140 H Total Protein 7.7 D Albumin 4.0 D *DC/Admit/Observation/Transfer Diagnosis at time of Disposition: Urinary retention - Discharge Dispostion Disposition: HOME Condition at time of disposition: Improved - Referrals - Patient Instructions Printed Discharge Instructions: DI for Kidney Stones, DI for Urinary Retention in Men Additional Instructions: I recommend he drink at least 2 L of water today to continue to flush her kidneys and your bladder. Please follow-up with urologist this week as discussed. If you develop any difficulty urinating please return to the ED immediately - Post Discharge Activity
[2017-12-04 16:59] LABS: BASO % 0.7 % (0-2.0); EOS % 5.7 % (0-4.5); HEMATOCRIT 29.6 % (35.4-49); HEMOGLOBIN 10.5 GM/dL (11.7-16.9); LYMPH % 7.7 % (8-40); MCH 33.3 pg (25.7-33.7); MCHC 35.4 g/dl (32.0-35.9); MEAN CELL VOLUME 94.1 fl (80-96); MEAN PLT VOLUME 7.7 fl (7.5-11.1); MONO % 5.2 % (3.8-10.2); NEUT % 80.7 % (42.8-82.8); PLATELET COUNT 377 K/MM3 (134-434); RBC 3.15 M/mm3 (4.00-5.60); WHITE BLOOD COUNT 11.5 K/mm3 (4.0-10.0)
[2017-12-04 17:03] LABS: URINE APPEARANCE CLOUDY; URINE BILIRUBIN NEGATIVE (<2.0 mg/dL); URINE COLOR LTYELLOW; URINE GLUCOSE (UA) NEGATIVE (NEGATIVE); URINE KETONE NEGATIVE (NEGATIVE); URINE NITRITE NEGATIVE (NEGATIVE); URINE UROBILINOGEN NEGATIVE mg/dL (0.2-1.0)
[2017-12-04 17:05] LABS: URINE LEUK ESTERASE 1+ (NEGATIVE); URINE PROTEIN 2+ (NEGATIVE)
[2017-12-04 17:06] LABS: URINE BACTERIA RARE /hpf (NONE SEEN); URINE MUCUS RARE; YEAST RARE
[2017-12-04 17:32] LABS: ALK PHOS 140 U/L (45-117); ANION GAP 14 (8-16); BILIRUBIN,TOTAL 0.4 mg/dL (0.2-1.0); BLOOD UREA NITROGEN 32 mg/dL (7-18); CALCIUM 8.9 mg/dL (8.5-10.1); CHLORIDE 99 mmol/L (98-107); CO2 20 mmol/L (21-32); CREATININE 1.8 mg/dL (0.7-1.3); GLUCOSE,RANDOM 101 mg/dL (74-106); POTASSIUM 4.1 mmol/L (3.5-5.1); SGOT/AST 21 U/L (15-37); SGPT/ALT 35 U/L (12-78); SODIUM 133 mmol/L (136-145); TOT PROT 7.7 g/dl (6.4-8.2)
== END 2017-12-04 17:40 | disposition home or self-care (01) ==
LOC: JER 14:55
DX: R33.8 Other retention of urine (principal); I10 Essential (primary) hypertension; Z46.6 Encounter for fitting and adjustment of urinary device; Z85.038 Personal history of other malignant neoplasm of large intestine; Z93.3 Colostomy status
CPT/HCPCS: 36415; 80053; 81003; 81015; 85025; 87086; 99283-25

== ENCOUNTER 2018-03-07 11:39 | Day surgery (SDC) | payer OTHER ==
[2018-03-07 13:17] LABS: BASO % 1.2 % (0-2.0); EOS % 5.5 % (0-4.5); HEMATOCRIT 33.3 % (35.4-49); HEMOGLOBIN 11.4 GM/dL (11.7-16.9); LYMPH % 25.2 % (8-40); MCH 31.9 pg (25.7-33.7); MCHC 34.2 g/dl (32.0-35.9); MEAN CELL VOLUME 93.4 fl (80-96); MEAN PLT VOLUME 7.9 fl (7.5-11.1); MONO % 8.9 % (3.8-10.2); NEUT % 59.2 % (42.8-82.8); PLATELET COUNT 360 K/MM3 (134-434); RBC 3.57 M/mm3 (4.00-5.60); RDW 16.3 % (11.9-15.9); WHITE BLOOD COUNT 5.1 K/mm3 (4.0-10.0)
[2018-03-07 13:25] LABS: ANION GAP 6 (8-16); BLOOD UREA NITROGEN 18 mg/dL (7-18); CALCIUM 8.7 mg/dL (8.5-10.1); CHLORIDE 104 mmol/L (98-107); CO2 29 mmol/L (21-32); CREATININE 1.3 mg/dL (0.7-1.3); GLUCOSE,RANDOM 80 mg/dL (74-106); SODIUM 139 mmol/L (136-145)
[2018-03-07 14:10] LABS: ALBUMIN 3.7 g/dl (3.4-5.0); ALK PHOS 130 U/L (45-117); BILIRUBIN,DIRECT < 0.2 mg/dL (0.0-0.2); BILIRUBIN,TOTAL 0.3 mg/dL (0.2-1.0); SGOT/AST 17 U/L (15-37); SGPT/ALT 31 U/L (12-78); TOT PROT 7.1 g/dl (6.4-8.2)
[2018-03-07 18:05] VITALS: BP 144/106; PULSE 71; TEMP 99
[2018-03-07] MEDS ORDERED: PORTA CATH FLUSH 10 ML IVPUSH ONE (18:06)
== END 2018-03-07 12:15 | disposition home or self-care (01) ==
LOC: JONCNONCHE 11:39 → J7W 11:55 → JONCNONCHE 12:15
PROVIDERS: ATTEND Internal Medicine Hematology & Oncology
PROC: 3C1ZX8Z Irrigation of Indwelling Device using Irrigating Substance, External Approach (ICD-10-PCS; principal; 2018-03-07)
DX: Z43.8 Encounter for attention to other artificial openings (principal); C20 Malignant neoplasm of rectum
CPT/HCPCS: 36415; 80048; 80076; 82378; 85025; 96523

== ENCOUNTER 2018-04-14 08:51 | Day surgery (SDC) | payer OTHER ==
[2018-04-14] MEDS ORDERED: SODIUM CHLORIDE 1,000 ML IV ONE (10:15)
[2018-04-14 10:16] VITALS: BP 115/78; PULSE 76; TEMP 97.7
== END 2018-04-14 11:30 | disposition home or self-care (01) ==
LOC: JONCNONCHE 08:51 → J7W 09:21 → JONCNONCHE 11:30
PROVIDERS: ATTEND Internal Medicine Hematology & Oncology
PROC: 3E0437Z Introduction of Electrolytic and Water Balance Substance into Central Vein, Percutaneous Approach (ICD-10-PCS; principal; 2018-04-14)
DX: E86.0 Dehydration (principal); C20 Malignant neoplasm of rectum
CPT/HCPCS: 96360; 96361; J7030

== ENCOUNTER 2018-05-08 19:40 | Inpatient (IN) | payer OTHER ==
--- NOTE | 2018-05-08 19:45 | PDOC ---
Rapid Medical Evaluation Time Seen by Provider: 05/08/18 19:43 Medical Evaluation: Allergies Allergy/AdvReac Type Severity Reaction Status Date / Time No Known Allergies Allergy Verified 11/03/17 02:34 05/08/18 19:43 I have performed a brief in-person evaluation of this patient. The patient presents with a chief complaint of: abdominal pain with diarrhea since yesterday. Complaining of nausea. Denies vomiting Pertinent physical exam findings are: NAD hyperactive bowels, non tender abdomen I have ordered the following: labs, antiemetic The patient will proceed to the Ed for further evaluation. Discharge Disposition - Referrals Referrals: Marva Velasco MD [Primary Care Provider] - - Patient Instructions - Post Discharge Activity
[2018-05-08] MEDS ORDERED: ONDANSETRON *ODT* 4 MG TABLET SL ONE (19:49)
[2018-05-08] MEDS ORDERED: ONDANSETRON *ODT* 4 MG TABLET ONE (20:05)
[2018-05-08 20:13] LABS: BASO % 0.5 % (0-2.0); EOS % 1.6 % (0-4.5); HEMATOCRIT 37.9 % (35.4-49); HEMOGLOBIN 13.2 GM/dL (11.7-16.9); LYMPH % 13.8 % (8-40); MCH 34.1 pg (25.7-33.7); MCHC 34.8 g/dl (32.0-35.9); MEAN PLT VOLUME 8.2 fl (7.5-11.1); NEUT % 78.1 % (42.8-82.8); PLATELET COUNT 530 K/MM3 (134-434); RBC 3.86 M/mm3 (4.00-5.60); RDW 18.3 % (11.9-15.9); WHITE BLOOD COUNT 10.1 K/mm3 (4.0-10.0)
[2018-05-08] MEDS ORDERED: SODIUM CHLORIDE 1,000 ML IV STA ×2 (21:11→23:57)
--- NOTE | 2018-05-08 21:11 | PDOC ---
Attending Attestation - Resident Resident Name: Garrison Marquez - ED Attending Attestation I have performed the following: I have examined & evaluated the patient, The case was reviewed & discussed with the resident, I agree w/resident's findings & plan, Exceptions are as noted - HPI HPI: 05/08/18 21:08 57 yo male p/w one day of vomting and nausea.He has c/o diffuse abd pain PMH rectal cancer and he is s/p surgery and is currently on chemo -pain is 03/10 -she denies fever or chills - Physicial Exam PE: 05/08/18 21:11 wnwd 57 yo male p/e complaint vomiting head ncat dry mucus membranes neck supple lungs cta b/l cvs [id number] no cva tenderness abd hyperactive bowel sounds,diffuse tenderness ext no edema skin warm and dry neruo axox3,ambulatory - Medical Decision Making 05/09/18 00:55 ABDOMINAL FUA reveals SBO with step laddering,air-fluid levels plan admit med/surgery ngt surgery,GI consult,hemo/onc consult 05/09/18 01:[address] Marva Velasco and he will admit him to his service
[2018-05-08] MEDS ORDERED: morphine CARPU-JECT 4 MG/1 ML DISP.SYRIN IVPUSH ONE (21:12)
--- NOTE | 2018-05-08 21:17 | PDOC ---
History of Present Illness - General Chief Complaint: Pain, Acute Stated Complaint: ABD PAIN Time Seen by Provider: 05/08/18 19:43 - History of Present Illness Initial Comments: 05/08/18 21:17 57 yo M w/ PMH HTN, Nephrolithiasis (scheduled for stent removal 05/10/18), rectal cancer s/p surgery 11/2017 and is currently on chemo, p/w acute intermittent colicky sharp 03/10 diffuse abdominal pain w/ n/v x1d. Pt was eating pasta and meatballs last night when pain occurred. Never happened before. No clear inciting factors and nothing noted to help the pain. Pt had 3 episodes of non-bloody vomiting and one episode of diarrhea. Denies fevers, chills, cp, sob, blood in stools, recent travel, sick contacts, changes in diet , urinary sxs. SH: denies smoke etoh, drugs Past History - Past Medical History Allergies/Adverse Reactions: Allergies Allergy/AdvReac Type Severity Reaction Status Date / Time No Known Allergies Allergy Verified 05/08/18 20:33 Home Medications: Ambulatory Orders Amlodipine Besylate [Norvasc -] 5 mg PO DAILY tablet 11/05/17 Chemo Pill Q Other Week 1 tab PO ASDIR 05/08/18 Anemia: Yes Asthma: No Cancer: Yes (Stage IV COLON CA 05/16-S/P RT AND CHEMO) Cardiac Disorders: No CVA: No COPD: No CHF: No Dementia: No Diabetes: No GI Disorders: No Disorders: Yes (KIDNEY STONES-STENT) HTN: Yes Hypercholesterolemia: No Liver Disease: No Seizures: No Thyroid Disease: No - Surgical History Abdominal Surgery: Yes (colectomy/colostomy 03/07/17, revision 09/18) Appendectomy: No Cardiac Surgery: No Cholecystectomy: No Lung Surgery: No Neurologic Surgery: No Orthopedic Surgery: Yes (RIGHT KNEE SX MENISCUS) - Family Disease History Family Disease History: Heart Disease: Father - Suicide/Smoking/Psychosocial Hx Smoking History: Never smoked Have you smoked in the past 12 months: No Information on smoking cessation initiated: No Hx Alcohol Use: No Drug/Substance Use Hx: No Substance Use Type: None Hx Substance Use Treatment: No Review of Systems - Review of Systems Constitutional: Yes: See HPI HEENTM: Yes: See HPI Respiratory: Yes: See HPI Cardiac (ROS): Yes: See HPI ABD/GI: Yes: See HPI : Yes: See HPI Musculoskeletal: Yes: See HPI Integumentary: Yes: See HPI Neurological: Yes: See HPI Endocrine: Yes: See HPI Hematologic/Lymphatic: Yes: See HPI *Physical Exam - Vital Signs Last Vital Signs Temp Pulse Resp BP Pulse Ox 97.7 F 103 H 20 129/87 98 05/08/18 19:45 05/08/18 19:45 05/08/18 19:45 05/08/18 19:45 05/08/18 19:45 - Physical Exam Comments: 05/08/18 21:22 General: Well-nourished well-developed individual, mild distress and hiccuping HEENT: NCAT, dry MM Neck: Supple, no lymphadenopathy Respiratory: CTAB cardio: tachycardia RR S1 S2 no m/r/g Abdomen:hyperactive BS Soft, NTND. surgical scars in lower abd. Extremities: radial 2+ b/l. Warm, dry, no cyanosis, clubbing. no leg edema, swelling or calf tenderness Skin: intact. no rashes Neuro: Alert and oriented x3, nonfocal exam, grossly intact Psych: Normal mood and affect ED Treatment Course - LABORATORY CBC & Chemistry Diagram: 05/08/18 20:07 05/08/18 22:10 - ADDITIONAL ORDERS Additional order review: Laboratory Results 05/08/18 20:07 Sodium Cancelled Potassium Cancelled Chloride Cancelled Carbon Dioxide Cancelled Anion Gap Cancelled BUN Cancelled Creatinine Cancelled Creat Clearance w eGFR Cancelled Random Glucose Cancelled Calcium Cancelled Total Bilirubin Cancelled AST Cancelled ALT Cancelled Alkaline Phosphatase Cancelled Total Protein Cancelled Albumin Cancelled Total Amylase Cancelled Lipase Cancelled 05/08/18 20:07 RBC 3.86 L MCV 98.0 H MCHC 34.8 RDW 18.3 H MPV 8.2 Neutrophils % 78.1 Lymphocytes % 13.8 D Monocytes % 6.0 Eosinophils % 1.6 Basophils % 0.5 - RADIOLOGY Radiology Studies Ordered: Category Date Time Status ABDOMEN FLAT & UPRIGHT [RAD] Stat Radiology 05/08/18 21:09 Ordered CHEST PA & LAT [RAD] Stat Radiology 05/08/18 21:10 Ordered - Medications Given in the ED: ED Medications Discontinued Medications Generic Name Dose Route Start Last Admin Trade Name Freq PRN Reason Stop Dose Admin Ondansetron HCl 4 mg 05/08/18 19:49 05/08/18 20:15 Zofran Odt - SL 05/08/18 19:50 4 mg ONCE ONE Administration Medical Decision Making - Medical Decision Making 05/08/18 21:37 57 yo M w/ PMH HTN, Nephrolithiasis (scheduled for stent removal 05/10/18), rectal cancer s/p surgery 11/2017 and is currently on chemo, p/w acute intermittent colicky sharp 03/10 diffuse abdominal pain w/ n/v x1d. Ddx: SBO, gastroenteritis, nephrolithiasis -CBC, CMP, UA, lipase, lactic acid -CXR -Abd XR r/o SBO -morphine -IVF bolus, zofran 05/09/18 00:07 lipase nl lactic acid 2.6 elevated bun/cr alk phosph 150 leukocytosis f/u XR pt signed out to Dr. Correa *DC/Admit/Observation/Transfer Diagnosis at time of Disposition: Abdominal pain Qualifiers: Abdominal location: generalized Qualified Code(s): R10.84 - Generalized abdominal pain - Referrals Referrals: Marva Velasco MD [Primary Care Provider] - - Patient Instructions - Post Discharge Activity
[2018-05-08] MEDS ORDERED: MORPHINE SULFATE 2 MG/ML VIAL ONE (21:32)
[2018-05-08 23:23] LABS: ALBUMIN 3.7 g/dl (3.4-5.0); ALK PHOS 153 U/L (45-117); ANION GAP 11 MMOL/L (8-16); BILIRUBIN,TOTAL 0.6 mg/dL (0.2-1); BLOOD UREA NITROGEN 29 mg/dL (7-18); CALCIUM 9.3 mg/dL (8.5-10.1); CHLORIDE 103 mmol/L (98-107); CO2 22 mmol/L (21-32); CREATININE 1.5 mg/dL (0.55-1.3); GLUCOSE,RANDOM 124 mg/dL (74-106); LIPASE 89 U/L (73-393); POTASSIUM 4.2 mmol/L (3.5-5.1); SGOT/AST 18 U/L (15-37); SGPT/ALT 27 U/L (13-61); SODIUM 136 mmol/L (136-145); TOT PROT 7.6 g/dl (6.4-8.2)
[2018-05-09] MEDS ORDERED: morphine CARPU-JECT 2 MG/1 ML DISP.SYRIN IVPUSH ONE (00:57)
[2018-05-09] MEDS ORDERED: LORazepam 2 MG/ML SDV VIAL ONE (01:03)
[2018-05-09] MEDS ORDERED: MORPHINE SULFATE 2 MG/ML VIAL ONE (01:03)
--- NOTE | 2018-05-09 01:05 | PDOC ---
*Physical Exam - Vital Signs Last Vital Signs Temp Pulse Resp BP Pulse Ox 97.7 F 103 H 20 129/87 98 05/08/18 19:45 05/08/18 19:45 05/08/18 19:45 05/08/18 19:45 05/08/18 19:45 ED Treatment Course - LABORATORY CBC & Chemistry Diagram: 05/09/18 02:02 05/08/18 22:10 - ADDITIONAL ORDERS Additional order review: Laboratory Results 05/08/18 05/08/18 05/08/18 22:10 22:10 20:07 Sodium 136 Cancelled Potassium 4.2 Cancelled Chloride 103 Cancelled Carbon Dioxide 22 Cancelled Anion Gap 11 Cancelled BUN 29 H Cancelled Creatinine 1.5 H Cancelled Creat Clearance w eGFR 48.24 Cancelled Random Glucose 124 H Cancelled Lactic Acid 2.6 H* Calcium 9.3 Cancelled Total Bilirubin 0.6 Cancelled AST 18 Cancelled ALT 27 Cancelled Alkaline Phosphatase 153 H Cancelled Total Protein 7.6 Cancelled Albumin 3.7 Cancelled Total Amylase Cancelled Lipase 89 Cancelled 05/08/18 20:07 RBC 3.86 L MCV 98.0 H MCHC 34.8 RDW 18.3 H MPV 8.2 Neutrophils % 78.1 Lymphocytes % 13.8 D Monocytes % 6.0 Eosinophils % 1.6 Basophils % 0.5 - Medications Given in the ED: ED Medications Discontinued Medications Generic Name Dose Route Start Last Admin Trade Name Freq PRN Reason Stop Dose Admin Sodium Chloride 1,000 mls @ 1,000 mls/hr 05/08/18 21:11 05/08/18 21:42 Normal Saline - IV 05/08/18 22:10 1,000 mls/hr ASDIR STA Administration Morphine Sulfate 2 mg 05/08/18 21:12 05/08/18 21:42 Morphine Injection - IVPUSH 05/08/18 21:13 2 mg ONCE ONE Administration Ondansetron HCl 4 mg 05/08/18 19:49 05/08/18 20:15 Zofran Odt - SL 05/08/18 19:50 4 mg ONCE ONE Administration Medical Decision Making - Medical Decision Making 05/09/18 01:03 Abd XR appears to have air fluid levels. Pt in agreement to have NGT placed. Ativan 0.5 mg IV given as pt is extremely anxious about diagnosis and placement of NGT. Morphine 2mg IV given for pain as pt has returning of pain in abdomen since last dose of morphine. Pt to be admitted for SBO. Call placed out to Dr. Marva Velasco. 05/09/18 01:13 Pt accepted for M/S admission. Will make NPO, NGT placement, NS @ 100 ml/hr Will place consults for Dr. Chacon, Dr. Littlejohn, Dr. Rae (pt was to have stents removed on 05/10), Dr. Cisneros. 05/09/18 01:57 NGT placed. Will confirm placment with CXR. 05/09/18 04:18 Repeat Lactic acid now at 1.5 05/09/18 06:29 NGT tip appears to be in stomach. Awaiting official read from radiology. *DC/Admit/Observation/Transfer Diagnosis at time of Disposition: SBO (small bowel obstruction) Abdominal pain Qualifiers: Abdominal location: generalized Qualified Code(s): R10.84 - Generalized abdominal pain - Discharge Dispostion Condition at time of disposition: Fair Decision to Admit order: Yes - Referrals - Patient Instructions - Post Discharge Activity
[2018-05-09] MEDS ORDERED: SODIUM CHLORIDE 1,000 ML IV SCH (01:30)
[2018-05-09 02:20] LABS: BASO % 0.4 % (0-2.0); EOS % 1.1 % (0-4.5); HEMATOCRIT 34.5 % (35.4-49); HEMOGLOBIN 11.9 GM/dL (11.7-16.9); LYMPH % 12.8 % (8-40); MCH 34.3 pg (25.7-33.7); MCHC 34.7 g/dl (32.0-35.9); MEAN CELL VOLUME 98.8 fl (80-96); MEAN PLT VOLUME 7.7 fl (7.5-11.1); MONO % 6.1 % (3.8-10.2); NEUT % 79.6 % (42.8-82.8); PLATELET COUNT 401 K/MM3 (134-434); RBC 3.49 M/mm3 (4.00-5.60); RDW 18.2 % (11.9-15.9); WHITE BLOOD COUNT 9.1 K/mm3 (4.0-10.0)
[2018-05-09 06:43] LABS: URINE APPEARANCE SLCLOUDY; URINE BILIRUBIN NEGATIVE (<2.0 mg/dL); URINE COLOR YELLOW; URINE GLUCOSE (UA) NEGATIVE (NEGATIVE); URINE KETONE NEGATIVE (NEGATIVE); URINE LEUK ESTERASE 1+ (NEGATIVE); URINE NITRITE NEGATIVE (NEGATIVE); URINE PROTEIN 1+ (NEGATIVE); URINE UROBILINOGEN NEGATIVE mg/dL (0.2-1.0)
[2018-05-09 06:52] LABS: URINE MUCUS RARE
[2018-05-09 08:00] LABS: ALBUMIN 3.2 g/dl (3.4-5.0); ALK PHOS 138 U/L (45-117); ANION GAP 9 MMOL/L (8-16); BILIRUBIN,TOTAL 0.4 mg/dL (0.2-1); BLOOD UREA NITROGEN 25 mg/dL (7-18); CALCIUM 8.5 mg/dL (8.5-10.1); CHLORIDE 108 mmol/L (98-107); CO2 22 mmol/L (21-32); CREATININE 1.3 mg/dL (0.55-1.3); GLUCOSE,RANDOM 95 mg/dL (74-106); POTASSIUM 4.1 mmol/L (3.5-5.1); SGOT/AST 10 U/L (15-37); SGPT/ALT 22 U/L (13-61); SODIUM 139 mmol/L (136-145); TOT PROT 6.6 g/dl (6.4-8.2)
--- NOTE | 2018-05-09 08:19 | PDOC ---
*Physical Exam - Vital Signs Last Vital Signs Temp Pulse Resp BP Pulse Ox 98.4 F 74 17 140/92 99 05/09/18 07:31 05/09/18 07:31 05/09/18 07:31 05/09/18 07:31 05/09/18 07:31 ED Treatment Course - LABORATORY CBC & Chemistry Diagram: 05/09/18 02:02 05/09/18 06:25 - ADDITIONAL ORDERS Additional order review: Laboratory Results 05/08/18 05/08/18 05/08/18 22:10 22:10 20:07 Sodium 136 Cancelled Potassium 4.2 Cancelled Chloride 103 Cancelled Carbon Dioxide 22 Cancelled Anion Gap 11 Cancelled BUN 29 H Cancelled Creatinine 1.5 H Cancelled Creat Clearance w eGFR 48.24 Cancelled Random Glucose 124 H Cancelled Lactic Acid 2.6 H* Calcium 9.3 Cancelled Total Bilirubin 0.6 Cancelled AST 18 Cancelled ALT 27 Cancelled Alkaline Phosphatase 153 H Cancelled Total Protein 7.6 Cancelled Albumin 3.7 Cancelled Total Amylase Cancelled Lipase 89 Cancelled 05/08/18 20:07 RBC 3.86 L MCV 98.0 H MCHC 34.8 RDW 18.3 H MPV 8.2 Neutrophils % 78.1 Lymphocytes % 13.8 D Monocytes % 6.0 Eosinophils % 1.6 Basophils % 0.5 - Medications Given in the ED: ED Medications Discontinued Medications Generic Name Dose Route Start Last Admin Trade Name Freq PRN Reason Stop Dose Admin Sodium Chloride 1,000 mls @ 1,000 mls/hr 05/08/18 21:11 05/08/18 21:42 Normal Saline - IV 05/08/18 22:10 1,000 mls/hr ASDIR STA Administration Sodium Chloride 1,000 mls @ 1,000 mls/hr 05/08/18 23:57 05/09/18 02:00 Normal Saline - IV 05/09/18 00:56 1,000 mls/hr ASDIR STA Administration Lorazepam 0.5 mg 05/09/18 00:57 05/09/18 01:05 Ativan Injection - IVPUSH 05/09/18 00:58 0.5 mg ONCE ONE Administration Morphine Sulfate 2 mg 05/08/18 21:12 05/08/18 21:42 Morphine Injection - IVPUSH 05/08/18 21:13 2 mg ONCE ONE Administration Morphine Sulfate 2 mg 05/09/18 00:57 05/09/18 01:05 Morphine Injection - IVPUSH 05/09/18 00:58 2 mg ONCE ONE Administration Ondansetron HCl 4 mg 05/08/18 19:49 05/08/18 20:15 Zofran Odt - SL 05/08/18 19:50 4 mg ONCE ONE Administration Medical Decision Making - Medical Decision Making I was called by Dr. Ambriz in the ED and was told that this patient had an SBO on their imaging exam. Will attempt to call Dr. Marva Velasco. 05/09/18 08:18 *DC/Admit/Observation/Transfer Diagnosis at time of Disposition: SBO (small bowel obstruction) Abdominal pain Qualifiers: Abdominal location: generalized Qualified Code(s): R10.84 - Generalized abdominal pain - Discharge Dispostion Condition at time of disposition: Fair - Referrals - Patient Instructions - Post Discharge Activity
[2018-05-09 08:31] VITALS: BMI 25.8
[2018-05-09] MEDS ORDERED: D5-1/2NS+10 MEQ KCL - 10 MEQ/1,000 ML INFUS.BAG IV SCH (09:30)
[2018-05-09] MEDS ORDERED: MEPERIDINE HCL CARPU-JECT 50 MG/1 ML DISP.SYRIN IM PRN (09:31)
--- NOTE | 2018-05-09 09:46 | CONSULT ---
Consultation: REQUESTING PROVIDER: CONSULT REQUEST: We have been asked to medically evaluate this patient for history of Rectal Ca. on chemo HISTORY OF PRESENT ILLNESS: 57 yo M w/ PMHx HTN, , rectal cancer and Nephrolithiasis (scheduled for stent removal 05/10/18) presents with one day history of abdominal pain. He describes intermittent 8/10 non-radiating LLQ pain. No alleviating or aggravating factors. Imaging revels SBO with no free air. Patient NPO and NG tube for decompression. Pain well controlled with IV morphine. In terms of rectal ca stage IV rectal cancer, s/p cemotherapy with FOLFOX --went into complete remission, s/p Xeloda/RT and more recently resection with colostomy with complete reanastomosis on 11/2017. Denies CP,ROMEO, SOB, palpitations, nausea or vomiting. REVIEW OF SYSTEMS: CONSTITUTIONAL: Absent: fever, chills, diaphoresis, generalized weakness, malaise, loss of appetite, weight change HEENT: Absent: rhinorrhea, nasal congestion, throat pain, throat swelling, difficulty swallowing, mouth swelling, ear pain, eye pain, visual changes CARDIOVASCULAR: Absent: chest pain, syncope, palpitations, irregular heart rate, lightheadedness , peripheral edema RESPIRATORY: Absent: cough, shortness of breath, dyspnea with exertion, orthopnea, wheezing, stridor, hemoptysis GASTROINTESTINAL:abdominal pain, abdominal distension Absent: , nausea, vomiting, diarrhea, constipation, melena, hematochezia GENITOURINARY: Absent: dysuria, frequency, urgency, hesitancy, hematuria, flank pain, genital pain MUSCULOSKELETAL: Absent: myalgia, arthralgia, joint swelling, back pain, neck pain SKIN: Absent: rash, itching, pallor HEMATOLOGIC/IMMUNOLOGIC: Absent: easy bleeding, easy bruising, lymphadenopathy, frequent infections ENDOCRINE: Absent: unexplained weight gain, unexplained weight loss, heat intolerance, cold intolerance NEUROLOGIC: Absent: headache, focal weakness or paresthesias, dizziness, unsteady gait, seizure, mental status changes, bladder or bowel incontinence PSYCHIATRIC: Absent: anxiety, depression, suicidal or homicidal ideation, hallucinations. PHYSICAL EXAMINATION Vital Signs - 24 hr 05/08/18 05/09/18 05/09/18 19:45 06:33 07:31 Temperature 97.7 F 97.9 F 98.4 F Pulse Rate 103 H Pulse Rate [ 72 74 Apical] Respiratory 20 20 17 Rate Blood Pressure 129/87 Blood Pressure 158/101 H 140/92 [Arm] O2 Sat by Pulse 98 97 99 Oximetry (%) 05/09/18 05/09/18 08:29 08:42 Temperature 97.6 F Pulse Rate 69 Pulse Rate [ Apical] Respiratory 18 Rate Blood Pressure 150/90 Blood Pressure [Arm] O2 Sat by Pulse 99 Oximetry (%) GENERAL: AAOx3, NAD HEAD: NCAT EYES: PERRLA, EOMI, sclera anicteric, conjunctiva clear. No lid lag. EARS, NOSE, THROAT: Moist mucous membranes. poor dentition. NG tube in place 75cm @ nose. NECK:Supple without lymphadenopathy, JVD, or masses. LUNGS: CTAB. No wheezes, and no crackles. No accessory muscle use. HEART: RRR, normal S1 and S2 without murmur, rub or gallop. CHEST: mediport right chest wall. ABDOMEN: Soft, LLQ tenderness, mildly distended. NABS, no guarding, no rebound, no masses. No hepatomegaly or splenomegaly. surgical scars R and L LQ. MUSCULOSKELETAL: Normal range of motion at all joints. No bony deformities or tenderness. No CVA tenderness. UPPER EXTREMITIES: 2+ pulses, warm, well-perfused. No cyanosis. No clubbing. No peripheral edema. LOWER EXTREMITIES: 2+ pulses, warm, well-perfused. No calf tenderness. No peripheral edema. NEUROLOGICAL: Cranial nerves II-XII intact. Normal speech. gait not observed. PSYCHIATRIC: Cooperative. Good eye contact. Appropriate mood and affect. SKIN: Right and left Lower quadrant surgical scars each appox. 5cm Laboratory Results - last 24 hr 05/08/18 05/08/18 05/08/18 20:07 20:07 22:10 WBC 10.1 H RBC 3.86 L Hgb 13.2 Hct 37.9 MCV 98.0 H MCH 34.1 H MCHC 34.8 RDW 18.3 H Plt Count 530 H MPV 8.2 Absolute Neuts (auto) 7.9 Neutrophils % 78.1 Lymphocytes % 13.8 D Monocytes % 6.0 Eosinophils % 1.6 Basophils % 0.5 Nucleated RBC % 0 Sodium Cancelled 136 Potassium Cancelled 4.2 Chloride Cancelled 103 Carbon Dioxide Cancelled 22 Anion Gap Cancelled 11 BUN Cancelled 29 H Creatinine Cancelled 1.5 H Creat Clearance w eGFR Cancelled 48.24 Random Glucose Cancelled 124 H Lactic Acid Calcium Cancelled 9.3 Total Bilirubin Cancelled 0.6 AST Cancelled 18 ALT Cancelled 27 Alkaline Phosphatase Cancelled 153 H Total Protein Cancelled 7.6 Albumin Cancelled 3.7 Total Amylase Cancelled Lipase Cancelled 89 Urine Color Urine Appearance Urine pH Ur Specific [place] Urine Protein Urine Glucose (UA) Urine Ketones Urine Blood Urine Nitrite Urine Bilirubin Urine Urobilinogen Ur Leukocyte Esterase Urine WBC (Auto) Urine RBC (Auto) Urine Mucus 05/08/18 05/09/18 05/09/18 22:10 02:02 02:02 WBC 9.1 RBC 3.49 L Hgb 11.9 Hct 34.5 L MCV 98.8 H MCH 34.3 H MCHC 34.7 RDW 18.2 H Plt Count 401 D MPV 7.7 Absolute Neuts (auto) 7.3 Neutrophils % 79.6 Lymphocytes % 12.8 Monocytes % 6.1 Eosinophils % 1.1 Basophils % 0.4 Nucleated RBC % 0 Sodium Potassium Chloride Carbon Dioxide Anion Gap BUN Creatinine Creat Clearance w eGFR Random Glucose Lactic Acid 2.6 H* 1.5 Calcium Total Bilirubin AST ALT Alkaline Phosphatase Total Protein Albumin Total Amylase Lipase Urine Color Urine Appearance Urine pH Ur Specific [place] Urine Protein Urine Glucose (UA) Urine Ketones Urine Blood Urine Nitrite Urine Bilirubin Urine Urobilinogen Ur Leukocyte Esterase Urine WBC (Auto) Urine RBC (Auto) Urine Mucus 05/09/18 05/09/18 06:25 06:35 WBC RBC Hgb Hct MCV MCH MCHC RDW Plt Count MPV Absolute Neuts (auto) Neutrophils % Lymphocytes % Monocytes % Eosinophils % Basophils % Nucleated RBC % Sodium 139 Potassium 4.1 Chloride 108 H Carbon Dioxide 22 Anion Gap 9 BUN 25 H Creatinine 1.3 Creat Clearance w eGFR 56.90 Random Glucose 95 Lactic Acid Calcium 8.5 Total Bilirubin 0.4 AST 10 L ALT 22 Alkaline Phosphatase 138 H Total Protein 6.6 Albumin 3.2 L Total Amylase Lipase Urine Color Yellow Urine Appearance Slcloudy Urine pH 5.0 Ur Specific [place] 1.019 Urine Protein 1+ H Urine Glucose (UA) Negative Urine Ketones Negative Urine Blood 2+ H Urine Nitrite Negative Urine Bilirubin Negative Urine Urobilinogen Negative Ur Leukocyte Esterase 1+ H Urine WBC (Auto) 14 Urine RBC (Auto) 15 Urine Mucus Rare Active Medications Generic Name Dose Route Start Last Admin Trade Name Freq PRN Reason Stop Dose Admin Potassium Chloride/Dextrose/Sod Cl 10 meq in 1,000 mls @ 100 mls/hr 05/09/18 09:30 D5-1/2ns+10 Meq Kcl - IV ASDIR DANIELA Meperidine HCl 50 mg 05/09/18 09:31 Demerol Injection - IM Q6H PRN PAIN LEVEL 4 - 6 ASSESSMENT/PLAN: 57 yo M w/ PMHx HTN, , rectal cancer s/p surgery 11/2017 and is currently on chemo,and Nephrolithiasis (scheduled for stent removal 05/10/18) presents with one day history of abdominal pain. Admitted for SBO. Dispo: We will continue to follow the patient. Thank you for this consultative opportunity. Problem List - Problems (1) Rectal malignant neoplasm Assessment/Plan: S/P radiation and resection. * Will hold Chemo for now * Can resume once SBO resolved. (2) Small bowel obstruction Assessment/Plan: XRAY shows SBO with no free air. * NPO * NG tube to suction * Pain control with IV meds * IVF with D5 1/2NS +KCL * CT with IV and oral contrast to assess SBO for mass. (3) Nephrolithiasis Assessment/Plan: Scheduled for stent removal 05/10 * Renal function WNL * continue to monitor. (4) HTN (hypertension) Visit type - Emergency Visit Emergency Visit: Yes ED Registration Date: 05/09/18 Care time: The patient presented to the Emergency Department on the above date and was hospitalized for further evaluation of their emergent condition. - New Patient This patient is new to me today: Yes Date on this admission: 05/10/18 - Critical Care Critical Care patient: No
--- NOTE | 2018-05-09 10:08 | HP ---
DATE OF ADMISSION: DATE OF DICTATION: 05/09/2018 HISTORY: This is a 57-year-old with the past medical history of nephrolithiasis, rectal cancer, status post-surgery in November 2017 on chemotherapy; came to the emergency room yesterday with colicky sharp abdominal pain and nausea, vomiting, diarrhea one day duration. He is still complaining of pain, now vomiting. The abdomen x-ray showed partial intestinal obstruction, so he was admitted with the diagnosis of intestinal obstruction. PHYSICAL EXAMINATION: Vitals: Today, BP 150/90, pulse 72, respirations 20, temperature 98. HEENT: Unremarkable. Has NG tube in place. Neck: Is supple, no JVD. Lungs: Are clear. Heart: S1, S2 normal, no S3, S4. Abdomen: Mild distention present, no bowel sounds heard. Rectal: Examination negative. Extremities: Legs no edema. Neurologic: Grossly normal. LABORATORY REPORTS: WBC 9.1, hemoglobin 11.9, hematocrit 34, platelets 401. Chemistry: Sodium 139, potassium 4.1, chloride 108, CO2 22, BUN 25, creatinine 1.3. LFTs are normal. Alkaline phosphatase slightly elevated 138. Chest x-ray is negative. Abdominal x-ray showed some bowel obstruction pattern. IMPRESSION: 1. Small bowel obstruction. 2. Abdominal distention. 3. Cancer of the colon. 4. Nephrolithiasis with stent in place. PLAN: Keep IV hydration, GI consult, Surgical consult, will follow up. Wiley [id number]
[2018-05-09] MEDS: MORPHINE SULFATE 2 MG/ML VIAL IVPUSH PRN ×2 (10:30→18:41)
[2018-05-09] MEDS: D5-1/2NS+10 MEQ KCL - 10 MEQ/1,000 ML INFUS.BAG IV SCH ×2 (11:00→19:28)
--- NOTE | 2018-05-09 11:46 | EKG ---
Test Reason : Blood Pressure : / mmHG Vent. Rate : 081 BPM Atrial Rate : 081 BPM P-R Int : 140 ms QRS Dur : 080 ms QT Int : 394 ms P-R-T Axes : 059 -32 052 degrees QTc Int : 457 ms NORMAL SINUS RHYTHM LEFT AXIS DEVIATION ABNORMAL ECG WHEN COMPARED WITH ECG OF 03-NOV-2017 03:24, NO SIGNIFICANT CHANGE WAS FOUND Confirmed by John Plaza MD ([id number]) on 05/09/2018 11:46:11 AM Referred By: Confirmed By:John Plaza MD
--- NOTE | 2018-05-09 12:54 | CONSULT ---
Consult Consult Specialty:: General Surgery Referred by:: Ines Clarke Reason for Consultation:: SBO - History of Present Illness Chief Complaint: periumbilical pain, N/V History of Present Illness: 57yo M known to me with HTN, nephrolithiasis, rectal CA s/p neoadjuvant chemoRT , emergent colostomy for obstructing tumor (03/[address] Angelo and myself), subsequent robotic laparoscopic LAR with colostomy reversal and diverting ileostomy and parastomal hernia repair 09/18, and ileostomy takedown 12/16, previous Folfox, now on Xeloda po only; he was in his usual state of health Tuesday until evening, when he began having periumbilical pain, followed by 3 episodes NB/NB vomiting (food he'd eaten), and a loose/diarrheal stool (had normal BM that morning). The pain persisted, coming and going into yesterday, during which he ate 2 pieces buttered toast, 2 cups of tea and warm marianne jose, which stayed down. He came to ER last evening, because the pain was not abating , and he got called by a nurse regarding his scheduled L ureteral stent removal tomorrow, who suggested he seek attention for his symptoms. In the ER, he was afebrile, with wbc 11, now 9, dehydrated by labs, now with improved renal function and normal lactate, and AXR showed possible SBO with air-fluid levels in right-sided SB loops. NGT was placed, and he was admitted to medicine. CT is now ordered and is pending contrast via NGT, which is just starting. Surgery is asked to assess. He is seen in his bed, with Dr. Littlejohn from GI present, NG now clamped, and without pain at this time. He did get morphine earlier. He has not had BM since yesterday's loose stool. He also has had intermittent hiccups since Tuesday. Denies F/C, urinary problems or changes, ROMEO/dizziness. He has a small umbilical/ ?incisional hernia, but denies any bulging in the area. - History Source History Provided By: Patient Limitations to Obtaining History: No Limitations - Past Medical History Cardio/Vascular: Yes: HTN Gastrointestinal: Yes: Cancer (rectal s/p neoadjuvant chemoRT and postop chemo) , GI Bleed (h/o last year when CA diagnosed), Other (colon polyps) Renal/: Yes: Renal Calculi (s/p ESWL), Other (L ureteral stent in place, due for removal) - Past Surgical History Past Surgical History: Yes: Colectomy (robotic laparoscopic LAR 09/[address] Travis with colostomy reversal and diverting ileostomy), Colonoscopy, Colostomy (03/17 for obstructing rectal tumor), Ileosotomy (reversed 12/[address] 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 History of Recent Travel: No Home Medications - Allergies Allergies/Adverse Reactions: Allergies Allergy/AdvReac Type Severity Reaction Status Date / Time No Known Allergies Allergy Verified 05/08/18 20:33 - Home Medications Home Medications: Ambulatory Orders Amlodipine Besylate [Norvasc -] 5 mg PO DAILY tablet 11/05/17 Capecitabine [Xeloda] 500 mg PO ASDIR 05/09/18 Family Disease History - Family Disease History Family Disease History: CA: Grandparent (maternal gf, colon), Other: Brother (2 brothers, healthy) Review of Systems - Review of Systems Constitutional: reports: Loss of Appetite (yesterday). denies: Chills, Fever Eyes: denies: Blurred Vision, Recent Change in Vision HENT: denies: Difficult Swallowing, Nasal Congestion, Throat Pain Neck: denies: Swollen Glands, Tenderness Cardiovascular: denies: Chest Pain, Palpitations Respiratory: denies: Cough, SOB Gastrointestinal: reports: Abdominal Pain (with hpi), Diarrhea (once yesterday) , Nausea (with hpi), Vomiting (with hpi). denies: Constipation, Rectal Bleeding , Vomiting Blood Genitourinary: denies: Burning, Dysuria, Hematuria Musculoskeletal: denies: Back Pain, Joint Pain, Muscle Pain Integumentary: denies: Change in Color, Rash Neurological: denies: Dizziness, Headache Psychiatric: denies: Anxiety, Depression Physical Exam Vital Signs: Vital Signs Temperature 97.6 F 05/09/18 08:29 Pulse Rate 69 05/09/18 08:29 Respiratory Rate 18 05/09/18 08:29 Blood Pressure 150/90 05/09/18 08:29 O2 Sat by Pulse Oximetry (%) 99 05/09/18 08:42 Constitutional: Yes: Well Nourished, No Distress, Calm Eyes: Yes: Conjunctiva Clear, EOM Intact HENT: Yes: Atraumatic, Normocephalic, Other (NG in place, secured at ~75 at nares, clamped for contrast administration) Neck: Yes: Supple, Trachea Midline Cardiovascular: Yes: Regular Rate and Rhythm. No: Murmur Respiratory: Yes: Regular, CTA Bilaterally Gastrointestinal: Yes: Soft, Hernia (small umbilical/?incisional defect palpable , no bulging content), Hypoactive Bowel Sounds, Other (healed RLQ and LLQ scars from previous ostomies, healed lower midline and laparoscopic scars). No: Distention, Tenderness, Tenderness, Epigastrium, Tenderness, Rebound ...Rectal Exam: Yes: Deferred (done by Dr. Littlejohn) Renal/: No: CVA Tenderness - Left, CVA Tenderness - Right Musculoskeletal: No: Back Pain, Joint Stiffness, Joint Swelling Extremities: No: Cool, Cyanosis Edema: No Peripheral Pulses WNL: Yes Integumentary: No: Jaundice, Rash Neurological: Yes: Alert, Oriented Psychiatric: Yes: Alert, Oriented Labs: CBC, BMP 05/09/18 02:02 05/09/18 06:25 CMP Sodium 139 mmol/L (136-145) 05/09/18 06:25 Potassium 4.1 mmol/L (3.5-5.1) 05/09/18 06:25 Chloride 108 mmol/L (98-107) H 05/09/18 06:25 Carbon Dioxide 22 mmol/L (21-32) 05/09/18 06:25 Anion Gap 9 MMOL/L (8-16) 05/09/18 06:25 BUN 25 mg/dL (7-18) H 05/09/18 06:25 Creatinine 1.3 mg/dL (0.55-1.3) 05/09/18 06:25 Creat Clearance w eGFR 56.90 (>60) 05/09/18 06:25 Random Glucose 95 mg/dL (74-106) 05/09/18 06:25 Lactic Acid 1.5 mmol/L (0.4-2.0) 05/09/18 02:02 Calcium 8.5 mg/dL (8.5-10.1) 05/09/18 06:25 Total Bilirubin 0.4 mg/dL (0.2-1) 05/09/18 06:25 AST 10 U/L (15-37) L 05/09/18 06:25 ALT 22 U/L (13-61) 05/09/18 06:25 Alkaline Phosphatase 138 U/L (45-117) H 05/09/18 06:25 Total Protein 6.6 g/dl (6.4-8.2) 05/09/18 06:25 Albumin 3.2 g/dl (3.4-5.0) L 05/09/18 06:25 Total Amylase Cancelled 05/08/18 20:07 Lipase 89 U/L (73-393) 05/08/18 22:10 Urine Test Results Urine Color Yellow 05/09/18 06:35 Urine Appearance Slcloudy 05/09/18 06:35 Urine pH 5.0 (5.0-8.0) 05/09/18 06:35 Ur Specific [place] 1.019 (1.010-1.035) 05/09/18 06:35 Urine Protein 1+ (NEGATIVE) H 05/09/18 06:35 Urine Glucose (UA) Negative (NEGATIVE) 05/09/18 06:35 Urine Ketones Negative (NEGATIVE) 05/09/18 06:35 Urine Blood 2+ (NEGATIVE) H 05/09/18 06:35 Urine Nitrite Negative (NEGATIVE) 05/09/18 06:35 Urine Bilirubin Negative (<2.0 mg/dL) 05/09/18 06:35 Ur Leukocyte Esterase 1+ (NEGATIVE) H 05/09/18 06:35 Urine Mucus Rare 05/09/18 06:35 lactate down to nl BUN/Cr down wbc down to nl no coags Imaging - Results X-ray: Report Reviewed, Image Reviewed (images personally reviewed - small bowel loops on right side with air-fluid levels, mildly dilated, also some distal gas present and stool, no free air) Cat Scan: Pending Problem List - Problems (1) Small bowel obstruction due to adhesions Assessment/Plan: admitted to medicine seen by GI just now possible small bowel obstructive picture on AXR, likely adhesive-related CT pending NPO/NGT/IVF pain meds prn - would use nonnarcotics as able first-line currently without pain, which is intermittent per pt recommendations pending CT results will follow up Code(s): K56.50 - INTESTNL ADHESIONS, UNSP TO PARTIAL VERSUS COMPLETE OBST (2) Periumbilical abdominal pain Code(s): R10.33 - PERIUMBILICAL PAIN (3) Nausea vomiting and diarrhea Code(s): R11.2 - NAUSEA WITH VOMITING, UNSPECIFIED; R19.7 - DIARRHEA, UNSPECIFIED (4) H/O malignant neoplasm of rectum Assessment/Plan: on Xeloda actively q2 wks Code(s): Z85.048 - PRSNL HX OF MALIG NEOPLM OF RECTUM, RECTOSIG JUNCT, AND ANUS (5) HTN (hypertension) Assessment/Plan: holding home amlodipine while NPO/NGT Code(s): I10 - ESSENTIAL (PRIMARY) HYPERTENSION Qualifiers: Hypertension type: essential hypertension Qualified Code(s): I10 - Essential (primary) hypertension (6) Nephrolithiasis Assessment/Plan: left ureteral stent due for removal tomorrow by Dr. Sandra Miller would postpone until current issues are resolved Code(s): N20.0 - CALCULUS OF KIDNEY
--- NOTE | 2018-05-09 16:15 | CON.GU ---
Consult Consult Specialty:: Urology - Past Medical History Cardio/Vascular: Yes: HTN Gastrointestinal: Yes: Cancer (rectal s/p neoadjuvant chemoRT and postop chemo) , GI Bleed (h/o last year when CA diagnosed), Other (colon polyps) Renal/: Yes: Renal Calculi (s/p ESWL), Other (L ureteral stent in place, due for removal) - Past Surgical History Past Surgical History: Yes: Colectomy (robotic laparoscopic LAR 09/[address] Travis with colostomy reversal and diverting ileostomy), Colonoscopy, Colostomy (03/17 for obstructing rectal tumor), Ileosotomy (reversed 12/[address] 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 History of Recent Travel: No Home Medications - Allergies Allergies/Adverse Reactions: Allergies Allergy/AdvReac Type Severity Reaction Status Date / Time No Known Allergies Allergy Verified 05/08/18 20:33 - Home Medications Home Medications: Ambulatory Orders Amlodipine Besylate [Norvasc -] 5 mg PO DAILY tablet 11/05/17 Capecitabine [Xeloda] 500 mg PO ASDIR 05/09/18 Family Disease History - Family Disease History Family Disease History: CA: Grandparent (maternal gf, colon), Other: Brother (2 brothers, healthy) Physical Exam- Vital Signs: Vital Signs Temperature 97.6 F 05/09/18 15:40 Pulse Rate 68 05/09/18 15:40 Respiratory Rate 18 05/09/18 15:40 Blood Pressure 135/93 05/09/18 15:40 O2 Sat by Pulse Oximetry (%) 99 05/09/18 08:42 Labs: CBC, BMP 05/09/18 02:02 05/09/18 06:25 Assessment/Plan Above surgical consult noted. Will postpone cysto and removal of stent after the present situation is resolved. Will follow the pt. after Ct Scan. Thank you Dr. Rae
--- NOTE | 2018-05-09 17:48 | CON.GI ---
Consult Consult Specialty:: GI: Dr. Avila for Dr. Littlejohn who resumes care 05/10 Referred by:: Dr.Abdul Velasco Reason for Consultation:: Abdominal pain / Vomiting - History of Present Illness Chief Complaint: Abdominal pain and vomiting History of Present Illness: 57M with h/o rectal CA diagnosed 05/16 s/p neoadjuvant chemoRT, emergent colostomy for obstructing tumor (03/[address] Angelo and Dr[address] Cisneros), subsequent robotic laparoscopic LAR with colostomy reversal and diverting ileostomy and parastomal hernia repair 09/18 (Dr. Johanny Travis), and ileostomy takedown 12/16 ( Dr. Johanny Travis), previous Folfox, now on Xeloda po only. he developed abdominal pain and vomiting Tuesday evening (food he'd eaten), and a loose/ diarrheal stool. he was able to tolerate PO af that time but The pain persisted prompting his evaluation at the [facility] ER last evening. He got called by a nurse regarding his scheduled L ureteral stent removal tomorrow, who suggested he seek attention for his symptoms. In the ER, he was afebrile, with wbc 11 and AXR showed possible SBO with air-fluid levels in right-sided small bowel loops. NGT was placed, and he was admitted to medicine. He was seen bedside earlier today by Dr. Littlejohn and Dr. Cisneros. A small bowel obstruction was suspected, secondary to adhesions. NGT remains in place and CT scan was performed about 30 minutes ago. He has not had BM since yesterday's loose stool but is passing flatus. Pain has resolved. 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 Travis with colostomy reversal and diverting ileostomy), Colonoscopy, Colostomy (03/17 for obstructing rectal tumor), Ileosotomy (reversed 12/[address] 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 History of Recent Travel: No Home Medications - Allergies Allergies/Adverse Reactions: Allergies Allergy/AdvReac Type Severity Reaction Status Date / Time No Known Allergies Allergy Verified 05/08/18 20:33 - Home Medications Home Medications: Ambulatory Orders Amlodipine Besylate [Norvasc -] 5 mg PO DAILY tablet 11/05/17 Capecitabine [Xeloda] 500 mg PO ASDIR 05/09/18 Family Disease History - Family Disease History Family Disease History: CA: Grandparent (maternal gf, colon), Other: Father ( : "Blood Clot"), Brother (2 brothers, healthy) Review of Systems - Review of Systems Constitutional: denies: Unintentional Wgt. Loss Gastrointestinal: reports: Abdominal Pain (Resolved), Vomiting (resolved) Physical Exam-GI Vital Signs: Vital Signs Temperature 97.6 F 05/09/18 15:40 Pulse Rate 68 05/09/18 15:40 Respiratory Rate 18 05/09/18 15:40 Blood Pressure 135/93 05/09/18 15:40 O2 Sat by Pulse Oximetry (%) 99 05/09/18 08:42 Constitutional: No: Calm Eyes: No: Sclera Icterus Cardiovascular: Yes: Regular Rate and Rhythm Gastrointestinal Inspection: Yes: Hernia (small midline incisional hernia scar) , Scars (bilateral ostomy scars in the left and right lower abdomen). No: Distention ...Auscultate: Yes: Normoactive Bowel Sounds ...Palpate: Yes: Soft. No: Tenderness ...Percussion: No: Tympanitic ...Rectal Exam: Yes: Other (Performed by Dr. Littlejohn earlier today) Edema: No (No LE edema) Neurological: Yes: Alert, Oriented Labs: CBC, BMP 05/09/18 02:02 05/09/18 06:25 Imaging - Results Cat Scan: Report Reviewed (6cm length of irregular appearing small bowel with luminal narrowing in right abdomen. 4cm air accumulation vs. large diverticulum , less likely contained perforation. Left ureteral stent.) Problem List - Problems (1) Small bowel obstruction Assessment/Plan: With abnormal area of small bowel mucosa in the distal small bowel. There was contrast in the colon suggesting that this is a partial obstruction. ? secondary to adhesions or alternate small bowel process Advise: Continued NGT decompression Surgery follow-up Will likely need onc f/u as well Code(s): K56.69 - OTHER INTESTINAL OBSTRUCTION * DO NOT USE *
--- NOTE | 2018-05-09 19:27 | PN ---
Teaching Attending Note Name of Resident: Flo Michelle ATTENDING PHYSICIAN STATEMENT I saw and evaluated the patient. I reviewed the resident's note and discussed the case with the resident. I agree with the resident's findings and plan as documented. SUBJECTIVE: Patient seen and examined Stage IV colon ca s/p surgery and chemotherapy, followed by Dr. Chacon. Recently on Xeloda. Presents with one day history of abdominal pains and CT with some dilated loops of small bowel Followed by GI and surgery. Did have bowel movement . Currently minimal NG drainage. To follow. OBJECTIVE: ASSESSMENT AND PLAN:
[2018-05-10 07:23] LABS: BASO % 0.9 % (0-2.0); EOS % 5.1 % (0-4.5); HEMATOCRIT 33.5 % (35.4-49); HEMOGLOBIN 11.5 GM/dL (11.7-16.9); LYMPH % 15.5 % (8-40); MCH 33.9 pg (25.7-33.7); MCHC 34.3 g/dl (32.0-35.9); MEAN CELL VOLUME 98.8 fl (80-96); MEAN PLT VOLUME 7.6 fl (7.5-11.1); MONO % 7.3 % (3.8-10.2); NEUT % 71.2 % (42.8-82.8); PLATELET COUNT 334 K/MM3 (134-434); RBC 3.39 M/mm3 (4.00-5.60); RDW 18.4 % (11.9-15.9); WHITE BLOOD COUNT 6.8 K/mm3 (4.0-10.0)
[2018-05-10 07:41] LABS: ALK PHOS 142 U/L (45-117); ANION GAP 9 MMOL/L (8-16); BILIRUBIN,TOTAL 0.4 mg/dL (0.2-1); BLOOD UREA NITROGEN 16 mg/dL (7-18); CALCIUM 8.1 mg/dL (8.5-10.1); CHLORIDE 105 mmol/L (98-107); CO2 23 mmol/L (21-32); CREATININE 1.3 mg/dL (0.55-1.3); GLUCOSE,RANDOM 110 mg/dL (74-106); POTASSIUM 4.1 mmol/L (3.5-5.1); SGOT/AST 13 U/L (15-37); SGPT/ALT 19 U/L (13-61); SODIUM 137 mmol/L (136-145); TOT PROT 6.2 g/dl (6.4-8.2)
--- NOTE | 2018-05-10 09:22 | PN ---
Progress Note, Physician Chief Complaint: No vomiting History of Present Illness: Admitted with partial SB obstrection - Current Medication List Current Medications: Active Medications Potassium Chloride/Dextrose/Sod Cl (D5-1/2ns+10 Meq Kcl -) 10 meq in 1,000 mls @ 125 mls/hr IV ASDIR DANIELA Last Admin: 05/09/18 19:28 Dose: 125 mls/hr Morphine Sulfate (Morphine Sulfate) 2 mg IVPUSH Q4H PRN PRN Reason: PAIN LEVEL 4 - 6 Last Admin: 05/09/18 18:41 Dose: 2 mg - Objective Vital Signs: Vital Signs Temperature 97.9 F 05/10/18 06:00 Pulse Rate 69 05/10/18 06:00 Respiratory Rate 18 05/10/18 06:00 Blood Pressure 125/78 05/10/18 06:00 O2 Sat by Pulse Oximetry (%) 98 05/09/18 21:00 Constitutional: Yes: No Distress Eyes: Yes: WNL HENT: Yes: WNL Neck: Yes: WNL Cardiovascular: Yes: WNL Respiratory: Yes: WNL Gastrointestinal: Yes: Normal Bowel Sounds, Soft ...Rectal Exam: Yes: Deferred Genitourinary: Yes: WNL Musculoskeletal: Yes: WNL Extremities: Yes: WNL Edema: No Neurological: Yes: Alert Psychiatric: Yes: Alert Labs: CBC, BMP 05/10/18 06:30 05/10/18 06:30 Assessment/Plan Surgical consult ,GI consult ,oncology consult and consult appreciated Will DC NGT OOB walking
[2018-05-10] MEDS: D5-1/2NS+10 MEQ KCL - 10 MEQ/1,000 ML INFUS.BAG IV SCH (13:23)
--- NOTE | 2018-05-10 15:57 | PN ---
GI Progress Note Subjective: GI NOte: Dr. Avila's coverage is appreciated. Dr Velasco removed the NG tube today. Anthony has remained free of pain and vomiting. He just had a BM and passed solid stool. He is hungry. - Objective Vital Signs: Vital Signs Temperature 98.2 F 05/10/18 14:31 Pulse Rate 71 05/10/18 14:31 Respiratory Rate 20 05/10/18 14:31 Blood Pressure 140/76 05/10/18 14:31 O2 Sat by Pulse Oximetry (%) 98 05/10/18 09:00 Laboratory Tests 04/30/16 05/02/16 05/08/18 14:20 05:45 20:07 WBC 10.1 H Hgb 9.7 L D Potassium Lactic Acid Carcinoembryonic Ag 3.3 05/08/18 05/09/18 05/10/18 22:10 02:02 06:30 WBC 6.8 Hgb Potassium Lactic Acid 2.6 H* 1.5 Carcinoembryonic Ag 05/10/18 06:30 WBC Hgb Potassium 4.1 Lactic Acid Carcinoembryonic Ag Constitutional: Calm ...Auscultate: Yes: Normoactive Bowel Sounds ...Palpate: Yes: Soft, Other (nontender) Labs: CBC, BMP 05/10/18 06:30 05/10/18 06:30 Problem List - Problems (1) Small bowel obstruction due to adhesions Assessment/Plan: SBO appears to be resolved. Will try clear liquids. Can advance diet as tolerated. Code(s): K56.50 - INTESTNL ADHESIONS, UNSP TO PARTIAL VERSUS COMPLETE OBST (2) Colon adenomas Code(s): D12.6 - BENIGN NEOPLASM OF COLON, UNSPECIFIED (3) H/O malignant neoplasm of rectum Code(s): Z85.048 - PRSNL HX OF MALIG NEOPLM OF RECTUM, RECTOSIG JUNCT, AND ANUS (4) Maintenance antineoplastic chemotherapy Code(s): Z51.11 - ENCOUNTER FOR ANTINEOPLASTIC CHEMOTHERAPY (5) Nephrolithiasis Code(s): N20.0 - CALCULUS OF KIDNEY (6) Rectal stricture Code(s): K62.4 - STENOSIS OF ANUS AND RECTUM (7) S/P radiation therapy > 12 wks ago Code(s): Z92.3 - PERSONAL HISTORY OF IRRADIATION (8) Status post chemotherapy Code(s): Z92.21 - PERSONAL HISTORY OF ANTINEOPLASTIC CHEMOTHERAPY
--- NOTE | 2018-05-10 18:40 | PN ---
Teaching Attending Note Name of Resident: Flo Michelle ATTENDING PHYSICIAN STATEMENT I saw and evaluated the patient. I reviewed the resident's note and discussed the case with the resident. I agree with the resident's findings and plan as documented. SUBJECTIVE:Patient seen and examined No significant cramps or abdominal pains Tolerating liquids and diet being advanced Had several bowel movement Impression: Resolution of SBO. Diet to be advanced. OBJECTIVE: ASSESSMENT AND PLAN:
--- NOTE | 2018-05-10 21:11 | PN ---
Progress Note, Physician History of Present Illness: Pt with possible SBO by AXR, CT done yesterday shows contrast through to distal SB and colon without point of obstruction. Distal small bowel loops have thickened franco, though, and there is some fluid in the pelvis and RUQ of unclear significance. GI and Oncology notes reviewed. PMD removed NGT this morning, and pt has tolerated liquids without nausea or increased pain. He still has occasional central abd pains, but overall is feeling ok. Having loose BMs from enteral contrast. Seen and examined in bed, resting comfortably. Urology plans to reschedule left ureteral stent removal as well. - Current Medication List Current Medications: Active Medications Amlodipine Besylate (Norvasc -) 5 mg PO DAILY [facility] Potassium Chloride/Dextrose/Sod Cl (D5-1/2ns+10 Meq Kcl -) 10 meq in 1,000 mls @ 125 mls/hr IV ASDIR DANIELA Last Admin: 05/10/18 13:23 Dose: 125 mls/hr Morphine Sulfate (Morphine Sulfate) 2 mg IVPUSH Q4H PRN PRN Reason: PAIN LEVEL 4 - 6 Last Admin: 05/09/18 18:41 Dose: 2 mg - Objective Vital Signs: Vital Signs Temperature 97.8 F 05/10/18 18:30 Pulse Rate 70 05/10/18 18:30 Respiratory Rate 20 05/10/18 18:30 Blood Pressure 153/84 05/10/18 18:30 O2 Sat by Pulse Oximetry (%) 98 05/10/18 09:00 Constitutional: Yes: Well Nourished, No Distress, Calm Eyes: Yes: Conjunctiva Clear, EOM Intact HENT: Yes: Atraumatic, Normocephalic Gastrointestinal: Yes: Soft, Hernia (incisional defect palpable near mid- abdomen in midline, not bothersome). No: Distention (minimal if any), Tenderness, Tenderness, Epigastrium Extremities: No: Cool, Cyanosis Neurological: Yes: Alert, Oriented Labs: CBC, BMP 05/10/18 06:30 05/10/18 06:30 BUN down further - ....Imaging Cat Scan: Report Reviewed, Image Reviewed (images personally reviewed - see hpi for details; contrast in colon, thickened small bowel franco in distal/pelvic sb , fluid in pelvis/RUQ; stable fatty(?) lesion just under LUQ abdominal wall) Problem List - Problems (1) Small bowel obstruction due to adhesions Assessment/Plan: admitted to medicine GI, Oncology, Urology notes seen partial obstruction resolved, though distal sb still inflamed/thickened - unclear significance or if related to ascites in pelvis, RUQ pt not using pain meds now tolerating liquids, advance diet as tolerated resume home meds no indication for surgical intervention will sign off please recall as needed, thank you Code(s): K56.50 - INTESTNL ADHESIONS, UNSP TO PARTIAL VERSUS COMPLETE OBST (2) Periumbilical abdominal pain Assessment/Plan: improved Code(s): R10.33 - PERIUMBILICAL PAIN (3) Nausea vomiting and diarrhea Assessment/Plan: resolved Code(s): R11.2 - NAUSEA WITH VOMITING, UNSPECIFIED; R19.7 - DIARRHEA, UNSPECIFIED (4) H/O malignant neoplasm of rectum Assessment/Plan: on Xeloda actively q2 wks Code(s): Z85.048 - PRSNL HX OF MALIG NEOPLM OF RECTUM, RECTOSIG JUNCT, AND ANUS (5) HTN (hypertension) Assessment/Plan: resume home med Code(s): I10 - ESSENTIAL (PRIMARY) HYPERTENSION Qualifiers: Hypertension type: essential hypertension Qualified Code(s): I10 - Essential (primary) hypertension (6) Nephrolithiasis Assessment/Plan: left ureteral stent removal postponed by urology Code(s): N20.0 - CALCULUS OF KIDNEY
[2018-05-10] MEDS: amLODIPine BESYLATE 5 MG TABLET (FP) PO SCH (23:01)
[2018-05-11] MEDS: D5-1/2NS+10 MEQ KCL - 10 MEQ/1,000 ML INFUS.BAG IV SCH ×2 (06:26→14:59)
[2018-05-11 08:00] LABS: EOS % 6.8 % (0-4.5); HEMATOCRIT 32.4 % (35.4-49); HEMOGLOBIN 11.1 GM/dL (11.7-16.9); LYMPH % 16.7 % (8-40); MCH 33.9 pg (25.7-33.7); MCHC 34.4 g/dl (32.0-35.9); MEAN CELL VOLUME 98.6 fl (80-96); MEAN PLT VOLUME 7.5 fl (7.5-11.1); MONO % 6.8 % (3.8-10.2); NEUT % 68.7 % (42.8-82.8); PLATELET COUNT 335 K/MM3 (134-434); RBC 3.28 M/mm3 (4.00-5.60); RDW 17.8 % (11.9-15.9); WHITE BLOOD COUNT 5.4 K/mm3 (4.0-10.0)
[2018-05-11 08:27] LABS: ANION GAP 3 MMOL/L (8-16); BLOOD UREA NITROGEN 11 mg/dL (7-18); CALCIUM 8.2 mg/dL (8.5-10.1); CHLORIDE 110 mmol/L (98-107); CO2 25 mmol/L (21-32); CREATININE 1.2 mg/dL (0.55-1.3); GLUCOSE,RANDOM 117 mg/dL (74-106); POTASSIUM 3.7 mmol/L (3.5-5.1); SODIUM 138 mmol/L (136-145)
--- NOTE | 2018-05-11 08:56 | PN ---
Progress Note, Physician Chief Complaint: No abdominal pain Clear liquid diet well tolerated - Current Medication List Current Medications: Active Medications Amlodipine Besylate (Norvasc -) 5 mg PO DAILY [facility] Last Admin: 05/10/18 23:01 Dose: 5 mg Potassium Chloride/Dextrose/Sod Cl (D5-1/2ns+10 Meq Kcl -) 10 meq in 1,000 mls @ 125 mls/hr IV ASDIR DANIELA Last Admin: 05/11/18 06:26 Dose: 125 mls/hr Morphine Sulfate (Morphine Sulfate) 2 mg IVPUSH Q4H PRN PRN Reason: PAIN LEVEL 4 - 6 Last Admin: 05/09/18 18:41 Dose: 2 mg - Objective Vital Signs: Vital Signs Temperature 98.9 F 05/11/18 06:00 Pulse Rate 69 05/11/18 06:00 Respiratory Rate 20 05/11/18 06:00 Blood Pressure 153/95 05/11/18 06:00 O2 Sat by Pulse Oximetry (%) 98 05/10/18 21:00 Constitutional: Yes: No Distress Eyes: Yes: WNL HENT: Yes: WNL Neck: Yes: WNL Cardiovascular: Yes: WNL Respiratory: Yes: WNL Gastrointestinal: Yes: Normal Bowel Sounds ...Rectal Exam: Yes: Deferred Genitourinary: Yes: WNL Musculoskeletal: Yes: WNL Extremities: Yes: WNL Edema: No Integumentary: Yes: WNL Neurological: Yes: Alert Labs: CBC, BMP 05/11/18 07:00 05/11/18 07:00 Assessment/Plan Xray flat abdomen
[2018-05-11] MEDS: amLODIPine BESYLATE 5 MG TABLET (FP) PO SCH (09:45)
--- NOTE | 2018-05-11 12:07 | PN ---
Physical Exam: SUBJECTIVE: Patient seen and examined at bedside. No overnight events. No new complaints. Tolerating clear liquid diet. Denies CP,ROMEO,SOB, abdominal pain, nausea or vomiting. OBJECTIVE: Vital Signs Period Temp Pulse Resp BP Sys/[place] Pulse Ox Last 24 Hr 97.8 F-98.9 F 66-82 18-20 125-153/66-95 98 GENERAL: AAOx3, NAD HEAD: NCAT EYES: PERRLA, EOMI, sclera anicteric, conjunctiva clear. No lid lag. EARS, NOSE, THROAT: Moist mucous membranes. poor dentition. NECK:Supple without lymphadenopathy, JVD, or masses. LUNGS: CTAB. No wheezes, and no crackles. No accessory muscle use. HEART: RRR, normal S1 and S2 without murmur, rub or gallop. CHEST: mediport right chest wall. ABDOMEN: Soft,NTND. NABS, no guarding, no rebound, no masses. No hepatomegaly or splenomegaly. surgical scars R and L LQ. MUSCULOSKELETAL: Normal range of motion at all joints. No bony deformities or tenderness. No CVA tenderness. LOWER EXTREMITIES: 2+ pulses, warm, well-perfused. No calf tenderness. No peripheral edema. Laboratory Results - last 24 hr 05/11/18 05/11/18 07:00 07:00 WBC 5.4 RBC 3.28 L Hgb 11.1 L Hct 32.4 L MCV 98.6 H MCH 33.9 H MCHC 34.4 RDW 17.8 H Plt Count 335 MPV 7.5 Absolute Neuts (auto) 3.7 Neutrophils % 68.7 Lymphocytes % 16.7 Monocytes % 6.8 Eosinophils % 6.8 H Basophils % 1.0 Nucleated RBC % 0 Sodium 138 Potassium 3.7 Chloride 110 H Carbon Dioxide 25 Anion Gap 3 L BUN 11 Creatinine 1.2 Creat Clearance w eGFR > 60 Random Glucose 117 H Calcium 8.2 L C-Reactive Protein 2.2 H Active Medications Generic Name Dose Route Start Last Admin Trade Name Freq PRN Reason Stop Dose Admin Amlodipine Besylate 5 mg 05/10/18 20:00 05/11/18 09:45 Norvasc - PO 5 mg DAILY DANIELA Administration Potassium Chloride/Dextrose/Sod Cl 10 meq in 1,000 mls @ 125 mls/hr 05/09/18 10:36 05/11/18 06:26 D5-1/2ns+10 Meq Kcl - IV 125 mls/hr ASDIR DANIELA Administration Morphine Sulfate 2 mg 05/09/18 09:49 05/09/18 18:41 Morphine Sulfate IVPUSH 2 mg Q4H PRN Administration PAIN LEVEL 4 - 6 ASSESSMENT/PLAN: 57 yo M w/ PMHx HTN, , rectal cancer s/p surgery 11/2017 and is currently on chemo,and Nephrolithiasis (scheduled for stent removal 05/10/18) presents with one day history of abdominal pain. Admitted for SBO. Problem List - Problems (1) Rectal malignant neoplasm Assessment/Plan: S/P radiation and resection. * Will hold Chemo for now * Can resume once SBO resolved. (2) Small bowel obstruction Assessment/Plan: CTshowed dilated loops of bowel - * Tolerating Clears * Abdominal XRAY pending. * advance diet as per GI. (3) Nephrolithiasis Assessment/Plan: Scheduled for stent removal on 05/10 * Renal function WNL * continue to monitor. (4) HTN (hypertension) Visit type - Emergency Visit Emergency Visit: Yes ED Registration Date: 05/09/18 Care time: The patient presented to the Emergency Department on the above date and was hospitalized for further evaluation of their emergent condition. - New Patient This patient is new to me today: No - Critical Care Critical Care patient: No
--- NOTE | 2018-05-11 22:13 | PN ---
Progress Note (short form) - Note Progress Note: Patient seen and examined Feels better. Occasional abdominal pain Last Vital Signs Temp Pulse Resp BP Pulse Ox 97.8 F 70 18 149/87 98 05/11/18 21:00 05/11/18 21:00 05/11/18 21:00 05/11/18 21:00 05/11/18 09:00 Cor: RSR, No murmurs, No gallops Lungs: Clear to P&A Abd: Soft, Normal bowel sounds, No organomegaly Ext:No significant edema Abnormal Lab Results 05/11/18 05/11/18 07:00 07:00 RBC 3.28 L Hgb 11.1 L Hct 32.4 L MCV 98.6 H MCH 33.9 H RDW 17.8 H Eosinophils % 6.8 H Chloride 110 H Anion Gap 3 L Random Glucose 117 H Calcium 8.2 L C-Reactive Protein 2.2 H Active Medications Generic Name Dose Route Start Last Admin Trade Name Freq PRN Reason Stop Dose Admin Amlodipine Besylate 5 mg 05/10/18 20:00 05/11/18 09:45 Norvasc - PO 5 mg DAILY DANIELA Administration Potassium Chloride/Dextrose/Sod Cl 10 meq in 1,000 mls @ 125 mls/hr 05/09/18 10:36 05/11/18 14:59 D5-1/2ns+10 Meq Kcl - IV 125 mls/hr ASDIR DANIELA Administration Morphine Sulfate 2 mg 05/09/18 09:49 05/09/18 18:41 Morphine Sulfate IVPUSH 2 mg Q4H PRN Administration PAIN LEVEL 4 - 6 A/P 57 y/o patient with h/o stage WILMA rectal caner-- s/p FOLFOX-- went in to CR by imaging--xelloda/Rt and then perforation / colostomy. Had rescection -- pT2, N0- --reversal odfileostomy in November. now on Xeloda Comes in with SBO Gradually improving-- AXR --improving but with dilated rt. bowel loo[ Slowly advancing diet will follow
[2018-05-12 07:23] VITALS: TEMP 98.1
--- NOTE | 2018-05-12 09:12 | DS ---
Physical Examination Vital Signs: Vital Signs Temperature 98.1 F 05/12/18 06:00 Pulse Rate 58 L 05/12/18 06:00 Respiratory Rate 18 05/12/18 06:00 Blood Pressure 158/82 05/12/18 06:00 O2 Sat by Pulse Oximetry (%) 98 05/11/18 21:00 Findings/Remarks: Admitted with partial intestinal obstruction Rpt Xray shows improvement Constitutional: Yes: No Distress Eyes: Yes: WNL HENT: Yes: WNL Neck: Yes: WNL Cardiovascular: Yes: WNL Respiratory: Yes: WNL Gastrointestinal: Yes: WNL ...Rectal Exam: Yes: Deferred Renal/: Yes: WNL Breast(s): Yes: WNL Musculoskeletal: Yes: WNL Neurological: Yes: Alert Psychiatric: Yes: Alert Labs: CBC, BMP 05/11/18 07:00 05/11/18 07:00 Discharge Summary Reason For Visit: SMALL BOWEL OBSTRUCTION ABDOMINAL PAIN Current Active Problems Abdominal pain (Acute) Colon adenomas (Acute) H/O malignant neoplasm of rectum (Acute) HTN (hypertension) (Acute) Maintenance antineoplastic chemotherapy (Acute) Nephrolithiasis (Acute) Periumbilical abdominal pain (Acute) Small bowel obstruction (Acute) Small bowel obstruction due to adhesions (Acute) Condition: Fair - Instructions Referrals: Marva Velasco MD [Primary Care Provider] - Justin Littlejohn MD [Staff Physician] - - Home Medications Comprehensive Discharge Medication List: Ambulatory Orders Amlodipine Besylate [Norvasc -] 5 mg PO DAILY tablet 11/05/17 Capecitabine [Xeloda] 500 mg PO ASDIR 05/09/18
[2018-05-12] MEDS: D5-1/2NS+10 MEQ KCL - 10 MEQ/1,000 ML INFUS.BAG IV SCH (11:00)
[2018-05-12] MEDS: amLODIPine BESYLATE 5 MG TABLET (FP) PO SCH (11:02)
[2018-05-12 12:01] VITALS: BP 144/72; PULSE 66
== END 2018-05-12 13:30 | disposition home or self-care (01) | DRG 247 ==
LOC: JER 19:40 → JERBED 05-09 01:55 → J5S 05-09 08:13
PROVIDERS: ADMIT Internal Medicine; ATTEND Internal Medicine
PROC: 0D9670Z Drainage of Stomach with Drainage Device, Via Natural or Artificial Opening (ICD-10-PCS; principal; 2018-05-09)
DX: K56.600 Partial intestinal obstruction, unspecified as to cause (principal); R00.0 Tachycardia, unspecified; E86.0 Dehydration; D72.829 Elevated white blood cell count, unspecified; Z85.048 Personal history of other malignant neoplasm of rectum, rectosigmoid junction, and anus; I10 Essential (primary) hypertension; N20.0 Calculus of kidney; R10.33 Periumbilical pain; K56.50 Intestinal adhesions [bands], unspecified as to partial versus complete obstruction; Z96.0 Presence of urogenital implants
CPT/HCPCS: 36415; 71045-TC-FY; 71046-TC-FY; 74019-TC-FY; 74177-TC; 80048; 80053; 81003; 81015; 83605; 83690; 85025; 86140; 86671; 93005; 93010; 99285-25; J7030; Q0162

== ENCOUNTER 2018-06-09 09:40 | Day surgery (SDC) | payer OTHER ==
[2018-06-08 14:14] VITALS: BMI 25.8
[2018-06-09] MEDS ORDERED: ONDANSETRON 4 MG/2 ML VIAL IVPUSH PRN (12:49)
[2018-06-09] MEDS ORDERED: LACTATED RINGERS SOLUTION 1,000 ML IV SCH (13:00)
[2018-06-09] MEDS ORDERED: PROPOFOL 20 ML ONE ×2 (13:15→13:16)
[2018-06-09] MEDS ORDERED: MIDAZOLAM HCL 2 MG/2 ML SINGLE DOSE VIAL ONE (13:16)
[2018-06-09] MEDS ORDERED: ceFAZolin SODIUM 1 GM VIAL IVPB ONE (13:30)
--- NOTE | 2018-06-09 13:57 | OP ---
Operative Note - Note: Operative Date: 06/09/18 Pre-Operative Diagnosis: lt. jj stent, lt. ureteral stones, lt. hydro. Operation: cysto, d/c lt jj stent, lt. retrograde pyelogram, lt. ureteroscopy lt. stone basketting Findings: lt. ureteral stones, lt. hydronephrosis Post-Operative Diagnosis: Same as Pre-op Surgeon: Marilou Miller Anesthesia: General Specimens Removed: urine for c&s and cytology, ureteral stones, lt. jj stent Estimated Blood Loss (mls): 0 Drains, Volume Out (mls): 0 Blood Volume Replaced (mls): 0 Fluid Volume Replaced (mls): 0 Operative Report Dictated: Yes
[2018-06-09 15:02] VITALS: BP 129/75; PULSE 71; TEMP 98.1
--- NOTE | 2018-06-10 07:17 | OP ---
DATE OF OPERATION: 06/09/2018 SURGEON: Marilou Miller MD PREOPERATIVE DIAGNOSIS: Left hydronephrosis, left JJ stent, left ureteral stone. POSTOPERATIVE DIAGNOSIS: Left hydronephrosis, left JJ stent, left ureteral stone. OPERATIVE PROCEDURE: Cystourethroscopy, removal of left JJ stent, left ureteroscopy, left stone basketing, left retrograde pyelogram. ANESTHESIA: General. DESCRIPTION OF PROCEDURE: Under above stated anesthesia, patient was prepped and draped in the usual sterile manner. He was placed in the dorsal lithotomy position. Cystoscopy revealed a normal anterior urethra. Prostatic urethra was wide open. Bladder was entered, urine was collected for culture and sensitivity, also for cytology. Inspection of the bladder revealed a grade 1 fine trabeculation throughout the bladder. Ureteral orifices were within normal limits. Efflux of clear urine was noted from the right. A calcified left JJ stent was seen protruding from the left ureteral orifice. A grasping forceps was introduced, and the stent was removed atraumatically. A Flexi-Tip catheter was placed into the left ureteral orifice, and 7 mL of contrast were injected. This revealed multiple filling defects in the mid and lower ureter. Therefore, a Glidewire was passed up the left renal unit. The cystoscope was removed. Ureteroscopy was performed. Multiple stones were seen in the lower ureter. A stone basket was used, and multiple stones were removed. A repeat retrograde revealed good drainage from the left kidney. Therefore, the bladder was emptied. The scope was removed. The patient tolerated the procedure well. He returned to the recovery room in good condition. Wiley [id number]
--- NOTE | 2018-06-12 09:17 | HP ---
DATE OF ADMISSION: 06/09/2018 The patient is a 57-year-old male with history of rectal cancer. The patient underwent a low anterior resection with a diverting colostomy. He also underwent colostomy closure in the past. The patient has had history of bilateral renal stones. He underwent a left ureteroscopic laser lithotripsy with placement of a J-J stent. Repeat CT scan revealed no more stones. The stent was in its proper position. The patient did undergo a left extracorporeal shockwave lithotripsy February 14, 2018. He has undergone knee surgery. Presently he is on metoprolol and Norvasc. PHYSICAL EXAMINATION: General: Revealed a well-developed adult male in no apparent distress. Abdomen: Soft. No CVA tenderness. Genitalia: Atraumatic. Testes normal in size and consistency. No hernias or hydroceles are palpated. Rectal: Prostate 2+, smooth, benign, nontender. IMPRESSION: Status post left J-J stent. PLAN: Cystourethroscopy, removal of stent. Wiley [id number]
--- NOTE | 2018-06-12 17:16 | PATH ---
Cytology Non-Gynecological Report Patient Name: RAMONE MÉNDEZ JR [facility]. Rec. #: [id number] /Age/Gender: 1960 (Age: 57) / M Account: [id number] Location: [facility] Taken: 06/09/2018 Received: 06/09/2018 Reported: 06/12/2018 Physicians: Marilou Miller M.D. Specimen(s) Received URINE VOIDED Clinical History Ureteral stone Final Diagnosis URINE FOR CYTOLOGY: SATISFACTORY FOR EVALUATION. NEGATIVE FOR HIGH GRADE UROTHELIAL CARCINOMA. SCATTERED UROTHELIAL CELLS PRESENT. RED BLOOD CELLS AND MANY NEUTROPHILS PRESENT. FEW UROTHELIAL FRAGMENTS PRESENT. Comment: Urothelial fragments are suggestive of prior instrumentation, lithiasis, or a low grade papillary neoplasm. Suggest clinical/radiologic correlation. Electronically Signed Anyi Masterson M.D. Gross Description Approximately 40 cc of yellow fluid received fresh. One cytofunnel prepared and Pap stained.
--- NOTE | 2018-06-13 16:28 | PATH ---
Surgical Pathology Report Patient Name: RAMONE MÉNDEZ JR [facility]. Rec. #: [id number] /Age/Gender: 1960 (Age: 57) / M Account: [id number] Location: [facility] Taken: 06/09/2018 Received: 06/12/2018 Reported: 06/13/2018 Physicians: Marilou Miller M.D. Specimen(s) Received A: LEFT URETERAL STENT B: LEFT URETERAL STONES Clinical History Hydronephrosis with renal and ureteral Final Diagnosis A. URETERAL STENT, LEFT, REMOVAL: URETERAL STENT. MACROSCOPIC DIAGNOSIS. B. URETERAL STONE, LEFT, REMOVAL: URETEROLITHIASIS. MACROSCOPIC DIAGNOSIS. Electronically Signed Anyi Masterson M.D. Gross Description A. Received fresh labeled "left ureteral stent," is a 34 cm in length blue-brunson, coiled portion of tubing, consistent with a ureteral stent. No soft tissue is present. No sections are submitted, gross only. B. Received fresh labeled "left ureteral stone," are 2 serna fragments of calculi measuring 0.5 and 0.7 cm in greatest dimension. The specimen is sent for chemical analysis. /06/12/201806/12/2018
== END 2018-06-09 15:04 | disposition home or self-care (01) ==
LOC: JASU-SURG 09:40
PROVIDERS: ATTEND Urology
PROC: BT1FYZZ Fluoroscopy of Left Kidney, Ureter and Bladder using Other Contrast (ICD-10-PCS; 2018-06-09)
PROC: 0TC78ZZ Extirpation of Matter from Left Ureter, Via Natural or Artificial Opening Endoscopic (ICD-10-PCS; principal; 2018-06-09 11:00)
PROC: 0TP97DZ Removal of Intraluminal Device from Ureter, Via Natural or Artificial Opening (ICD-10-PCS; 2018-06-09 11:00)
DX: N13.30 Unspecified hydronephrosis (principal); N20.1 Calculus of ureter
CPT/HCPCS: 36415; 82360; 87086; 88108; 88300-TC; 94760

== ENCOUNTER 2018-08-18 12:22 | Day surgery (SDC) | payer OTHER ==
[2018-08-17 15:12] VITALS: BMI 27.3
[2018-08-18 14:05] VITALS: TEMP 97.7
[2018-08-18 14:50] VITALS: BP 115/71; PULSE 67
--- NOTE | 2018-08-22 11:29 | PATH ---
Surgical Pathology Report Patient Name: RAMONE MÉNDEZ JR [facility]. Rec. #: [id number] /Age/Gender: 1960 (Age: 58) / M Account: [id number] Location: [facility]-ENDOSCOPY Taken: 08/18/2018 Received: 08/21/2018 Reported: 08/22/2018 Physicians: Justin Littlejohn M.D. Specimen(s) Received A: BX SIGMOID ADENOMA SITE B: RECTOSIGMOID ANASTOMOSIS BX Clinical History History of colon cancer Final Diagnosis A. SIGMOID ADENOMA POLYPECTOMY SITE, BIOPSY: COLONIC MUCOSA WITH FOCAL SURFACE HYPERPLASTIC CHANGE. NEGATIVE FOR DYSPLASIA. B. RECTOSIGMOID ANASTOMOSIS BIOPSY: COLONIC MUCOSA WITH MILD NONSPECIFIC CHRONIC INFLAMMATION. NEGATIVE FOR DYSPLASIA. Electronically Signed Marilyn Gray M.D. Gross Description A. Received in formalin, labeled "sigmoid adenoma polypectomy site biopsy" are 3 serna, irregular portions of soft tissue measuring 0.7 cm. in greatest dimension. The specimens are submitted in toto in one cassette. B. Received in formalin, labeled "rectosigmoid anastomosis biopsy" are 2 serna, irregular portions of soft tissue measuring 0.7 cm. in greatest dimension. The specimens are submitted in toto in one cassette. __ KWKristian/08/21/2018 jones/08/21/2018
== END 2018-08-18 14:52 | disposition home or self-care (01) ==
LOC: JASU-ENDO 12:22
PROVIDERS: ATTEND Internal Medicine Gastroenterology
PROC: 0DBN8ZX Excision of Sigmoid Colon, Via Natural or Artificial Opening Endoscopic, Diagnostic (ICD-10-PCS; principal; 2018-08-18 13:15)
DX: Z12.11 Encounter for screening for malignant neoplasm of colon (principal); Z85.89 Personal history of malignant neoplasm of other organs and systems; Z98.0 Intestinal bypass and anastomosis status
CPT/HCPCS: 88305-TC

== ENCOUNTER 2018-11-15 11:15 | Day surgery (SDC) | payer OTHER ==
[2018-11-14 13:01] VITALS: BMI 26.6
[2018-11-15] MEDS ORDERED: PROPOFOL 20 ML ONE ×2 (13:02→13:54)
[2018-11-15] MEDS ORDERED: ceFAZolin SODIUM 1 GM VIAL IVPB ONE (13:46)
[2018-11-15] MEDS ORDERED: ONDANSETRON 4 MG/2 ML VIAL IVPUSH PRN (13:47)
[2018-11-15] MEDS ORDERED: oxyCODONE HCL 5 MG TABLET PO PRN (13:47)
[2018-11-15] MEDS ORDERED: LACTATED RINGERS SOLUTION 1,000 ML IV SCH (14:00)
[2018-11-15] MEDS ORDERED: NALOXONE HCL 0.4 MG/ML VIAL ONE (14:13)
--- NOTE | 2018-11-15 14:16 | OP ---
Operative Note - Note: Operative Date: 11/15/18 Pre-Operative Diagnosis: Retained stent and ureteral stricture Operation: Cysto, ureteroscopy and stent placement Findings: Retained stent in the mid ureter and ureteral stenosis Post-Operative Diagnosis: Same as Pre-op Surgeon: Eduard Rae Anesthesia: General Operative Report Dictated: Yes
[2018-11-15] MEDS ORDERED: oxyCODONE HCL 5 MG TABLET ONE (15:17)
[2018-11-15] MEDS: oxyCODONE HCL 5 MG TABLET PO PRN ×2 (15:20→22:08)
--- NOTE | 2018-11-15 15:52 | OP ---
DATE OF OPERATION: 11/15/2018 SURGEON: Eduard Rae MD ANESTHESIA: General. PREOPERATIVE DIAGNOSIS: Retained stent, right side, with some calcification. POSTOPERATIVE DIAGNOSIS: Retained stent, right side, with some calcification. PROCEDURE: Cystoscopy, ureteroscopy, and attempted retrieval of the stent. DESCRIPTION OF PROCEDURE: Patient in lithotomy position, under anesthesia, was prepped and draped in the usual manner. Cystoscopy was performed first, and the left ureteral orifice identified. No stent was seen. Then, with considerable difficulty, a guidewire was placed in the right collecting system, and ureteroscopy was performed, but because of the severe medial deviation and structural curve of the left ureter, ureteroscopy could not be performed past the mid ureter. Just where the previously retained stent was located. Several attempts were made, but the ureteroscope was bending too much, and the possibility of ureteral injury was too high. At this point, it was decided to play it safe, just put another stent, so that it will dilate the ureter, and then, another attempt will be made to retrieve the stent. Wiley SALMON/[id number]
[2018-11-15] MEDS ORDERED: HYDROmorphone HCL CARPU-JECT 2 MG/1 ML DISP.SYRIN IVPB PRN (16:56)
[2018-11-15] MEDS ORDERED: HYDROmorphone HCl 2 MG/ML VIAL ONE (16:57)
[2018-11-15] MEDS ORDERED: HYDROmorphone HCl 2 MG/ML VIAL IVPB PRN (17:19)
[2018-11-15] MEDS ORDERED: amLODIPine BESYLATE 5 MG TABLET (FP) PO ONE (21:15)
[2018-11-15] MEDS ORDERED: ATORVASTATIN CA 10 MG TABLET (FP) PO ONE (21:15)
[2018-11-16] MEDS: oxyCODONE HCL 5 MG TABLET PO PRN (01:13)
[2018-11-16 11:17] VITALS: BP 130/80; PULSE 71; TEMP 97.4
== END 2018-11-16 11:20 | disposition home or self-care (01) ==
LOC: JASU-SURG 11:15 → J8W 18:58 → JASU-SURG 11-16 11:20
PROVIDERS: ATTEND Urology
PROC: 0T778DZ Dilation of Left Ureter with Intraluminal Device, Via Natural or Artificial Opening Endoscopic (ICD-10-PCS; principal; 2018-11-15 13:00)
DX: N13.2 Hydronephrosis with renal and ureteral calculous obstruction (principal); N28.89 Other specified disorders of kidney and ureter
CPT/HCPCS: 76000-TC-FY; 94760

== ENCOUNTER 2019-01-01 08:45 | Day surgery (SDC) | payer OTHER | END 2019-01-01 10:00 | disposition home or self-care (01) | LOC: JRADIR 08:45 ==

== ENCOUNTER 2019-01-24 09:33 | Day surgery (SDC) | payer OTHER ==
[2019-01-23 15:01] VITALS: BMI 26.7
[2019-01-24 10:08] LABS: BASO % 1.2 % (0-2.0); EOS % 4.2 % (0-4.5); HEMATOCRIT 33.9 % (35.4-49); LYMPH % 13.1 % (8-40); MCH 35.8 pg (25.7-33.7); MCHC 35.3 g/dl (32.0-35.9); MEAN CELL VOLUME 101.6 fl (80-96); MEAN PLT VOLUME 7.2 fl (7.5-11.1); MONO % 6.1 % (3.8-10.2); NEUT % 75.4 % (42.8-82.8); PLATELET COUNT 370 K/MM3 (134-434); RBC 3.34 M/mm3 (4.00-5.60); RDW 16.9 % (11.9-15.9); WHITE BLOOD COUNT 7.5 K/mm3 (4.0-10.0)
[2019-01-24 10:10] VITALS: BP 115/88; PULSE 91; TEMP 97.6
[2019-01-24 10:31] LABS: INR 1.1 (0.83-1.09)
== END 2019-01-24 13:20 | disposition home or self-care (01) ==
LOC: JRADIR 09:33
PROVIDERS: ATTEND Urology
DX: Z53.8 Procedure and treatment not carried out for other reasons (principal)
CPT/HCPCS: 36415; 85025; 85610

== ENCOUNTER 2019-03-12 08:37 | Day surgery (SDC) | payer OTHER ==
[2019-03-09 19:55] VITALS: BMI 26.3
[2019-03-12 09:29] LABS: INR 1.09 (0.83-1.09); PROTHROMBIN TIME (PATIENT) 12.9 SEC (9.7-13.0)
[2019-03-12 12:59] VITALS: TEMP 97.5
[2019-03-12 16:05] VITALS: BP 125/73; PULSE 75
== END 2019-03-12 14:40 | disposition home or self-care (01) ==
LOC: JRADIR 08:37
PROVIDERS: ATTEND Urology
PROC: 0TP93DZ Removal of Intraluminal Device from Ureter, Percutaneous Approach (ICD-10-PCS; principal; 2019-03-12)
PROC: BT17YZZ Fluoroscopy of Left Ureter using Other Contrast (ICD-10-PCS; 2019-03-12)
PROC: 0T9130Z Drainage of Left Kidney with Drainage Device, Percutaneous Approach (ICD-10-PCS; 2019-03-12)
DX: T83.122A Displacement of indwelling ureteral stent, initial encounter (principal); N13.30 Unspecified hydronephrosis
CPT/HCPCS: 36415; 50384; 50432; 76000-TC-FY; 76098-TC-FY; 76998-TC; 85610; 87086; 87186; 87899; A4358; C1729; C1769; C1887; C1894

== ENCOUNTER → 2019-03-20 | Day surgery (SDC) | payer OTHER | END | disposition home or self-care (01) | LOC: JRADIR 09:49 → EDSTATUS 10:30 | PROVIDERS: ATTEND Radiology Diagnostic Radiology | PROC: 0TP5X0Z Removal of Drainage Device from Kidney, External Approach (ICD-10-PCS; principal; 2019-03-20) | DX: N13.30 Unspecified hydronephrosis (principal) | CPT/HCPCS: 50389; 50431; 74425-TC-FY; 76000-TC-FY; 76775-TC ==

== ENCOUNTER → 2019-05-29 | Day surgery (SDC) | payer OTHER | END | disposition home or self-care (01) | LOC: JRADIR 10:11 | PROVIDERS: ATTEND Internal Medicine Hematology & Oncology | PROC: B518YZA Fluoroscopy of Superior Vena Cava using Other Contrast, Guidance (ICD-10-PCS; principal; 2019-05-29) | DX: Z45.2 Encounter for adjustment and management of vascular access device (principal); C20 Malignant neoplasm of rectum | CPT/HCPCS: 36598 ==

== ENCOUNTER 2019-09-26 06:49 | Day surgery (SDC) | payer OTHER ==
[2019-09-25 13:26] VITALS: BMI 29.7
[2019-09-26 09:02] VITALS: TEMP 97.6
[2019-09-26 10:01] VITALS: BP 138/81; PULSE 62
--- NOTE | 2019-09-27 09:27 | PATH ---
Surgical Pathology Report Patient Name: RAMONE MÉNDEZ JR [facility]. Rec. #: [id number] /Age/Gender: 1960 (Age: 59) / M Account: [id number] Location: [facility]-ENDOSCOPY Taken: 09/26/2019 Received: 09/26/2019 Reported: 09/27/2019 Physicians: Justin Littlejohn M.D. Specimen(s) Received A: PROXIMAL TRANSVERSE COLON POLYP B: RECTOSIGMOID ANASTOMOSIS Clinical History Personal history of rectal cancer Postoperative diagnosis: Patent rectosigmoid anastomosis, transverse colon polyp Final Diagnosis A. PROXIMAL TRANSVERSE COLON, POLYP, BIOPSY: TUBULAR ADENOMA. B. RECTOSIGMOID ANASTOMOSIS, BIOPSY: COLONIC MUCOSA WITH EXTRAVASATION OF RED BLOOD CELLS AND LYMPHOID AGGREGATE WITHIN LAMINA PROPRIA. Electronically Signed Anyi Masterson M.D. Gross Description A. Received in formalin, labeled "proximal transverse colon polyp" is a serna, irregular portion of soft tissue measuring 0.4 cm. in greatest dimension. The specimen is submitted in toto in one cassette. B. Received in formalin, labeled "rectosigmoid anastomosis biopsy" are 6 serna, irregular portions of soft tissue ranging from 0.2-0.3 cm. in greatest dimension. The specimens are submitted in toto in one cassette. 09/26/2019 [facility]09/26/2019
== END 2019-09-26 10:01 | disposition home or self-care (01) ==
LOC: JASU-ENDO 06:49
PROVIDERS: ATTEND Internal Medicine Gastroenterology
PROC: 0DBL8ZX Excision of Transverse Colon, Via Natural or Artificial Opening Endoscopic, Diagnostic (ICD-10-PCS; 2019-09-26)
PROC: 0DBN8ZX Excision of Sigmoid Colon, Via Natural or Artificial Opening Endoscopic, Diagnostic (ICD-10-PCS; principal; 2019-09-26 08:00)
DX: Z12.11 Encounter for screening for malignant neoplasm of colon (principal); Z85.038 Personal history of other malignant neoplasm of large intestine; D12.3 Benign neoplasm of transverse colon; Z98.0 Intestinal bypass and anastomosis status

== ENCOUNTER 2020-02-08 07:17 | Day surgery (SDC) | payer OTHER ==
[2020-02-08] MEDS ORDERED: PORTA CATH FLUSH 10 ML IVPUSH ONE (10:00)
[2020-02-08 11:08] LABS: BASO % 1.1 % (0-2.0); EOS % 5.4 % (0-4.5); HEMATOCRIT 37.8 % (35.4-49); LYMPH % 16.4 % (8-40); MCH 36.7 pg (25.7-33.7); MCHC 34.4 g/dl (32.0-35.9); MEAN CELL VOLUME 106.8 fl (80-96); MONO % 6.7 % (3.8-10.2); NEUT % 70.4 % (42.8-82.8); PLATELET COUNT 314 K/MM3 (134-434); RBC 3.54 M/mm3 (4.00-5.60); RDW 15.1 % (11.9-15.9); WHITE BLOOD COUNT 5.9 K/mm3 (4.0-10.0)
[2020-02-08 11:40] LABS: ANISOCYTOSIS 2+; MACROCYTOSIS 2+; OVALOCYTE 1+; PLATELET ESTIMATE NORMAL
[2020-02-08 11:41] LABS: BILIRUBIN,TOTAL 0.8 mg/dL (0.2-1); CALCIUM 8.7 mg/dL (8.5-10.1); CREATININE 1.3 mg/dL (0.55-1.3); POTASSIUM 3.8 mmol/L (3.5-5.1); TOT PROT 7.3 g/dl (6.4-8.2)
[2020-02-08 15:20] VITALS: BP 141/74; PULSE 75; TEMP 99.9
== END 2020-02-08 11:00 | disposition home or self-care (01) ==
LOC: JONCNONCHE 07:17
PROVIDERS: ATTEND Internal Medicine Hematology & Oncology
PROC: 3C1ZX8Z Irrigation of Indwelling Device using Irrigating Substance, External Approach (ICD-10-PCS; principal; 2020-02-08)
DX: C20 Malignant neoplasm of rectum (principal); Z76.89 Persons encountering health services in other specified circumstances
CPT/HCPCS: 36415; 80053; 82378; 85025; 96523

== ENCOUNTER 2020-05-16 07:15 | Day surgery (SDC) | payer OTHER ==
[2020-05-16 11:22] LABS: BASO % 1.1 % (0-2.0); HEMATOCRIT 34.6 % (35.4-49); HEMOGLOBIN 12.1 GM/dL (11.7-16.9); LYMPH % 14.3 % (8-40); MCH 37.1 pg (25.7-33.7); MEAN CELL VOLUME 106.1 fl (80-96); MONO % 8.6 % (3.8-10.2); PLATELET COUNT 374 K/MM3 (134-434); RBC 3.26 M/mm3 (4.00-5.60); RDW 15.9 % (11.9-15.9); WHITE BLOOD COUNT 6.7 K/mm3 (4.0-10.0)
[2020-05-16 11:46] LABS: ALBUMIN 3.9 g/dl (3.4-5.0); BILIRUBIN,TOTAL 0.5 mg/dL (0.2-1); BLOOD UREA NITROGEN 26.1 mg/dL (7-18); CALCIUM 8.9 mg/dL (8.5-10.1); CREATININE 1.5 mg/dL (0.55-1.3); TOT PROT 7.5 g/dl (6.4-8.2)
[2020-05-16 14:41] LABS: ANISOCYTOSIS 2+; MACROCYTOSIS 2+; OVALOCYTE 1+; PLATELET ESTIMATE NORMAL
[2020-05-16 16:41] VITALS: BP 108/52; PULSE 78; TEMP 98.9
[2020-05-19] MEDS: PORTA CATH FLUSH 10 ML IVPUSH PRN ×2 (08:06→08:07)
== END 2020-05-16 10:55 | disposition home or self-care (01) ==
LOC: JONCNONCHE 07:15
PROVIDERS: ATTEND Internal Medicine Hematology & Oncology
DX: Z53.8 Procedure and treatment not carried out for other reasons (principal)
CPT/HCPCS: 36415; 80053; 82378; 85025; 96365

== ENCOUNTER → 2020-08-29 | Day surgery (SDC) | payer OTHER ==
[2020-08-21 15:20] VITALS: BMI 29.0
[2020-08-29 10:02] VITALS: TEMP 97.5
[2020-08-29 10:36] VITALS: BP 141/92; PULSE 62
== END | disposition home or self-care (01) ==
LOC: JASU-ENDO 05:00
PROVIDERS: ATTEND Internal Medicine Gastroenterology
PROC: 0DB78ZX Excision of Stomach, Pylorus, Via Natural or Artificial Opening Endoscopic, Diagnostic (ICD-10-PCS; 2020-08-29)
PROC: 0DBL8ZX Excision of Transverse Colon, Via Natural or Artificial Opening Endoscopic, Diagnostic (ICD-10-PCS; 2020-08-29)
PROC: 0DB98ZX Excision of Duodenum, Via Natural or Artificial Opening Endoscopic, Diagnostic (ICD-10-PCS; principal; 2020-08-29 09:00)
DX: K92.1 Melena (principal); K25.3 Acute gastric ulcer without hemorrhage or perforation; D12.3 Benign neoplasm of transverse colon; Z98.0 Intestinal bypass and anastomosis status; Z12.11 Encounter for screening for malignant neoplasm of colon
CPT/HCPCS: 88305-TC; 88342-TC

== ENCOUNTER 2021-01-27 05:18 | Day surgery (SDC) | payer OTHER ==
[2021-01-26 16:18] VITALS: BMI 29.9
[2021-01-27] MEDS ORDERED: MIDAZOLAM HCL 2 MG/2 ML SINGLE DOSE VIAL ONE (12:52)
[2021-01-27] MEDS ORDERED: ceFAZolin SODIUM 1 GM VIAL IVPB ONE (13:35)
[2021-01-27 17:28] VITALS: BP 155/90; PULSE 60; TEMP 98.5
== END 2021-01-27 17:00 | disposition home or self-care (01) ==
LOC: JASU-SURG 05:18
PROVIDERS: ATTEND Urology
PROC: 0TF3XZZ Fragmentation in Right Kidney Pelvis, External Approach (ICD-10-PCS; principal; 2021-01-27 13:00)
DX: N20.0 Calculus of kidney (principal)

== ENCOUNTER 2021-03-10 04:24 | Day surgery (SDC) | payer OTHER ==
[2021-03-09 14:14] VITALS: BMI 29.6
[2021-03-10] MEDS ORDERED: PROPOFOL 20 ML ONE ×2 (12:04)
[2021-03-10] MEDS ORDERED: ceFAZolin SODIUM 1 GM VIAL ONE (12:05)
[2021-03-10] MEDS ORDERED: ceFAZolin SODIUM 1 GM VIAL IVPB ONE (12:05)
[2021-03-10] MEDS ORDERED: ONDANSETRON 4 MG/2 ML VIAL IVPUSH PRN (13:33)
[2021-03-10 13:42] VITALS: BP 126/70; PULSE 60; TEMP 98.4
[2021-03-10] MEDS ORDERED: LACTATED RINGERS SOLUTION 1,000 ML IV SCH (13:45)
== END 2021-03-10 14:00 | disposition home or self-care (01) ==
LOC: JASU-SURG 04:24
PROVIDERS: ATTEND Urology
PROC: 0TF4XZZ Fragmentation in Left Kidney Pelvis, External Approach (ICD-10-PCS; principal; 2021-03-10 11:45)
DX: N13.2 Hydronephrosis with renal and ureteral calculous obstruction (principal)

== ENCOUNTER 2021-07-28 04:32 | Day surgery (SDC) | payer OTHER ==
[2021-07-23 16:25] VITALS: BMI 29.6
[2021-07-28] MEDS ORDERED: MIDAZOLAM HCL 2 MG/2 ML SINGLE DOSE VIAL ONE (10:05)
[2021-07-28] MEDS ORDERED: PROPOFOL 20 ML ONE ×2 (10:25)
[2021-07-28] MEDS ORDERED: oxyCODONE HCL 5 MG TABLET PO PRN (11:18)
[2021-07-28] MEDS ORDERED: ONDANSETRON 4 MG/2 ML VIAL IVPUSH PRN (11:18)
[2021-07-28] MEDS ORDERED: ACETAMINOPHEN 1000 MG/100 ML BAG IVPB ONE (11:19)
[2021-07-28] MEDS ORDERED: LACTATED RINGERS SOLUTION 1,000 ML IV SCH (11:30)
[2021-07-28 12:23] VITALS: BP 124/76; PULSE 78; TEMP 97.6
== END 2021-07-28 13:00 | disposition home or self-care (01) ==
LOC: JASU-SURG 04:32
PROVIDERS: ATTEND Urology
PROC: 0TF4XZZ Fragmentation in Left Kidney Pelvis, External Approach (ICD-10-PCS; principal; 2021-07-28 09:45)
DX: N20.0 Calculus of kidney (principal)
CPT/HCPCS: 94760

== ENCOUNTER 2021-11-23 05:21 | Day surgery (SDC) | payer OTHER ==
[2021-11-18 14:08] VITALS: BMI 30.4
[2021-11-23 08:55] VITALS: TEMP 97.1
[2021-11-23 09:21] VITALS: BP 123/79; PULSE 86
== END 2021-11-23 10:13 | disposition home or self-care (01) ==
LOC: JASU-ENDO 05:21
PROVIDERS: ATTEND Internal Medicine Gastroenterology
PROC: 0DBK8ZX Excision of Ascending Colon, Via Natural or Artificial Opening Endoscopic, Diagnostic (ICD-10-PCS; 2021-11-23)
PROC: 0DBP8ZX Excision of Rectum, Via Natural or Artificial Opening Endoscopic, Diagnostic (ICD-10-PCS; 2021-11-23)
PROC: 0DBN8ZX Excision of Sigmoid Colon, Via Natural or Artificial Opening Endoscopic, Diagnostic (ICD-10-PCS; principal; 2021-11-23 08:00)
DX: D12.2 Benign neoplasm of ascending colon (principal); D12.5 Benign neoplasm of sigmoid colon; Z98.0 Intestinal bypass and anastomosis status; K57.30 Diverticulosis of large intestine without perforation or abscess without bleeding
CPT/HCPCS: 88305-TC

== ENCOUNTER 2021-12-01 08:42 | Emergency (ER) | payer OTHER ==
[2021-12-01 08:51] VITALS: BP 164/89; PULSE 88; TEMP 98.6; BMI 29.5
[2021-12-01] MEDS ORDERED: ACETAMINOPHEN 500 MG TABLET (FP) PO ONE (09:22)
[2021-12-01] MEDS ORDERED: ACETAMINOPHEN 500 MG TABLET (FP) ONE (09:27)
[2021-12-01] MEDS ORDERED: LIDOCAINE 5% TOPICAL PATCH TP ONE (10:03)
[2021-12-01] MEDS ORDERED: LIDOCAINE 5% TOPICAL PATCH ONE (10:22)
== END 2021-12-01 10:58 | disposition home or self-care (01) ==
LOC: JERFT 08:42
DX: M25.521 Pain in right elbow (principal)
CPT/HCPCS: 73070-TC-RT-FY; 99283-25

== ENCOUNTER 2022-10-24 15:40 | Emergency (ER) | payer OTHER ==
[2022-10-24 15:44] VITALS: BP 159/83; PULSE 89; RESP 18; TEMP 97.4; BMI 28.2
[2022-10-24] MEDS ORDERED: ACETAMINOPHEN 500 MG TABLET (FP) PO ONE (16:19)
[2022-10-24] MEDS ORDERED: ACETAMINOPHEN 325 MG TABLET (FP) ONE (16:41)
[2022-10-24 17:10] LABS: HEMATOCRIT 40.7 % (35.4-49); HEMOGLOBIN 14.1 GM/dL (11.7-16.9); LYMPH % 10.6 % (8-40); MCH 31.6 pg (25.7-33.7); MCHC 34.7 g/dl (32.0-35.9); MEAN PLT VOLUME 7.8 fl (7.5-11.1); MONO % 7.7 % (3.8-10.2); NEUT % 77.7 % (42.8-82.8); PLATELET COUNT 371 10^3/uL (134-434); RBC 4.47 M/mm3 (4.00-5.60); RDW 14.3 % (11.9-15.9)
[2022-10-24 17:33] LABS: ALBUMIN 3.6 g/dl (3.4-5.0); BLOOD UREA NITROGEN 18.1 mg/dL (7-18); CALCIUM 8.6 mg/dL (8.5-10.1)
[2022-10-24 17:36] LABS: CREATININE 1.1 mg/dL (0.55-1.3)
[2022-10-24 17:37] LABS: BILIRUBIN,TOTAL 0.8 mg/dL (0.2-1); TOT PROT 7.3 g/dl (6.4-8.2)
[2022-10-24] MEDS ORDERED: AMOX TR/POT CLAV 875MG/125MG TABLETS (FP) PO ONE (19:17)
[2022-10-24] MEDS ORDERED: AMOX TR/POT CLAV 875MG/125MG TABLETS (FP) ONE (19:19)
== END 2022-10-24 19:51 | disposition home or self-care (01) ==
LOC: JER 15:40
DX: K40.90 Unilateral inguinal hernia, without obstruction or gangrene, not specified as recurrent (principal); K52.89 Other specified noninfective gastroenteritis and colitis
CPT/HCPCS: 36415; 74177-TC; 80053; 83605; 85025; 99285-25; Q9967

== ENCOUNTER 2024-02-17 04:37 | Day surgery (SDC) | payer OTHER ==
[2024-02-15 07:15] VITALS: BMI 27.7
[2024-02-17 08:43] VITALS: TEMP 97.6
[2024-02-17 08:55] VITALS: RESP 18
[2024-02-17 09:17] VITALS: BP 135/87; PULSE 68
== END 2024-02-17 09:40 | disposition home or self-care (01) ==
LOC: JASU-ENDO 04:37
PROVIDERS: ATTEND Internal Medicine Gastroenterology
PROC: 0DBH8ZX Excision of Cecum, Via Natural or Artificial Opening Endoscopic, Diagnostic (ICD-10-PCS; 2024-02-17)
PROC: 0DBP8ZX Excision of Rectum, Via Natural or Artificial Opening Endoscopic, Diagnostic (ICD-10-PCS; 2024-02-17)
PROC: 0DB98ZX Excision of Duodenum, Via Natural or Artificial Opening Endoscopic, Diagnostic (ICD-10-PCS; 2024-02-17)
PROC: 0DB68ZX Excision of Stomach, Via Natural or Artificial Opening Endoscopic, Diagnostic (ICD-10-PCS; 2024-02-17)
PROC: 06LY8CC Occlusion of Hemorrhoidal Plexus with Extraluminal Device, Via Natural or Artificial Opening Endoscopic (ICD-10-PCS; principal; 2024-02-17 08:00)
DX: Z12.11 Encounter for screening for malignant neoplasm of colon (principal); D12.0 Benign neoplasm of cecum; Z86.010 Personal history of colon polyps; K29.80 Duodenitis without bleeding; K31.7 Polyp of stomach and duodenum; K31.89 Other diseases of stomach and duodenum; Z98.0 Intestinal bypass and anastomosis status; Z85.038 Personal history of other malignant neoplasm of large intestine; K92.1 Melena
CPT/HCPCS: 88305-TC; 88342-TC

== ENCOUNTER 2025-01-07 05:22 | Day surgery (SDC) | payer OTHER ==
[2025-01-03 17:04] VITALS: BMI 28.0
[2025-01-07 08:17] VITALS: RESP 18
[2025-01-07] MEDS ORDERED: MIDAZOLAM HCL 2 MG/2 ML SINGLE DOSE VIAL ONE (09:25)
[2025-01-07] MEDS ORDERED: ONDANSETRON 4 MG/2 ML VIAL ONE (09:25)
[2025-01-07] MEDS ORDERED: KETOROLAC TROMETHAMINE 30 MG/1 ML VIAL ONE (09:25)
[2025-01-07 10:49] VITALS: TEMP 98.2
[2025-01-07 11:10] VITALS: BP 152/84; PULSE 69
== END 2025-01-07 11:30 | disposition home or self-care (01) ==
LOC: JASU-SURG 05:22
PROVIDERS: ATTEND Urology
PROC: 0TF4XZZ Fragmentation in Left Kidney Pelvis, External Approach (ICD-10-PCS; principal; 2025-01-07 10:00)
DX: N20.0 Calculus of kidney (principal)